=== PATIENT | male | born 1945 ===

== ENCOUNTER 2018-01-08 09:29 | Day surgery (SDC) | payer MEDICARE ==
[2018-01-03 08:53] VITALS: BMI 25.0
[2018-01-08] MEDS ORDERED: Lactated Ringer's 500 ML IV ONE (12:27)
[2018-01-08] MEDS ORDERED: Propofol 10 mg/ml Inj (20 ML) ONE ×2 (12:31)
[2018-01-08 13:28] VITALS: TEMP 97.5
[2018-01-08 13:30] VITALS: O2SAT 98
[2018-01-08 13:51] LABS: BLOOD UREA NITROGEN 19 mg/dL (9-20); CALCIUM 9.3 mg/dl (8.6-10.4); GFR NON-AFRICAN AMERICAN 59
[2018-01-08 14:25] VITALS: BP 143/67; PULSE 68; RESP 15
== END 2018-01-08 14:20 | disposition home or self-care (01) ==
LOC: C.ENDO 09:29
PROVIDERS: ATTEND Internal Medicine Gastroenterology
DX: Z12.11 Encounter for screening for malignant neoplasm of colon (principal); C18.7 Malignant neoplasm of sigmoid colon; D50.9 Iron deficiency anemia, unspecified; K29.70 Gastritis, unspecified, without bleeding; K64.1 Second degree hemorrhoids; K31.9 Disease of stomach and duodenum, unspecified
CPT/HCPCS: 36415; 43239; 45380; 45381; 80048; 82948; 88305; 88342; J2704; J7040; J7120

== ENCOUNTER 2018-02-03 07:32 | Inpatient (IN) | payer MEDICARE ==
[2018-02-03 07:32] VITALS: BMI 25.0
--- NOTE | 2018-02-03 07:57 | C.PDOC ---
History Of Present Illness 72 years old male with PMHx of CAD, HTN, and DM presents to ED for complaints of on and off abdominal pain that began 1 month ago. Patient states he was sent by his PMD (Dr. Rojo) to get tests done before his upcoming colorectal surgery scheduled for Saturday. Denies fever, diarrhea, constipation, blood in stool, or history of smoking. Time Seen by Provider: 02/03/18 07:45 Chief Complaint (Nursing): Medical Clearance History Per: Patient History/Exam Limitations: no limitations Onset/Duration Of Symptoms: Hrs Current Symptoms Are (Timing): Still Present Recent travel outside of the [place]: No Past Medical History Reviewed: Historical Data, Nursing Documentation, Vital Signs Vital Signs: Last Vital Signs Temp 98.1 F 02/03/18 09:57 Pulse 78 02/03/18 09:57 Resp 16 02/03/18 09:57 BP 153/68 H 02/03/18 09:57 Pulse Ox 100 02/03/18 09:57 - Medical History PMH: Anemia (Takes Feosol), HTN, Hypercholesterolemia Family History: States: No Known Family Hx - Social History Hx Alcohol Use: No Hx Substance Use: No - Immunization History Hx Tetanus Toxoid Vaccination: No Hx Influenza Vaccination: No Hx Pneumococcal Vaccination: No Review Of Systems Constitutional: Negative for: Fever, Chills Cardiovascular: Negative for: Palpitations Gastrointestinal: Positive for: Abdominal Pain. Negative for: Nausea, Vomiting , Diarrhea, Constipation, Hematochezia Skin: Negative for: Rash Neurological: Negative for: Weakness, Numbness Physical Exam - Physical Exam Appears: Well, Non-toxic, No Acute Distress Skin: Normal Color, Warm, Dry, No Rash Head: Atraumatic, Normacephalic Eye(s): bilateral: Normal Inspection, EOMI Oral Mucosa: Moist Neck: Normal ROM Chest: Symmetrical Cardiovascular: Rhythm Regular, No Murmur Respiratory: Normal Breath Sounds, No Rales, No Rhonchi, No Wheezing Gastrointestinal/Abdominal: Bowel Sounds (Active), Soft, No Tenderness, No Distention, No Guarding Extremity: Bilateral: Atraumatic, Normal Color And Temperature, Normal ROM Neurological/Psych: Oriented x3, Normal Speech Gait: Steady ED Course And Treatment - Laboratory Results Result Diagrams: 02/03/18 08:14 02/03/18 08:14 O2 Sat by Pulse Oximetry: 100 (RA) Pulse Ox Interpretation: Normal - Other Rad CXR X-Ray: Viewed By Me, Read By Radiologist Interpretation: Chest x-ray two views. History: Shortness of breath. Comparison: None available. Findings. Mild venous congestion. Heart size normal limits. Tortuous aorta. Degenerative changes in the spine and shoulders. Biapical pleural thickening with upper lobe granulomatous changes. Impression. Mild venous congestion. Heart size normal limits. Tortuous aorta. Degenerative changes in the spine and shoulders. Biapical pleural thickening with upper lobe granulomatous changes. Medical Decision Making Medical Decision Making: Impression: patient with atypical chest pain and needs medical clearance for pre -op Plan: Ordered EKG, blood work, CXR, urine culture, and urinalysis. Progress: Spoke with Dr. Rojo and patient will be admitted for atypical chest pain and will need further pre-op testing including nuclear stress test. Patient has upcoming surgery with Dr. Matthew Disposition - Disposition Disposition: HOSPITALIZED Disposition Time: 08:00 Condition: STABLE - POA Present On Arrival: None - Clinical Impression Clinical Impression: Chest pain, atypical, Medical assessment, Colonic neoplasm - PA / ACOUSTIC INTELLIGENCE SPECIALIST / Resident Statement MD/DO has reviewed & agrees with the documentation as recorded. - Scribe Statement The provider has reviewed the documentation as recorded by the Flor Rodriguez All medical record entries made by the Jovannyibe were at my direction and personally dictated by me. I have reviewed the chart and agree that the record accurately reflects my personal performance of the history, physical exam, medical decision making, and the department course for this patient. I have also personally directed, reviewed, and agree with the discharge instructions and disposition. Decision To Admit - Pt Status Changed To: Hospital Disposition Of: Inpatient - Admit Certification Admit to Inpatient:: After my assessment, the patient will require hospitalization for at least two midnights. This is because of the severity of symptoms shown, intensity of services needed, and/or the medical risk in this patient being treated as an outpatient. - InPatient: Physician Admission Certification: I certify that this patient requires 2 or more midnights of care for the following reason:: Patient with sig PMH, needs further cardiac med clearance for pre-op. - . Bed Request Type: Telemetry Admitting Physician: Matt Rojo Patient Diagnosis: Chest pain, atypical, Medical assessment, Colonic neoplasm
[2018-02-03 08:26] LABS: BASO % 0.5 % (0.0-2.0); EOS # 0.1 K/uL (0.0-0.7); EOS % 0.9 % (0.0-4.0); HEMOGLOBIN 10.8 g/dL (12.0-18.0); LYMPH # 1.9 K/uL (1.0-4.3); LYMPH % 21.9 % (20.0-40.0); MEAN CELL VOLUME 74.4 fL (80.0-94.0); MEAN CORPUSCULAR HGB CONC 32.3 g/dL (33.0-37.0); MONO # 0.5 K/uL (0.0-0.8); MONO % 5.7 % (0.0-10.0); NEUT # 6.2 K/uL (1.8-7.0); RBC 4.5 Mil/uL (4.40-5.90); RED CELL DISTRIBUTION WIDTH 19.3 % (11.5-14.5); WHITE BLOOD COUNT 8.8 K/uL (4.8-10.8)
[2018-02-03 08:32] LABS: INR 1.2; PROTHROMBIN TIME 12.6 SECONDS (9.7-12.2)
[2018-02-03 08:36] LABS: ALB/GLOB RATIO 1.3 (1.0-2.1); ALBUMIN 4.4 g/dL (3.5-5.0); ALT/SGPT 19 U/L (21-72); AST/SGOT 15 U/L (17-59); BLOOD UREA NITROGEN 35 mg/dL (9-20); CALCIUM 9.8 mg/dl (8.6-10.4); GFR NON-AFRICAN AMERICAN 50
[2018-02-03 08:58] LABS: SQUAMOUS EPITHIAL 1 /hpf (0-5); URINE BILIRUBIN NEGATIVE (NEGATIVE); URINE BLOOD NEGATIVE (NEGATIVE); URINE CLARITY Clear (Clear); URINE COLOR Yellow (YELLOW); URINE GLUCOSE (UA) NORMAL (Normal); URINE LEUKOCYTE ESTERASE NEG Leu/uL (Negative); URINE PROTEIN NEGATIVE (NEGATIVE); URINE UROBILINOGEN NORMAL mg/dL (0.2-1.0)
--- NOTE | 2018-02-03 10:01 | RAD ---
Chest x-ray two views History: Shortness of breath. Comparison: None available. Findings Mild venous congestion. Heart size normal limits. Tortuous aorta. Degenerative changes in the spine and shoulders. Biapical pleural thickening with upper lobe granulomatous changes. Impression Mild venous congestion. Heart size normal limits. Tortuous aorta. Degenerative changes in the spine and shoulders. Biapical pleural thickening with upper lobe granulomatous changes.
[2018-02-03 16:22] VITALS: RESP 20
--- NOTE | 2018-02-03 17:01 | CP.PCM.CON ---
<Antony Zamudio E - Last Filed: 02/03/18 17:02> History of Present Illness - History of Present Illness History of Present Illness: Cardiology consult note ( Dr. Jackson's service) CC: pre-op clearance for colonoscopy scheduled for Saturday02/05/18. HPI: Patient is a 72 year old male with past medical history of HTN, DM, CAD, anemia, and colon carcinoma presents to the ED after referral from his PMD, Dr. Rojo, for complaints of lower abdominal pain while straining to defecate for the past month. In addition, he also complains of shortness of breath on exertion and tightness in his chest after walking 4 blocks that improves with rest. Currently, patient denies any fever, headache, chills, chest pain, palpitations, cough, nausea, vomiting, constipation, diarrhea, dizziness, leg swelling, or calf pains. PMHx: HTN, DM, CAD, anemia, colon carcinoma PSHx: herniated disk surgery (unsure of detail or time) FamHx: denies Allergies: NKDA Medications: See MAR Social Hx: smoked 1/2 ppd for 20 years but quit 20 years ago, denies alcohol or drug use Review of Systems - Constitutional Constitutional: absent: Chills, Fever, Headache - EENT Eyes: absent: Blurred Vision, Change in Vision - Cardiovascular Cardiovascular: Chest Pain with Activity, Dyspnea on Exertion. absent: Chest Pain, Dyspnea, Lightheadedness, Palpitations - Gastrointestinal Gastrointestinal: Abdominal Pain. absent: Nausea, Vomiting - Neurological Neurological: absent: Dizziness - Psychiatric Psychiatric: absent: Anxiety, Change in Appetite - Endocrine Endocrine: absent: Fatigue, Palpitations Past Patient History - Past Medical History & Family History Past Medical History?: Yes - Past Social History Smoking Status: Never Smoked - CARDIAC Hx Hypercholesterolemia: Yes Hx Hypertension: Yes - PULMONARY Hx Respiratory Disorders: No - NEUROLOGICAL Hx Neurological Disorder: No - HEENT Hx HEENT Problems: Yes Hx Deafness: Yes (Hearing loss, no hearing aid) - RENAL Hx Chronic Kidney Disease: No - ENDOCRINE/METABOLIC Hx Endocrine Disorders: Yes Hx Diabetes Mellitus Type 2: Yes - HEMATOLOGICAL/ONCOLOGICAL Hx Anemia: Yes (Takes Feosol) - INTEGUMENTARY Hx Dermatological Problems: No - MUSCULOSKELETAL/RHEUMATOLOGICAL Hx Falls: No Hx Herniated Disk: Yes - GASTROINTESTINAL Hx Gastrointestinal Disorders: No Other/Comment: Abdominal Pain - GENITOURINARY/GYNECOLOGICAL Hx Genitourinary Disorders: No - PSYCHIATRIC Hx Psychophysiologic Disorder: No Hx Substance Use: No - SURGICAL HISTORY Hx Surgeries: Yes Hx Orthopedic Surgery: Yes (Had Back Surgery, HERNIATED DISK REPAIR) Other/Comment: Hx. Thumb Surgery, long time ago - ANESTHESIA Hx Anesthesia: Yes Hx Anesthesia Reactions: No Hx Malignant Hyperthermia: No Meds Allergies/Adverse Reactions: Allergies Allergy/AdvReac Type Severity Reaction Status Date / Time No Known Allergies Allergy Verified 02/03/18 07:38 - Medications Medications: Current Medications Ferrous Sulfate (Feosol) 325 mg PO DAILY [facility] Glipizide (Glucotrol) 5 mg PO DAILY [facility] Hydrochlorothiazide (Hydrodiuril) 25 mg PO DAILY [facility] Lisinopril (Zestril) 20 mg PO DAILY [facility] Rosuvastatin Calcium (Crestor) 20 mg PO HS [facility] Physical Exam - Constitutional Appears: No Acute Distress - Head Exam Head Exam: ATRAUMATIC, NORMAL INSPECTION - Eye Exam Eye Exam: EOMI, Normal appearance - ENT Exam ENT Exam: Mucous Membranes Moist - Respiratory Exam Respiratory Exam: NORMAL BREATHING PATTERN - Cardiovascular Exam Cardiovascular Exam: REGULAR RHYTHM, +S1, +S2 - GI/Abdominal Exam GI & Abdominal Exam: Normal Bowel Sounds, Soft. absent: Distended, Firm, Guarding, Hypoactive Bowel Sounds, Tenderness - Extremities Exam Extremities exam: Positive for: normal inspection Results - Vital Signs Recent Vital Signs: Last Vital Signs Temp 97.8 F 02/03/18 16:22 Pulse 69 02/03/18 16:22 Resp 20 02/03/18 16:22 BP 160/69 H 02/03/18 16:22 Pulse Ox 99 02/03/18 16:22 - Labs Result Diagrams: 02/03/18 08:14 02/03/18 08:14 Labs: Laboratory Results - last 24 hr 02/03/18 02/03/18 02/03/18 08:14 08:14 08:14 WBC 8.8 RBC 4.50 Hgb 10.8 L Hct 33.5 L MCV 74.4 L MCH 24.0 L MCHC 32.3 L RDW 19.3 H Plt Count 349 MPV 8.0 Neut % (Auto) 71.0 Lymph % (Auto) 21.9 [place] % (Auto) 5.7 Eos % (Auto) 0.9 Baso % (Auto) 0.5 Neut # (Auto) 6.2 Lymph # (Auto) 1.9 [place] # (Auto) 0.5 Eos # (Auto) 0.1 Baso # (Auto) 0.0 PT 12.6 H INR 1.2 APTT 31 Sodium Potassium Chloride Carbon Dioxide Anion Gap BUN Creatinine Est GFR ( Amer) Est GFR (Non-Af Amer) POC Glucose (mg/dL) Random Glucose Calcium Total Bilirubin AST ALT Alkaline Phosphatase Total Creatine Kinase CK-MB (Mass) Troponin I Total Protein Albumin Globulin Albumin/Globulin Ratio Urine Color Yellow Urine Clarity Clear Urine pH 5.0 Ur Specific [place] 1.015 Urine Protein Negative Urine Glucose (UA) Normal Urine Ketones Negative Urine Blood Negative Urine Nitrate Negative Urine Bilirubin Negative Urine Urobilinogen Normal Ur Leukocyte Esterase Neg Urine WBC (Auto) < 1 Ur Squamous Epith Cells 1 02/03/18 02/03/18 02/03/18 08:14 08:55 11:53 WBC RBC Hgb Hct MCV MCH MCHC RDW Plt Count MPV Neut % (Auto) Lymph % (Auto) [place] % (Auto) Eos % (Auto) Baso % (Auto) Neut # (Auto) Lymph # (Auto) [place] # (Auto) Eos # (Auto) Baso # (Auto) PT INR APTT Sodium 145 Potassium 4.2 Chloride 102 Carbon Dioxide 28 Anion Gap 19 BUN 35 H Creatinine 1.4 Est GFR ( Amer) 60 Est GFR (Non-Af Amer) 50 POC Glucose (mg/dL) 121 H Random Glucose 141 H Calcium 9.8 Total Bilirubin 0.9 AST 15 L ALT 19 L Alkaline Phosphatase 105 Total Creatine Kinase 65 CK-MB (Mass) 0.50 Troponin I < 0.0120 < 0.0120 Total Protein 7.9 Albumin 4.4 Globulin 3.5 Albumin/Globulin Ratio 1.3 Urine Color Urine Clarity Urine pH Ur Specific [place] Urine Protein Urine Glucose (UA) Urine Ketones Urine Blood Urine Nitrate Urine Bilirubin Urine Urobilinogen Ur Leukocyte Esterase Urine WBC (Auto) Ur Squamous Epith Cells Assessment & Plan (1) Preop cardiovascular exam Assessment and Plan: Patient is a 72 year old male with past medical history of HTN, DM, CAD, anemia , and colon carcinoma who presents to the ED due to worsening symptoms. Cardiology consult was placed for cardiac clearance: - EKG: NSR at 92 BPM - F/u echo - Plans for pharmacology stress test in the am All plans and management discussed with Dr. Jackson Status: Acute <Lorenzo Jackson - Last Filed: 02/04/18 06:05> Meds - Medications Medications: Current Medications Ferrous Sulfate (Feosol) 325 mg PO DAILY [facility] Glipizide (Glucotrol) 5 mg PO DAILY [facility] Hydrochlorothiazide (Hydrodiuril) 25 mg PO DAILY [facility] Lisinopril (Zestril) 20 mg PO DAILY [facility] Rosuvastatin Calcium (Crestor) 20 mg PO HS [facility] Last Admin: 02/03/18 21:07 Dose: 20 mg Results - Vital Signs Recent Vital Signs: Last Vital Signs Temp 97.8 F 02/03/18 23:40 Pulse 60 02/04/18 04:00 Resp 20 02/03/18 23:40 BP 134/63 02/03/18 23:40 Pulse Ox 98 02/03/18 23:40 - Labs Result Diagrams: 02/03/18 08:14 02/03/18 08:14 Labs: Laboratory Results - last 24 hr 02/03/18 02/03/18 02/03/18 08:14 08:14 08:14 WBC 8.8 RBC 4.50 Hgb 10.8 L Hct 33.5 L MCV 74.4 L MCH 24.0 L MCHC 32.3 L RDW 19.3 H Plt Count 349 MPV 8.0 Neut % (Auto) 71.0 Lymph % (Auto) 21.9 [place] % (Auto) 5.7 Eos % (Auto) 0.9 Baso % (Auto) 0.5 Neut # (Auto) 6.2 Lymph # (Auto) 1.9 [place] # (Auto) 0.5 Eos # (Auto) 0.1 Baso # (Auto) 0.0 PT 12.6 H INR 1.2 APTT 31 Sodium Potassium Chloride Carbon Dioxide Anion Gap BUN Creatinine Est GFR ( Amer) Est GFR (Non-Af Amer) POC Glucose (mg/dL) Random Glucose Calcium Total Bilirubin AST ALT Alkaline Phosphatase Total Creatine Kinase CK-MB (Mass) Troponin I Total Protein Albumin Globulin Albumin/Globulin Ratio Urine Color Yellow Urine Clarity Clear Urine pH 5.0 Ur Specific [place] 1.015 Urine Protein Negative Urine Glucose (UA) Normal Urine Ketones Negative Urine Blood Negative Urine Nitrate Negative Urine Bilirubin Negative Urine Urobilinogen Normal Ur Leukocyte Esterase Neg Urine WBC (Auto) < 1 Ur Squamous Epith Cells 1 02/03/18 02/03/18 02/03/18 08:14 08:55 11:53 WBC RBC Hgb Hct MCV MCH MCHC RDW Plt Count MPV Neut % (Auto) Lymph % (Auto) [place] % (Auto) Eos % (Auto) Baso % (Auto) Neut # (Auto) Lymph # (Auto) [place] # (Auto) Eos # (Auto) Baso # (Auto) PT INR APTT Sodium 145 Potassium 4.2 Chloride 102 Carbon Dioxide 28 Anion Gap 19 BUN 35 H Creatinine 1.4 Est GFR ( Amer) 60 Est GFR (Non-Af Amer) 50 POC Glucose (mg/dL) 121 H Random Glucose 141 H Calcium 9.8 Total Bilirubin 0.9 AST 15 L ALT 19 L Alkaline Phosphatase 105 Total Creatine Kinase 65 CK-MB (Mass) 0.50 Troponin I < 0.0120 < 0.0120 Total Protein 7.9 Albumin 4.4 Globulin 3.5 Albumin/Globulin Ratio 1.3 Urine Color Urine Clarity Urine pH Ur Specific [place] Urine Protein Urine Glucose (UA) Urine Ketones Urine Blood Urine Nitrate Urine Bilirubin Urine Urobilinogen Ur Leukocyte Esterase Urine WBC (Auto) Ur Squamous Epith Cells Assessment & Plan - Assessment and Plan (Free Text) Assessment: Patient seen and evaluated personally by de Plan of care d/w the medical case manager and as documented
[2018-02-04] MEDS ORDERED: Caffeine Citrated **INJ** 20 MG/ML IV ONE (07:53)
--- NOTE | 2018-02-04 11:45 | CARD ---
APPROVED REPORT Date of service: 02/03/2018 EKG Measurement Heart [id number] <Conclusion> Normal sinus rhythm Nonspecific ST abnormality Abnormal ECG
[2018-02-04 16:26] VITALS: BP 131/71; PULSE 75; TEMP 98.1; O2SAT 99
--- NOTE | 2018-02-04 18:11 | CP.PCM.DIS ---
Provider - Provider Date of Admission: 02/03/18 07:54 Attending physician: Matt Rojo MD Hospital Course - Lab Results Lab Results: Micro Results 02/03/18 08:14 Urine Urine Culture - Final No Growth (<1,000 CFU/ML) Most Recent Lab Values WBC 8.8 K/uL (4.8-10.8) 02/03/18 08:14 RBC 4.50 Mil/uL (4.40-5.90) 02/03/18 08:14 Hgb 10.8 g/dL (12.0-18.0) L 02/03/18 08:14 Hct 33.5 % (35.0-51.0) L 02/03/18 08:14 MCV 74.4 fL (80.0-94.0) L 02/03/18 08:14 MCH 24.0 pg (27.0-31.0) L 02/03/18 08:14 MCHC 32.3 g/dL (33.0-37.0) L 02/03/18 08:14 RDW 19.3 % (11.5-14.5) H 02/03/18 08:14 Plt Count 349 K/uL (130-400) 02/03/18 08:14 MPV 8.0 fL (7.2-11.7) 02/03/18 08:14 Neut % (Auto) 71.0 % (50.0-75.0) 02/03/18 08:14 Lymph % (Auto) 21.9 % (20.0-40.0) 02/03/18 08:14 [place] % (Auto) 5.7 % (0.0-10.0) 02/03/18 08:14 Eos % (Auto) 0.9 % (0.0-4.0) 02/03/18 08:14 Baso % (Auto) 0.5 % (0.0-2.0) 02/03/18 08:14 Neut # (Auto) 6.2 K/uL (1.8-7.0) 02/03/18 08:14 Lymph # (Auto) 1.9 K/uL (1.0-4.3) 02/03/18 08:14 [place] # (Auto) 0.5 K/uL (0.0-0.8) 02/03/18 08:14 Eos # (Auto) 0.1 K/uL (0.0-0.7) 02/03/18 08:14 Baso # (Auto) 0.0 K/uL (0.0-0.2) 02/03/18 08:14 PT 12.6 SECONDS (9.7-12.2) H 02/03/18 08:14 INR 1.2 02/03/18 08:14 APTT 31 SECONDS (21-34) 02/03/18 08:14 Sodium 145 mmol/L (132-148) 02/03/18 08:14 Potassium 4.2 mmol/L (3.6-5.2) 02/03/18 08:14 Chloride 102 mmol/L (98-107) 02/03/18 08:14 Carbon Dioxide 28 mmol/L (22-30) 02/03/18 08:14 Anion Gap 19 (10-20) 02/03/18 08:14 BUN 35 mg/dL (9-20) H 02/03/18 08:14 Creatinine 1.4 mg/dL (0.8-1.5) 02/03/18 08:14 Est GFR ( Amer) 60 02/03/18 08:14 Est GFR (Non-Af Amer) 50 02/03/18 08:14 POC Glucose (mg/dL) 167 mg/dL (65-110) H 02/04/18 11:25 Random Glucose 141 mg/dL (75-110) H 02/03/18 08:14 Calcium 9.8 mg/dl (8.6-10.4) 02/03/18 08:14 Total Bilirubin 0.9 mg/dL (0.2-1.3) 02/03/18 08:14 AST 15 U/L (17-59) L 02/03/18 08:14 ALT 19 U/L (21-72) L 02/03/18 08:14 Alkaline Phosphatase 105 U/L (38-126) 02/03/18 08:14 Total Creatine Kinase 65 U/L (55-170) 02/03/18 11:53 CK-MB (Mass) 0.50 ng/mL (0.0-3.38) 02/03/18 11:53 Troponin I < 0.0120 ng/mL (0.00-0.120) 02/03/18 11:53 Total Protein 7.9 g/dL (6.3-8.3) 02/03/18 08:14 Albumin 4.4 g/dL (3.5-5.0) 02/03/18 08:14 Globulin 3.5 gm/dL (2.2-3.9) 02/03/18 08:14 Albumin/Globulin Ratio 1.3 (1.0-2.1) 02/03/18 08:14 Urine Color Yellow (YELLOW) 02/03/18 08:14 Urine Clarity Clear (Clear) 02/03/18 08:14 Urine pH 5.0 (5.0-8.0) 02/03/18 08:14 Ur Specific [place] 1.015 (1.003-1.030) 02/03/18 08:14 Urine Protein Negative mg/dL (NEGATIVE) 02/03/18 08:14 Urine Glucose (UA) Normal mg/dL (Normal) 02/03/18 08:14 Urine Ketones Negative mg/dL (NEGATIVE) 02/03/18 08:14 Urine Blood Negative (NEGATIVE) 02/03/18 08:14 Urine Nitrate Negative (NEGATIVE) 02/03/18 08:14 Urine Bilirubin Negative (NEGATIVE) 02/03/18 08:14 Urine Urobilinogen Normal mg/dL (0.2-1.0) 02/03/18 08:14 Ur Leukocyte Esterase Neg [place]ima/uL (Negative) 02/03/18 08:14 Urine WBC (Auto) < 1 /hpf (0-5) 02/03/18 08:14 Ur Squamous Epith Cells 1 /hpf (0-5) 02/03/18 08:14 Discharge Exam - Head Exam Head Exam: ATRAUMATIC, NORMAL INSPECTION Discharge Plan - Follow Up Plan Condition: STABLE Disposition: HOME/ ROUTINE Instructions: Heart Healthy Diet, Chest Pain (DC) Referrals: Matt Rojo MD [Staff Provider] -
--- NOTE | 2018-02-04 18:11 | CP.PCM.HP ---
Past Patient History - Past Medical History & Family History Past Medical History?: Yes - Past Social History Smoking Status: Never Smoked - CARDIAC Hx Hypercholesterolemia: Yes Hx Hypertension: Yes - PULMONARY Hx Respiratory Disorders: No - NEUROLOGICAL Hx Neurological Disorder: No - HEENT Hx HEENT Problems: Yes Hx Deafness: Yes (Hearing loss, no hearing aid) - RENAL Hx Chronic Kidney Disease: No - ENDOCRINE/METABOLIC Hx Endocrine Disorders: Yes Hx Diabetes Mellitus Type 2: Yes - HEMATOLOGICAL/ONCOLOGICAL Hx Anemia: Yes (Takes Feosol) - INTEGUMENTARY Hx Dermatological Problems: No - MUSCULOSKELETAL/RHEUMATOLOGICAL Hx Falls: No Hx Herniated Disk: Yes - GASTROINTESTINAL Hx Gastrointestinal Disorders: No Other/Comment: Abdominal Pain - GENITOURINARY/GYNECOLOGICAL Hx Genitourinary Disorders: No - PSYCHIATRIC Hx Psychophysiologic Disorder: No Hx Substance Use: No - SURGICAL HISTORY Hx Surgeries: Yes Hx Orthopedic Surgery: Yes (Had Back Surgery, HERNIATED DISK REPAIR) Other/Comment: Hx. Thumb Surgery, long time ago - ANESTHESIA Hx Anesthesia: Yes Hx Anesthesia Reactions: No Hx Malignant Hyperthermia: No Meds Allergies/Adverse Reactions: Allergies Allergy/AdvReac Type Severity Reaction Status Date / Time No Known Allergies Allergy Verified 02/03/18 07:38 Results - Vital Signs Recent Vital Signs: Last Vital Signs Temp 98.1 F 02/04/18 15:00 Pulse 75 02/04/18 15:00 Resp 20 02/04/18 15:00 BP 131/71 02/04/18 15:00 Pulse Ox 99 02/04/18 15:00 - Labs Result Diagrams: 02/03/18 08:14 02/03/18 08:14 Labs: Laboratory Results - last 24 hr 02/04/18 02/04/18 06:29 11:25 POC Glucose (mg/dL) 149 H 167 H
--- NOTE | 2018-02-04 22:04 | CARD ---
APPROVED REPORT Date of service: 02/04/2018 EXAM: Two-dimensional and M-mode echocardiogram with Doppler and color Doppler. Other Information Quality : GoodRhythm : INDICATION Cardiac Disease: CAD Chest Pain RISK FACTORS Hypertension Hyperlipidemia Diabetes 2D DIMENSIONS IVSd1.0 (0.7-1.1cm)LVDd4.3 (3.9-5.9cm) PWd1.0 (0.7-1.1cm)LVDs3.2 (2.5-4.0cm) FS (%) 25.8 %LVEF (%)51.0 (>50%) M-Mode DIMENSIONS RVDd2.40 (2.1-3.2cm)Left Atrium (MM)3.17 (2.5-4.0cm) IVSd0.88 (0.7-1.1cm)Aortic Root3.03 (2.2-3.7cm) LVDd4.86 (4.0-5.6cm)Aortic Cusp Exc.1.79 (1.5-2.0cm) PWd1.15 (0.7-1.1cm)FS (%) 29 % LVDs3.46 (2.0-3.8cm)LVEF (%)55 (>50%) Mitral Valve MV E Cvnyctmr12.6cm/sMV A Zftaezwd60.3cm/sE/A ratio0.9 TDI E/Lateral E'0.0E/Medial E'0.0 Tricuspid Valve TR Peak [id number]/sTR Peak Gr.[id number] LEFT VENTRICLE The left ventricle is normal size. There is normal left ventricular wall thickness. Left ventricle systolic function is normal. The Ejection Fraction is 55-60%. There is normal LV segmental wall motion. The left ventricular diastolic function is normal. No left ventricle thrombus noted on this study. RIGHT VENTRICLE The right ventricle is normal size. The right ventricular systolic function is normal. ATRIA The left atrium size is normal. The right atrium size is normal. AORTIC VALVE The aortic valve is mildly thickened. The aortic valve is trileaflet. No aortic regurgitation is present. There is no aortic valvular stenosis. There is no aortic valvular vegetation. MITRAL VALVE Mitral annular calcification is mild. There is no evidence of mitral valve prolapse. There is no mitral valve stenosis. There is no mitral valve regurgitation noted. TRICUSPID VALVE The tricuspid valve is normal in structure. There is mild tricuspid regurgitation. Right ventricular systolic pressure is estimated at 30-40 mmHg. There is no pulmonary hypertension. There is no tricuspid valve prolapse or vegetation. There is no tricuspid valve stenosis. PULMONIC VALVE The pulmonic valve is not well visualized. There is no pulmonic valvular regurgitation. GREAT VESSELS The aortic root is normal in size. The IVC is normal in size and collapses >50% with inspiration. PERICARDIAL EFFUSION There is no pericardial effusion. There is no pleural effusion. <Conclusion> The left ventricle is normal size. Left ventricle systolic function is normal. The Ejection Fraction is 55-60%. The left ventricular diastolic function is normal. The right ventricle is normal size. The right ventricular systolic function is normal. The left atrium size is normal. The right atrium size is normal. There is mild tricuspid regurgitation. Essentialy ormal findings.
--- NOTE | 2018-02-05 05:59 | CP.PCM.PN ---
Subjective - Date & Time of Evaluation Date of Evaluation: 02/04/18 Time of Evaluation: 16:10 - Subjective Subjective: Patient s/p Stress test and ECHO for Pre Op assessment for Colon surgery Social Hx: smoked 1/2 ppd for 20 years but quit 20 years ago, denies alcohol or drug use Review of Systems - Constitutional Constitutional: absent: Chills, Fever, Headache - EENT Eyes: absent: Blurred Vision, Change in Vision - Cardiovascular Cardiovascular: Chest Pain with Activity, Dyspnea on Exertion. absent: Chest Pain, Dyspnea, Lightheadedness, Palpitations - Gastrointestinal Gastrointestinal: Abdominal Pain. absent: Nausea, Vomiting - Neurological Neurological: absent: Dizziness - Psychiatric Psychiatric: absent: Anxiety, Change in Appetite - Endocrine Endocrine: absent: Fatigue, Palpitations Physical Exam - Constitutional Appears: No Acute Distress - Head Exam Head Exam: ATRAUMATIC, NORMAL INSPECTION - Eye Exam Eye Exam: EOMI, Normal appearance - ENT Exam ENT Exam: Mucous Membranes Moist - Respiratory Exam Respiratory Exam: NORMAL BREATHING PATTERN - Cardiovascular Exam Cardiovascular Exam: REGULAR RHYTHM, +S1, +S2 - GI/Abdominal Exam GI & Abdominal Exam: Normal Bowel Sounds, Soft. absent: Distended, Firm, Guarding, Hypoactive Bowel Sounds, Tenderness - Extremities Exam Extremities exam: Positive for: normal inspection Assessment & Plan (1) Preop cardiovascular exam Assessment and Plan: Patient is a 72 year old male with past medical history of HTN, DM, CAD, anemia , and colon carcinoma who presents to the ED due to worsening symptoms. Cardiology consult was placed for cardiac Risk assessment: - EKG: NSR at 92 BPM - Echo: Normal EF and no major valvular issues - Pharmacology stress test: No evidence of stress induced sichemia Patient with no cardiac symptoms This patient cleared for Colon surgery under general anaesthesia with moderate cardiac risk No high cardiac risk indicators noted Thank you Will follow Objective - Vital Signs/Intake and Output Vital Signs (last 24 hours): Temp Pulse Resp BP Pulse Ox 98.1 F 75 20 131/71 99 02/04/18 15:00 02/04/18 15:00 02/04/18 15:00 02/04/18 15:00 02/04/18 15:00 Intake and Output: 02/04/18 02/05/18 18:59 06:59 Intake Total 480 Balance 480 - Labs Labs: 02/03/18 08:14 02/03/18 08:14 PT 12.6 SECONDS (9.7-12.2) H 02/03/18 08:14 INR 1.2 02/03/18 08:14 APTT 31 SECONDS (21-34) 02/03/18 08:14
== END 2018-02-04 18:42 | disposition home or self-care (01) | DRG 376 ==
LOC: C.ER 07:32 → C.9E 07:54 → C.6T 14:52
PROVIDERS: ADMIT Internal Medicine; ATTEND Internal Medicine
DX: C18.9 Malignant neoplasm of colon, unspecified (principal); R07.89 Other chest pain; E11.9 Type 2 diabetes mellitus without complications; I10 Essential (primary) hypertension; I25.10 Atherosclerotic heart disease of native coronary artery without angina pectoris; E78.00 Pure hypercholesterolemia, unspecified; H91.90 Unspecified hearing loss, unspecified ear; Z87.891 Personal history of nicotine dependence

== ENCOUNTER 2018-02-05 07:30 | Inpatient (IN) | payer MEDICARE ==
[2018-01-03 08:53] VITALS: BMI 25.0
[2018-02-12] MEDS ORDERED: ceFAZolin IV 1 gm in Dextrose 2 GM/100 ML BAG IVPB ONE (07:28)
[2018-02-12] MEDS ORDERED: Lidocaine/Epinephrine 1% 1:100000 10 ML IJ ONE (07:28)
[2018-02-12] MEDS ORDERED: Bupivacaine 0.25% 20 ML INJ IJ ONE (07:28)
[2018-02-12] MEDS ORDERED: metroNIDAZOLE IV 500 mg/100 ml 500 MG/100 ML BAG ONE (07:28)
[2018-02-12] MEDS ORDERED: Bupivacaine HCl 0.5% PF (30 ml) Inj IJ ONE (07:42)
[2018-02-12] MEDS ORDERED: Rocuronium 10 mg/ml (5 ml) ONE ×3 (08:36→13:28)
[2018-02-12] MEDS ORDERED: Propofol 10 mg/ml Inj (20 ML) ONE (08:36)
[2018-02-12] MEDS ORDERED: Midazolam 2 MG/2 ML VIAL ONE (08:36)
[2018-02-12] MEDS ORDERED: Succinylcholine Chloride 20 mg/ml Syr (5 ml) IV ONE (08:36)
[2018-02-12] MEDS: Bupivacaine 0.5% Inj(30mL) IJ ONE ×2 (11:05→15:37)
[2018-02-12] MEDS ORDERED: ePHEDrine 50 mg/ml Inj ONE (12:25)
[2018-02-12] MEDS ORDERED: Methylene Blue 10 mg/mL(10ml) IV ONE (12:48)
[2018-02-12] MEDS ORDERED: ceFAZolin 1 gm in NS 1 GM/100 ML BAG IVPB ONE (13:40)
[2018-02-12] MEDS ORDERED: Neostigmine Methylsulfate 3mg/3ml Syringe IV ONE (15:11)
[2018-02-12] MEDS ORDERED: Morphine 4 MG/ML VIAL ONE (15:15)
[2018-02-12] MEDS ORDERED: HYDROmorphone 0.5 mg/0.5 ml ISec IVP PRN (16:33)
[2018-02-12] MEDS ORDERED: BUPIVACAINE 0.125%/0.9% NACL 600 ML IJ ONE (16:35)
--- NOTE | 2018-02-12 16:49 | PCM.SURG1 ---
Surgeon's Initial Post Op Note - Surgeon's Notes Surgeon: Dr. jose Multiple Sclerosis Nurse: Nellie Lewis DO rn Type of Anesthesia: General Endo, Local Anesthesia Administered By: magan Pre-Operative Diagnosis: Colorectal CA Operative Findings: Rectal cancer 10cm from the anal verge, large mass Post-Operative Diagnosis: Rectal Cancer Operation Performed: robot assisted laparoscopic partial colectomy with ileostomy Specimen/Specimens Removed: recum, sigmoid cancer Estimated Blood Loss: EBL {In ML}: 100 Blood Products Given: N/A Drains Used: Thomas Post-Op Condition: Good Date of Surgery/Procedure: 02/12/18 Time of Surgery/Procedure: 16:50
[2018-02-12] MEDS: Piperacill/Tazo 3.375gm in Dex 3.375 GM/50 ML BAG IVPB SCH (18:00)
[2018-02-12] MEDS: Dextrose 5%/0.45% NS 1,000 ML IV SCH (18:30)
[2018-02-13] MEDS: HYDROmorphone 0.5 mg/0.5 ml ISec IVP PRN ×3 (00:43→17:58)
[2018-02-13] MEDS: Piperacill/Tazo 3.375gm in Dex 3.375 GM/50 ML BAG IVPB SCH ×3 (00:45→17:51)
[2018-02-13] MEDS: Dextrose 5%/0.45% NS 1,000 ML IV SCH ×2 (03:00→12:04)
--- NOTE | 2018-02-13 03:55 | OP ---
PROCEDURE DATE: 02/12/2018 PREOPERATIVE DIAGNOSIS: Rectal Adenocarcinoma, Upper to mid POSTOPERATIVE DIAGNOSIS: Rectal Adenocarcinoma, Mid Rectum PROCEDURE: 1. Robotic low anterior resection. 2. Diverting loop ileostomy. 3. Laparoscopic bilateral On-Q pain catheter pump placement. SURGEON: Melchor Rainey MD. PRINCIPAL TECHNICAL SPECIALIST: ANN Ram Hae Lee PGY-2 resident. ANESTHESIA: General endotracheal tube anesthesia. ESTIMATED BLOOD LOSS: Around 15 mL. DRAINS: A 19 Bangl[place]hi Thomas drain was placed. COMPLICATIONS: None. INTRAOPERATIVE FINDINGS: The patient had large mid rectal tumor extending up to the lower rectum and due to the low rectal anastomosis, an ileostomy was done for diversion. PROCEDURE: On intraoperative steps, this 72-year-old male was diagnosed with major rectal cancer and the patient was consented for the robotic LAR , possible ileostomy, possible open, brought to the OR, placed supine on the operating room. After induction of the anesthesia, the abdomen was prepped and draped in the usual sterile fashion. The left upper quadrant incision was made using the Visiport technique. Using the Visiport technique, the peritoneal cavity was entered and pneumo was created. Another three 8 mm port was placed in the left upper quadrant. A 3 mm port was placed in the upper abdomen and one 12 mm port was placed in the right lower quadrant and after that robot was brought in. Camera arm as well as arm 1 and arm 2 was docked and the dissection of the sigmoid was done from the lateral abdominal wall and the dissection was carried down on the peritoneal reflection into the pelvis. The patient found to have a large rectal tumor in the mid part of the rectum and after that first the left ureter and then the right ureter was identified. The ureter was dissected up to the full course to complete identification as well as isolation and the dissection was carried down to identify the inferior mesenteric artery and inferior mesenteric artery was clipped at three places and the cut in between two clips and then the rest of the sigmoid colon was mobilized for anastomosis and after that the dissection was carried down into the NGUYEN plane and posteriorly the dissection was done up to the lower rectum. Laterally both side, the dissection was continued up to the lower rectum and the lateral rectal ligament as well as attachment was divided and superiorly the Denonvilliers fascia was identified and the dissection was carried down to lift up the prostatic capsule and the rectum was . Now, the distal rectum appeared to be cancer free and viable and now the EEA was used to divide the rectum, approximately 5 to 6 30 mm EEA was used to divide the rectum and mesorectum. After that the specimen was sent off the table for the pathology. Now, the procedure was converted into the laparoscopy and the small incision was made and a specimen retrieval bag was placed and the specimen was sent off the table for the pathology. The end of the sigmoid was brought out and Anvil was placed. End to end anastomosis was done. Anastomosis was checked for leak and there was no leak identified and intraoperative Firefly was used before anastomosis and after anastomosis to make sure for the good blood supply. The anastomosis has good blood supply without any tension and there was no leak identified on the air leak test and after that proper hemostasis was achieved in the pelvis. A #19 Bangladeshi Thomas drain was placed and the loop ileostomy was created and the specimen retrieval site was closed in two layers. The peritoneum with 0 Vicryl, the fascia with #1 loop PDS and 0 Vicryl interrupted suture and the skin with 4-0 Monocryl at all the port sites. The stoma appliance was placed on the ileostomy after maturation and dry sterile dressings was applied. The patient extubated in the OR, sent to the postanesthesia care in stable condition. There was no apparent complication. Melchor Rainey MD [facility]
[2018-02-13 07:21] LABS: BASO # 0.1 K/uL (0.0-0.2); BASO % 0.6 % (0.0-2.0); EOS % 0.2 % (0.0-4.0); HEMOGLOBIN 9.5 g/dL (12.0-18.0); LYMPH % 11.1 % (20.0-40.0); MEAN CELL VOLUME 73.9 fL (80.0-94.0); MEAN CORPUSCULAR HEMOGLOBIN 24.3 pg (27.0-31.0); MEAN CORPUSCULAR HGB CONC 32.8 g/dL (33.0-37.0); MEAN PLATELET VOLUME 7.8 fL (7.2-11.7); MONO # 0.6 K/uL (0.0-0.8); MONO % 6.4 % (0.0-10.0); NEUT # 7.2 K/uL (1.8-7.0); NEUT % 81.7 % (50.0-75.0); RBC 3.93 Mil/uL (4.40-5.90); WHITE BLOOD COUNT 8.8 K/uL (4.8-10.8)
[2018-02-13] MEDS: Enoxaparin 40 mg Syringe SC SCH (09:30)
--- NOTE | 2018-02-13 15:06 | CP.PCM.PN ---
<ManeCarlos - Last Filed: 02/13/18 15:03> Subjective - Date & Time of Evaluation Date of Evaluation: 02/13/18 Time of Evaluation: 15:03 - Subjective Subjective: Surgery Pt seen and examined. Pt underwent surgery yesterday and tolerated it well. Stoma is place. Pain controlled. Briggs had 3L output since OR. Taken out. Denies nausea, CP, SOB. On Q in place. Haven't ambulate because of pain. Objective - Vital Signs/Intake and Output Vital Signs (last 24 hours): Temp Pulse Resp BP Pulse Ox 98.7 F 92 H 20 107/55 L 98 02/13/18 07:15 02/13/18 07:15 02/13/18 07:15 02/13/18 07:15 02/13/18 07:15 Intake and Output: 02/13/18 02/13/18 06:59 18:59 Intake Total 1490 Output Total 1200 Balance 290 - Medications Medications: Current Medications Acetaminophen (Tylenol 325mg Tab) 650 mg PO Q6 PRN PRN Reason: Fever >100.4 F Enoxaparin Sodium (Lovenox) 40 mg SC DAILY [facility] Last Admin: 02/13/18 09:30 Dose: 40 mg Hydromorphone HCl (Dilaudid) 0.5 mg IVP Q4H PRN PRN Reason: Pain, moderate (4-7) Last Admin: 02/13/18 05:12 Dose: 0.5 mg BUPIVACAINE 0.125%/0.9% NACL (Bupivacaine-Ns 0.125% On-Q Leather Cartridge Belt Maker) 600 mls @ 4 mls/hr IJ ONCE ONE Stop: 02/18/18 22:34 Piperacillin Sod/Tazobactam Sod (Zosyn 3.375 Gm Iv Premix) 3.375 gm in 50 mls @ 200 mls/hr IVPB Q8H [facility]; Protocol Last Admin: 02/13/18 09:31 Dose: 200 mls/hr Potassium Chloride (Potassium Chloride 20 Meq/100 Ml) 20 meq in 100 mls @ 50 mls/hr IVPB ONCE ONE Stop: 02/13/18 15:29 Last Admin: 02/13/18 13:35 Dose: 50 mls/hr Dextrose/Sodium Chloride (Dextrose 5%/0.45% Ns 1000 Ml) 1,000 mls @ 50 mls/hr IV .Q20H [facility] Ondansetron HCl (Zofran Inj) 4 mg IVP Q4 PRN PRN Reason: Nausea/Vomiting Pneumococcal Polyvalent Vaccine (Pneumovax 23 Vaccine) 0.5 ml IM .ONCE ONE Stop: 02/15/18 10:01 - Labs Labs: 02/13/18 07:11 02/13/18 07:11 - Constitutional Appears: No Acute Distress - Head Exam Head Exam: ATRAUMATIC, NORMAL INSPECTION, NORMOCEPHALIC - Eye Exam Eye Exam: EOMI, Normal appearance, PERRL Pupil Exam: NORMAL ACCOMODATION, PERRL - ENT Exam ENT Exam: Mucous Membranes Moist, Normal Exam - Neck Exam Neck Exam: Full ROM - Respiratory Exam Respiratory Exam: NORMAL BREATHING PATTERN - Cardiovascular Exam Cardiovascular Exam: REGULAR RHYTHM, +S1, +S2. absent: Murmur - GI/Abdominal Exam GI & Abdominal Exam: Soft, Tenderness, Normal Bowel Sounds. absent: Distended Additional comments: On Q in place. Incision C/D/I. TTP. Stoma has 20cc SS fluids in bag. [place]. - Exam Exam: NORMAL INSPECTION - Extremities Exam Extremities Exam: Full ROM - Back Exam Back Exam: NORMAL INSPECTION - Neurological Exam Neurological Exam: Alert, Awake, CN II-XII Intact, Normal Gait, Oriented x3 - Psychiatric Exam Psychiatric exam: Normal Affect, Normal Mood - Skin Skin Exam: Dry, Intact, Normal Color, Warm Assessment and Plan - Assessment and Plan (Free Text) Assessment: POD 1 s/p Low anterior resection w anastomosis with diverting loop ileostomy -CLD -monitor BM -MOnitor urine -Labs -IS/OOB/ambulate DW Dr. Rainey <Melchor Rainey B - Last Filed: 02/16/18 19:35> Objective - Vital Signs/Intake and Output Vital Signs (last 24 hours): Temp Pulse Resp BP Pulse Ox 97.8 F 89 20 140/73 97 02/16/18 15:35 02/16/18 15:35 02/16/18 15:35 02/16/18 15:35 02/16/18 15:35 Intake and Output: 02/16/18 02/17/18 18:59 06:59 Intake Total 500 Output Total 170 Balance 330 - Medications Medications: Current Medications Acetaminophen (Tylenol 325mg Tab) 650 mg PO Q6 PRN PRN Reason: Fever >100.4 F Enoxaparin Sodium (Lovenox) 40 mg SC DAILY [facility] Last Admin: 02/16/18 10:19 Dose: 40 mg Ferrous Sulfate (Feosol) 325 mg PO DAILY [facility] Last Admin: 02/16/18 10:19 Dose: 325 mg Hydrochlorothiazide (Hydrodiuril) 25 mg PO DAILY [facility] Last Admin: 02/16/18 10:25 Dose: 25 mg Hydromorphone HCl (Dilaudid) 0.5 mg IVP Q4H PRN PRN Reason: Pain, moderate (4-7) Last Admin: 02/16/18 17:46 Dose: 0.5 mg Piperacillin Sod/Tazobactam Sod (Zosyn 3.375 Gm Iv Premix) 3.375 gm in 50 mls @ 200 mls/hr IVPB Q8H [facility]; Protocol Last Admin: 02/16/18 17:43 Dose: 200 mls/hr Dextrose/Sodium Chloride (Dextrose 5%/0.45% Ns 1000 Ml) 1,000 mls @ 50 mls/hr IV .Q20H [facility] Last Admin: 02/16/18 03:43 Dose: 50 mls/hr BUPIVACAINE 0.125%/0.9% NACL (Bupivacaine-Ns 0.125% On-Q Leather Cartridge Belt Maker) 600 mls @ 4 mls/hr IJ ONCE ONE Stop: 02/21/18 21:59 Last Admin: 02/15/18 18:41 Dose: 4 mls/hr Lisinopril (Zestril) 20 mg PO DAILY [facility] Last Admin: 02/16/18 10:19 Dose: 20 mg Ondansetron HCl (Zofran Inj) 4 mg IVP Q4 PRN PRN Reason: Nausea/Vomiting Last Admin: 02/15/18 05:33 Dose: 4 mg Rosuvastatin Calcium (Crestor) 20 mg PO HS [facility] Last Admin: 02/15/18 21:31 Dose: 20 mg Simethicone (Mylicon Chew Tab) 80 mg PO TID PRN PRN Reason: GI distress Last Admin: 02/16/18 19:11 Dose: 80 mg Tamsulosin HCl (Flomax) 0.4 mg PO DAILY [facility] Last Admin: 02/16/18 10:21 Dose: 0.4 mg - Labs Labs: 02/16/18 07:23 02/16/18 07:23 Attending/Attestation - Attestation I have personally seen and examined this patient.: Yes I have fully participated in the care of the patient.: Yes I have reviewed all pertinent clinical information, including history, physical exam and plan: Yes Notes (Text): Pt was seen and examine at bedside Agree with above note and assessment Pt is improving clinically Blood tinge urine, possible mild bladder contusion replace Briggs Hold Lovenox for now IV antibiotics repeat Labs in am Plan d.w pt in detail Risk and benefit explained in detail
[2018-02-14] MEDS: HYDROmorphone 0.5 mg/0.5 ml ISec IVP PRN ×3 (00:14→22:22)
[2018-02-14] MEDS: Piperacill/Tazo 3.375gm in Dex 3.375 GM/50 ML BAG IVPB SCH ×3 (00:38→18:10)
[2018-02-14] MEDS: Dextrose 5%/0.45% NS 1,000 ML IV SCH ×2 (08:05→10:12)
[2018-02-14 08:06] LABS: HEMOGLOBIN 11.2 g/dL (12.0-18.0); MEAN CELL VOLUME 74.6 fL (80.0-94.0); MEAN CORPUSCULAR HEMOGLOBIN 24.4 pg (27.0-31.0); MEAN CORPUSCULAR HGB CONC 32.7 g/dL (33.0-37.0); MEAN PLATELET VOLUME 8.1 fL (7.2-11.7); RBC 4.61 Mil/uL (4.40-5.90)
[2018-02-14 08:08] LABS: WHITE BLOOD COUNT 13.5 K/uL (4.8-10.8)
[2018-02-14 08:22] LABS: BLOOD UREA NITROGEN 13 mg/dL (9-20); CALCIUM 8.7 mg/dl (8.6-10.4); GFR NON-AFRICAN AMERICAN 59
--- NOTE | 2018-02-14 08:50 | CP.PCM.PN ---
Addendum entered and electronically signed by Ashley Morales DO 02/14/18 08:57: TEX with 540/24Hrs, serousanguinous output Original Note: <Ashley Morales - Last Filed: 02/14/18 08:48> Subjective - Date & Time of Evaluation Date of Evaluation: 02/14/18 Time of Evaluation: 08:48 - Subjective Subjective: General surgery progress note for Dr. Rainey-Ashley Morales, PGY-2 Pt S & E at bedside at 0620 Pt reports ab pain, hiccups, feels bloated. Denies N & V, F & C, flatus, BM. Briggs in place with uro-sanguinous output. Objective - Vital Signs/Intake and Output Vital Signs (last 24 hours): Temp Pulse Resp BP Pulse Ox 98.5 F 103 H 20 174/88 H 94 L 02/14/18 07:05 02/14/18 07:05 02/14/18 07:05 02/14/18 07:05 02/14/18 07:05 Intake and Output: 02/14/18 02/14/18 06:59 18:59 Intake Total 1290 Output Total 2640 Balance -1350 - Medications Medications: Current Medications Acetaminophen (Tylenol 325mg Tab) 650 mg PO Q6 PRN PRN Reason: Fever >100.4 F Enoxaparin Sodium (Lovenox) 40 mg SC DAILY [facility] Last Admin: 02/13/18 09:30 Dose: 40 mg Hydromorphone HCl (Dilaudid) 0.5 mg IVP Q4H PRN PRN Reason: Pain, moderate (4-7) Last Admin: 02/14/18 06:58 Dose: 0.5 mg BUPIVACAINE 0.125%/0.9% NACL (Bupivacaine-Ns 0.125% On-Q Software Engineering Specialist) 600 mls @ 4 mls/hr IJ ONCE ONE Stop: 02/18/18 22:34 Piperacillin Sod/Tazobactam Sod (Zosyn 3.375 Gm Iv Premix) 3.375 gm in 50 mls @ 200 mls/hr IVPB Q8H [facility]; Protocol Last Admin: 02/14/18 08:05 Dose: 200 mls/hr Dextrose/Sodium Chloride (Dextrose 5%/0.45% Ns 1000 Ml) 1,000 mls @ 50 mls/hr IV .Q20H [facility] Last Admin: 02/14/18 08:05 Dose: 50 mls/hr Ondansetron HCl (Zofran Inj) 4 mg IVP Q4 PRN PRN Reason: Nausea/Vomiting Pneumococcal Polyvalent Vaccine (Pneumovax 23 Vaccine) 0.5 ml IM .ONCE ONE Stop: 02/15/18 10:01 Simethicone (Mylicon Chew Tab) 80 mg PO TID PRN PRN Reason: GI distress - Labs Labs: 02/14/18 07:53 02/14/18 07:53 - Constitutional Appears: Non-toxic, No Acute Distress - Head Exam Head Exam: ATRAUMATIC, NORMAL INSPECTION, NORMOCEPHALIC - Eye Exam Eye Exam: EOMI, Normal appearance - ENT Exam ENT Exam: Mucous Membranes Moist, Normal Exam - Neck Exam Neck Exam: Full ROM, Normal Inspection - Respiratory Exam Respiratory Exam: NORMAL BREATHING PATTERN - Cardiovascular Exam Cardiovascular Exam: REGULAR RHYTHM, +S1, +S2 - GI/Abdominal Exam GI & Abdominal Exam: Distended, Tenderness (over incision sites). absent: Firm, Guarding, Rigid Additional comments: Ileostomy with liquid output to bag- light yellow - Extremities Exam Extremities Exam: Normal Inspection - Neurological Exam Neurological Exam: Alert, Awake, CN II-XII Intact, Oriented x3 - Psychiatric Exam Psychiatric exam: Normal Affect, Normal Mood - Skin Skin Exam: Dry, Intact, Normal Color, Warm Additional comments: Abdomen with 5 surgical sites with dressings in place-clean/dry/intact Assessment and Plan - Assessment and Plan (Free Text) Assessment: 73M POD#2 s/p LAR w/anastomosis w/diverting loop ileostomy Plan: NPO except meds Monitor for bowel function PT/OT OOBTC Ambulate Monitor ostomy output Encourage IS use Briggs to stay for now Will JOHN Morales, PGY-2 <Melchor Rainey B - Last Filed: 02/16/18 19:36> Objective - Vital Signs/Intake and Output Vital Signs (last 24 hours): Temp Pulse Resp BP Pulse Ox 97.8 F 89 20 140/73 97 02/16/18 15:35 02/16/18 15:35 02/16/18 15:35 02/16/18 15:35 02/16/18 15:35 Intake and Output: 02/16/18 02/17/18 18:59 06:59 Intake Total 500 Output Total 170 Balance 330 - Medications Medications: Current Medications Acetaminophen (Tylenol 325mg Tab) 650 mg PO Q6 PRN PRN Reason: Fever >100.4 F Enoxaparin Sodium (Lovenox) 40 mg SC DAILY [facility] Last Admin: 02/16/18 10:19 Dose: 40 mg Ferrous Sulfate (Feosol) 325 mg PO DAILY [facility] Last Admin: 02/16/18 10:19 Dose: 325 mg Hydrochlorothiazide (Hydrodiuril) 25 mg PO DAILY [facility] Last Admin: 02/16/18 10:25 Dose: 25 mg Hydromorphone HCl (Dilaudid) 0.5 mg IVP Q4H PRN PRN Reason: Pain, moderate (4-7) Last Admin: 02/16/18 17:46 Dose: 0.5 mg Piperacillin Sod/Tazobactam Sod (Zosyn 3.375 Gm Iv Premix) 3.375 gm in 50 mls @ 200 mls/hr IVPB Q8H [facility]; Protocol Last Admin: 02/16/18 17:43 Dose: 200 mls/hr Dextrose/Sodium Chloride (Dextrose 5%/0.45% Ns 1000 Ml) 1,000 mls @ 50 mls/hr IV .Q20H [facility] Last Admin: 02/16/18 03:43 Dose: 50 mls/hr BUPIVACAINE 0.125%/0.9% NACL (Bupivacaine-Ns 0.125% On-Q Software Engineering Specialist) 600 mls @ 4 mls/hr IJ ONCE ONE Stop: 02/21/18 21:59 Last Admin: 02/15/18 18:41 Dose: 4 mls/hr Lisinopril (Zestril) 20 mg PO DAILY [facility] Last Admin: 02/16/18 10:19 Dose: 20 mg Ondansetron HCl (Zofran Inj) 4 mg IVP Q4 PRN PRN Reason: Nausea/Vomiting Last Admin: 02/15/18 05:33 Dose: 4 mg Rosuvastatin Calcium (Crestor) 20 mg PO HS [facility] Last Admin: 02/15/18 21:31 Dose: 20 mg Simethicone (Mylicon Chew Tab) 80 mg PO TID PRN PRN Reason: GI distress Last Admin: 02/16/18 19:11 Dose: 80 mg Tamsulosin HCl (Flomax) 0.4 mg PO DAILY [facility] Last Admin: 02/16/18 10:21 Dose: 0.4 mg - Labs Labs: 02/16/18 07:23 02/16/18 07:23 Attending/Attestation - Attestation I have personally seen and examined this patient.: Yes I have fully participated in the care of the patient.: Yes I have reviewed all pertinent clinical information, including history, physical exam and plan: Yes Notes (Text): Pt was seen and examine at bedside Agree with above note and assessment Pt is stable clinically No blood in urine Start DVT prophylaxis IV antibiotics Plan d.w pt in detail Risk and benefit explained in detail
[2018-02-14] MEDS: Simethicone 80 mg Chewtab PO PRN (22:26)
[2018-02-15] MEDS: Piperacill/Tazo 3.375gm in Dex 3.375 GM/50 ML BAG IVPB SCH ×3 (00:40→17:16)
[2018-02-15] MEDS: Dextrose 5%/0.45% NS 1,000 ML IV SCH (05:33)
[2018-02-15 08:05] LABS: MEAN CELL VOLUME 73.9 fL (80.0-94.0); MEAN CORPUSCULAR HEMOGLOBIN 24.7 pg (27.0-31.0); MEAN CORPUSCULAR HGB CONC 33.3 g/dL (33.0-37.0); MEAN PLATELET VOLUME 7.9 fL (7.2-11.7); RBC 4.48 Mil/uL (4.40-5.90); RED CELL DISTRIBUTION WIDTH 18.5 % (11.5-14.5); WHITE BLOOD COUNT 12.7 K/uL (4.8-10.8)
[2018-02-15 08:12] LABS: BLOOD UREA NITROGEN 14 mg/dL (9-20); CALCIUM 9.2 mg/dl (8.6-10.4); GFR NON-AFRICAN AMERICAN 59
[2018-02-15] MEDS: HYDROmorphone 0.5 mg/0.5 ml ISec IVP PRN (08:22)
[2018-02-15] MEDS ORDERED: Pneumococcal 23-Valent Vaccine IM ONE (10:00)
[2018-02-15] MEDS: Enoxaparin 40 mg Syringe SC SCH (10:30)
[2018-02-15] MEDS: Simethicone 80 mg Chewtab PO PRN ×2 (12:00→20:41)
--- NOTE | 2018-02-15 15:32 | CP.PCM.PN ---
<Ashley Morales - Last Filed: 02/15/18 18:30> Subjective - Date & Time of Evaluation Date of Evaluation: 02/15/18 Time of Evaluation: 15:30 - Subjective Subjective: General surgery progress note for Dr. Rainey-Ashley Morales, PGY-1 Pt S & E at bedside at 0650 and again at 1320 Pt reports abdominal pain, was OOBTC x 2 yesterday. Reports small amount of flatus. hiccups. Hernández examined, no visible blood- Lovenox given this AM. TEX w/220 cc serous output/16 hrs. Objective - Vital Signs/Intake and Output Vital Signs (last 24 hours): Temp Pulse Resp BP Pulse Ox 97.9 F 81 20 173/70 H 96 02/15/18 07:00 02/15/18 07:00 02/15/18 07:00 02/15/18 07:00 02/15/18 07:00 Intake and Output: 02/15/18 02/15/18 06:59 18:59 Intake Total 375 Output Total 1140 Balance -765 - Medications Medications: Current Medications Acetaminophen (Tylenol 325mg Tab) 650 mg PO Q6 PRN PRN Reason: Fever >100.4 F Enoxaparin Sodium (Lovenox) 40 mg SC DAILY [facility] Last Admin: 02/15/18 10:30 Dose: 40 mg Ferrous Sulfate (Feosol) 325 mg PO DAILY [facility] Last Admin: 02/15/18 10:29 Dose: 325 mg Hydrochlorothiazide (Hydrodiuril) 25 mg PO DAILY [facility] Last Admin: 02/15/18 10:29 Dose: 25 mg Hydromorphone HCl (Dilaudid) 0.5 mg IVP Q4H PRN PRN Reason: Pain, moderate (4-7) Last Admin: 02/15/18 08:22 Dose: 0.5 mg BUPIVACAINE 0.125%/0.9% NACL (Bupivacaine-Ns 0.125% On-Q Sweet Pickled Fruit Maker) 600 mls @ 4 mls/hr IJ ONCE ONE Stop: 02/18/18 22:34 Piperacillin Sod/Tazobactam Sod (Zosyn 3.375 Gm Iv Premix) 3.375 gm in 50 mls @ 200 mls/hr IVPB Q8H [facility]; Protocol Last Admin: 02/15/18 08:24 Dose: 200 mls/hr Dextrose/Sodium Chloride (Dextrose 5%/0.45% Ns 1000 Ml) 1,000 mls @ 50 mls/hr IV .Q20H [facility] Last Admin: 02/15/18 05:33 Dose: 50 mls/hr BUPIVACAINE 0.125%/0.9% NACL (Bupivacaine-Ns 0.125% On-Q Sweet Pickled Fruit Maker) 600 mls @ 4 mls/hr IJ ONCE ONE Stop: 02/21/18 21:21 Lisinopril (Zestril) 20 mg PO DAILY [facility] Last Admin: 02/15/18 10:29 Dose: 20 mg Ondansetron HCl (Zofran Inj) 4 mg IVP Q4 PRN PRN Reason: Nausea/Vomiting Last Admin: 02/15/18 05:33 Dose: 4 mg Rosuvastatin Calcium (Crestor) 20 mg PO HS [facility] Simethicone (Mylicon Chew Tab) 80 mg PO TID PRN PRN Reason: GI distress Last Admin: 02/15/18 12:00 Dose: 80 mg - Labs Labs: 02/15/18 07:57 02/15/18 07:57 - Constitutional Appears: Non-toxic, No Acute Distress - Head Exam Head Exam: ATRAUMATIC, NORMAL INSPECTION, NORMOCEPHALIC - Eye Exam Eye Exam: EOMI, Normal appearance - ENT Exam ENT Exam: Mucous Membranes Moist, Normal Exam - Neck Exam Neck Exam: Full ROM, Normal Inspection - Respiratory Exam Respiratory Exam: NORMAL BREATHING PATTERN - Cardiovascular Exam Cardiovascular Exam: REGULAR RHYTHM, +S1, +S2 - GI/Abdominal Exam GI & Abdominal Exam: Distended (mild), Soft, Tenderness (mild, over RLQ, surgical incision sites- incision sites with small island dressings in place- clean/dry/intact). absent: Firm, Guarding, Rigid, Hernia - Exam Exam: NORMAL INSPECTION - Extremities Exam Extremities Exam: Normal Inspection - Neurological Exam Neurological Exam: Alert, Awake, CN II-XII Intact, Oriented x3 Additional comments: hard of hearing - Psychiatric Exam Psychiatric exam: Normal Affect, Normal Mood - Skin Skin Exam: Dry, Intact, Normal Color, Warm Assessment and Plan - Assessment and Plan (Free Text) Assessment: 73M POD#3 s/p LAR w/anastomosis w/diverting loop ileostomy Plan: Cont NPO except meds Monitor for bowel function PT/OT OOBTC Ambulate Monitor ostomy output Encourage IS use d/c'd hernández Resumed home BP meds Pain control- refilled OnQ Cont IVF DW Dr. Redd Morales, PGY-2 <Melchor Rainey B - Last Filed: 02/16/18 19:05> Objective - Vital Signs/Intake and Output Vital Signs (last 24 hours): Temp Pulse Resp BP Pulse Ox 97.8 F 89 20 140/73 97 02/16/18 15:35 02/16/18 15:35 02/16/18 15:35 02/16/18 15:35 02/16/18 15:35 Intake and Output: 02/16/18 02/17/18 18:59 06:59 Intake Total 500 Output Total 170 Balance 330 - Medications Medications: Current Medications Acetaminophen (Tylenol 325mg Tab) 650 mg PO Q6 PRN PRN Reason: Fever >100.4 F Enoxaparin Sodium (Lovenox) 40 mg SC DAILY [facility] Last Admin: 02/16/18 10:19 Dose: 40 mg Ferrous Sulfate (Feosol) 325 mg PO DAILY [facility] Last Admin: 02/16/18 10:19 Dose: 325 mg Hydrochlorothiazide (Hydrodiuril) 25 mg PO DAILY [facility] Last Admin: 02/16/18 10:25 Dose: 25 mg Hydromorphone HCl (Dilaudid) 0.5 mg IVP Q4H PRN PRN Reason: Pain, moderate (4-7) Last Admin: 02/16/18 17:46 Dose: 0.5 mg Piperacillin Sod/Tazobactam Sod (Zosyn 3.375 Gm Iv Premix) 3.375 gm in 50 mls @ 200 mls/hr IVPB Q8H [facility]; Protocol Last Admin: 02/16/18 17:43 Dose: 200 mls/hr Dextrose/Sodium Chloride (Dextrose 5%/0.45% Ns 1000 Ml) 1,000 mls @ 50 mls/hr IV .Q20H [facility] Last Admin: 02/16/18 03:43 Dose: 50 mls/hr BUPIVACAINE 0.125%/0.9% NACL (Bupivacaine-Ns 0.125% On-Q Sweet Pickled Fruit Maker) 600 mls @ 4 mls/hr IJ ONCE ONE Stop: 02/21/18 21:59 Last Admin: 02/15/18 18:41 Dose: 4 mls/hr Lisinopril (Zestril) 20 mg PO DAILY [facility] Last Admin: 02/16/18 10:19 Dose: 20 mg Ondansetron HCl (Zofran Inj) 4 mg IVP Q4 PRN PRN Reason: Nausea/Vomiting Last Admin: 02/15/18 05:33 Dose: 4 mg Rosuvastatin Calcium (Crestor) 20 mg PO HS [facility] Last Admin: 02/15/18 21:31 Dose: 20 mg Simethicone (Mylicon Chew Tab) 80 mg PO TID PRN PRN Reason: GI distress Last Admin: 02/15/18 20:41 Dose: 80 mg Tamsulosin HCl (Flomax) 0.4 mg PO DAILY [facility] Last Admin: 02/16/18 10:21 Dose: 0.4 mg - Labs Labs: 02/16/18 07:23 02/16/18 07:23 Attending/Attestation - Attestation I have fully participated in the care of the patient.: Yes I have reviewed all pertinent clinical information, including history, physical exam and plan: Yes Notes (Text): Pt is improving clinically CAMILA hernández Stat DVT prophylaxis OOB to walk Plan d.w pt in detail
[2018-02-15] MEDS ORDERED: BUPIVACAINE 0.125%/0.9% NACL 600 ML IJ ONE (16:00)
[2018-02-16] MEDS: Piperacill/Tazo 3.375gm in Dex 3.375 GM/50 ML BAG IVPB SCH ×3 (01:00→17:43)
[2018-02-16] MEDS: HYDROmorphone 0.5 mg/0.5 ml ISec IVP PRN ×3 (01:04→17:46)
[2018-02-16] MEDS: Dextrose 5%/0.45% NS 1,000 ML IV SCH ×2 (03:43→21:48)
[2018-02-16 07:37] LABS: HEMOGLOBIN 12.1 g/dL (12.0-18.0); MEAN CELL VOLUME 75.2 fL (80.0-94.0); MEAN CORPUSCULAR HEMOGLOBIN 24.5 pg (27.0-31.0); MEAN CORPUSCULAR HGB CONC 32.6 g/dL (33.0-37.0); MEAN PLATELET VOLUME 8.1 fL (7.2-11.7); RBC 4.94 Mil/uL (4.40-5.90); RED CELL DISTRIBUTION WIDTH 18.8 % (11.5-14.5); WHITE BLOOD COUNT 13.5 K/uL (4.8-10.8)
[2018-02-16 08:03] LABS: CALCIUM 9.3 mg/dl (8.6-10.4)
[2018-02-16] MEDS: Enoxaparin 40 mg Syringe SC SCH (10:19)
--- NOTE | 2018-02-16 11:22 | CP.PCM.PN ---
Addendum entered and electronically signed by Geronimo Call DO 02/16/18 15:23: Patient failed voiding trial, will reinsert hernández catheter. Original Note: <Geronimo Call - Last Filed: 02/16/18 11:22> Subjective - Date & Time of Evaluation Date of Evaluation: 02/16/18 Time of Evaluation: 06:45 - Subjective Subjective: Patient seen and examined. Had to be straight catheterized over night with 600cc of urine drained. Some bowel sweat in ileostomy site.200cc of serous drainage noted from thomas drain. Thomas drain dressings changed. Objective - Vital Signs/Intake and Output Vital Signs (last 24 hours): Temp Pulse Resp BP Pulse Ox 97.9 F 85 20 137/77 97 02/16/18 07:00 02/16/18 07:00 02/16/18 07:00 02/16/18 07:00 02/16/18 07:00 Intake and Output: 02/16/18 02/16/18 06:59 18:59 Intake Total 725 Output Total 720 Balance 5 - Medications Medications: Current Medications Acetaminophen (Tylenol 325mg Tab) 650 mg PO Q6 PRN PRN Reason: Fever >100.4 F Enoxaparin Sodium (Lovenox) 40 mg SC DAILY [facility] Last Admin: 02/16/18 10:19 Dose: 40 mg Ferrous Sulfate (Feosol) 325 mg PO DAILY [facility] Last Admin: 02/16/18 10:19 Dose: 325 mg Hydrochlorothiazide (Hydrodiuril) 25 mg PO DAILY [facility] Last Admin: 02/16/18 10:25 Dose: 25 mg Hydromorphone HCl (Dilaudid) 0.5 mg IVP Q4H PRN PRN Reason: Pain, moderate (4-7) Last Admin: 02/16/18 08:18 Dose: 0.5 mg Piperacillin Sod/Tazobactam Sod (Zosyn 3.375 Gm Iv Premix) 3.375 gm in 50 mls @ 200 mls/hr IVPB Q8H [facility]; Protocol Last Admin: 02/16/18 08:45 Dose: 200 mls/hr Dextrose/Sodium Chloride (Dextrose 5%/0.45% Ns 1000 Ml) 1,000 mls @ 50 mls/hr IV .Q20H [facility] Last Admin: 02/16/18 03:43 Dose: 50 mls/hr BUPIVACAINE 0.125%/0.9% NACL (Bupivacaine-Ns 0.125% On-Q Stave Block Splitter) 600 mls @ 4 mls/hr IJ ONCE ONE Stop: 02/21/18 21:59 Last Admin: 02/15/18 18:41 Dose: 4 mls/hr Lisinopril (Zestril) 20 mg PO DAILY [facility] Last Admin: 02/16/18 10:19 Dose: 20 mg Ondansetron HCl (Zofran Inj) 4 mg IVP Q4 PRN PRN Reason: Nausea/Vomiting Last Admin: 02/15/18 05:33 Dose: 4 mg Rosuvastatin Calcium (Crestor) 20 mg PO HS [facility] Last Admin: 02/15/18 21:31 Dose: 20 mg Simethicone (Mylicon Chew Tab) 80 mg PO TID PRN PRN Reason: GI distress Last Admin: 02/15/18 20:41 Dose: 80 mg Tamsulosin HCl (Flomax) 0.4 mg PO DAILY [facility] Last Admin: 02/16/18 10:21 Dose: 0.4 mg - Labs Labs: 02/16/18 07:23 02/16/18 07:23 - Constitutional Appears: No Acute Distress - Head Exam Head Exam: NORMOCEPHALIC - Eye Exam Eye Exam: Normal appearance Pupil Exam: NORMAL ACCOMODATION - Respiratory Exam Respiratory Exam: NORMAL BREATHING PATTERN - Cardiovascular Exam Cardiovascular Exam: +S1, +S2 - GI/Abdominal Exam GI & Abdominal Exam: Distended, Soft. absent: Guarding, Rigid - Neurological Exam Neurological Exam: Alert, Awake, Oriented x3 - Psychiatric Exam Psychiatric exam: Normal Mood - Skin Skin Exam: Dry, Intact, Warm Assessment and Plan - Assessment and Plan (Free Text) Assessment: 73M POD#4 s/p LAR w/anastomosis w/diverting loop ileostomy Plan: NPO except meds Monitor for bowel function Out of bed to chair Encourage ambulation Monitor ostomy output Encourage IS use Void check Resumed home BP meds C/w analgesics prn Cont IVF DW Dr. Redd Sherwood PGY3 <Melchor Rainey - Last Filed: 02/16/18 19:02> Objective - Vital Signs/Intake and Output Vital Signs (last 24 hours): Temp Pulse Resp BP Pulse Ox 97.8 F 89 20 140/73 97 02/16/18 15:35 02/16/18 15:35 02/16/18 15:35 02/16/18 15:35 02/16/18 15:35 Intake and Output: 02/16/18 02/17/18 18:59 06:59 Intake Total 500 Output Total 170 Balance 330 - Medications Medications: Current Medications Acetaminophen (Tylenol 325mg Tab) 650 mg PO Q6 PRN PRN Reason: Fever >100.4 F Enoxaparin Sodium (Lovenox) 40 mg SC DAILY [facility] Last Admin: 02/16/18 10:19 Dose: 40 mg Ferrous Sulfate (Feosol) 325 mg PO DAILY [facility] Last Admin: 02/16/18 10:19 Dose: 325 mg Hydrochlorothiazide (Hydrodiuril) 25 mg PO DAILY [facility] Last Admin: 02/16/18 10:25 Dose: 25 mg Hydromorphone HCl (Dilaudid) 0.5 mg IVP Q4H PRN PRN Reason: Pain, moderate (4-7) Last Admin: 02/16/18 17:46 Dose: 0.5 mg Piperacillin Sod/Tazobactam Sod (Zosyn 3.375 Gm Iv Premix) 3.375 gm in 50 mls @ 200 mls/hr IVPB Q8H [facility]; Protocol Last Admin: 02/16/18 17:43 Dose: 200 mls/hr Dextrose/Sodium Chloride (Dextrose 5%/0.45% Ns 1000 Ml) 1,000 mls @ 50 mls/hr IV .Q20H [facility] Last Admin: 02/16/18 03:43 Dose: 50 mls/hr BUPIVACAINE 0.125%/0.9% NACL (Bupivacaine-Ns 0.125% On-Q Stave Block Splitter) 600 mls @ 4 mls/hr IJ ONCE ONE Stop: 02/21/18 21:59 Last Admin: 02/15/18 18:41 Dose: 4 mls/hr Lisinopril (Zestril) 20 mg PO DAILY [facility] Last Admin: 02/16/18 10:19 Dose: 20 mg Ondansetron HCl (Zofran Inj) 4 mg IVP Q4 PRN PRN Reason: Nausea/Vomiting Last Admin: 02/15/18 05:33 Dose: 4 mg Rosuvastatin Calcium (Crestor) 20 mg PO HS [facility] Last Admin: 02/15/18 21:31 Dose: 20 mg Simethicone (Mylicon Chew Tab) 80 mg PO TID PRN PRN Reason: GI distress Last Admin: 02/15/18 20:41 Dose: 80 mg Tamsulosin HCl (Flomax) 0.4 mg PO DAILY [facility] Last Admin: 02/16/18 10:21 Dose: 0.4 mg - Labs Labs: 02/16/18 07:23 02/16/18 07:23 Attending/Attestation - Attestation I have personally seen and examined this patient.: Yes I have fully participated in the care of the patient.: Yes I have reviewed all pertinent clinical information, including history, physical exam and plan: Yes Notes (Text): Pt is improving clinically CAMILA hernández if No hematuria after Lovenox OOB to walk c/w current mx Plan d.w pt in detail
[2018-02-16] MEDS: Simethicone 80 mg Chewtab PO PRN ×2 (19:11→21:55)
[2018-02-17] MEDS: Piperacill/Tazo 3.375gm in Dex 3.375 GM/50 ML BAG IVPB SCH ×3 (01:05→16:30)
[2018-02-17] MEDS: HYDROmorphone 0.5 mg/0.5 ml ISec IVP PRN ×3 (04:47→21:35)
[2018-02-17] MEDS: Simethicone 80 mg Chewtab PO PRN (09:39)
[2018-02-17] MEDS: Enoxaparin 40 mg Syringe SC SCH (09:42)
[2018-02-17] MEDS: Dextrose 5%/0.45% NS 1,000 ML IV SCH (17:29)
[2018-02-18] MEDS: Piperacill/Tazo 3.375gm in Dex 3.375 GM/50 ML BAG IVPB SCH (01:07)
[2018-02-18] MEDS: HYDROmorphone 0.5 mg/0.5 ml ISec IVP PRN ×3 (04:46→23:09)
[2018-02-18] MEDS: Simethicone 80 mg Chewtab PO PRN (04:50)
[2018-02-18 06:16] LABS: BASO % 0.5 % (0.0-2.0); EOS # 0.1 K/uL (0.0-0.7); EOS % 1.2 % (0.0-4.0); HEMOGLOBIN 9.2 g/dL (12.0-18.0); LYMPH % 11.2 % (20.0-40.0); MEAN CELL VOLUME 73.8 fL (80.0-94.0); MEAN CORPUSCULAR HEMOGLOBIN 24.6 pg (27.0-31.0); MEAN CORPUSCULAR HGB CONC 33.3 g/dL (33.0-37.0); MEAN PLATELET VOLUME 7.5 fL (7.2-11.7); MONO # 0.7 K/uL (0.0-0.8); MONO % 7.5 % (0.0-10.0); NEUT # 7.1 K/uL (1.8-7.0); NEUT % 79.6 % (50.0-75.0); RBC 3.74 Mil/uL (4.40-5.90); RED CELL DISTRIBUTION WIDTH 18.6 % (11.5-14.5)
[2018-02-18 06:36] LABS: CALCIUM 8.4 mg/dl (8.6-10.4)
[2018-02-18] MEDS: Enoxaparin 40 mg Syringe SC SCH (10:37)
--- NOTE | 2018-02-18 11:52 | CP.PCM.PN ---
<Carlos Gilliam - Last Filed: 02/18/18 12:49> Subjective - Date & Time of Evaluation Date of Evaluation: 02/18/18 Time of Evaluation: 11:49 - Subjective Subjective: Surgery PT seen and examined. No acute events. Denies fever, nausea. Denies flatus or BM. Minimal output from the stoma. Pt ambulates w help. is in ICU. Briggs in place. Good urine output. Objective - Vital Signs/Intake and Output Vital Signs (last 24 hours): Temp Pulse Resp BP Pulse Ox 98.7 F 88 20 108/57 L 96 02/18/18 07:00 02/18/18 07:00 02/18/18 07:00 02/18/18 07:00 02/18/18 07:00 Intake and Output: 02/18/18 02/18/18 06:59 18:59 Intake Total 775 Output Total 670 Balance 105 - Medications Medications: Current Medications Acetaminophen (Tylenol 325mg Tab) 650 mg PO Q6 PRN PRN Reason: Fever >100.4 F Chlorpromazine (Thorazine) 25 mg PO DAILY PRN PRN Reason: Hiccups Enoxaparin Sodium (Lovenox) 40 mg SC DAILY [facility] Last Admin: 02/18/18 10:37 Dose: 40 mg Ferrous Sulfate (Feosol) 325 mg PO DAILY [facility] Last Admin: 02/18/18 10:37 Dose: 325 mg Hydrochlorothiazide (Hydrodiuril) 25 mg PO DAILY [facility] Last Admin: 02/18/18 10:35 Dose: 25 mg Hydromorphone HCl (Dilaudid) 0.5 mg IVP Q4H PRN PRN Reason: Pain, moderate (4-7) Last Admin: 02/18/18 04:46 Dose: 0.5 mg Dextrose/Sodium Chloride (Dextrose 5%/0.45% Ns 1000 Ml) 1,000 mls @ 50 mls/hr IV .Q20H [facility] Last Admin: 02/17/18 17:29 Dose: 50 mls/hr BUPIVACAINE 0.125%/0.9% NACL (Bupivacaine-Ns 0.125% On-Q [employer] Deeds) 600 mls @ 4 mls/hr IJ ONCE ONE Stop: 02/21/18 21:59 Last Admin: 02/15/18 18:41 Dose: 4 mls/hr Lisinopril (Zestril) 20 mg PO DAILY [facility] Last Admin: 02/18/18 10:36 Dose: 20 mg Metoclopramide HCl (Reglan) 8 mg IVP TID [facility] Stop: 02/18/18 18:00 Last Admin: 02/18/18 10:36 Dose: 8 mg Ondansetron HCl (Zofran Inj) 4 mg IVP Q4 PRN PRN Reason: Nausea/Vomiting Last Admin: 02/18/18 01:06 Dose: 4 mg Rosuvastatin Calcium (Crestor) 20 mg PO HS [facility] Last Admin: 02/17/18 21:34 Dose: 20 mg Simethicone (Mylicon Chew Tab) 80 mg PO TID PRN PRN Reason: GI distress Last Admin: 02/18/18 04:50 Dose: 80 mg Tamsulosin HCl (Flomax) 0.8 mg PO DAILY [facility] Last Admin: 02/18/18 10:36 Dose: 0.8 mg - Labs Labs: 02/18/18 06:11 02/18/18 06:11 - Constitutional Appears: No Acute Distress - Head Exam Head Exam: ATRAUMATIC, NORMAL INSPECTION, NORMOCEPHALIC - Eye Exam Eye Exam: EOMI, Normal appearance, PERRL Pupil Exam: NORMAL ACCOMODATION, PERRL - ENT Exam ENT Exam: Mucous Membranes Moist, Normal Exam - Neck Exam Neck Exam: Full ROM, Normal Inspection. absent: Lymphadenopathy - Respiratory Exam Respiratory Exam: NORMAL BREATHING PATTERN - Cardiovascular Exam Cardiovascular Exam: REGULAR RHYTHM, +S1, +S2. absent: Murmur - GI/Abdominal Exam GI & Abdominal Exam: Distended, Soft, Tenderness. absent: Firm, Guarding, Mass, Rebound Additional comments: R stoma in place. MInimal output. PInk. - Exam Exam: NORMAL INSPECTION Additional comments: Briggs in place. clean urine. - Extremities Exam Extremities Exam: Full ROM - Back Exam Back Exam: NORMAL INSPECTION - Neurological Exam Neurological Exam: Alert, Awake, CN II-XII Intact, Normal Gait, Oriented x3 - Psychiatric Exam Psychiatric exam: Normal Affect, Normal Mood - Skin Skin Exam: Dry, Intact, Normal Color, Warm Assessment and Plan - Assessment and Plan (Free Text) Assessment: 73M POD#5 s/p LAR w/anastomosis w/diverting loop ileostomy Plan: f/u CT A/P PO /IV NPO except meds Monitor for bowel function Out of bed to chair Encourage ambulation Monitor ostomy output Encourage IS use Void check Resumed home BP meds C/w analgesics prn Cont IVF DW Dr. Rainey <Melchor Rainey - Last Filed: 02/19/18 11:25> Objective - Vital Signs/Intake and Output Vital Signs (last 24 hours): Temp Pulse Resp BP Pulse Ox 98.5 F 69 20 110/61 97 02/19/18 07:00 02/19/18 07:00 02/19/18 07:00 02/19/18 07:00 02/19/18 07:00 Intake and Output: 02/19/18 02/19/18 06:59 18:59 Intake Total 450 Output Total 805 Balance -355 - Medications Medications: Current Medications Acetaminophen (Tylenol 325mg Tab) 650 mg PO Q6 PRN PRN Reason: Fever >100.4 F Chlorpromazine (Thorazine) 25 mg PO TID PRN PRN Reason: Hiccups Last Admin: 02/19/18 02:14 Dose: 25 mg Enoxaparin Sodium (Lovenox) 40 mg SC DAILY [facility] Last Admin: 02/19/18 10:07 Dose: 40 mg Ferrous Sulfate (Feosol) 325 mg PO DAILY [facility] Last Admin: 02/18/18 10:37 Dose: 325 mg Hydrochlorothiazide (Hydrodiuril) 25 mg PO DAILY [facility] Last Admin: 02/19/18 10:05 Dose: 25 mg Hydromorphone HCl (Dilaudid) 0.5 mg IVP Q4H PRN PRN Reason: Pain, moderate (4-7) Last Admin: 02/19/18 08:20 Dose: 0.5 mg BUPIVACAINE 0.125%/0.9% NACL (Bupivacaine-Ns 0.125% On-Q [employer]) 600 mls @ 4 mls/hr IJ ONCE ONE Stop: 02/21/18 21:59 Last Admin: 02/15/18 18:41 Dose: 4 mls/hr Potassium Chloride 20 meq/ (Dextrose/Sodium Chloride) 1,010 mls @ 50 mls/hr IV .[id number] [facility] Lisinopril (Zestril) 20 mg PO DAILY [facility] Last Admin: 02/19/18 10:07 Dose: 20 mg Ondansetron HCl (Zofran Inj) 4 mg IVP Q4 PRN PRN Reason: Nausea/Vomiting Last Admin: 02/18/18 01:06 Dose: 4 mg Rosuvastatin Calcium (Crestor) 20 mg PO HS [facility] Last Admin: 02/18/18 22:12 Dose: 20 mg Simethicone (Mylicon Chew Tab) 80 mg PO TID PRN PRN Reason: GI distress Last Admin: 02/18/18 04:50 Dose: 80 mg Tamsulosin HCl (Flomax) 0.8 mg PO DAILY [facility] Last Admin: 02/19/18 10:06 Dose: 0.8 mg - Labs Labs: 02/19/18 06:40 02/19/18 04:00 Attending/Attestation - Attestation I have personally seen and examined this patient.: Yes I have fully participated in the care of the patient.: Yes I have reviewed all pertinent clinical information, including history, physical exam and plan: Yes Notes (Text): Pt was seen and examined at bedside Agree with above note and assessment Pt has persistent ileus CT scan of A/P today OOB to walk IV Reglan Q 8hrs Plan d.w pt in detail Risk and benefit explained in detail.
[2018-02-18] MEDS ORDERED: Dextrose 5%/0.45% NS 1,000 ML IV SCH (13:30)
[2018-02-18] MEDS ORDERED: Iohexol 240 (50 ml) PO ONE (14:15)
--- NOTE | 2018-02-18 17:22 | CT ---
Date of service: 02/18/2018 PROCEDURE: CT Abdomen and Pelvis with contrast HISTORY: ileus, distention, colon cancer. COMPARISON: Chest, abdomen and pelvis CT with contrast 01/13/2018. TECHNIQUE: Helical CT of the abdomen and pelvis was performed following oral contrast administration only. Intravenous contrast was not administered as per referring physician request. Coronal and sagittal reformats were generated. contrast dose: None Radiation dose: Total exam DLP = 783.43 mGy-cm. This CT exam was performed using one or more of the following dose reduction techniques: Automated exposure control, adjustment of the mA and/or kV according to patient size, and/or use of iterative reconstruction technique. FINDINGS: LOWER THORAX: There is a stable 6 mm subpleural nodule abutting the right hemidiaphragm anterior to the major fissure with lung bases otherwise reflecting cardiomegaly and a small hiatal hernia. Incidental gynecomastia identified once again. LIVER: Unremarkable. No gross lesion or ductal dilatation. GALLBLADDER AND BILE DUCTS: Gallbladder is distended but otherwise unremarkable. PANCREAS: Unremarkable. No gross lesion or ductal dilatation. SPLEEN: There is a stable small lucency seen the medial segment of the spleen poorly characterized given lack of intravenous contrast. ADRENALS: Unremarkable. No mass. KIDNEYS AND URETERS: Stable simple cyst exophytic off the upper pole left kidney 5.8 cm with stable, likely chronic mild right hydronephrosis evident. Right ureter appears to be more normal in caliber however. No left obstructive uropathy. VASCULATURE: Unremarkable. No aortic aneurysm. BOWEL: The stomach is quite distended with retained oral contrast material with very little antegrade transit of oral contrast material due to small-bowel dilatation and distal small-bowel obstruction pattern evident. The terminal ileum is collapsed suspicious for relatively high-grade distal small-bowel obstruction. No free intra peritoneal gas. Trace pelvic fluid is evident however there is no prominent ascites in the abdomen. Peritoneal drainage catheter is identified in the bilateral lower pelvis and lower abdomen quadrants. Right lower quadrant ostomy appears stable. APPENDIX: The appendix reiterated. LYMPH NODES: Unremarkable. No enlarged lymph nodes. BLADDER: Partially decompressed by Briggs catheter deployment. REPRODUCTIVE: Mildly enlarged prostate gland noted. BONES: No interval acute fracture. OTHER FINDINGS: None. IMPRESSION: Findings most compatible with relatively high-grade distal small-bowel obstruction from an indeterminate etiology. Trace pelvic ascites. No free intra peritoneal gas. Right lower quadrant ostomy identified.
[2018-02-18] MEDS ORDERED: Potassium Chloride 20 MEQ in Dextrose 5%/0.45% NS 1,000 ML IV SCH ×2 (19:57→22:59)
[2018-02-19 06:53] LABS: HEMOGLOBIN 9.7 g/dL (12.0-18.0); MEAN CELL VOLUME 74.1 fL (80.0-94.0); MEAN CORPUSCULAR HEMOGLOBIN 24.9 pg (27.0-31.0); MEAN CORPUSCULAR HGB CONC 33.6 g/dL (33.0-37.0); MEAN PLATELET VOLUME 7.9 fL (7.2-11.7); RBC 3.91 Mil/uL (4.40-5.90); RED CELL DISTRIBUTION WIDTH 18.4 % (11.5-14.5); WHITE BLOOD COUNT 15.5 K/uL (4.8-10.8)
--- NOTE | 2018-02-19 07:22 | RAD ---
Chest x-ray single frontal view HISTORY: Shortness of breath. Desaturation. COMPARISON: 02/03/2018 FINDINGS: Biapical pleural thickening with upper lobe granulomatous changes. Few scattered nodular densities at the lung apices. Diffuse increased interstitial lung markings. Elevated right hemidiaphragm. Tortuous ectatic aorta. Degenerative changes in the spine with paravertebral osteophytes. IMPRESSION: Biapical pleural thickening with upper lobe granulomatous changes. Few scattered nodular densities at the lung apices. Diffuse increased interstitial lung markings. Elevated right hemidiaphragm. Tortuous ectatic aorta. Degenerative changes in the spine with paravertebral osteophytes.
[2018-02-19] MEDS: HYDROmorphone 0.5 mg/0.5 ml ISec IVP PRN ×2 (08:20→17:53)
[2018-02-19 08:32] LABS: CALCIUM 8.9 mg/dl (8.6-10.4)
[2018-02-19] MEDS: Enoxaparin 40 mg Syringe SC SCH (10:07)
[2018-02-19] MEDS ORDERED: Mineral Oil Enema 135 ml RC ONE (15:15)
--- NOTE | 2018-02-19 15:15 | CP.PCM.PN ---
<ManeCarlos - Last Filed: 02/19/18 15:13> Subjective - Date & Time of Evaluation Date of Evaluation: 02/19/18 Time of Evaluation: 15:13 - Subjective Subjective: Surgery PT seen and examined. No acute events. Denies fever, nausea. Pain controlled. Briggs in place. No output from stoma. Fleet enema administered via stoma. PT's recently and wishes to get DC ed for . Objective - Vital Signs/Intake and Output Vital Signs (last 24 hours): Temp Pulse Resp BP Pulse Ox 98.5 F 69 20 110/61 97 02/19/18 07:00 02/19/18 07:00 02/19/18 07:00 02/19/18 07:00 02/19/18 07:00 Intake and Output: 02/19/18 02/19/18 06:59 18:59 Intake Total 450 Output Total 805 Balance -355 - Medications Medications: Current Medications Acetaminophen (Tylenol 325mg Tab) 650 mg PO Q6 PRN PRN Reason: Fever >100.4 F Chlorpromazine (Thorazine) 25 mg PO TID PRN PRN Reason: Hiccups Last Admin: 02/19/18 02:14 Dose: 25 mg Enoxaparin Sodium (Lovenox) 40 mg SC DAILY [facility] Last Admin: 02/19/18 10:07 Dose: 40 mg Ferrous Sulfate (Feosol) 325 mg PO DAILY [facility] Last Admin: 02/18/18 10:37 Dose: 325 mg Hydrochlorothiazide (Hydrodiuril) 25 mg PO DAILY [facility] Last Admin: 02/19/18 10:05 Dose: 25 mg Hydromorphone HCl (Dilaudid) 0.5 mg IVP Q4H PRN PRN Reason: Pain, moderate (4-7) Last Admin: 02/19/18 08:20 Dose: 0.5 mg BUPIVACAINE 0.125%/0.9% NACL (Bupivacaine-Ns 0.125% On-Q Sleeve Separator) 600 mls @ 4 mls/hr IJ ONCE ONE Stop: 02/21/18 21:59 Last Admin: 02/15/18 18:41 Dose: 4 mls/hr Potassium Chloride 20 meq/ (Dextrose/Sodium Chloride) 1,010 mls @ 50 mls/hr IV .[id number] [facility] Lisinopril (Zestril) 20 mg PO DAILY [facility] Last Admin: 02/19/18 10:07 Dose: 20 mg Mineral Oil (Fleet Mineral Oil Enema) 135 ml RC ONCE ONE Stop: 02/19/18 15:12 Ondansetron HCl (Zofran Inj) 4 mg IVP Q4 PRN PRN Reason: Nausea/Vomiting Last Admin: 02/18/18 01:06 Dose: 4 mg Rosuvastatin Calcium (Crestor) 20 mg PO HS [facility] Last Admin: 02/18/18 22:12 Dose: 20 mg Simethicone (Mylicon Chew Tab) 80 mg PO TID PRN PRN Reason: GI distress Last Admin: 02/18/18 04:50 Dose: 80 mg Tamsulosin HCl (Flomax) 0.8 mg PO DAILY [facility] Last Admin: 02/19/18 10:06 Dose: 0.8 mg - Labs Labs: 02/19/18 06:40 02/19/18 04:00 - Constitutional Appears: No Acute Distress - Head Exam Head Exam: ATRAUMATIC, NORMAL INSPECTION, NORMOCEPHALIC - Eye Exam Eye Exam: EOMI, Normal appearance, PERRL Pupil Exam: NORMAL ACCOMODATION, PERRL - ENT Exam ENT Exam: Mucous Membranes Moist, Normal Exam - Neck Exam Neck Exam: Full ROM, Normal Inspection. absent: Lymphadenopathy - Respiratory Exam Respiratory Exam: NORMAL BREATHING PATTERN - Cardiovascular Exam Cardiovascular Exam: REGULAR RHYTHM, +S1, +S2. absent: Murmur - GI/Abdominal Exam GI & Abdominal Exam: Distended, Soft, Normal Bowel Sounds. absent: Firm, Guarding, Rigid, Tenderness Additional comments: Stoma has 30cc serous fluids in the bag. Drain 300cc ss/24hrs. - Exam Exam: NORMAL INSPECTION - Back Exam Back Exam: NORMAL INSPECTION - Neurological Exam Neurological Exam: Alert, Awake, CN II-XII Intact, Normal Gait, Oriented x3 - Psychiatric Exam Psychiatric exam: Normal Affect, Normal Mood - Skin Skin Exam: Dry, Intact, Normal Color, Warm Assessment and Plan - Assessment and Plan (Free Text) Assessment: 73M POD#6 s/p LAR w/anastomosis w/diverting loop ileostomy : ileus drain 300cc ss /24hrs Briggs 2L /24hrs Plan: NPO except meds Monitor for bowel function Out of bed to chair Encourage ambulation Monitor ostomy output Encourage IS use Void check Resumed home BP meds C/w analgesics prn Cont IVF DW Dr. Rainey <Melchor Rainey - Last Filed: 02/22/18 19:00> Objective - Vital Signs/Intake and Output Vital Signs (last 24 hours): Temp Pulse Resp BP Pulse Ox 98.7 F 86 18 110/60 95 02/20/18 15:46 02/20/18 15:46 02/20/18 15:46 02/20/18 15:46 02/20/18 15:46 - Labs Labs: 02/19/18 06:40 02/20/18 07:36 Attending/Attestation - Attestation I have personally seen and examined this patient.: Yes I have fully participated in the care of the patient.: Yes I have reviewed all pertinent clinical information, including history, physical exam and plan: Yes Notes (Text): Pt was seen and examined at bedside Agree with above note and assessment Pt with post op ileus Fleet enema through ileostomy DC plan if ileostomy starts working Plan d.w pt in detail Risk and benefit explained in detail.
[2018-02-19 17:44] VITALS: O2SAT 95
[2018-02-20] MEDS: HYDROmorphone 0.5 mg/0.5 ml ISec IVP PRN (00:17)
[2018-02-20] MEDS ORDERED: Mineral Oil Enema 135 ml RC ONE (08:00)
[2018-02-20 08:59] LABS: CALCIUM 8.8 mg/dl (8.6-10.4)
[2018-02-20] MEDS ORDERED: Enoxaparin 40 mg Syringe SC SCH (10:00)
[2018-02-20] MEDS ORDERED: Potassium Chloride 20 mEq/15 ml LIQ UD PO ONE (10:30)
[2018-02-20 15:49] VITALS: BP 110/60; PULSE 86; RESP 18; TEMP 98.7
--- NOTE | 2018-02-20 17:45 | CP.PCM.DIS ---
Provider - Provider Date of Admission: 02/12/18 07:00 Attending physician: Melchor Rainey MD Time Spent in preparation of Discharge (in minutes): 30 Diagnosis - Discharge Diagnosis (1) Colonic neoplasm Status: Acute Priority: Medium Hospital Course - Lab Results Lab Results: Most Recent Lab Values WBC 15.5 K/uL (4.8-10.8) H D 02/19/18 06:40 RBC 3.91 Mil/uL (4.40-5.90) L 02/19/18 06:40 Hgb 9.7 g/dL (12.0-18.0) L 02/19/18 06:40 Hct 29.0 % (35.0-51.0) L 02/19/18 06:40 MCV 74.1 fL (80.0-94.0) L 02/19/18 06:40 MCH 24.9 pg (27.0-31.0) L 02/19/18 06:40 MCHC 33.6 g/dL (33.0-37.0) 02/19/18 06:40 RDW 18.4 % (11.5-14.5) H 02/19/18 06:40 Plt Count 335 K/uL (130-400) 02/19/18 06:40 MPV 7.9 fL (7.2-11.7) 02/19/18 06:40 Neut % (Auto) 79.6 % (50.0-75.0) H 02/18/18 06:11 Lymph % (Auto) 11.2 % (20.0-40.0) L 02/18/18 06:11 Kendall % (Auto) 7.5 % (0.0-10.0) 02/18/18 06:11 Eos % (Auto) 1.2 % (0.0-4.0) 02/18/18 06:11 Baso % (Auto) 0.5 % (0.0-2.0) 02/18/18 06:11 Neut # (Auto) 7.1 K/uL (1.8-7.0) H 02/18/18 06:11 Lymph # (Auto) 1.0 K/uL (1.0-4.3) 02/18/18 06:11 Kendall # (Auto) 0.7 K/uL (0.0-0.8) 02/18/18 06:11 Eos # (Auto) 0.1 K/uL (0.0-0.7) 02/18/18 06:11 Baso # (Auto) 0.0 K/uL (0.0-0.2) 02/18/18 06:11 Sodium 137 mmol/L (132-148) 02/20/18 07:36 Potassium 3.4 mmol/L (3.6-5.2) L 02/20/18 07:36 Chloride 100 mmol/L (98-107) 02/20/18 07:36 Carbon Dioxide 27 mmol/L (22-30) 02/20/18 07:36 Anion Gap 14 (10-20) 02/20/18 07:36 BUN 36 mg/dL (9-20) H 02/20/18 07:36 Creatinine 2.1 mg/dL (0.8-1.5) H 02/20/18 07:36 Est GFR ( Amer) 37 02/20/18 07:36 Est GFR (Non-Af Amer) 31 02/20/18 07:36 POC Glucose (mg/dL) 138 mg/dL (65-110) H 02/12/18 07:42 Random Glucose 136 mg/dL (75-110) H 02/20/18 07:36 Calcium 8.8 mg/dl (8.6-10.4) 02/20/18 07:36 Phosphorus 5.0 mg/dL (2.5-4.5) H 02/20/18 07:36 Magnesium 2.1 mg/dL (1.6-2.3) 02/20/18 07:36 - Hospital Course Hospital Course: 73M came for scheduled LAR with protective loop ileostomy. Pt did well after the procedure but his ostomy was slow to open up and he then had issues with urinary retention despite flomax treatment. On POD#8 he began to have ostomy function and he was discharged on a Liquid diet with a hernández in place tho be removed at his follow up appointment. Discharge Exam - Head Exam Head Exam: ATRAUMATIC, NORMAL INSPECTION, NORMOCEPHALIC - Eye Exam Eye Exam: EOMI. absent: Scleral icterus - ENT Exam ENT Exam: Mucous Membranes Moist - Respiratory Exam Respiratory Exam: NORMAL BREATHING PATTERN. absent: Respiratory Distress - Cardiovascular Exam Cardiovascular Exam: RRR, +S1, +S2 - GI/Abdominal Exam GI & Abdominal Exam: Distended (mild), Soft. absent: Firm, Guarding, Hernia, Rebound, Rigid, Tenderness - Extremities Exam Extremities exam: normal capillary refill, pedal pulses present - Neurological Exam Neurological exam: Alert, Oriented x3 - Skin Skin Exam: Dry, Warm Discharge Plan - Follow Up Plan Condition: GOOD Disposition: HOME/ ROUTINE Additional Instructions: Continue Liquid diet Follow up with Dr. Rainey 02/27/18 in his office, call for appointment Follow up with Primary care doctor in 1-2 weeks Call for worsening abd swelling. Ok to Shower, no bathes for 1 more week No heavy lifting for 3 more weeks (more than 20lbs). Hernández will be removed in Dr. Rainey's office. Referrals: Melchor Rainey MD [Staff Provider] -
== END 2018-02-20 18:10 | disposition home or self-care (01) | DRG 330 ==
LOC: C.9S 02-12 07:00 → C.6T 02-12 17:45
PROVIDERS: ADMIT Surgery Surgical Critical Care; ATTEND Surgery Surgical Critical Care
PROC: 0DBP4ZZ Excision of Rectum, Percutaneous Endoscopic Approach (ICD-10-PCS; 2018-02-12)
PROC: 0D1B4Z4 Bypass Ileum to Cutaneous, Percutaneous Endoscopic Approach (ICD-10-PCS; principal; 2018-02-12 08:45)
DX: C19 Malignant neoplasm of rectosigmoid junction (principal); K56.7 Ileus, unspecified

== ENCOUNTER 2018-03-11 11:33 | Emergency (ER) | payer MEDICARE ==
[2018-03-11 11:33] VITALS: BMI 25.0
[2018-03-11 11:53] VITALS: RESP 18; TEMP 98.4; O2SAT 98
--- NOTE | 2018-03-11 12:02 | C.PDOC ---
History Of Present Illness Patient is a 72 year old male with past medical history of HTN, DM, CAD, anemia, and colon carcinoma, presenting today for evaluation of inability to urinate since yesterday. States he has a history of colon/prostate cancer, and has been following with urology for urinary retention. Patient had his hernández removed yesterday by Dr. Meyers. Since then he has not been able to urinate. Otherwise patient denies any fever, chills, nausea, vomiting, abdominal pain, or other associated symptoms. Time Seen by Provider: 03/11/18 12:00 Chief Complaint (Nursing): Male Genitourinary History Per: Patient History/Exam Limitations: no limitations Onset/Duration Of Symptoms: Days (x1) Current Symptoms Are (Timing): Still Present Associated Symptoms: Urinary Symptoms Alleviating Factors: None Past Medical History Reviewed: Historical Data, Nursing Documentation, Vital Signs Vital Signs: Last Vital Signs Temp 98.4 F 03/11/18 11:47 Pulse 91 H 03/11/18 11:47 Resp 18 03/11/18 11:47 BP 135/76 03/11/18 11:47 Pulse Ox 98 03/11/18 11:47 - Medical History PMH: Anemia, CAD, Diabetes, HTN, Hypercholesterolemia, Malignancy (Prostate CA) Denies: Chronic Kidney Disease Surgical History: Back Surgery - [facility] Procedures BYPASS ILEUM TO CUTANEOUS, PERCUTANEOUS ENDOSCOPIC APPROACH (02/12/18) EXCISION OF RECTUM, PERCUTANEOUS ENDOSCOPIC APPROACH (02/12/18) Family History: States: No Known Family Hx - Social History Hx Alcohol Use: No Hx Substance Use: No - Immunization History Hx Tetanus Toxoid Vaccination: No Hx Influenza Vaccination: No Hx Pneumococcal Vaccination: No Review Of Systems Constitutional: Negative for: Fever, Chills Cardiovascular: Negative for: Chest Pain Respiratory: Negative for: Shortness of Breath Gastrointestinal: Negative for: Nausea, Vomiting, Abdominal Pain Genitourinary: Positive for: Other (Urinary retention) Skin: Negative for: Rash Neurological: Negative for: Weakness, Dizziness Physical Exam - Physical Exam Appears: Well, Non-toxic, No Acute Distress Skin: Normal Color, Warm, Dry Head: Atraumatic, Normacephalic Eye(s): bilateral: Normal Inspection, EOMI Nose: Normal Oral Mucosa: Moist Chest: Symmetrical Cardiovascular: Rhythm Regular Respiratory: Normal Breath Sounds, No Rales, No Rhonchi, No Wheezing Gastrointestinal/Abdominal: Bowel Sounds (active), Soft, Tenderness (+ Pelvic tenderness), No Distention, Other (Colostomy bag in place, with brown stool; Hernández cath in place) Back: No CVA Tenderness, No Vertebral Tenderness Extremity: Bilateral: Atraumatic, Normal Color And Temperature, Normal ROM Neurological/Psych: Oriented x3, Normal Speech, Other (No focal deficits) Gait: Steady ED Course And Treatment O2 Sat by Pulse Oximetry: 98 (RA) Pulse Ox Interpretation: Normal Progress Note: UA ordered and reviewed. Urine culture sent. - Physician Consult Information Time Consulting Physician Contacted: 13:55 Physician Contacted: Alexis Meyers Outcome Of Conversation: Patient states that he does not take Flomax. Patient advised to start Flomax, and will follow up in the office next week. Also discussed that urine demonstrates UTI, counseled patient to continue on antibiotics already prescribed to him, per Dr Mantilla. Disposition - Disposition Referrals: Alexis Meyers MD [Staff Provider] - Disposition: HOME/ ROUTINE Disposition Time: 13:54 Condition: STABLE Additional Instructions: Start taking flomax if you are not taking it already. Follow up with your urologist in 1-2 days. Prescriptions: Tamsulosin [Flomax] 0.4 mg PO BID #20 cap Instructions: Urinary Retention (DC) Forms: [employer] (Armenian) - Clinical Impression Clinical Impression: Urinary retention - PA / RECRUITMENT MANAGER / Resident Statement MD/DO has reviewed & agrees with the documentation as recorded. - Scribe Statement The provider has reviewed the documentation as recorded by the Scribe (Phyllis Adrian) All medical record entries made by the Scribe were at my direction and personally dictated by me. I have reviewed the chart and agree that the record accurately reflects my personal performance of the history, physical exam, medical decision making, and the department course for this patient. I have also personally directed, reviewed, and agree with the discharge instructions and disposition.
[2018-03-11 13:33] LABS: URINE BACTERIA RARE (<OCC); URINE BILIRUBIN NEGATIVE (NEGATIVE); URINE BLOOD 2+ (NEGATIVE); URINE CLARITY Hazy (Clear); URINE COLOR Yellow (YELLOW); URINE GLUCOSE (UA) NORMAL (Normal); URINE LEUKOCYTE ESTERASE 3+ Leu/uL (Negative); URINE PROTEIN 2+ mg/dL (NEGATIVE); URINE UROBILINOGEN NORMAL mg/dL (0.2-1.0)
[2018-03-11 14:36] VITALS: BP 146/70; PULSE 88
== END 2018-03-11 14:36 | disposition home or self-care (01) ==
LOC: C.ER 11:33
DX: R33.9 Retention of urine, unspecified (principal)

== ENCOUNTER 2018-03-21 12:37 | Emergency (ER) | payer MEDICARE ==
[2018-03-21 12:37] VITALS: BMI 25.0
--- NOTE | 2018-03-21 12:53 | C.PDOC ---
History Of Present Illness 73 y/o male with PMHx of HTN, CAD, anemia, presents with complaints of urinary retention since yesterday. Patient states yesterday he had his hernández catheter removed in the office by Dr. Meyers, and was instructed to come to the ED if unable to urinate in 8-10 hours. Otherwise patient denies fever, chills, night sweats, chest pain, SOB, numbness, tingling, extremity weakness, or other associated symptoms. Of note, patient is s/p surgery for prostate cancer 1 month ago. Time Seen by Provider: 03/21/18 12:53 Chief Complaint (Nursing): Male Genitourinary History Per: Patient History/Exam Limitations: no limitations Onset/Duration Of Symptoms: Days (x1) Current Symptoms Are (Timing): Still Present Past Medical History Reviewed: Historical Data, Nursing Documentation, Vital Signs Vital Signs: Last Vital Signs Temp 97.7 F 03/21/18 12:48 Pulse 90 03/21/18 12:48 Resp 15 03/21/18 12:48 BP 129/61 03/21/18 12:48 Pulse Ox 100 03/21/18 12:48 - Medical History PMH: Anemia, CAD, Diabetes, HTN, Hypercholesterolemia, Malignancy (Prostate CA) Denies: Chronic Kidney Disease Surgical History: Back Surgery - [facility] Procedures BYPASS ILEUM TO CUTANEOUS, PERCUTANEOUS ENDOSCOPIC APPROACH (02/12/18) EXCISION OF RECTUM, PERCUTANEOUS ENDOSCOPIC APPROACH (02/12/18) Family History: States: No Known Family Hx - Social History Hx Alcohol Use: No Hx Substance Use: No - Immunization History Hx Tetanus Toxoid Vaccination: No Hx Influenza Vaccination: No Hx Pneumococcal Vaccination: No Review Of Systems Constitutional: Negative for: Fever, Chills, Sweats Cardiovascular: Negative for: Chest Pain, Palpitations Respiratory: Negative for: Shortness of Breath Gastrointestinal: Negative for: Nausea, Vomiting, Diarrhea Genitourinary: Positive for: Other (Urinary retention). Negative for: Frequency, Incontinence, Hematuria Skin: Negative for: Rash Neurological: Negative for: Weakness, Numbness Physical Exam - Physical Exam Appears: Non-toxic, No Acute Distress Skin: Warm, Dry Head: Normacephalic Eye(s): bilateral: Normal Inspection, PERRL, EOMI Oral Mucosa: Moist Neck: Trachea Midline, Supple, Other (No meningeal signs- negative kernig's and brudzinskis) Chest: Symmetrical Cardiovascular: Rhythm Regular, Other (No rub) Respiratory: No Rales, No Rhonchi, No Wheezing Gastrointestinal/Abdominal: Soft, No Tenderness, Other (+ Suprapubic fullness) Back: No CVA Tenderness Male Genital: Normal Inspection Extremity: Bilateral: Normal Color And Temperature Pulses: Left Dorsalis Pedis: Normal, Right Dorsalis Pedis: Normal Neurological/Psych: Oriented x3 Gait: Steady ED Course And Treatment O2 Sat by Pulse Oximetry: 100 (RA) Pulse Ox Interpretation: Normal Medical Decision Making Medical Decision Makin yr old male w/ hx of colon cancer and resection p/w urinary retention after hernández removal yesterday by Urology: Dr. Richards. Pt denies any abd pain but notes suprapubic fullness. Abd non-ttp, without guarding or rebound. No CVAT. Will place hernández and check UA. Plan: --Urinalysis --Hernández catheter placed 1354 6WBC on UA: UC ordered. Pt in NAD hernández draining well, devaughn urine appreciate consult w/ Dr. Richards: pt to be d/c on cipro to f/u with him outpt pt in NAD, clear for d/c home Disposition - Disposition Referrals: Alexis Meyers MD [Staff Provider] - Disposition: HOME/ ROUTINE Disposition Time: 13:45 Condition: GOOD Additional Instructions: JUANITO TEJEDA, thank you for letting us take care of you today. Your provider was Memo Salcedo and you were treated for SENT BY PMD. The emergency medical care you received today was directed at your acute symptoms. If you were prescribed any medication, please fill it and take as directed. It may take several days for your symptoms to resolve. Return to the Emergency Department if your symptoms worsen, do not improve, or if you have any other problems. Please contact your doctor or call one of the physicians/clinics you have been referred to that are listed on the Patient Visit Information form that is included in your discharge packet. Bring any paperwork you were given at discharge with you along with any medications you are taking to your follow up visit. Our treatment cannot replace ongoing medical care by a primary care provider outside of the emergency department. Thank you for allowing the [facility] team to be part of your care today. If you had an X-Ray or CT scan: A Radiologist will review the ED reading if any change in treatment is needed we will contact you. If you had a blood, urine, or wound culture: It will take several days for the results, if any change in treatment is needed we will contact you. If you had an STI test: It will take 48 hours for the results. Please call after 1 week if you have not heard back. Prescriptions: Ciprofloxacin [Cipro] 500 mg PO BID 14 Days #28 tab Instructions: Urinary Tract Infections in Adults, Urinary Retention (DC) Forms: [employer] (Kittitian) - Clinical Impression Clinical Impression: UTI (urinary tract infection), Urinary retention, Hernández catheter in place - Scribe Statement The provider has reviewed the documentation as recorded by the Flor Adrian Provider Attestation: All medical record entries made by the Flor were at my direction and personally dictated by me. I have reviewed the chart and agree that the record accurately reflects my personal performance of the history, physical exam, medical decision making, and the department course for this patient. I have also personally directed, reviewed, and agree with the discharge instructions and disposition.
[2018-03-21 13:42] LABS: SQUAMOUS EPITHIAL < 1 /hpf (0-5); URINE BILIRUBIN NEGATIVE (NEGATIVE); URINE BLOOD NEGATIVE (NEGATIVE); URINE CLARITY Clear (Clear); URINE COLOR Yellow (YELLOW); URINE GLUCOSE (UA) NORMAL (Normal); URINE HYALINE CAST 0-2 /lpf (0-2); URINE LEUKOCYTE ESTERASE TRACE Leu/uL (Negative); URINE PROTEIN NEGATIVE (NEGATIVE); URINE UROBILINOGEN NORMAL mg/dL (0.2-1.0)
[2018-03-21 14:45] VITALS: BP 125/60; PULSE 88; RESP 16; TEMP 97.6; O2SAT 98
== END 2018-03-21 14:44 | disposition home or self-care (01) ==
LOC: C.ER 12:37
DX: R33.9 Retention of urine, unspecified (principal); N39.0 Urinary tract infection, site not specified

== ENCOUNTER 2018-04-24 15:31 | Inpatient (IN) | payer MEDICARE ==
[2018-04-24 15:32] VITALS: BMI 25.0
[2018-04-24] MEDS ORDERED: Vancomycin 500 mg Inj IVPB STA (15:59)
[2018-04-24] MEDS ORDERED: Piperacillin/Tazobact 3.375 GM in Sodium Chloride 100 ML IVPB STA (16:00)
--- NOTE | 2018-04-24 16:02 | C.PDOC ---
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 As per son patient slipped and fell last night sustained abrasion to head but refused to be brought to ED. Today doreen banegas was at Dr. Meyers office and became cold prompting visit to ED. At ED rectal temp is 103.9. Patient denies abdominal pain, fever, back pain, nausea, vomiting or any other complaints at this time. Time Seen by Provider: 04/24/18 15:42 Chief Complaint (Nursing): Medical Clearance History Per: Patient, Family History/Exam Limitations: no limitations Onset/Duration Of Symptoms: Hrs Current Symptoms Are (Timing): Still Present Past Medical History Reviewed: Historical Data, Nursing Documentation, Vital Signs Vital Signs: Last Vital Signs Temp 103.9 F H 04/24/18 15:52 Pulse 118 H 04/24/18 15:48 Resp 32 H 04/24/18 15:48 BP 195/81 H 04/24/18 15:48 Pulse Ox 97 04/24/18 15:48 - Medical History PMH: Anemia, CAD, Diabetes, HTN, Hypercholesterolemia, Malignancy (Prostate CA) Surgical History: Back Surgery - [facility] Procedures BYPASS ILEUM TO CUTANEOUS, PERCUTANEOUS ENDOSCOPIC APPROACH (02/12/18) EXCISION OF RECTUM, PERCUTANEOUS ENDOSCOPIC APPROACH (02/12/18) Family History: States: No Known Family Hx - Social History Hx Alcohol Use: No Hx Substance Use: No - Immunization History Hx Tetanus Toxoid Vaccination: No Hx Influenza Vaccination: No Hx Pneumococcal Vaccination: No Review Of Systems Except As Marked, All Systems Reviewed And Found Negative. Constitutional: Positive for: Fever Physical Exam - Physical Exam Additional Physical Exam Comments: Gen: VS reviewed, alert, well developed, mild distress Eye: EOMI, PERRL Head: Superficial abrasion to right parietal scalp Neck: no JVD, supple, no adenopathy CV: Tachycardic, regular rhythm, no rubs,no murmur, S1, S2 Pulm: no distress, clear to auscultation, no wheeze, no rhonchi, breath sounds equal, no rales Abd: soft, nontender, no guarding, no rebound, no rigidity. Colostomy bag in place, clean dry and intact. : Briggs catheter in place, sediment cloudy in collection bag. Ext: no edema Skin: Pale, no rash, no cyanosis Psych: responds appropriately to questions, normal affect Neuro: oriented x3, CN2-12 intact grossly, motor intact, sensation intact ED Course And Treatment - Laboratory Results Result Diagrams: 04/24/18 16:05 04/24/18 16:05 O2 Sat by Pulse Oximetry: 97 (RA) Pulse Ox Interpretation: Normal - Other Rad CXR X-Ray: Viewed By Me, Read By Radiologist Interpretation: IMPRESSION: No interval consolidation to suggest a discrete infiltrate. The current hilar and perihilar bronchovascular marking slight increase conspicuity may be technical-are may be due to mild increased pulmonary venous congestion. Findings are indeterminate. Clinical correlation and follow-up recommended. - CT Scan/US CT head w/o contrast Other Rad Studies (CT/US): Read By Radiologist, Radiology Report Reviewed CT/US Interpretation: IMPRESSION: No acute intracranial abnormality. Severe chronic microangiopathic changes and mild age-related global parenchymal volume loss. CT abd/pelvis Other Rad Studies (CT/US): Read By Radiologist, Radiology Report Reviewed CT/US Interpretation: IMPRESSION: 2.1 x 1.9 cm lesion in the posterior aspect of the upper pole of the spleen, the differential considerations include metastasis, hemangioma in complicated cyst. Correlation with left upper quadrant ultrasound is recommended for further characterization. 6 mm obstructing stone at the right UV junction with resultant mild right hydroureteronephrosis and perinephric fat stranding. No other significant interval change. Critical Care Time - Critical Care Note Total Time (in mins): 30 Comments: critical care for potential critical illness, complex medical decision making and coordination of care Documented critical care: time excludes all time spent performing seperately billable procedures. Medical Decision Making Medical Decision Makin: late note: code sepsis called, empiric cultures and antibiotics nd ivf initiated. 1636: sinus tachycardia at 114 bpm, nml qrs, nml axis, diffuse st depression, diffuse flipped t waves 1750: admit accepted by dr. willoughby, patient to be admitted for sepsis with uti, patient stable for noncritical bed. empiric abx started in the ED. 1800: RN informed me that the temp has improved, pt no longer complaining of chest pain. will get serial ekg to reassess 180: sinus tachycardia at 102 bpm, nml qrs, nml axis, no acute sttw abn- chest pain free 1853: case d/w , urology, is aware of the all diagnostic tests and findings, will see pt in consultation Disposition - Disposition Disposition: HOSPITALIZED Disposition Time: 17:50 Condition: FAIR - Clinical Impression Clinical Impression: Sepsis, UTI (urinary tract infection) - Scribe Statement The provider has reviewed the documentation as recorded by the Jovannyibmitchel Locke All medical record entries made by the Flor were at my direction and personally dictated by me. I have reviewed the chart and agree that the record accurately reflects my personal performance of the history, physical exam, medical decision making, and the department course for this patient. I have also personally directed, reviewed, and agree with the discharge instructions and disposition.
[2018-04-24] MEDS ORDERED: Sodium Chloride 0.9% 1,000 ML IV ONE ×2 (16:09→16:20)
[2018-04-24 16:10] LABS: VENOUS BLOOD GAS BASE EXCESS -1.8 mmol/L (0.0-2.0); VENOUS BLOOD GAS PCO2 39 mmHg (40-60); VENOUS BLOOD GAS PO2 24 mm/Hg (30-55); VENOUS BLOOD PH 7.38 (7.32-7.43)
[2018-04-24 16:10] LABS: BASO % 0.6 % (0.0-2.0); EOS % 0.3 % (0.0-4.0); HEMOGLOBIN 10.4 g/dL (12.0-18.0); LYMPH % 18.1 % (20.0-40.0); MEAN CORPUSCULAR HEMOGLOBIN 26.2 pg (27.0-31.0); MEAN CORPUSCULAR HGB CONC 32.4 g/dL (33.0-37.0); MEAN PLATELET VOLUME 7.6 fL (7.2-11.7); MONO # 0.1 K/uL (0.0-0.8); MONO % 1.3 % (0.0-10.0); NEUT # 4.2 K/uL (1.8-7.0); NEUT % 79.7 % (50.0-75.0); NRBC % 0.1 % (0.0-2.0); RBC 3.98 Mil/uL (4.40-5.90); RED CELL DISTRIBUTION WIDTH 21.9 % (11.5-14.5)
[2018-04-24 16:13] LABS: MEAN CELL VOLUME 80.7 fL (80.0-94.0); WHITE BLOOD COUNT 5.3 K/uL (4.8-10.8)
[2018-04-24] MEDS ORDERED: Piperacillin/Tazobact 3.375 gm 100 ML IVPB ONE (16:20)
[2018-04-24 16:36] LABS: ALB/GLOB RATIO 1.1 (1.0-2.1); ALT/SGPT 20 U/L (21-72); AST/SGOT 24 U/L (17-59); BLOOD UREA NITROGEN 23 mg/dL (9-20); CALCIUM 9.4 mg/dl (8.6-10.4); GFR NON-AFRICAN AMERICAN 54
--- NOTE | 2018-04-24 16:37 | RAD ---
Date of service: 04/24/2018 HISTORY: pneumonia COMPARISON: 02/18/2018 FINDINGS: LUNGS: The hilar and perihilar bronchovascular markings appear very slightly more prominent compared to the prior study this could be technical. No consolidation seen. Prior mention of small [address] are not evident on this exam. PLEURA: No significant pleural effusion identified, no pneumothorax apparent. CARDIOVASCULAR: There is presence of aortic atherosclerotic calcification on x-ray. Probable top-normal heart size. Possible mild central pulmonary venous congestion-as referenced above in the lung section. Appearance is can also be attributed to slight differences in technique. OSSEOUS STRUCTURES: Thoracic right lateral marginal osteophytosis noted Bilateral shoulder arthrosis. VISUALIZED UPPER ABDOMEN: Normal. OTHER FINDINGS: None. IMPRESSION: No interval consolidation to suggest a discrete infiltrate The current hilar and perihilar bronchovascular marking slight increase conspicuity may be technical-are may be due to mild increased pulmonary venous congestion. Findings are indeterminate. Clinical correlation and follow-up recommended.
[2018-04-24 17:05] LABS: SQUAMOUS EPITHIAL 1 /hpf (0-5); URINE BACTERIA MOD (<OCC); URINE BILIRUBIN NEGATIVE (NEGATIVE); URINE BLOOD 3+ (NEGATIVE); URINE CLARITY Hazy (Clear); URINE COLOR Yellow (YELLOW); URINE GLUCOSE (UA) NORMAL (Normal); URINE LEUKOCYTE ESTERASE 3+ Leu/uL (Negative); URINE PROTEIN 2+ mg/dL (NEGATIVE); URINE UROBILINOGEN NORMAL mg/dL (0.2-1.0); WBC CLUMPS MANY /hpf
[2018-04-24] MEDS ORDERED: Iohexol 300 100 ML IJ ONE (17:09)
--- NOTE | 2018-04-24 18:04 | CT ---
Date of service: 04/24/2018 PROCEDURE: CT HEAD WITHOUT CONTRAST. HISTORY: trauma COMPARISON: None available. TECHNIQUE: Axial computed tomography images were obtained through the head/brain without intravenous contrast. Radiation dose: Total exam DLP = 977.31 mGy-cm. This CT exam was performed using one or more of the following dose reduction techniques: Automated exposure control, adjustment of the mA and/or kV according to patient size, and/or use of iterative reconstruction technique. FINDINGS: HEMORRHAGE: No intracranial hemorrhage. BRAIN: There are severe chronic microangiopathic changes. There is no mass, mass effect or abnormal extra-axial fluid collection. There is no territorial infarction. The midline sagittal structures are normal. VENTRICLES: There is mild age-related global parenchymal volume loss and proportionate enlargement of the ventricles and cortical sulci. CALVARIUM: There is no calvarial fracture or extracranial soft tissue swelling. PARANASAL SINUSES: There is a retention cyst/polyp in the visualized right maxillary sinus. The remaining included paranasal sinuses are predominantly clear. MASTOID AIR CELLS: Bilateral mastoid air cells are underdeveloped. OTHER FINDINGS: None. IMPRESSION: No acute intracranial abnormality. Severe chronic microangiopathic changes and mild age-related global parenchymal volume loss.
--- NOTE | 2018-04-24 18:17 | CT ---
Date of service: 04/24/2018 PROCEDURE: CT Abdomen and Pelvis with contrast HISTORY: sepsis, hx colon cancer COMPARISON: 04/02/2018 TECHNIQUE: CT scan of the abdomen and pelvis was performed after administration of intravenous contrast. Oral contrast was not administered. Coronal and sagittal reformatted images were obtained. Contrast dose: 100 cc Omnipaque 300 Radiation dose: Total exam DLP = 323.61 mGy-cm. This CT exam was performed using one or more of the following dose reduction techniques: Automated exposure control, adjustment of the mA and/or kV according to patient size, and/or use of iterative reconstruction technique. FINDINGS: LOWER THORAX: Dependent atelectasis in the lung bases. Mild cardiomegaly. Trace effusions. LIVER: Normal in size with homogeneous enhancement. Mild polypoid portal edema. No gross lesion or ductal dilatation. GALLBLADDER AND BILE DUCTS: Well distended. No calcified gallstones, wall thickening or pericholecystic fluid. PANCREAS: Normal in size with homogeneous enhancement. No gross lesion or ductal dilatation. SPLEEN: Normal in size. There is redemonstration of a 2.1 x 1.9 cm hypodense lesion is in the posterior aspect of the superior spleen. ADRENALS: No discrete nodule. KIDNEYS AND URETERS: Normal in size with homogeneous enhancement. There is mild right hydronephrosis, diffuse dilatation of the right and 6 mm stone at the right UV junction and mild right perinephric fat stranding. No solid mass. Stable simple cysts in the kidneys, the largest in left lower pole. VASCULATURE: No aortic aneurysm. BOWEL: Evaluation of the bowel is limited in the absence of oral contrast. The small bowel loops are normal in caliber. Status post right lower quadrant ileostomy. The colon is grossly normal in appearance. There are postsurgical changes in the rectum and redemonstration of presacral soft tissue. APPENDIX: Normal appendix. PERITONEUM: No free fluid. No free air. LYMPH NODES: No enlarged lymph nodes. BLADDER: Indwelling Briggs catheter with subsequent decompression of the urinary bladder. REPRODUCTIVE: There is moderate enlargement of the prostate gland. Please correlate with PSA levels. BONES: No acute fracture. Within normal limits for the patient's age. OTHER FINDINGS: None. IMPRESSION: 2.1 x 1.9 cm lesion in the posterior aspect of the upper pole of the spleen, the differential considerations include metastasis, hemangioma in complicated cyst. Correlation with left upper quadrant ultrasound is recommended for further characterization. 6 mm obstructing stone at the right UV junction with resultant mild right hydroureteronephrosis and perinephric fat stranding. No other significant interval change.
[2018-04-24 18:52] LABS: VENOUS BLOOD GAS BASE EXCESS -0.2 mmol/L (0.0-2.0); VENOUS BLOOD GAS PCO2 37 mmHg (40-60); VENOUS BLOOD GAS PO2 24 mm/Hg (30-55); VENOUS BLOOD PH 7.42 (7.32-7.43)
[2018-04-24] MEDS: Sodium Chloride 0.45% 1,000 ML IV SCH (20:45)
[2018-04-24] MEDS ORDERED: Home Med 1 UNIT (Atorvastatin [Lipitor] 1 TAB) PO SCH (22:00)
[2018-04-24] MEDS: Piperacill/Tazo 2.25gm in Dex 2.25 GM/50 ML BAG IVPB SCH (22:30)
[2018-04-24] MEDS: Rosuvastatin Calcium 2.5 mg Tab PO SCH (22:30)
--- NOTE | 2018-04-25 04:16 | HP ---
CHIEF COMPLAINT: Chills and shaking and increasing weakness. HISTORY OF PRESENT ILLNESS: A 73-year-old male with multiple medical history including hypertension, diabetes, hypercholesterolemia, history of anemia, rectal cancer, recently had surgical intervention, also following that he developed neurogenic bladder, currently on indwelling Briggs catheter, came to the emergency room with symptoms of chills. Three days ago, he started noticing increasing weakness and fatigue and also unable to get up from the bed, poor appetite. He had an episode of vomiting after eating some food, and he was not able to go to the bathroom. Two days ago while he was trying to reach the bathroom, he fell down, had some scalp injury following that. He needed some help to moving around with the family help. Two days ago, again he started having chills and shivering. At that time, family requested to go to the emergency room, but he refused. Today, as the condition got worse, he came into the emergency room. In the emergency room, the patient was noted to have chills, fever, and also increasing weakness and tachycardia. PAST MEDICAL HISTORY: Hypertension, high cholesterol, diabetes, anemia, has a history of colon cancer, had surgery recently. SURGICAL HISTORY: Twenty years ago, the patient had diskectomy, and he also had robotic-assisted laparoscopic partial colectomy with ileostomy on 02/12/2018. The patient also had cardiac stress test which was done on 02/04/2018. ALLERGY: NO KNOWN DRUG ALLERGY. FAMILY HISTORY: Father had a history of liver disease secondary to alcohol. Mother at the age of 80. Three sisters with diabetes, one brother. SOCIAL HISTORY: The patient is a ex-smoker, quit 30 years ago. Denies any alcohol. CURRENT MEDICATIONS: Noted from the chart. The patient is currently taking lisinopril and hydrochlorothiazide, atorvastatin, glipizide, and ferrous sulfate. REVIEW OF SYSTEMS: Currently, the patient is having increasing weakness. No headache. Denies any cough, but complaining of chest tightness and chest pain. No abdominal pain. No flank pain noted. He has an indwelling catheter. He denies any urinary discoloration or changes in the urination. No leg swelling. PHYSICAL EXAMINATION: VITAL SIGNS: Temperature is 103.9 in the ER, currently it is afebrile. Pulse 102, blood pressure 154/70, respirations 24, saturations 95% on room air. CHEST: Good air entry bilaterally. No wheezing or rales noted. HEART: Regular heart sound noted. ABDOMEN: Nontender. The patient has no suprapubic tenderness. No flank tenderness. He has an ileostomy on the right side of the abdomen. EXTREMITIES: No pedal edema. CENTRAL NERVOUS SYSTEM: Alert, awake, and oriented x3. No functional neurological deficit. LABORATORY DATA: Showing WBC 5.3, hemoglobin 10.4, hematocrit 32.2, platelets 167. Venous blood gas: Lactate is 4.6 noted. Chemistry: BUN 23, creatinine 1.3, magnesium 1.6. Liver enzymes are normal. Urine: Significant LE 3+ noted, wbc 287 noted, moderate bacteria. Influenza is negative. Had chest x-ray, abdominal x-ray, abdominal CAT scan, and CT scan. Chest x-ray is showing evidence of no acute infiltrate. CAT scan of the abdomen and pelvis showing mild right hydronephrosis and possible stone in the right UV junctional area, possible cystitis. CT scan of the head is negative. ASSESSMENT AND RECOMMENDATION: A 73-year-old male with history of diabetes, hypertension, hypercholesterolemia, rectal cancer, status post ileostomy and colectomy, admitted now with significant sepsis associated with fever and febrile illness. Possible source includes urinary tract infection. The patient has an indwelling catheter for the postoperative neurogenic bladder developed and also possible pyelonephritis and right-sided hydronephrosis secondary to colic and also kidney stones cannot be ruled out. The patient is currently on antibiotic. We will get infectious disease evaluation. Urology evaluation was also called in. Continue the IV fluid. Deep venous thrombosis and gastrointestinal prophylaxis. Fall precaution. We will discuss with the family tomorrow. Glucose monitoring, and we will follow the patient. Matt Rojo MD [facility]
[2018-04-25] MEDS: Piperacill/Tazo 2.25gm in Dex 2.25 GM/50 ML BAG IVPB SCH ×2 (05:39→14:17)
[2018-04-25] MEDS: Sodium Chloride 0.45% 1,000 ML IV SCH (08:08)
[2018-04-25 08:27] LABS: BASO % 0.4 % (0.0-2.0); HEMOGLOBIN 9.4 g/dL (12.0-18.0); LYMPH # 0.7 K/uL (1.0-4.3); LYMPH % 6.1 % (20.0-40.0); MEAN CELL VOLUME 80.8 fL (80.0-94.0); MEAN CORPUSCULAR HEMOGLOBIN 26.9 pg (27.0-31.0); MEAN CORPUSCULAR HGB CONC 33.3 g/dL (33.0-37.0); MEAN PLATELET VOLUME 8.1 fL (7.2-11.7); MONO # 0.8 K/uL (0.0-0.8); MONO % 6.9 % (0.0-10.0); NEUT # 9.6 K/uL (1.8-7.0); NEUT % 86.6 % (50.0-75.0); PLATELET COUNT 164 K/uL (130-400); RBC 3.51 Mil/uL (4.40-5.90)
[2018-04-25 08:29] LABS: WHITE BLOOD COUNT 11.1 K/uL (4.8-10.8)
[2018-04-25 08:49] LABS: ALBUMIN 3.2 g/dL (3.5-5.0); ALT/SGPT 34 U/L (21-72); AST/SGOT 23 U/L (17-59); BILIRUBIN,DIRECT 0.7 mg/dL (0.0-0.4); BLOOD UREA NITROGEN 19 mg/dL (9-20); CALCIUM 8.2 mg/dl (8.6-10.4); GFR NON-AFRICAN AMERICAN 54
[2018-04-25 09:20] LABS: ANISOCYTOSIS SLIGHT; BANDS 1 % (0-2); HYPOCHROMIC SLIGHT; LYMPHOCYTE 1 % (20-40); MONOCYTE 5 % (0-10); NEUTROPHIL 93 % (50-75); PLATELET ESTIMATE NORMAL (NORMAL); POLYCHROMIC SLIGHT; TOTAL CELLS COUNTED 100
[2018-04-25 09:21] LABS: OVALOCYTES SLIGHT
--- NOTE | 2018-04-25 12:22 | CP.PCM.CON ---
History of Present Illness - History of Present Illness History of Present Illness: INFECTIOUS DISEASE CONSULT; HPI; 73-YEAR-OLD MALE WITH HISTORY OF DIABETES MELLITUS, HYPERTENSION,HYPERCHOLEST EROLEMIA, HISTORY OF COLON CANCER . RECENTLY UNDERWENT ROBOTIC SURGERYAND LAPAROSCOPIC PARTIAL COLECTOMY AND ILEOSTOMY,ON 2017 FOLLOWING THAT HE DEVELOPED NEUROGENIC BLADDER, PRESENTLY WITH AN INDWELLING Briggs CATH, CAME TO THE EMERGENCY ROOM WITH SYMPTOMS OF FEVER , CHILLS AND INABILITY TO PASS URINE. IN THE ER PATIENT WAS FOUND TO HAVE DRAINAGE FROM THE URETHRA AND Briggs WAS REPLACED. pATIENT WAS ALSO FEBRILE TO 103 WITH SERUM LACTATE OF 4.6. PATIENT WAS PLACED ON ZOSYN 2.25 EVERY 8 HOURLY WITH A DOSE OF VANCOMYCIN 1 G. AFTER APPROPRIATE CULTURES. INFECTIOUS DISEASE CONSULTATION REQUESTED PMD FOR POSSIBLE SEPSIS MOST LIKELY SECONDARY TO . PATIENT IS ALSO FOLLOWING HIS DR. LIND. PATIENT WAS GIVEN A DOSE OF AMIKACIN 500 IV ALSO ORDERED BY ME. PMH: Anemia, CAD, Diabetes, HTN, Hypercholesterolemia, Malignancy (Prostate CA) Surgical History: Back Surgery - [facility] Procedures BYPASS ILEUM TO CUTANEOUS, PERCUTANEOUS ENDOSCOPIC APPROACH (02/12/18) EXCISION OF RECTUM, PERCUTANEOUS ENDOSCOPIC APPROACH (02/12/18) Family History: States: No Known Family Hx - Social History Hx Alcohol Use: No Hx Substance Use: No - Immunization History Hx Tetanus Toxoid Vaccination: No Hx Influenza Vaccination: No Hx Pneumococcal Vaccination: No Review of Systems - Constitutional Constitutional: Chills, Fatigue, Fever, Lethargy - EENT Eyes: absent: Photophobia Nose/Mouth/Throat: Dry Mouth. absent: Mouth Lesions - Cardiovascular Cardiovascular: absent: Chest Pain, Dyspnea - Respiratory Respiratory: absent: Cough - Gastrointestinal Gastrointestinal: Loose Stools (IN COLOSTOMY BAG.). absent: Abdominal Pain - Genitourinary Genitourinary: Difficulty Urinating, Dysuria, Pyuria, Urinary Hesitance, Hx Renal/Bladder Calculi - Reproductive: Male Reproductive:Male: Pelvic Pain - Neurological Neurological: absent: Headaches - Hematologic/Lymphatic Hematologic: As Per HPI. absent: Easy Bleeding, Easy Bruising Past Patient History - Past Medical History & Family History Past Medical History?: Yes - Past Social History Smoking Status: Former Smoker - CARDIAC Hx Hypercholesterolemia: Yes Hx Hypertension: Yes - PULMONARY Hx Respiratory Disorders: No - NEUROLOGICAL Hx Neurological Disorder: No - HEENT Hx Deafness: Yes - RENAL Hx Chronic Kidney Disease: No - ENDOCRINE/METABOLIC Hx Diabetes Mellitus Type 2: Yes - HEMATOLOGICAL/ONCOLOGICAL Hx Anemia: Yes - INTEGUMENTARY Hx Dermatological Problems: No - MUSCULOSKELETAL/RHEUMATOLOGICAL Hx Musculoskeletal Disorders: Yes Hx Back Pain: Yes Hx Falls: Yes Hx Herniated Disk: Yes - GASTROINTESTINAL Hx Gastrointestinal Disorders: Yes Other/Comment: COLON CA, Colostomy - GENITOURINARY/GYNECOLOGICAL Hx Genitourinary Disorders: Yes Hx Prostate Cancer: Yes - PSYCHIATRIC Hx Substance Use: No - SURGICAL HISTORY Hx Surgeries: Yes - ANESTHESIA Hx Anesthesia: Yes Hx Anesthesia Reactions: No Hx Malignant Hyperthermia: No Meds Allergies/Adverse Reactions: Allergies Allergy/AdvReac Type Severity Reaction Status Date / Time No Known Allergies Allergy Verified 04/24/18 16:37 - Medications Medications: Current Medications Acetaminophen (Tylenol 325mg Tab) 650 mg PO Q6 PRN PRN Reason: Fever >100.4 F Last Admin: 04/25/18 08:04 Dose: 650 mg Glipizide (Glucotrol) 5 mg PO ACB [facility] Last Admin: 04/25/18 08:04 Dose: 5 mg Heparin Sodium (Porcine) (Heparin) 5,000 units SC Q8 [facility] Last Admin: 04/25/18 05:40 Dose: 5,000 units Sodium Chloride (Sodium Chloride 0.45%) 1,000 mls @ 75 mls/hr IV .[id number] [facility] Last Admin: 04/25/18 08:08 Dose: 75 mls/hr Piperacillin Sod/Tazobactam Sod (Zosyn 2.25 Gm Iv Premix) 2.25 gm in 50 mls @ 100 mls/hr IVPB Q8 [facility]; Protocol Last Admin: 04/25/18 05:39 Dose: 100 mls/hr Amikacin Sulfate 250 mg/ (Sodium Chloride) 251 mls @ 250 mls/hr IVPB Q24H [facility]; Protocol Losartan Potassium (Cozaar) 25 mg PO DAILY [facility] Last Admin: 04/25/18 10:10 Dose: 25 mg Pantoprazole Sodium (Protonix Inj) 40 mg IVP DAILY [facility] Last Admin: 04/25/18 10:10 Dose: 40 mg Rosuvastatin Calcium (Crestor) 2.5 mg PO HS [facility] Last Admin: 04/24/18 22:30 Dose: 2.5 mg Tamsulosin HCl (Flomax) 0.4 mg PO BID [facility] Last Admin: 04/25/18 10:10 Dose: 0.4 mg Physical Exam - Constitutional Appears: No Acute Distress - Head Exam Head Exam: NORMAL INSPECTION - Eye Exam Eye Exam: EOMI, PERRL - ENT Exam ENT Exam: Normal Oropharynx - Neck Exam Neck exam: Positive for: Normal Inspection - Respiratory Exam Respiratory Exam: Clear to Auscultation Bilateral, NORMAL BREATHING PATTERN - Cardiovascular Exam Cardiovascular Exam: Tachycardia, REGULAR RHYTHM, +S1, +S2 - GI/Abdominal Exam GI & Abdominal Exam: Normal Bowel Sounds, Soft. absent: Tenderness - Extremities Exam Extremities exam: Positive for: pedal pulses present. Negative for: calf tenderness, pedal edema - Neurological Exam Neurological exam: Alert, CN II-XII Intact, Oriented x3, Reflexes Normal - Psychiatric Exam Psychiatric exam: Normal Mood - Skin Skin Exam: Normal Color, Warm Results - Vital Signs Recent Vital Signs: Last Vital Signs Temp 98.8 F 04/25/18 09:04 Pulse 89 04/25/18 10:09 Resp 20 04/25/18 07:37 BP 129/54 L 04/25/18 10:09 Pulse Ox 94 L 04/25/18 07:37 - Labs Result Diagrams: 04/25/18 08:17 04/25/18 08:17 Labs: Laboratory Results - last 24 hr 04/24/18 04/24/18 04/24/18 16:05 16:05 16:05 WBC 5.3 D RBC 3.98 L Hgb 10.4 L Hct 32.2 L MCV 80.7 D MCH 26.2 L MCHC 32.4 L RDW 21.9 H Plt Count 167 D MPV 7.6 Neut % (Auto) 79.7 H Lymph % (Auto) 18.1 L [place] % (Auto) 1.3 Eos % (Auto) 0.3 Baso % (Auto) 0.6 Neut # (Auto) 4.2 Lymph # (Auto) 1.0 [place] # (Auto) 0.1 Eos # (Auto) 0.0 Baso # (Auto) 0.0 Neutrophils % (Manual) Band Neutrophils % Lymphocytes % (Manual) Monocytes % (Manual) Platelet Estimate Polychromasia Hypochromasia (manual) Anisocytosis (manual) Ovalocytes pO2 VBG pH VBG pCO2 VBG HCO3 VBG Total CO2 VBG O2 Sat (Calc) VBG Base Excess VBG Potassium Glucose Lactate Crit Value Called To Crit Value Called By Crit Value Read Back Blood Gas Notified Time Sodium 138 Potassium 3.6 Chloride 101 Carbon Dioxide 22 Anion Gap 18 BUN 23 H Creatinine 1.3 Est GFR ( Amer) > 60 Est GFR (Non-Af Amer) 54 POC Glucose (mg/dL) Random Glucose 96 Calcium 9.4 Magnesium 1.6 Total Bilirubin 2.9 H Direct Bilirubin AST 24 ALT 20 L Alkaline Phosphatase 95 Total Creatine Kinase 72 Troponin I C-React Prot High Sens Total Protein 7.4 Albumin 4.0 Globulin 3.4 Albumin/Globulin Ratio 1.1 Venous Blood Potassium Urine Color Urine Clarity Urine pH Ur Specific [place] Urine Protein Urine Glucose (UA) Urine Ketones Urine Blood Urine Nitrate Urine Bilirubin Urine Urobilinogen Ur Leukocyte Esterase Urine WBC (Auto) Urine RBC (Auto) Urine WBC Clumps (Auto) Ur Squamous Epith Cells Urine Bacteria Influenza Typ A,B (EIA) Negative for flu a/b Blood Type Antibody Screen 04/24/18 04/24/18 04/24/18 16:07 16:09 16:26 WBC RBC Hgb Hct MCV MCH MCHC RDW Plt Count MPV Neut % (Auto) Lymph % (Auto) [place] % (Auto) Eos % (Auto) Baso % (Auto) Neut # (Auto) Lymph # (Auto) [place] # (Auto) Eos # (Auto) Baso # (Auto) Neutrophils % (Manual) Band Neutrophils % Lymphocytes % (Manual) Monocytes % (Manual) Platelet Estimate Polychromasia Hypochromasia (manual) Anisocytosis (manual) Ovalocytes pO2 24 L VBG pH 7.38 VBG pCO2 39 L VBG HCO3 22.0 VBG Total CO2 24.3 VBG O2 Sat (Calc) 44.9 VBG Base Excess -1.8 L VBG Potassium 3.4 L Glucose 92 Lactate 4.6 H* Crit Value Called To Dr lira Crit Value Called By Buster lozada Crit Value Read Back Y Blood Gas Notified Time 1610 Sodium 141.0 Potassium Chloride 106.0 Carbon Dioxide Anion Gap BUN Creatinine Est GFR ( Amer) Est GFR (Non-Af Amer) POC Glucose (mg/dL) Random Glucose Calcium Magnesium Total Bilirubin Direct Bilirubin AST ALT Alkaline Phosphatase Total Creatine Kinase Troponin I C-React Prot High Sens Total Protein Albumin Globulin Albumin/Globulin Ratio Venous Blood Potassium 3.4 L Urine Color Yellow Urine Clarity Hazy Urine pH 6.0 Ur Specific [place] 1.012 Urine Protein 2+ H Urine Glucose (UA) Normal Urine Ketones Negative Urine Blood 3+ H Urine Nitrate Negative Urine Bilirubin Negative Urine Urobilinogen Normal Ur Leukocyte Esterase 3+ H Urine WBC (Auto) 287 H Urine RBC (Auto) 921 H Urine WBC Clumps (Auto) Many H Ur Squamous Epith Cells 1 Urine Bacteria Mod H Influenza Typ A,B (EIA) Blood Type O POSITIVE Antibody Screen Negative 04/24/18 04/24/18 04/25/18 16:56 18:49 06:25 WBC RBC Hgb Hct MCV MCH MCHC RDW Plt Count MPV Neut % (Auto) Lymph % (Auto) [place] % (Auto) Eos % (Auto) Baso % (Auto) Neut # (Auto) Lymph # (Auto) [place] # (Auto) Eos # (Auto) Baso # (Auto) Neutrophils % (Manual) Band Neutrophils % Lymphocytes % (Manual) Monocytes % (Manual) Platelet Estimate Polychromasia Hypochromasia (manual) Anisocytosis (manual) Ovalocytes pO2 24 L VBG pH 7.42 VBG pCO2 37 L VBG HCO3 23.3 VBG Total CO2 25.1 VBG O2 Sat (Calc) 51.0 VBG Base Excess -0.2 L VBG Potassium 3.7 Glucose 85 Lactate 1.1 Crit Value Called To Crit Value Called By Crit Value Read Back Blood Gas Notified Time Sodium 140.0 Potassium Chloride 110.0 H Carbon Dioxide Anion Gap BUN Creatinine Est GFR ( Amer) Est GFR (Non-Af Amer) POC Glucose (mg/dL) 89 Random Glucose Calcium Magnesium Total Bilirubin Direct Bilirubin AST ALT Alkaline Phosphatase Total Creatine Kinase Troponin I 0.0150 C-React Prot High Sens Total Protein Albumin Globulin Albumin/Globulin Ratio Venous Blood Potassium 3.7 Urine Color Urine Clarity Urine pH Ur Specific [place] Urine Protein Urine Glucose (UA) Urine Ketones Urine Blood Urine Nitrate Urine Bilirubin Urine Urobilinogen Ur Leukocyte Esterase Urine WBC (Auto) Urine RBC (Auto) Urine WBC Clumps (Auto) Ur Squamous Epith Cells Urine Bacteria Influenza Typ A,B (EIA) Blood Type Antibody Screen 04/25/18 04/25/18 04/25/18 08:17 08:17 08:17 WBC 11.1 H D RBC 3.51 L Hgb 9.4 L Hct 28.3 L MCV 80.8 MCH 26.9 L MCHC 33.3 RDW 21.0 H Plt Count 164 MPV 8.1 Neut % (Auto) 86.6 H Lymph % (Auto) 6.1 L [place] % (Auto) 6.9 Eos % (Auto) 0.0 Baso % (Auto) 0.4 Neut # (Auto) 9.6 H Lymph # (Auto) 0.7 L [place] # (Auto) 0.8 Eos # (Auto) 0.0 Baso # (Auto) 0.0 Neutrophils % (Manual) 93 H Band Neutrophils % 1 Lymphocytes % (Manual) 1 L Monocytes % (Manual) 5 Platelet Estimate Normal Polychromasia Slight Hypochromasia (manual) Slight Anisocytosis (manual) Slight Ovalocytes Slight pO2 VBG pH VBG pCO2 VBG HCO3 VBG Total CO2 VBG O2 Sat (Calc) VBG Base Excess VBG Potassium Glucose Lactate Crit Value Called To Crit Value Called By Crit Value Read Back Blood Gas Notified Time Sodium 136 Potassium 3.6 Chloride 106 Carbon Dioxide 21 L Anion Gap 13 BUN 19 Creatinine 1.3 Est GFR ( Amer) > 60 Est GFR (Non-Af Amer) 54 POC Glucose (mg/dL) Random Glucose 91 Calcium 8.2 L Magnesium Total Bilirubin 2.5 H Direct Bilirubin 0.7 H AST 23 ALT 34 Alkaline Phosphatase 107 Total Creatine Kinase Troponin I C-React Prot High Sens > 15.00 H Total Protein 6.4 Albumin 3.2 L Globulin 3.1 Albumin/Globulin Ratio 1.0 Venous Blood Potassium Urine Color Urine Clarity Urine pH Ur Specific [place] Urine Protein Urine Glucose (UA) Urine Ketones Urine Blood Urine Nitrate Urine Bilirubin Urine Urobilinogen Ur Leukocyte Esterase Urine WBC (Auto) Urine RBC (Auto) Urine WBC Clumps (Auto) Ur Squamous Epith Cells Urine Bacteria Influenza Typ A,B (EIA) Blood Type Antibody Screen 04/25/18 04/25/18 04/25/18 11:15 11:17 11:44 WBC RBC Hgb Hct MCV MCH MCHC RDW Plt Count MPV Neut % (Auto) Lymph % (Auto) [place] % (Auto) Eos % (Auto) Baso % (Auto) Neut # (Auto) Lymph # (Auto) [place] # (Auto) Eos # (Auto) Baso # (Auto) Neutrophils % (Manual) Band Neutrophils % Lymphocytes % (Manual) Monocytes % (Manual) Platelet Estimate Polychromasia Hypochromasia (manual) Anisocytosis (manual) Ovalocytes pO2 VBG pH VBG pCO2 VBG HCO3 VBG Total CO2 VBG O2 Sat (Calc) VBG Base Excess VBG Potassium Glucose Lactate Crit Value Called To Crit Value Called By Crit Value Read Back Blood Gas Notified Time Sodium Potassium Chloride Carbon Dioxide Anion Gap BUN Creatinine Est GFR ( Amer) Est GFR (Non-Af Amer) POC Glucose (mg/dL) 68 69 85 Random Glucose Calcium Magnesium Total Bilirubin Direct Bilirubin AST ALT Alkaline Phosphatase Total Creatine Kinase Troponin I C-React Prot High Sens Total Protein Albumin Globulin Albumin/Globulin Ratio Venous Blood Potassium Urine Color Urine Clarity Urine pH Ur Specific [place] Urine Protein Urine Glucose (UA) Urine Ketones Urine Blood Urine Nitrate Urine Bilirubin Urine Urobilinogen Ur Leukocyte Esterase Urine WBC (Auto) Urine RBC (Auto) Urine WBC Clumps (Auto) Ur Squamous Epith Cells Urine Bacteria Influenza Typ A,B (EIA) Blood Type Antibody Screen - Imaging and Cardiology CT scan - abdomen/PELVIS WIV CONTRAST Status: Report reviewed by me Additional comment: 6 MM OBSTRUCTIVE STONE AT R T. UVJ WITH MILD RIGHT HYDROURETERO NEPHROSIS/PERINEPHRIC STRANDING. 2.1 IN 201.9 CM LESION UPPER POLE OF THE SPLEEN ? METS VERSUS HEMANGIOMA. Assessment & Plan (1) Sepsis Assessment and Plan: SOURCE OF SEPSIS MOST LIKELY SECONDARY TO COMPLICATED uti WITH MILD RIGHT HYDROURETERONEPHROSIS AND PERINEPHRIC STRANDING ON CT ABDOMEN AND PELVIS. Blood cultures negative for 24 hours Urine culture +ve gram-negative rods.-Identification pending. Case discussed with PMD . DC iv zOSYN DISCUSSED START iv MERREM 500 MG IVPB EVERY 8 HOURLY 04/25/18. CONTINUE iv AMIKACIN 250 MG IVPB EVERY 24 HOURLY X 2 DAYS.04/24/18 fOLLOW-UP RENAL FUNCTIONS CLOSELY. EVALUATION IN PROGRESS. Status: Acute (2) UTI (urinary tract infection) Assessment and Plan: FOLLOW-UP URINE CULTURES TO ADJUST ANTIBIOTICS. Status: Acute (3) Colonic neoplasm Assessment and Plan: S/P LAPAROSCOPIC COLON SURGERY . COLOSTOMY IN PLACE WITH LIQUID STOOLS. Status: Acute Priority: Medium (4) Briggs catheter in place Status: Acute (5) Urinary retention Status: Acute
--- NOTE | 2018-04-25 20:06 | CP.PCM.HP ---
History of Present Illness - History of Present Illness History of Present Illness: CHIEF COMPLAINT: Chills and shaking and increasing weakness. HISTORY OF PRESENT ILLNESS: A 73-year-old male with multiple medical history including hypertension, diabetes, hypercholesterolemia, history of anemia, rectal cancer, recently had surgical intervention, also following that he developed neurogenic bladder, currently on indwelling Briggs catheter, came to the emergency room with symptoms of chills. Three days ago, he started noticing increasing weakness and fatigue and also unable to get up from the bed, poor appetite. He had an episode of vomiting after eating some food, and he was not able to go to the bathroom. Two days ago while he was trying to reach the bathroom, he fell down, had some scalp injury following that. He needed some help to moving around with the family help. Two days ago, again he started having chills and shivering. At that time, family requested to go to the emergency room, but he refused. Today, as the condition got worse, he came into the emergency room. In the emergency room, the patient was noted to have chills, fever, and also increasing weakness and tachycardia. PAST MEDICAL HISTORY: Hypertension, high cholesterol, diabetes, anemia, has a history of colon cancer, had surgery recently. SURGICAL HISTORY: Twenty years ago, the patient had diskectomy, and he also had robotic-assisted laparoscopic partial colectomy with ileostomy on 02/12/2018. The patient also had cardiac stress test which was done on 02/04/2018. ALLERGY: NO KNOWN DRUG ALLERGY. FAMILY HISTORY: Father had a history of liver disease secondary to alcohol. Mother at the age of 80. Three sisters with diabetes, one brother. SOCIAL HISTORY: The patient is a ex-smoker, quit 30 years ago. Denies any alcohol. CURRENT MEDICATIONS: Noted from the chart. The patient is currently taking lisinopril and hydrochlorothiazide, atorvastatin, glipizide, and ferrous sulfate. REVIEW OF SYSTEMS: Currently, the patient is having increasing weakness. No headache. Denies any cough, but complaining of chest tightness and chest pain. No abdominal pain. No flank pain noted. He has an indwelling catheter. He denies any urinary discoloration or changes in the urination. No leg swelling. PHYSICAL EXAMINATION: VITAL SIGNS: Temperature is 103.9 in the ER, currently it is afebrile. Pulse 102, blood pressure 154/70, respirations 24, saturations 95% on room air. CHEST: Good air entry bilaterally. No wheezing or rales noted. HEART: Regular heart sound noted. ABDOMEN: Nontender. The patient has no suprapubic tenderness. No flank tenderness. He has an ileostomy on the right side of the abdomen. EXTREMITIES: No pedal edema. CENTRAL NERVOUS SYSTEM: Alert, awake, and oriented x3. No functional neurological deficit. LABORATORY DATA: Showing WBC 5.3, hemoglobin 10.4, hematocrit 32.2, platelets 167. Venous blood gas: Lactate is 4.6 noted. Chemistry: BUN 23, creatinine 1.3, magnesium 1.6. Liver enzymes are normal. Urine: Significant LE 3+ noted, wbc 287 noted, moderate bacteria. Influenza is negative. Had chest x-ray, abdominal x-ray, abdominal CAT scan, and CT scan. Chest x-ray is showing evidence of no acute infiltrate. CAT scan of the abdomen and pelvis showing mild right hydronephrosis and possible stone in the right UV junctional area, possible cystitis. CT scan of the head is negative. ASSESSMENT AND RECOMMENDATION: A 73-year-old male with history of diabetes, hypertension, hypercholesterolemia, rectal cancer, status post ileostomy and colectomy, admitted now with significant sepsis associated with fever and febrile illness. Possible source includes urinary tract infection. The patient has an indwelling catheter for the postoperative neurogenic bladder developed and also possible pyelonephritis and right-sided hydronephrosis secondary to colic and also kidney stones cannot be ruled out. The patient is currently on antibiotic. We will get infectious disease evaluation. Urology evaluation was also called in. Continue the IV fluid. Deep venous thrombosis and gastrointestinal prophylaxis. Fall precaution. We will discuss with the family tomorrow. Glucose monitoring, and we will follow the patient. Matt Rojo MD Present on Admission - Present on Admission Any Indicators Present on Admission: No History of DVT/PE: No History of Uncontrolled Diabetes: No Urinary Catheter: No Decubitus Ulcer Present: No Past Patient History - Past Medical History & Family History Past Medical History?: Yes - Past Social History Smoking Status: Former Smoker - CARDIAC Hx Hypercholesterolemia: Yes Hx Hypertension: Yes - PULMONARY Hx Respiratory Disorders: No - NEUROLOGICAL Hx Neurological Disorder: No - HEENT Hx Deafness: Yes - RENAL Hx Chronic Kidney Disease: No - ENDOCRINE/METABOLIC Hx Diabetes Mellitus Type 2: Yes - HEMATOLOGICAL/ONCOLOGICAL Hx Anemia: Yes - INTEGUMENTARY Hx Dermatological Problems: No - MUSCULOSKELETAL/RHEUMATOLOGICAL Hx Musculoskeletal Disorders: Yes Hx Back Pain: Yes Hx Falls: Yes Hx Herniated Disk: Yes - GASTROINTESTINAL Hx Gastrointestinal Disorders: Yes Other/Comment: COLON CA, Colostomy - GENITOURINARY/GYNECOLOGICAL Hx Genitourinary Disorders: Yes Hx Prostate Cancer: Yes - PSYCHIATRIC Hx Substance Use: No - SURGICAL HISTORY Hx Surgeries: Yes - ANESTHESIA Hx Anesthesia: Yes Hx Anesthesia Reactions: No Hx Malignant Hyperthermia: No Meds Allergies/Adverse Reactions: Allergies Allergy/AdvReac Type Severity Reaction Status Date / Time No Known Allergies Allergy Verified 04/24/18 16:37 Results - Vital Signs Recent Vital Signs: Last Vital Signs Temp 101.4 F H 04/25/18 16:39 Pulse 96 H 04/25/18 16:39 Resp 20 04/25/18 16:39 BP 143/70 04/25/18 16:39 Pulse Ox 95 04/25/18 16:39 - Labs Result Diagrams: 04/25/18 08:17 04/25/18 08:17 Labs: Laboratory Results - last 24 hr 04/25/18 04/25/18 04/25/18 06:25 08:17 08:17 WBC 11.1 H D RBC 3.51 L Hgb 9.4 L Hct 28.3 L MCV 80.8 MCH 26.9 L MCHC 33.3 RDW 21.0 H Plt Count 164 MPV 8.1 Neut % (Auto) 86.6 H Lymph % (Auto) 6.1 L Pettis % (Auto) 6.9 Eos % (Auto) 0.0 Baso % (Auto) 0.4 Neut # (Auto) 9.6 H Lymph # (Auto) 0.7 L Pettis # (Auto) 0.8 Eos # (Auto) 0.0 Baso # (Auto) 0.0 Neutrophils % (Manual) 93 H Band Neutrophils % 1 Lymphocytes % (Manual) 1 L Monocytes % (Manual) 5 Platelet Estimate Normal Polychromasia Slight Hypochromasia (manual) Slight Anisocytosis (manual) Slight Ovalocytes Slight Sodium 136 Potassium 3.6 Chloride 106 Carbon Dioxide 21 L Anion Gap 13 BUN 19 Creatinine 1.3 Est GFR ( Amer) > 60 Est GFR (Non-Af Amer) 54 POC Glucose (mg/dL) 89 Random Glucose 91 Calcium 8.2 L Total Bilirubin 2.5 H Direct Bilirubin 0.7 H AST 23 ALT 34 Alkaline Phosphatase 107 C-React Prot High Sens Total Protein 6.4 Albumin 3.2 L Globulin 3.1 Albumin/Globulin Ratio 1.0 04/25/18 04/25/18 04/25/18 08:17 11:15 11:17 WBC RBC Hgb Hct MCV MCH MCHC RDW Plt Count MPV Neut % (Auto) Lymph % (Auto) Pettis % (Auto) Eos % (Auto) Baso % (Auto) Neut # (Auto) Lymph # (Auto) Pettis # (Auto) Eos # (Auto) Baso # (Auto) Neutrophils % (Manual) Band Neutrophils % Lymphocytes % (Manual) Monocytes % (Manual) Platelet Estimate Polychromasia Hypochromasia (manual) Anisocytosis (manual) Ovalocytes Sodium Potassium Chloride Carbon Dioxide Anion Gap BUN Creatinine Est GFR ( Amer) Est GFR (Non-Af Amer) POC Glucose (mg/dL) 68 69 Random Glucose Calcium Total Bilirubin Direct Bilirubin AST ALT Alkaline Phosphatase C-React Prot High Sens > 15.00 H Total Protein Albumin Globulin Albumin/Globulin Ratio 04/25/18 04/25/18 04/25/18 11:44 15:47 15:49 WBC RBC Hgb Hct MCV MCH MCHC RDW Plt Count MPV Neut % (Auto) Lymph % (Auto) Pettis % (Auto) Eos % (Auto) Baso % (Auto) Neut # (Auto) Lymph # (Auto) Pettis # (Auto) Eos # (Auto) Baso # (Auto) Neutrophils % (Manual) Band Neutrophils % Lymphocytes % (Manual) Monocytes % (Manual) Platelet Estimate Polychromasia Hypochromasia (manual) Anisocytosis (manual) Ovalocytes Sodium Potassium Chloride Carbon Dioxide Anion Gap BUN Creatinine Est GFR ( Amer) Est GFR (Non-Af Amer) POC Glucose (mg/dL) 85 68 85 Random Glucose Calcium Total Bilirubin Direct Bilirubin AST ALT Alkaline Phosphatase C-React Prot High Sens Total Protein Albumin Globulin Albumin/Globulin Ratio
--- NOTE | 2018-04-25 20:52 | CON ---
DATE: 04/25/2018 COMPREHENSIVE UROLOGIC CONSULTATION. TIME OF CONSULTATION: Roughly 10:20 a.m. BRIEF HISTORY: The patient is a 73-year-old male from [place], who is status post a robotic low anterior resection for rectal cancer done in early 03/[address] Rainey, who originally presented with urinary retention postoperatively and still remains in urinary retention with BPH and possible areflexic decreased compliant bladder. The patient now presents to [facility] ER with a 3-day history of only chills with his indwelling Briggs catheter, which was most likely changed 2 weeks prior to his current ER visit and this Briggs catheter was also changed during this ER visit on 04/24/2018. Urine and blood cultures were obtained in the ER and the patient was admitted and started on IV Zosyn for treatment of urosepsis. The urinalysis showed grossly positive urine with wbc's and rbc's consistent with urosepsis. The patient, however, had no complaint of any abdominal or pelvic pain with the indwelling Briggs catheter. An abdominopelvic CT done in the ER on 04/24/2018 showed a 2.1 x 1.9-cm lesion in the posterior aspect of the upper pole of the spleen and the differential consideration includes metastasis, hemangioma, or complicated cyst and correlation with left upper quadrant ultrasound was recommended. The patient also had a 6-mm obstructing stone at the right UVJ with resultant mild right hydronephrosis and some perinephric fat stranding. The patient, however, denies any history of any right renal colic. The patient was seen in the office for acute urinary retention and was started on Flomax and the patient also had an abdominopelvic CT done on 04/02/2018, which showed no hydronephrosis or obstructing renal calculus and a 4.4-cm left renal cyst. The patient also had a right upper pole renal hypodense lesion, measuring approximately 3.2 cm, which was indeterminate. The patient also had a 5-mm right middle lobe lung nodule. The patient's prostate volume was measured at about 50 mL. The patient failed several voiding trials and his Flomax was increased to b.i.d. PAST MEDICAL HISTORY: The patient has a past medical history of hypertension, hyperlipidemia, diabetes mellitus, colon cancer, diverting colostomy, UTI, BPH, and urinary retention. SOCIAL HISTORY: The patient was a former smoker and no alcohol abuse. The patient previously was treated with Cipro for treatment of the urinary tract infection and his prior urine culture showed E. coli greater than 100,000 colonies and Klebsiella pneumoniae 20-50,000 colonies, both sensitive to Augmentin, cefazolin, ciprofloxacin, levofloxacin, nitrofurantoin, and Bactrim. The patient was again treated for his UTI with Augmentin. The patient also has a history of an elevated PSA, but this may have been doing well while the patient had some urinary tract infection. His total PSA at that time was 6.30 and his free PSA was 21%. The patient may have an areflexic noncompliant bladder, post pelvic surgery and the patient was originally to be scheduled for a CMG and cystoscopy. We will now at this time treat the patient for his urosepsis and try to sterilize his urine prior to any urologic procedures. The patient is relatively asymptomatic regarding his right UVJ stone. PHYSICAL EXAMINATION: VITAL SIGNS: His temperature this morning, he spiked to a temperature of 102.6 early this morning and his temperature now is 98.8 on IV Zosyn. His pulse was 89. His blood pressure is 129/54 and his respirations were 20 and O2 saturation on room air was 94%. GENERAL: He is a well-developed and well-nourished white male. He is alert. He is oriented. HEENT: Grossly within normal limits. NECK: Supple. Thyroid not palpable. ABDOMEN: Soft, not distended or tender. No CVA tenderness and no suprapubic tenderness. He does have a functioning right colostomy, status post robotic low anterior resection for rectal cancer. GENITALIA: His testicles are down bilaterally, nontender. RECTAL: Examination shows normal rectal tone without fluctuance or masses. Prostate is enlarged, smooth, symmetrical, minimally tender without nodules or indurations with a palpable median sulcus. EXTREMITIES: He has full range of motion of both upper and lower extremities. LABORATORY DATA: Urine and blood cultures are pending. His laboratory evaluation in the ER on 04/24/2018 showed a WBC count of 5.3, which is now elevated early this morning on 04/25/2018 to 11.1. His hemoglobin is 9.4 today 04/25/2018 and his hematocrit is 28.3 indicating a [id number] anemia. His platelet count was 164,000. His chem profile on 04/25/2018 showed a sodium of 136, potassium 3.6, CO2 of 21, and BUN and creatinine of 19 and 1.3 respectively with a GFR of 54 indicating chronic kidney disease stage III. His glucose was 91 and calcium was 8.2. C-reactive protein was greater than 15. His urinalysis on 04/24/2018 in the ER showed the color was yellow, clarity was hazy, pH 6, and specific gravity 1.012. Protein 2+, glucose normal. Ketones negative. Blood 3+. Nitrite negative. Bilirubin negative. Urobilinogen normal. Leukocyte esterase 3+, 287 wbc's, 921 rbc's with many wbc clumps per high-power field. Also, there were moderate bacteria per high-power field. DIAGNOSTIC IMPRESSION: 1. Urosepsis. 2. Benign prostatic hypertrophy. 3. Urinary retention, postoperatively. 4. Right 6-mm ureterovesical junction stone. PLAN: Continue the patient on his IV Zosyn pending urine and blood cultures' results. Make sure the patient is on his Flomax 0.8 mg daily and maintain the Briggs catheter to gravity drainage. Alexis Meyers MD MTDD
--- NOTE | 2018-04-25 21:40 | PN ---
DATE: 04/25/2018 SUBJECTIVE: The patient was seen by me at 8 p.m. today. The patient this morning had an episode of fever, chills also noted in the morning. He had a fever of 102 at that time. Again, second episode of fever in the evening around 4 p.m. but currently the patient is afebrile. He was having some sweating also, perspiration. He is also receiving IV fluid. He is feeling well. He is able to eat but his appetite is very poor. Urine is very clear at this time. No nausea. No vomiting. No abdominal pain noted. The patient has a colostomy, drainage noted. PHYSICAL EXAMINATION: VITAL SIGNS: Temperature 101.4, heart rate is 96, blood pressure 143/70, respiration is 20. The patient also had an episode of hypoglycemia in the morning, so the antihypoglycemic is on hold. CHEST: Good air entry. ABDOMEN: Nontender. EXTREMITIES: No pedal edema. LABORATORY DATA: Labs reviewed. Culture is currently positive for urine culture gram-negative rods noted. Labs are otherwise normal, nonspecific. WBC 11.1, hemoglobin 9.4, platelet is 164. BUN and creatinine is normal. Bilirubin is 2.5. ASSESSMENT AND RECOMMENDATION: A 73-year-old male with a history of hypertension, diabetes, hypocholesterolemia admitted with post colectomy and colostomy complicated with neurogenic bladder, having indwelling catheter, admitted with severe urinary tract infection associated with severe sepsis and febrile illness, septicemia likely, blood culture so far negative. Currently, the patient is on amikacin and Zosyn. Seen by infectious Disease. Culture pending at this time. The patient is still not responding to antibiotic. We will discuss with infectious Disease about the changing of antibiotic once the culture results are available. Possible extended-spectrum beta-lactamases Escherichia coli cannot be ruled out. Also, the patient has the nephrolithiasis. We will discuss with the urologist for a possible cystoscopy and removal of the stone. We will continue to monitor and we will follow up the patient. Matt Rojo MD
[2018-04-25] MEDS: Meropenem 500 MG in Sodium Chloride 0.9% 100 ML IVPB SCH (21:54)
[2018-04-25] MEDS: Rosuvastatin Calcium 2.5 mg Tab PO SCH (21:55)
--- NOTE | 2018-04-25 23:49 | CARD ---
APPROVED REPORT Date of service: 04/24/2018 EKG Measurement Heart [id number] <Conclusion> Sinus tachycardia Otherwise normal ECG
--- NOTE | 2018-04-25 23:51 | CARD ---
APPROVED REPORT Date of service: 04/24/2018 EKG Measurement Heart [id number] <Conclusion> Sinus tachycardia Posterior infarct, age undetermined ST & T wave abnormality, consider inferolateral ischemia Abnormal ECG
[2018-04-26] MEDS: Sodium Chloride 0.45% 1,000 ML IV SCH ×3 (00:43→20:24)
[2018-04-26] MEDS: Meropenem 500 MG in Sodium Chloride 0.9% 100 ML IVPB SCH ×3 (05:44→22:09)
[2018-04-26 08:25] LABS: BASO % 0.5 % (0.0-2.0); EOS # 0.1 K/uL (0.0-0.7); EOS % 0.9 % (0.0-4.0); HEMOGLOBIN 8.9 g/dL (12.0-18.0); LYMPH # 1.4 K/uL (1.0-4.3); LYMPH % 17.3 % (20.0-40.0); MEAN CELL VOLUME 79.1 fL (80.0-94.0); MEAN CORPUSCULAR HEMOGLOBIN 26.2 pg (27.0-31.0); MEAN CORPUSCULAR HGB CONC 33.1 g/dL (33.0-37.0); MEAN PLATELET VOLUME 8.1 fL (7.2-11.7); MONO # 0.8 K/uL (0.0-0.8); NEUT # 5.6 K/uL (1.8-7.0); NEUT % 71.3 % (50.0-75.0); RBC 3.39 Mil/uL (4.40-5.90); RED CELL DISTRIBUTION WIDTH 20.6 % (11.5-14.5); WHITE BLOOD COUNT 7.9 K/uL (4.8-10.8)
[2018-04-26 08:57] LABS: ALBUMIN 2.9 g/dL (3.5-5.0); ALT/SGPT 27 U/L (21-72); AST/SGOT 23 U/L (17-59); BLOOD UREA NITROGEN 17 mg/dL (9-20); CALCIUM 8.1 mg/dl (8.6-10.4); GFR NON-AFRICAN AMERICAN 59
[2018-04-26 09:25] LABS: URINE BACTERIA OCC (<OCC); URINE BILIRUBIN NEGATIVE (NEGATIVE); URINE BLOOD 1+ (NEGATIVE); URINE CLARITY Clear (Clear); URINE COLOR Yellow (YELLOW); URINE GLUCOSE (UA) NORMAL (Normal); URINE LEUKOCYTE ESTERASE 3+ Leu/uL (Negative); URINE PROTEIN 1+ mg/dL (NEGATIVE); URINE UROBILINOGEN NORMAL mg/dL (0.2-1.0)
--- NOTE | 2018-04-26 11:40 | US ---
Date of service: 04/26/2018 PROCEDURE: Ultrasound of the Kidneys HISTORY: hydronephrosis COMPARISON: CT abdomen and pelvis from 04/24/2018 TECHNIQUE: Sonogram of the kidneys. FINDINGS: RIGHT KIDNEY: Measures: 10.4 cm. Normal in size, contour with diffuse increased echogenicity. No stones. There is mild hydronephrosis. There is a 1.8 x 1.3 x 1.5 cm simple cyst in the upper pole. LEFT KIDNEY: Measures: 13.5 cm. Normal in size, contour with diffuse increased echogenicity. No stone, solid mass lesion or hydronephrosis visualized. There is a 5.3 x 5.1 x 5.1 cm simple cyst in the upper pole and 1.2 x 1.2 x 1.2 cm simple cyst in the lower pole. OTHER FINDINGS: Incidentally noted is a 1.7 x 2.0 x 1.4 cm splenic cyst. Also noted is a left pleural effusion. IMPRESSION: Mild right hydronephrosis. Diffuse increased cortical echogenicity in the kidneys which may represent underlying medical renal parenchymal disease.
--- NOTE | 2018-04-26 11:53 | PN ---
DATE: 04/26/2018 SUBJECTIVE: The patient is sleeping at this time, but he is arousable completely. He has no chest pain, no shortness of breath and no abdominal pain. He has a Briggs catheter. He denies any leg swelling. PHYSICAL EXAMINATION: VITAL SIGNS: Low-grade fever noted fiber analyst but now the temperature is 98.3, pulse 89, blood pressure 147/70, saturation 97%, respiration is 20 per minute, room air saturation is 98. CHEST: Good air entry. HEART: Regular heart sound. ABDOMEN: Nontender. EXTREMITIES: No pedal edema. RECTAL: The patient has a colostomy and also Briggs catheter. LABORATORY DATA: Labs today, currently pending. ASSESSMENT: Mr. Cr Khalil, who has a history of diabetes and hypertension and rectal cancer, status post colostomy awaiting for revision, admitted with neurogenic bladder complicated with urinary tract infection and urosepsis. PLAN: I discussed with Infectious Disease. The patient started on meropenem already for suspected ESBL E. coli and also resistant fever. We will discuss with the urologist for possible cystoscopy and lithotripsy. We will continue the current treatment. We will follow with the patient. Matt Rojo MD
--- NOTE | 2018-04-26 14:28 | CP.PCM.PN ---
Subjective - Date & Time of Evaluation Date of Evaluation: 04/26/18 Time of Evaluation: 14:28 - Subjective Subjective: CHIEF COMPLAINTS TODAY : TMAX 101.3 VSS DROWSY , +VE FOLY URINE CLEARING ROS. HEENT : N. Resp : No cough, wheezing ,pleuritic CP ,or hemoptysis Cardio : No anginal CP, PND, orthopnea, palpitation GI : No abd.pain, n/v ,diarrhea or GI bleeding . EYEGLASS CUTTER : No headache, vertigo, focal deficit. Musculoskel : No joint swelling , Derm : No rash Psych : Normal affect. Ext : No swelling ,calf pain PE. Pt. is alert awake in no distress. V.S As noted in the chart Head ,ear nose,throat and eyes : Normal. Neck : Supple with normal carotids. Lungs: Clear air entry. Heart : S1 & S2 normal with S4. No murmur. Abd : Soft non tender with normal bowel sounds.+VE COLOSTOMY +VE SOFT LOOSE STOOLS Neuro : Moves all ext. with no localized deficit. Ext : No edema with intact pulses.Non tender calves Derm : No rashes or decubitus ulcer. LABS/RADIOLOGY: WBC 7.9 H/H 8.9 CREAT1.2/BUN 17 Objective - Vital Signs/Intake and Output Vital Signs (last 24 hours): Temp Pulse Resp BP Pulse Ox 98.3 F 87 20 147/70 98 04/26/18 07:00 04/26/18 08:55 04/26/18 07:00 04/26/18 07:00 04/26/18 07:00 Intake and Output: 04/26/18 04/26/18 06:59 18:59 Output Total 1200 Balance -1200 - Medications Medications: Current Medications Acetaminophen (Tylenol 325mg Tab) 650 mg PO Q6 PRN PRN Reason: Fever >100.4 F Last Admin: 04/26/18 02:09 Dose: 650 mg Heparin Sodium (Porcine) (Heparin) 5,000 units SC Q8 COUNT INCLUDES THE [facility] Last Admin: 04/26/18 14:20 Dose: 5,000 units Sodium Chloride (Sodium Chloride 0.45%) 1,000 mls @ 75 mls/hr IV .[id number] COUNT INCLUDES THE [facility] Last Admin: 04/26/18 00:43 Dose: 75 mls/hr Amikacin Sulfate 250 mg/ (Sodium Chloride) 251 mls @ 250 mls/hr IVPB Q24H [facility]; Protocol Last Admin: 04/26/18 12:50 Dose: 250 mls/hr Meropenem 500 mg/ Sodium (Chloride) 100 mls @ 100 mls/hr IVPB Q8H [facility]; Protocol Last Admin: 04/26/18 14:20 Dose: 100 mls/hr Losartan Potassium (Cozaar) 25 mg PO DAILY COUNT INCLUDES THE [facility] Last Admin: 04/26/18 09:41 Dose: 25 mg Pantoprazole Sodium (Protonix Inj) 40 mg IVP DAILY COUNT INCLUDES THE [facility] Last Admin: 04/26/18 09:42 Dose: 40 mg Rosuvastatin Calcium (Crestor) 2.5 mg PO HS COUNT INCLUDES THE [facility] Last Admin: 04/25/18 21:55 Dose: 2.5 mg Tamsulosin HCl (Flomax) 0.4 mg PO BID COUNT INCLUDES THE [facility] Last Admin: 04/26/18 09:42 Dose: 0.4 mg - Labs Labs: 04/26/18 08:19 04/26/18 08:19 Assessment and Plan (1) Sepsis Assessment & Plan: SOURCE OF SEPSIS MOST LIKELY SECONDARY TO COMPLICATED uti WITH MILD RIGHT HYDROURETERONEPHROSIS AND PERINEPHRIC STRANDING ON CT ABDOMEN AND PELVIS. REPEAT Blood cultures negative for 24 hours Urine culture +ve gram-negative rods.+E. COLI S MERREM/AMIKACI ON iv MERREM 500 MG IVPB EVERY 8 HOURLY 04/25/18.-DAY2 CONTINUE iv AMIKACIN 250 MG IVPB EVERY 24 HOURLY 04/24/18 DAY 3. fOLLOW-UP RENAL FUNCTIONS CLOSELY. EVALUATION IN PROGRESS. Status: Acute (2) UTI (urinary tract infection) Assessment & Plan: URINE CULTURE +VE E. COLI S-MERREM/AMIKACIN. ON IV MERREM IV AMIKACIN Status: Acute (3) Colonic neoplasm Assessment & Plan: S/P LAPAROSCOPIC COLON SURGERY . COLOSTOMY IN PLACE WITH LIQUID STOOLS. Status: Acute (4) Briggs catheter in place Status: Acute (5) Urinary retention Status: Acute
[2018-04-26] MEDS: Rosuvastatin Calcium 2.5 mg Tab PO SCH (22:05)
[2018-04-27] MEDS: Sodium Chloride 0.45% 1,000 ML IV SCH ×3 (01:05→14:50)
[2018-04-27] MEDS: Meropenem 500 MG in Sodium Chloride 0.9% 100 ML IVPB SCH ×3 (06:04→23:28)
[2018-04-27] MEDS: Rosuvastatin Calcium 2.5 mg Tab PO SCH (21:54)
[2018-04-28] MEDS: Meropenem 500 MG in Sodium Chloride 0.9% 100 ML IVPB SCH ×3 (05:51→21:27)
[2018-04-28] MEDS: Sodium Chloride 0.45% 1,000 ML IV SCH ×2 (05:59→17:39)
[2018-04-28 06:59] LABS: URINE BACTERIA RARE (<OCC); URINE BILIRUBIN NEGATIVE (NEGATIVE); URINE BLOOD 1+ (NEGATIVE); URINE CLARITY Clear (Clear); URINE COLOR Straw (YELLOW); URINE GLUCOSE (UA) NORMAL (Normal); URINE LEUKOCYTE ESTERASE TRACE Leu/uL (Negative); URINE PROTEIN NEGATIVE (NEGATIVE); URINE UROBILINOGEN NORMAL mg/dL (0.2-1.0)
[2018-04-28] MEDS: Pantoprazole 40 mg EC Tab PO SCH (09:23)
--- NOTE | 2018-04-28 09:51 | PN ---
DATE: 04/27/2018 SUBJECTIVE: The patient was seen by me at 8 p.m. The patient's son was at bedside. I also spoke to the urologist. After discussion with the urologist, the patient will be needing a urodynamic study which will be scheduled on 04/29/2018. PHYSICAL EXAMINATION: The patient is currently otherwise comfortable. Not in any distress. Eating well. Urine is clearing up also. Clinical examination is unremarkable. ASSESSMENT AND PLAN: The patient is a 73-year-old male with diabetes and hypertension, admitted with acute urinary tract infection associated with severe sepsis and septicemia, now improving. The patient also has a stone in the right ureterovesical junction. Clinically stable otherwise. We will continue the current treatment and we will follow up with the patient. Sky Russ MD
[2018-04-28 11:36] LABS: BASO # 0.1 K/uL (0.0-0.2); BASO % 0.6 % (0.0-2.0); EOS # 0.2 K/uL (0.0-0.7); EOS % 1.9 % (0.0-4.0); HEMOGLOBIN 9.5 g/dL (12.0-18.0); LYMPH # 1.3 K/uL (1.0-4.3); LYMPH % 15.6 % (20.0-40.0); MEAN CELL VOLUME 79.4 fL (80.0-94.0); MEAN CORPUSCULAR HEMOGLOBIN 26.9 pg (27.0-31.0); MEAN CORPUSCULAR HGB CONC 33.9 g/dL (33.0-37.0); MEAN PLATELET VOLUME 8.1 fL (7.2-11.7); MONO # 0.6 K/uL (0.0-0.8); MONO % 7.4 % (0.0-10.0); NEUT # 6.2 K/uL (1.8-7.0); NEUT % 74.5 % (50.0-75.0); RBC 3.52 Mil/uL (4.40-5.90); RED CELL DISTRIBUTION WIDTH 19.6 % (11.5-14.5); WHITE BLOOD COUNT 8.4 K/uL (4.8-10.8)
[2018-04-28 11:49] LABS: ALBUMIN 3.3 g/dL (3.5-5.0); ALT/SGPT 39 U/L (21-72); AST/SGOT 32 U/L (17-59); BLOOD UREA NITROGEN 18 mg/dL (9-20); CALCIUM 8.5 mg/dl (8.6-10.4); GFR NON-AFRICAN AMERICAN 59
[2018-04-28] MEDS: Potassium & Sodium Phosphate PO SCH ×2 (14:03→18:37)
[2018-04-28] MEDS: Rosuvastatin Calcium 2.5 mg Tab PO SCH (21:26)
--- NOTE | 2018-04-28 23:12 | CP.PCM.PN ---
Subjective - Date & Time of Evaluation Date of Evaluation: 04/28/18 Time of Evaluation: 23:12 - Subjective Subjective: CHIEF COMPLAINTS TODAY : TEMP IMPROVING -AFEBRILE MORE AWAKE +VE FOLY URINE CLEARING ROS. HEENT : N. Resp : No cough, wheezing ,pleuritic CP ,or hemoptysis Cardio : No anginal CP, PND, orthopnea, palpitation GI : No abd.pain, n/v ,diarrhea or GI bleeding . PROJECT GEOPHYSICIST : No headache, vertigo, focal deficit. Musculoskel : No joint swelling , Derm : No rash Psych : Normal affect. Ext : No swelling ,calf pain PE. Pt. is alert awake in no distress. V.S As noted in the chart Head ,ear nose,throat and eyes : Normal. Neck : Supple with normal carotids. Lungs: Clear air entry. Heart : S1 & S2 normal with S4. No murmur. Abd : Soft non tender with normal bowel sounds.+VE COLOSTOMY +VE SOFT LOOSE STOOLS Neuro : Moves all ext. with no localized deficit. Ext : No edema with intact pulses.Non tender calves Derm : No rashes or decubitus ulcer. LABS/RADIOLOGY: WBC 8.4 H/H 8.9 --> 9.5 CREAT1.2/BUN 18 uRINE CULTURE 04/26/18 -VE GROWTH TO DATE. BLOOD CULTURES 2:2 SETS -VE TO DATE. Objective - Vital Signs/Intake and Output Vital Signs (last 24 hours): Temp Pulse Resp BP Pulse Ox 98.5 F 83 20 162/80 H 95 04/28/18 16:38 04/28/18 16:38 04/28/18 16:38 04/28/18 16:38 04/28/18 16:38 Intake and Output: 04/28/18 04/29/18 18:59 06:59 Intake Total 950 700 Output Total 1500 1650 Balance -550 -950 - Medications Medications: Current Medications Acetaminophen (Tylenol 325mg Tab) 650 mg PO Q6 PRN PRN Reason: Fever >100.4 F Last Admin: 04/26/18 15:26 Dose: 650 mg Heparin Sodium (Porcine) (Heparin) 5,000 units SC Q8 [facility] Last Admin: 04/28/18 21:26 Dose: 5,000 units Sodium Chloride (Sodium Chloride 0.45%) 1,000 mls @ 75 mls/hr IV .[id number] [facility] Last Admin: 04/28/18 17:39 Dose: 75 mls/hr Meropenem 500 mg/ Sodium (Chloride) 100 mls @ 100 mls/hr IVPB Q8H [facility]; Protocol Last Admin: 04/28/18 21:27 Dose: 100 mls/hr Losartan Potassium (Cozaar) 25 mg PO DAILY [facility] Last Admin: 04/28/18 09:23 Dose: 25 mg Pantoprazole Sodium (Protonix Ec Tab) 40 mg PO DAILY [facility] Last Admin: 04/28/18 09:23 Dose: 40 mg Potassium Phos/Sodium Phos (Neutra-Phos) 1 pkt PO TID [facility] Last Admin: 04/28/18 18:37 Dose: 1 pkt Rosuvastatin Calcium (Crestor) 2.5 mg PO HS [facility] Last Admin: 04/28/18 21:26 Dose: 2.5 mg Tamsulosin HCl (Flomax) 0.4 mg PO BID [facility] Last Admin: 04/28/18 18:37 Dose: 0.4 mg - Labs Labs: 04/28/18 11:21 04/28/18 11:21 Assessment and Plan (1) Sepsis Assessment & Plan: SOURCE OF SEPSIS MOST LIKELY SECONDARY TO COMPLICATED uti WITH MILD RIGHT HYDROURETERONEPHROSIS AND PERINEPHRIC STRANDING ON CT ABDOMEN AND PELVIS. Blood cultures negative TO DATE. rEPEAT URINE CULTURES NEGATIVE GROWTH 06/27/17. Urine culture +ve gram-negative rods.+E. COLI S MERREM/AMIKACI ON iv MERREM 500 MG IVPB EVERY 8 HOURLY 04/25/18.-DAY4. mAY SWITCH TO BY MOUTH AUGMENTIN 875 BY MOUTH TWICE A DAY X 5 DAYS IF CLEARED BY fOR DISCHARGE. ON CASE Status: Acute (2) UTI (urinary tract infection) Assessment & Plan: REPEAT URINE CULTURES -VE. PT ON IV MERREM 500 MG EVERY [address] ABDOMEN AND PELVIS -6 MM OBSTRUCTIVE STONE AT R T. UVJ WITH MILD RIGHT HYDROURETERONEPHROSIS/PERINEPHRIC STRANDING. 2.1 IN 201.9 CM LESION UPPER POLE OF THE SPLEEN ? METS VERSUS HEMANGIOMA. - PATIENT WILL NEED gu EVALUATION FOR 6 MM OBSTRUCTIVE STONE IS RIGHT uvj JUNCTION. WILL DISCUSS WITH PMD Status: Acute (3) Colonic neoplasm Assessment & Plan: S/P LAPAROSCOPIC COLON SURGERY . COLOSTOMY IN PLACE WITH LIQUID STOOLS. Status: Acute (4) Briggs catheter in place Status: Acute (5) Urinary retention Status: Acute
[2018-04-29] MEDS: Meropenem 500 MG in Sodium Chloride 0.9% 100 ML IVPB SCH ×2 (05:54→13:23)
[2018-04-29] MEDS: Sodium Chloride 0.45% 1,000 ML IV SCH (06:58)
--- NOTE | 2018-04-29 07:08 | PN ---
DATE: 04/28/2018 TIME OF FOLLOWUP: Roughly 01:15 p.m. SUBJECTIVE: The patient is feeling much better today. Sitting at the bedside, possibly with his Briggs catheter draining devaughn urine well. The patient is currently on IV meropenem for treatment of E. coli urosepsis, which grew 50 to 100,000 colonies and only resistant to ampicillin and ciprofloxacin, otherwise sensitive to most antibiotics. PHYSICAL EXAMINATION: His abdomen is soft, nondistended, no tenderness. No CVA tenderness. No suprapubic tenderness. His testes are down bilaterally and nontender. PLAN: Plan for this patient, who has a history of acute urinary retention and BPH, postop, status post lower anterior ressection for rectal cancer, was admitted for urosepsis. The patient can be discharged home on oral antibiotics per ID and then to follow up in my office this week to be scheduled for a CMG and cystoscopy to be done most likely as an outpatient. Alexis Meyers MD MTDD
[2018-04-29 07:49] VITALS: RESP 20
[2018-04-29] MEDS: Pantoprazole 40 mg EC Tab PO SCH (10:10)
[2018-04-29] MEDS: Potassium & Sodium Phosphate PO SCH ×2 (10:10→13:23)
--- NOTE | 2018-04-29 10:20 | PN ---
DATE: 04/29/2018 SUBJECTIVE: The patient was seen by me around 10:30 a.m. on 04/28/2018. I also spoke to the urologist. The patient is currently feeling well, comfortable, not in any distress. His blood sugars is controlled good. He is eating well. PHYSICAL EXAMINATION: VITAL SIGNS: Stable and afebrile. Temperature 98.6, blood pressure 137/68, respirations 20, saturation 96% in room air. CHEST: Good air entry. HEART: Regular heart sounds noted. ABDOMEN: Nontender. EXTREMITIES: No pedal edema. CENTRAL NERVOUS SYSTEM: Alert, awake, and oriented. LABORATORY DATA: Reviewed. WBC 8.4. Chemistry also, renal function is fine. Phosphorus is on the low side. K-Phos was given. Urinalysis showing E. coli. ESBL negative. Currently on antibiotic. ASSESSMENT AND PLAN: The patient was supposed to have a procedure tomorrow, but the instrument is not available to do the urodynamics in the [facility]. The patient possibly will be discharged once medically stable and the procedure will be done as an outpatient. I discussed with urologist. We will discuss with Infection Disease about the antibiotic and we will follow up the patient. Matt Rojo MD
--- NOTE | 2018-04-29 13:21 | CP.PCM.PN ---
Subjective - Date & Time of Evaluation Date of Evaluation: 04/29/18 Time of Evaluation: 13:21 - Subjective Subjective: PATIENT SEEN AND EXAMINED AT THE BEDSIDE Objective - Vital Signs/Intake and Output Vital Signs (last 24 hours): Temp Pulse Resp BP Pulse Ox 98.6 F 78 20 137/68 96 04/29/18 07:48 04/29/18 07:48 04/29/18 07:48 04/29/18 07:48 04/29/18 07:48 Intake and Output: 04/29/18 04/29/18 06:59 18:59 Intake Total 1520 Output Total 2550 Balance -1030 - Medications Medications: Current Medications Acetaminophen (Tylenol 325mg Tab) 650 mg PO Q6 PRN PRN Reason: Fever >100.4 F Last Admin: 04/26/18 15:26 Dose: 650 mg Heparin Sodium (Porcine) (Heparin) 5,000 units SC Q8 [facility] Last Admin: 04/29/18 05:53 Dose: 5,000 units Meropenem 500 mg/ Sodium (Chloride) 100 mls @ 100 mls/hr IVPB Q8H [facility]; Protocol Last Admin: 04/29/18 05:54 Dose: 100 mls/hr Losartan Potassium (Cozaar) 25 mg PO DAILY [facility] Last Admin: 04/29/18 10:10 Dose: 25 mg Pantoprazole Sodium (Protonix Ec Tab) 40 mg PO DAILY [facility] Last Admin: 04/29/18 10:10 Dose: 40 mg Potassium Phos/Sodium Phos (Neutra-Phos) 1 pkt PO TID [facility] Last Admin: 04/29/18 10:10 Dose: 1 pkt Rosuvastatin Calcium (Crestor) 2.5 mg PO HS [facility] Last Admin: 04/28/18 21:26 Dose: 2.5 mg Tamsulosin HCl (Flomax) 0.4 mg PO BID [facility] Last Admin: 04/29/18 10:12 Dose: 0.4 mg - Labs Labs: 04/28/18 11:21 04/28/18 11:21 Assessment and Plan - Assessment and Plan (Free Text) Assessment: FOLLOW UP WITH DR WASHINGTON IN HIS OFFICE ------CALL FOR APPOINTMENT FOLLOW UP WITH DR ANGEL IN OFFICE IN A WEEK -----CALL FOR APPOINTMENT ADDRESS YOUR ORELLANA CATHETER AND URODYNAMICS PROCEDURE OUT PATIENT CONTINUE HOME MEDICATION NEW PRESCRIPTION GIVEN AUGMENTIN 875 MG PO Q12 H FOR 5 DAYS FLORASTOR 250 MG PO BID FOR 5 DAYS ACTIVITY TOLERATED ORELLANA CATHETER CARE AND HOME CARE ORDER CALL DR WASHINGTON OR GO TO THE EMERGENCY ROOM IF SYMPTOM RETURN OR WORSENING
[2018-04-29 16:16] VITALS: BP 134/69; PULSE 83; TEMP 98.8; O2SAT 95
--- NOTE | 2018-05-05 08:33 | CP.PCM.PN ---
Subjective - Date & Time of Evaluation Date of Evaluation: 04/27/18 Time of Evaluation: 08:32 - Subjective Subjective: Patient is currently doing well. He has no vomiting no chest pain. He is eating well. No urinary symptoms at this time. Abdominal pain is better. None examination: Vital signs stable. Chest good air entry regular [place] nontender abdominal pain Colostomy draining regular stools at this time Assessment: 72-year-old male with history of diabetes hypertension nonobstructive coronary disease admitted to the hospital for severe sepsis. Urinary tract infection. Currently doing well. I spoke to the urologist. Patient will need urodynamic studies. We will continue to monitor Objective - Vital Signs/Intake and Output Vital Signs (last 24 hours): Temp Pulse Resp BP Pulse Ox 98.8 F 83 20 134/69 95 04/29/18 16:00 04/29/18 16:00 04/29/18 16:00 04/29/18 16:00 04/29/18 16:00 - Labs Labs: 04/28/18 11:21 04/28/18 11:21
--- NOTE | 2018-05-05 08:33 | CP.PCM.DIS ---
Provider - Provider Date of Admission: 04/24/18 18:08 Attending physician: Matt Washington MD Consults: 04/24/18 18:57 Urology Consult Routine Comment: Consulting Provider: Alexis Angel Consulting Physician: Alexis Angel Reason for Consult: sepsis, uti, obstructing renal stone 04/24/18 21:23 Infectious Disease Consult Routine Comment: Consulting Provider: Jerry Parker Consulting Physician: Jerry Parker Reason for Consult: urosepsis Time Spent in preparation of Discharge (in minutes): 45 Hospital Course - Lab Results Lab Results: Micro Results 04/28/18 07:51 Urine,Orellana Urine Culture - Final No Growth (<1,000 CFU/ML) 04/24/18 16:10 Blood-Venous Blood Culture - Final NO GROWTH AFTER 5 DAYS 04/24/18 16:10 Blood-Venous Gram Stain - Final TEST NOT PERFORMED 04/24/18 16:05 Blood-Venous Blood Culture - Final NO GROWTH AFTER 5 DAYS 04/24/18 16:05 Blood-Venous Gram Stain - Final TEST NOT PERFORMED 04/26/18 08:40 Urine Urine Culture - Final No Growth (<1,000 CFU/ML) 04/24/18 16:26 Urine,Catheterized Urine Culture - Final Escherichia Coli Most Recent Lab Values WBC 8.4 K/uL (4.8-10.8) 04/28/18 11:21 RBC 3.52 Mil/uL (4.40-5.90) L 04/28/18 11:21 Hgb 9.5 g/dL (12.0-18.0) L 04/28/18 11:21 Hct 27.9 % (35.0-51.0) L 04/28/18 11:21 MCV 79.4 fL (80.0-94.0) L 04/28/18 11:21 MCH 26.9 pg (27.0-31.0) L 04/28/18 11:21 MCHC 33.9 g/dL (33.0-37.0) 04/28/18 11:21 RDW 19.6 % (11.5-14.5) H 04/28/18 11:21 Plt Count 238 K/uL (130-400) 04/28/18 11:21 MPV 8.1 fL (7.2-11.7) 04/28/18 11:21 Neut % (Auto) 74.5 % (50.0-75.0) 04/28/18 11:21 Lymph % (Auto) 15.6 % (20.0-40.0) L 04/28/18 11:21 [place] % (Auto) 7.4 % (0.0-10.0) 04/28/18 11:21 Eos % (Auto) 1.9 % (0.0-4.0) 04/28/18 11:21 Baso % (Auto) 0.6 % (0.0-2.0) 04/28/18 11:21 Neut # (Auto) 6.2 K/uL (1.8-7.0) 04/28/18 11:21 Lymph # (Auto) 1.3 K/uL (1.0-4.3) 04/28/18 11:21 [place] # (Auto) 0.6 K/uL (0.0-0.8) 04/28/18 11:21 Eos # (Auto) 0.2 K/uL (0.0-0.7) 04/28/18 11:21 Baso # (Auto) 0.1 K/uL (0.0-0.2) 04/28/18 11:21 Neutrophils % (Manual) 93 % (50-75) H 04/25/18 08:17 Band Neutrophils % 1 % (0-2) 04/25/18 08:17 Lymphocytes % (Manual) 1 % (20-40) L 04/25/18 08:17 Monocytes % (Manual) 5 % (0-10) 04/25/18 08:17 Platelet Estimate Normal (NORMAL) 04/25/18 08:17 Polychromasia Slight 04/25/18 08:17 Hypochromasia (manual) Slight 04/25/18 08:17 Anisocytosis (manual) Slight 04/25/18 08:17 Ovalocytes Slight 04/25/18 08:17 pO2 24 mm/Hg (30-55) L 04/24/18 18:49 VBG pH 7.42 (7.32-7.43) 04/24/18 18:49 VBG pCO2 37 mmHg (40-60) L 04/24/18 18:49 VBG HCO3 23.3 mmol/L 04/24/18 18:49 VBG Total CO2 25.1 mmol/L (22-28) 04/24/18 18:49 VBG O2 Sat (Calc) 51.0 % (40-65) 04/24/18 18:49 VBG Base Excess -0.2 mmol/L (0.0-2.0) L 04/24/18 18:49 VBG Potassium 3.7 mmol/L (3.6-5.2) 04/24/18 18:49 Sodium 140.0 mmol/l (132-148) 04/24/18 18:49 Chloride 110.0 mmol/L (98-107) H 04/24/18 18:49 Glucose 85 mg/dl (75-110) 04/24/18 18:49 Lactate 1.1 mmol/L (0.7-2.1) 04/24/18 18:49 Crit Value Called To Dr lira 04/24/18 16:07 Crit Value Called By Buster lozada 04/24/18 16:07 Crit Value Read Back Y 04/24/18 16:07 Blood Gas Notified Time 1610 04/24/18 16:07 Sodium 133 mmol/L (132-148) 04/28/18 11:21 Potassium 4.1 mmol/L (3.6-5.2) 04/28/18 11:21 Chloride 104 mmol/L (98-107) 04/28/18 11:21 Carbon Dioxide 21 mmol/L (22-30) L 04/28/18 11:21 Anion Gap 12 (10-20) 04/28/18 11:21 BUN 18 mg/dL (9-20) 04/28/18 11:21 Creatinine 1.2 mg/dL (0.8-1.5) 04/28/18 11:21 Est GFR ( Amer) > 60 04/28/18 11:21 Est GFR (Non-Af Amer) 59 04/28/18 11:21 POC Glucose (mg/dL) 111 mg/dL (65-110) H 04/29/18 11:42 Random Glucose 234 mg/dL (75-110) H 04/28/18 11:21 Calcium 8.5 mg/dl (8.6-10.4) L 04/28/18 11:21 Phosphorus 2.0 mg/dL (2.5-4.5) L 04/28/18 11:21 Magnesium 1.8 mg/dL (1.6-2.3) 04/28/18 11:21 Total Bilirubin 0.8 mg/dL (0.2-1.3) 04/28/18 11:21 Direct Bilirubin 0.7 mg/dL (0.0-0.4) H 04/25/18 08:17 AST 32 U/L (17-59) 04/28/18 11:21 ALT 39 U/L (21-72) 04/28/18 11:21 Alkaline Phosphatase 153 U/L (38-126) H D 04/28/18 11:21 Lactate Dehydrogenase 286 U/L (313-618) L 04/26/18 08:19 Total Creatine Kinase 72 U/L (55-170) 04/24/18 16:05 Troponin I 0.0150 ng/mL (0.00-0.120) 04/24/18 16:56 C-React Prot High Sens > 15.00 mg/L (1.00-3.00) H 04/25/18 08:17 Total Protein 6.5 g/dL (6.3-8.3) 04/28/18 11:21 Albumin 3.3 g/dL (3.5-5.0) L 04/28/18 11:21 Globulin 3.3 gm/dL (2.2-3.9) 04/28/18 11:21 Albumin/Globulin Ratio 1.0 (1.0-2.1) 04/28/18 11:21 Venous Blood Potassium 3.7 mmol/L (3.6-5.2) 04/24/18 18:49 Urine Color Straw (YELLOW) 04/28/18 06:52 Urine Clarity Clear (Clear) 04/28/18 06:52 Urine pH 7.0 (5.0-8.0) 04/28/18 06:52 Ur Specific [place] 1.008 (1.003-1.030) 04/28/18 06:52 Urine Protein Negative mg/dL (NEGATIVE) 04/28/18 06:52 Urine Glucose (UA) Normal mg/dL (Normal) 04/28/18 06:52 Urine Ketones Negative mg/dL (NEGATIVE) 04/28/18 06:52 Urine Blood 1+ (NEGATIVE) H 04/28/18 06:52 Urine Nitrate Negative (NEGATIVE) 04/28/18 06:52 Urine Bilirubin Negative (NEGATIVE) 04/28/18 06:52 Urine Urobilinogen Normal mg/dL (0.2-1.0) 12 06:52 Ur Leukocyte Esterase Trace Shima/uL (Negative) 04/28/18 06:52 Urine WBC (Auto) 6 /hpf (0-5) H 04/28/18 06:52 Urine RBC (Auto) 2 /hpf (0-3) 12 06:52 Urine WBC Clumps (Auto) Many /hpf (NONE) H 04/24/18 16:26 Ur Squamous Epith Cells 1 /hpf (0-5) 04/24/18 16:26 Urine Bacteria Rare (<OCC) 04/28/18 06:52 Influenza Typ A,B (EIA) Negative for flu a/b (NEGATIVE) 04/24/18 16:05 Blood Type O POSITIVE 04/24/18 16:09 Antibody Screen Negative 04/24/18 16:09 - Hospital Course Hospital Course: CHIEF COMPLAINT: Chills and shaking and increasing weakness. HISTORY OF PRESENT ILLNESS: A 73-year-old male with multiple medical history including hypertension, diabetes, hypercholesterolemia, history of anemia, rectal cancer, recently had surgical intervention, also following that he developed neurogenic bladder, currently on indwelling Orellana catheter, came to the emergency room with symptoms of chills. Three days ago, he started noticing increasing weakness and fatigue and also unable to get up from the bed, poor appetite. He had an episode of vomiting after eating some food, and he was not able to go to the bathroom. Two days ago while he was trying to reach the bathroom, he fell down, had some scalp injury following that. He needed some help to moving around with the family help. Two days ago, again he started having chills and shivering. At that time, family requested to go to the emergency room, but he refused. Today, as the condition got worse, he came into the emergency room. In the emergency room, the patient was noted to have chills, fever, and also increasing weakness and tachycardia. PAST MEDICAL HISTORY: Hypertension, high cholesterol, diabetes, anemia, has a history of colon cancer, had surgery recently. SURGICAL HISTORY: Twenty years ago, the patient had diskectomy, and he also had robotic-assisted laparoscopic partial colectomy with ileostomy on 02/12/2018. The patient also had cardiac stress test which was done on 02/04/2018. ALLERGY: NO KNOWN DRUG ALLERGY. FAMILY HISTORY: Father had a history of liver disease secondary to alcohol. Mother at the age of 80. Three sisters with diabetes, one brother. SOCIAL HISTORY: The patient is a ex-smoker, quit 30 years ago. Denies any alcohol. CURRENT MEDICATIONS: Noted from the chart. The patient is currently taking lisinopril and hydrochlorothiazide, atorvastatin, glipizide, and ferrous sulfate. REVIEW OF SYSTEMS: Currently, the patient is having increasing weakness. No headache. Denies any cough, but complaining of chest tightness and chest pain. No abdominal pain. No flank pain noted. He has an indwelling catheter. He denies any urinary discoloration or changes in the urination. No leg swelling. PHYSICAL EXAMINATION: VITAL SIGNS: Temperature is 103.9 in the ER, currently it is afebrile. Pulse 102, blood pressure 154/70, respirations 24, saturations 95% on room air. CHEST: Good air entry bilaterally. No wheezing or rales noted. HEART: Regular heart sound noted. ABDOMEN: Nontender. The patient has no suprapubic tenderness. No flank tenderness. He has an ileostomy on the right side of the abdomen. EXTREMITIES: No pedal edema. CENTRAL NERVOUS SYSTEM: Alert, awake, and oriented x3. No functional neurological deficit. LABORATORY DATA: Showing WBC 5.3, hemoglobin 10.4, hematocrit 32.2, platelets 167. Venous blood gas: Lactate is 4.6 noted. Chemistry: BUN 23, creatinine 1.3, magnesium 1.6. Liver enzymes are normal. Urine: Significant LE 3+ noted, wbc 287 noted, moderate bacteria. Influenza is negative. Had chest x-ray, abdominal x-ray, abdominal CAT scan, and CT scan. Chest x-ray is showing evidence of no acute infiltrate. CAT scan of the abdomen and pelvis showing mild right hydronephrosis and possible stone in the right UV junctional area, possible cystitis. CT scan of the head is negative. ASSESSMENT AND RECOMMENDATION: A 73-year-old male with history of diabetes, hypertension, hypercholesterolemia, rectal cancer, status post ileostomy and colectomy, admitted now with significant sepsis associated with fever and febrile illness. Possible source includes urinary tract infection. The patient has an indwelling catheter for the postoperative neurogenic bladder developed and also possible pyelonephritis and right-sided hydronephrosis secondary to colic and also kidney stones cannot be ruled out. The patient is currently on antibiotic. We will get infectious disease evaluation. Urology evaluation was also called in. Continue the IV fluid. Deep venous thrombosis and gastrointestinal prophylaxis. Fall precaution. We will discuss with the family tomorrow. Glucose monitoring, and we will follow the patient. Course in the hospital: Patient started on intravenous antibiotic. Patient next 2 days was having fever, but slowly the fever improved. Patient was seen by infectious disease, urologist, as well as surgical consultant. It was decided to have surgical intervention, to check urodynamic studies to rule out neurological bladder. But as the instrument is not available patient will be discharged home. He will follow-up as an outpatient. Patient will be undergoing procedure as an outpatient. Meanwhile he will continue the antibiotic. Spoke to the infectious disease, spoke to the patient's family in detail. We will follow the patient outpatient Discharge Exam - Head Exam Head Exam: NORMAL INSPECTION Discharge Plan - Discharge Medications Prescriptions: Amoxicillin/Clavulanate [Augmentin 875 MG-125 MG] 1 tab PO Q12H 5 Days tab Saccharomyces Boulardii [Florastor] 250 mg PO BID 5 Days capsule - Follow Up Plan Condition: FAIR Disposition: HOME/ ROUTINE Instructions: Saccharomyces boulardii, How to Care for Your Orellana Catheter, Male, Sepsis, Adult (DC), Amoxicillin and Clavulanate, Urinary Tract Infection in Men (DC) Additional Instructions: FOLLOW UP WITH DR WASHINGTON IN HIS OFFICE ------CALL FOR APPOINTMENT FOLLOW UP WITH DR ANGEL IN OFFICE IN A WEEK -----CALL FOR APPOINTMENT ADDRESS YOUR ORELLANA CATHETER AND URODYNAMICS PROCEDURE OUT PATIENT CONTINUE HOME MEDICATION NEW PRESCRIPTION GIVEN AUGMENTIN 875 MG PO Q12 H FOR 5 DAYS FLORASTOR 250 MG PO BID FOR 5 DAYS ACTIVITY TOLERATED ORELLANA CATHETER CARE AND HOME CARE ORDER CALL DR WASHINGTON OR GO TO THE EMERGENCY ROOM IF SYMPTOM RETURN OR WORSENING Referrals: Alexis Anegl MD [Staff Provider] - Jerry Parker MD [Staff Provider] - Matt Washington MD [Staff Provider] -
--- NOTE | 2018-05-05 08:33 | CP.PCM.PN ---
Subjective - Date & Time of Evaluation Date of Evaluation: 04/28/18 Time of Evaluation: 08:33 - Subjective Subjective: Patient is currently doing well. He has no vomiting no chest pain. He is eating well. No urinary symptoms at this time. Abdominal pain is better. None examination: Vital signs stable. Chest good air entry regular [place] nontender abdominal pain Colostomy draining regular stools at this time Assessment: 72-year-old male with history of diabetes hypertension nonobstructive coronary disease admitted to the hospital for severe sepsis. Urinary tract infection. Currently doing well. I spoke to the urologist. But unfortunately urodynamic study cannot be done in the hospital. As there is no instruments available. We will discharge the patient tomorrow after the infectious disease consultation. Patient will need antibiotic as an outpatient. We will follow the patient Objective - Vital Signs/Intake and Output Vital Signs (last 24 hours): Temp Pulse Resp BP Pulse Ox 98.8 F 83 20 134/69 95 04/29/18 16:00 04/29/18 16:00 04/29/18 16:00 04/29/18 16:00 04/29/18 16:00 - Labs Labs: 04/28/18 11:21 04/28/18 11:21
== END 2018-04-29 17:11 | disposition home or self-care (01) | DRG 872 ==
LOC: C.ER 15:31 → C.5S 18:08
PROVIDERS: ADMIT Internal Medicine; ATTEND Internal Medicine
DX: A41.9 Sepsis, unspecified organism (principal); N13.6 Pyonephrosis; N39.0 Urinary tract infection, site not specified; C20 Malignant neoplasm of rectum; N31.9 Neuromuscular dysfunction of bladder, unspecified; E11.9 Type 2 diabetes mellitus without complications; E78.00 Pure hypercholesterolemia, unspecified; I10 Essential (primary) hypertension; I25.10 Atherosclerotic heart disease of native coronary artery without angina pectoris; Z85.46 Personal history of malignant neoplasm of prostate; Z87.891 Personal history of nicotine dependence; Z93.2 Ileostomy status; R00.0 Tachycardia, unspecified; D64.9 Anemia, unspecified; R33.9 Retention of urine, unspecified; R65.20 Severe sepsis without septic shock

== ENCOUNTER 2018-06-11 07:10 | Day surgery (SDC) | payer MEDICARE ==
[2018-06-11] MEDS ORDERED: Midazolam 2 MG/2 ML VIAL ONE (09:41)
[2018-06-11] MEDS ORDERED: Propofol 10 mg/ml Inj (20 ML) ONE (09:41)
[2018-06-11] MEDS ORDERED: cefTRIAXone 1 gm 1 GM/100 ML BAG IVPB ONE (09:46)
[2018-06-11] MEDS ORDERED: Iohexol 240 (50 ml) ONE (09:51)
[2018-06-11] MEDS ORDERED: HYDROmorphone 0.5 mg/0.5 ml ISec IVP PRN (10:37)
[2018-06-11] MEDS ORDERED: Lidocaine 2% Jelly (Uro-Jet) ONE (10:55)
[2018-06-11 12:00] VITALS: PULSE 80; RESP 18; TEMP 98.5; O2SAT 97
[2018-06-11 12:19] VITALS: BP 136/79
--- NOTE | 2018-06-11 16:41 | RAD ---
Date of service: 06/11/2018 HISTORY: BLADDER STONE COMPARISON: None available. FINDINGS: BOWEL: Normal bowel gas pattern. No abnormal intra-abdominal calcifications are identified. Several pelvic phleboliths are seen. BONES: Normal. OTHER FINDINGS: None. IMPRESSION: No active disease.
--- NOTE | 2018-06-11 22:03 | OP ---
PROCEDURE DATE: 06/11/2018 TIME OF DICTATION: Roughly 10:35 a.m. PREOPERATIVE DIAGNOSIS: Bladder stones. POSTOPERATIVE DIAGNOSIS: Bladder stones. PROCEDURE: Cystoscopy, laser lithotripsy with removal of stone fragments. SURGEON: Alexis Meyers MD ANESTHESIA: Local anesthesia plus laryngeal mask anesthesia. ANESTHESIOLOGIST: Lisbeth Healy MD DESCRIPTION OF PROCEDURE: The patient was placed on the cystoscopy table in the dorsal lithotomy position, prepped and draped in the usual sterile fashion with Betadine solution. KUB was obtained, which did not definitely show any of the stones either in the right distal ureter or the bladder except possible small calcifications seen overlying the bladder area. Next, using a #22-Azerbaij[place] Storz cystoscope, the cystoscope was inserted into the bladder using the 30-degree lens. Sterile water was used as the irrigating solution throughout the entire procedure. The bladder was examined and there were yellowish stone fragments seen in the bladder and a black stone measuring about more than 1 cm. Both ureteral orifices were in normal location, normal configuration on the trigone with clear efflux bilaterally. The bladder mucosa appeared to be severely tuberculated. There were no other foreign bodies or suspicious lesions seen in the bladder. The bladder examination appeared to be negative for bladder malignancy. Next, using the laser with initial load setting at 5 and frequency of 5 and joule setting of 1.5, attempted fragmentation of the stone met with resistance on this particular stone. The frequency setting was increased to 8 and again, there was still resistance to fragmentation of the stone. The energy level was then increased from 1.5 to 2 and this allowed the stone to be broken. The pieces were then basketed with a four-wire stone basket and were removed from the bladder. The bladder was sterilely irrigated also with removal of the additional stone fragments. This was placed in the specimen cup and sent to Pathology for analysis. At the end of the procedure, an 18-Azerbaijani Briggs catheter was re-inserted into the bladder and the balloon inflated to 10 mL with sterile water. The patient came to the OR with an indwelling Briggs catheter secondary to his history of urinary retention, BPH, and possible decreased compliance of bladder. Plan for this patient will be to maintain the Briggs catheter for several more weeks and allow the finasteride to take better effect in addition to his Flomax and doxazosin. The patient is currently on Flomax 0.4 mg b.i.d., finasteride 5 mg daily, and doxazosin 2 mg daily for the BPH and acute urinary retention. The patient will be seen in office followup in 1 month. Alexis Meyers MD
== END 2018-06-11 12:31 | disposition home or self-care (01) ==
LOC: C.SDS 07:10
PROVIDERS: ATTEND Urology
DX: N21.0 Calculus in bladder (principal); R31.9 Hematuria, unspecified; I10 Essential (primary) hypertension; E11.9 Type 2 diabetes mellitus without complications; E78.5 Hyperlipidemia, unspecified; N40.1 Benign prostatic hyperplasia with lower urinary tract symptoms; R33.9 Retention of urine, unspecified; Z85.038 Personal history of other malignant neoplasm of large intestine; Z85.048 Personal history of other malignant neoplasm of rectum, rectosigmoid junction, and anus; Z93.3 Colostomy status; Z79.84 Long term (current) use of oral hypoglycemic drugs; Z79.899 Other long term (current) drug therapy
CPT/HCPCS: 52317; 74018; 82365; 82948; 88300; J0696

== ENCOUNTER 2018-07-17 15:24 | Outpatient (CLI) | payer MEDICARE | END 2018-07-17 15:25 | disposition home or self-care (01) | LOC: C.VASC 15:24 ==

== ENCOUNTER 2018-07-17 16:05 | Inpatient (IN) | payer MEDICARE ==
[2018-07-17 16:06] VITALS: BMI 25.0
--- NOTE | 2018-07-17 16:58 | C.PDOC ---
History Of Present Illness 73 y/o male with rectal cancer, has colostomy, brought to ED from vascular lab with a new onset right lower extremity dvt. Time Seen by Provider: 07/17/18 16:18 Chief Complaint (Nursing): Lower Extremity Problem/Injury History Per: Patient, Family History/Exam Limitations: no limitations Onset/Duration Of Symptoms: Days Current Symptoms Are (Timing): Still Present Severity: Moderate Past Medical History Reviewed: Historical Data, Nursing Documentation, Vital Signs Vital Signs: Last Vital Signs Temp 97.7 F 07/17/18 16:19 Pulse 86 07/17/18 16:19 Resp 18 07/17/18 16:19 BP 169/80 H 07/17/18 16:19 Pulse Ox 99 07/17/18 16:19 - Medical History PMH: Anemia, CAD, Diabetes, HTN, Hypercholesterolemia, Kidney Stones, Malignancy (Prostate CA, rectal ca), Chronic Kidney Disease Surgical History: Back Surgery Other Surgeries: colostomy - [facility] Procedures BYPASS ILEUM TO CUTANEOUS, PERCUTANEOUS ENDOSCOPIC APPROACH (02/12/18) EXCISION OF RECTUM, PERCUTANEOUS ENDOSCOPIC APPROACH (02/12/18) Family History: States: Unknown Family Hx - Social History Hx Alcohol Use: No Hx Substance Use: No - Immunization History Hx Tetanus Toxoid Vaccination: No Hx Influenza Vaccination: No Hx Pneumococcal Vaccination: No Review Of Systems Constitutional: Negative for: Fever, Chills ENT: Negative for: Throat Pain Cardiovascular: Negative for: Chest Pain Respiratory: Negative for: Cough, Shortness of Breath Gastrointestinal: Positive for: Other (colostomy bag right lower quadrant). Negative for: Nausea, Vomiting, Abdominal Pain Genitourinary: Positive for: Incontinence (urinates in drips and drabs) Musculoskeletal: Negative for: Neck Pain Skin: Negative for: Rash Neurological: Negative for: Weakness, Numbness Physical Exam - Physical Exam Appears: Non-toxic, No Acute Distress Skin: Warm, Dry Head: Atraumatic, Normacephalic Throat: No Erythema, No Exudate Neck: Supple Chest: Symmetrical, No Deformity, No Tenderness Cardiovascular: Rhythm Regular, No Murmur Respiratory: No Decreased Breath Sounds, No Rales, No Rhonchi, No Wheezing Gastrointestinal/Abdominal: Bowel Sounds, Soft, No Tenderness Extremity: Other (right lowerext with swelling to calf and ankle, mid tenderness to palpation) ED Course And Treatment - Laboratory Results Result Diagrams: 07/17/18 16:57 07/17/18 16:57 O2 Sat by Pulse Oximetry: 99 Medical Decision Making Medical Decision Making: discussed with Dr Kenyon; pt to be admitted, started on lovenox. Disposition - Disposition
[2018-07-17] MEDS ORDERED: Enoxaparin 80 mg Syringe SC STA (16:59)
[2018-07-17 17:02] LABS: BASO % 0.5 % (0.0-2.0); EOS # 0.2 K/uL (0.0-0.7); EOS % 1.8 % (0.0-4.0); HEMOGLOBIN 11.9 g/dL (12.0-18.0); LYMPH # 1.4 K/uL (1.0-4.3); MEAN CELL VOLUME 93.4 fL (80.0-94.0); MEAN CORPUSCULAR HEMOGLOBIN 31.6 pg (27.0-31.0); MEAN CORPUSCULAR HGB CONC 33.8 g/dL (33.0-37.0); MEAN PLATELET VOLUME 7.7 fL (7.2-11.7); MONO # 0.5 K/uL (0.0-0.8); MONO % 5.2 % (0.0-10.0); NEUT # 7.6 K/uL (1.8-7.0); NEUT % 78.5 % (50.0-75.0); RBC 3.78 Mil/uL (4.40-5.90); RED CELL DISTRIBUTION WIDTH 23.6 % (11.5-14.5); WHITE BLOOD COUNT 9.7 K/uL (4.8-10.8)
[2018-07-17 17:10] LABS: INR 1.1; PROTHROMBIN TIME 12.1 SECONDS (9.7-12.2)
[2018-07-17 17:12] LABS: ALB/GLOB RATIO 1.4 (1.0-2.1); ALBUMIN 4.8 g/dL (3.5-5.0)
[2018-07-17] MEDS ORDERED: Enoxaparin 40 mg Syringe ONE (17:14)
[2018-07-17] MEDS ORDERED: Enoxaparin 30 mg Syringe ONE (17:14)
[2018-07-17 17:48] LABS: URINE BACTERIA MANY (<OCC)
[2018-07-17 17:49] LABS: URINE BILIRUBIN NEGATIVE (NEGATIVE); URINE BLOOD 1+ (NEGATIVE); URINE CLARITY Turbid (Clear); URINE COLOR Yellow (YELLOW); URINE GLUCOSE (UA) NORMAL (Normal); URINE LEUKOCYTE ESTERASE 3+ Leu/uL (Negative); URINE PROTEIN 2+ mg/dL (NEGATIVE); URINE UROBILINOGEN NORMAL mg/dL (0.2-1.0)
[2018-07-17] MEDS ORDERED: cefTRIAXone IV 1 gm in Dextros 50 ML IVPB ONE (17:53)
--- NOTE | 2018-07-17 20:50 | CP.PCM.HP ---
History of Present Illness - History of Present Illness History of Present Illness: Chief complaint: Right leg pain. HISTORY OF PRESENT ILLNESS: Patient is a 71-year-old male with history multiple medical problems including hypertension, diabetes, high cholesterol, history of anemia, rectal cancer, status post a abdomen perineal resection, status post a colostomy. Following that the patient developed incontinence of the urinary bladder, neurogenic bladder. Patient had indwelling Orellana catheter. 3 days ago patient had a fall, following that he developed a swelling, pain, and tenderness. Patient was not able to walk. He came to the office, immediate advised him to go to the hospital have a vascular Doppler. Patient has positive for deep venous thrombosis involving the peroneal, gastrocnemius, popliteal, and femoral venous structure of the right leg. So I advised the patient to go to the hospital and they hospitalization. Because of the complicated medical condition including cancer, neurogenic bladder, history of anemia I recommended to admit, and further management in consultation with oncologist. PAST MEDICAL HISTORY: Hypertension, high cholesterol, diabetes, anemia, has a history of colon cancer, had surgery recently. SURGICAL HISTORY: Twenty years ago, the patient had diskectomy, and he also had robotic-assisted laparoscopic partial colectomy with ileostomy on 02/12/2018. The patient also had cardiac stress test which was done on 02/04/2018. ALLERGY: NO KNOWN DRUG ALLERGY. FAMILY HISTORY: Father had a history of liver disease secondary to alcohol. Mother at the age of 80. Three sisters with diabetes, one brother. SOCIAL HISTORY: The patient is a ex-smoker, quit 30 years ago. Denies any alcohol. CURRENT MEDICATIONS: Noted from the chart. The patient is currently FERROUS SULFATE 325 MG TABLET GLIPIZIDE 5 MG TABLET LOSARTAN POTASSIUM 50 MG TAB Start: Mar 26, 2018 End: Jun 23, 2018 ATORVASTATIN 40 MG TABLET LISINOPRIL-HYDROCHLOROTHI REVIEW OF SYSTEMS: Patient is feeling well otherwise. Combining of right leg pain. No chest pain. No palpitation. Denies any nausea, no vomiting PHYSICAL EXAMINATION: VITAL SIGNS: Stable Vital signs reviewed Stable mild elevation of the systolic blood pressure noted nonspecific. CHEST: Good air entry bilaterally. No wheezing or rales noted. HEART: Regular heart sound noted. ABDOMEN: Nontender. The patient has no suprapubic tenderness. No flank tenderness. He has an ileostomy on the right side of the abdomen. EXTREMITIES: No pedal edema. CENTRAL NERVOUS SYSTEM: Alert, awake, and oriented x3. No functional neurological deficit. Patient has a swelling, tenderness, and significant redness and warm noted in the right leg up to the knee joint LABORATORY DATA: Patient is in hospital records with the Labs reviewed ASSESSMENT AND RECOMMENDATION: A 73-year-old male with history of diabetes, hypertension, hypercholesterolemia, rectal cancer, status post ileostomy and colectomy, Positive DVT. Patient admitted to the hospital with acute deep venous thrombosis. Complicated medical condition. I recommended to stay in the hospital. Lovenox. Will get the PE study. Oncological evaluation. Will follow the patient Present on Admission - Present on Admission Any Indicators Present on Admission: No History of DVT/PE: No History of Uncontrolled Diabetes: No Urinary Catheter: No Decubitus Ulcer Present: No Past Patient History - Past Medical History & Family History Past Medical History?: Yes - Past Social History Smoking Status: Former Smoker - CARDIAC Hx Hypercholesterolemia: Yes Hx Hypertension: Yes - HEENT Hx HEENT Problems: Yes Hx Deafness: Yes - RENAL Hx Chronic Kidney Disease: Yes Hx Kidney Stones: Yes - ENDOCRINE/METABOLIC Hx Endocrine Disorders: Yes Hx Diabetes Mellitus Type 2: Yes - HEMATOLOGICAL/ONCOLOGICAL Hx Anemia: Yes - MUSCULOSKELETAL/RHEUMATOLOGICAL Hx Musculoskeletal Disorders: Yes Hx Back Pain: Yes Hx Falls: Yes Hx Herniated Disk: Yes Other/Comment: Had Back Surgery, VITAMIN D DEFICIENCY - GASTROINTESTINAL Hx Gastrointestinal Disorders: Yes Hx Bowel Surgery: Yes Hx Colostomy: Yes Other/Comment: HX:COLON CANCER - GENITOURINARY/GYNECOLOGICAL Hx Genitourinary Disorders: Yes Hx Prostate Problems: Yes Hx Urinary Tract Infection: Yes Other/Comment: HX: URINARY RETENTION-ORELLANA CATHETER IN PLACE OF INTERVIEW ON 06/09/18. - PSYCHIATRIC Hx Substance Use: No - SURGICAL HISTORY Hx Surgeries: Yes Hx Orthopedic Surgery: Yes ( HERNIATED DISK REPAIR) Other/Comment: Hx. Thumb Surgery, long time ago. HX: ROBOTIC RECTOSIGMOIDECTOMY - ANESTHESIA Hx Anesthesia: Yes Hx Anesthesia Reactions: No Hx Malignant Hyperthermia: No Meds Allergies/Adverse Reactions: Allergies Allergy/AdvReac Type Severity Reaction Status Date / Time No Known Allergies Allergy Verified 07/17/18 16:15 Results - Vital Signs Recent Vital Signs: Last Vital Signs Temp 97.5 F L 07/17/18 18:16 Pulse 87 07/17/18 18:16 Resp 20 07/17/18 18:16 BP 169/82 H 07/17/18 18:16 Pulse Ox 99 07/17/18 17:52 - Labs Result Diagrams: 07/18/18 08:20 07/18/18 08:20 Labs: Laboratory Results - last 24 hr 07/17/18 07/17/18 07/17/18 16:57 16:57 16:57 WBC 9.7 RBC 3.78 L Hgb 11.9 L D Hct 35.3 MCV 93.4 D MCH 31.6 H MCHC 33.8 RDW 23.6 H Plt Count 230 MPV 7.7 Neut % (Auto) 78.5 H Lymph % (Auto) 14.0 L [place] % (Auto) 5.2 Eos % (Auto) 1.8 Baso % (Auto) 0.5 Neut # (Auto) 7.6 H Lymph # (Auto) 1.4 [place] # (Auto) 0.5 Eos # (Auto) 0.2 Baso # (Auto) 0.0 PT 12.1 INR 1.1 APTT 26 Sodium 144 Potassium 5.1 Chloride 111 H Carbon Dioxide 22 Anion Gap 15 BUN 35 H Creatinine 1.8 H Est GFR ( Amer) 45 Est GFR (Non-Af Amer) 37 Random Glucose 102 D Calcium 10.0 Total Bilirubin 1.5 H AST 19 ALT 21 D Alkaline Phosphatase 133 H Total Protein 8.2 Albumin 4.8 Globulin 3.4 Albumin/Globulin Ratio 1.4 Urine Color Urine Clarity Urine pH Ur Specific [place] Urine Protein Urine Glucose (UA) Urine Ketones Urine Blood Urine Nitrate Urine Bilirubin Urine Urobilinogen Ur Leukocyte Esterase Urine WBC (Auto) Urine RBC (Auto) Urine Bacteria 07/17/18 17:34 WBC RBC Hgb Hct MCV MCH MCHC RDW Plt Count MPV Neut % (Auto) Lymph % (Auto) [place] % (Auto) Eos % (Auto) Baso % (Auto) Neut # (Auto) Lymph # (Auto) [place] # (Auto) Eos # (Auto) Baso # (Auto) PT INR APTT Sodium Potassium Chloride Carbon Dioxide Anion Gap BUN Creatinine Est GFR ( Amer) Est GFR (Non-Af Amer) Random Glucose Calcium Total Bilirubin AST ALT Alkaline Phosphatase Total Protein Albumin Globulin Albumin/Globulin Ratio Urine Color Yellow Urine Clarity Turbid Urine pH 5.0 Ur Specific [place] 1.016 Urine Protein 2+ H Urine Glucose (UA) Normal Urine Ketones Negative Urine Blood 1+ H Urine Nitrate Negative Urine Bilirubin Negative Urine Urobilinogen Normal Ur Leukocyte Esterase 3+ H Urine WBC (Auto) 1532 H Urine RBC (Auto) 24 H Urine Bacteria Many H
[2018-07-17] MEDS: Sodium Chloride 0.9% 1,000 ML IV SCH (22:14)
[2018-07-17] MEDS: (Novolin R) Insulin Human Regular 100 units/ml vial SC SCH (22:23)
[2018-07-18] MEDS: Sodium Chloride 0.9% 1,000 ML IV SCH (07:00)
[2018-07-18] MEDS: (Novolin R) Insulin Human Regular 100 units/ml vial SC SCH ×4 (07:49→21:07)
[2018-07-18 08:35] LABS: BASO # 0.1 K/uL (0.0-0.2); BASO % 0.4 % (0.0-2.0); EOS # 0.2 K/uL (0.0-0.7); EOS % 1.9 % (0.0-4.0); HEMOGLOBIN 11.5 g/dL (12.0-18.0); LYMPH # 1.2 K/uL (1.0-4.3); LYMPH % 10.2 % (20.0-40.0); MEAN CELL VOLUME 94.3 fL (80.0-94.0); MEAN CORPUSCULAR HEMOGLOBIN 31.5 pg (27.0-31.0); MEAN CORPUSCULAR HGB CONC 33.4 g/dL (33.0-37.0); MEAN PLATELET VOLUME 7.7 fL (7.2-11.7); MONO # 0.6 K/uL (0.0-0.8); MONO % 5.2 % (0.0-10.0); NEUT % 82.3 % (50.0-75.0); NRBC % 0.1 % (0.0-2.0); RBC 3.66 Mil/uL (4.40-5.90); RED CELL DISTRIBUTION WIDTH 23.5 % (11.5-14.5); WHITE BLOOD COUNT 12.2 K/uL (4.8-10.8)
[2018-07-18 08:40] LABS: ALB/GLOB RATIO 1.4 (1.0-2.1); ALBUMIN 4.4 g/dL (3.5-5.0); CALCIUM 9.4 mg/dl (8.6-10.4)
[2018-07-18] MEDS: Enoxaparin 60 mg Syringe SC SCH ×2 (09:26→21:05)
--- NOTE | 2018-07-18 13:30 | CP.PCM.CON ---
History of Present Illness - History of Present Illness History of Present Illness: 73 year old male with a history of HTN, DM, HL, stage III colon cancer s/p colon resection, complicated by neurogenic bladder, admitted with RLE DVT. The patient notes to following off of his chair and sustaining trauma to his right l eg. Shortly after this, he began to have worsening pain and swelling involving his right leg which prompted him to visit his PMD. He was sent for venous duplex which revealed peroneal, gastrocnemius, popliteal, and femoral vein thrombus involving the RLE. He was started on therapeutic lovenox. Past medical history: HTN, DM, HL, stage III colon cancer Past surgical history: Colon resection Family history: Denies hematologic and oncologic problems Social history: Denies tobacco, alcohol, and illicit drug use. Allergies: NKA Review of systems: All remaining review of systems including HEENT, cardiovascular, respiratory, gastrointestinal, genitourinary, musculoskeletal, dermatologic, neurologic, and psychiatric are negative unless mentioned in the HPI. Past Patient History - Past Medical History & Family History Past Medical History?: Yes - Past Social History Smoking Status: Former Smoker - CARDIAC Hx Hypercholesterolemia: Yes Hx Hypertension: Yes - HEENT Hx HEENT Problems: Yes Hx Deafness: Yes - RENAL Hx Chronic Kidney Disease: Yes Hx Kidney Stones: Yes - ENDOCRINE/METABOLIC Hx Endocrine Disorders: Yes Hx Diabetes Mellitus Type 2: Yes - HEMATOLOGICAL/ONCOLOGICAL Hx Anemia: Yes - MUSCULOSKELETAL/RHEUMATOLOGICAL Hx Musculoskeletal Disorders: Yes Hx Back Pain: Yes Hx Falls: Yes Hx Herniated Disk: Yes Other/Comment: Had Back Surgery, VITAMIN D DEFICIENCY - GASTROINTESTINAL Hx Gastrointestinal Disorders: Yes Hx Bowel Surgery: Yes Hx Colostomy: Yes Other/Comment: HX:COLON CANCER - GENITOURINARY/GYNECOLOGICAL Hx Genitourinary Disorders: Yes Hx Prostate Problems: Yes Hx Urinary Tract Infection: Yes Other/Comment: HX: URINARY RETENTION-ORELLANA CATHETER IN PLACE OF INTERVIEW ON 06/09/18. - PSYCHIATRIC Hx Substance Use: No - SURGICAL HISTORY Hx Surgeries: Yes Hx Orthopedic Surgery: Yes ( HERNIATED DISK REPAIR) Other/Comment: Hx. Thumb Surgery, long time ago. HX: ROBOTIC RECTOSIGMOIDECTOMY - ANESTHESIA Hx Anesthesia: Yes Hx Anesthesia Reactions: No Hx Malignant Hyperthermia: No Meds Allergies/Adverse Reactions: Allergies Allergy/AdvReac Type Severity Reaction Status Date / Time No Known Allergies Allergy Verified 07/17/18 16:15 - Medications Medications: Current Medications Enoxaparin Sodium (Lovenox) 60 mg SC Q12 [facility] Last Admin: 07/18/18 09:26 Dose: 60 mg Ceftriaxone Sodium 1 gm/ (Sodium Chloride) 100 mls @ 100 mls/hr IVPB Q12H [facility]; Protocol Last Admin: 07/18/18 08:54 Dose: 100 mls/hr Insulin Human Regular (Novolin R) 0 unit SC ACHS [facility]; Protocol Last Admin: 07/18/18 11:34 Dose: 2 units Lisinopril (Zestril) 10 mg PO DAILY [facility] Last Admin: 07/18/18 09:26 Dose: 10 mg Rosuvastatin Calcium (Crestor) 5 mg PO HS [facility] Last Admin: 07/17/18 22:14 Dose: 5 mg Physical Exam - Head Exam Head Exam: ATRAUMATIC - Eye Exam Eye Exam: Normal appearance - ENT Exam ENT Exam: Mucous Membranes Dry - Respiratory Exam Respiratory Exam: NORMAL BREATHING PATTERN - Cardiovascular Exam Cardiovascular Exam: +S1, +S2 - GI/Abdominal Exam GI & Abdominal Exam: Normal Bowel Sounds - Extremities Exam Extremities exam: Positive for: pedal edema - Neurological Exam Neurological exam: Oriented x3 - Psychiatric Exam Psychiatric exam: Normal Affect, Normal Mood Results - Vital Signs Recent Vital Signs: Last Vital Signs Temp 97.9 F 07/18/18 07:46 Pulse 90 07/18/18 07:46 Resp 20 07/18/18 07:46 BP 155/76 H 07/18/18 07:46 Pulse Ox 97 07/18/18 07:46 - Labs Result Diagrams: 07/18/18 08:20 07/18/18 08:20 Labs: Laboratory Results - last 24 hr 07/17/18 07/17/18 07/17/18 16:57 16:57 16:57 WBC 9.7 RBC 3.78 L Hgb 11.9 L D Hct 35.3 MCV 93.4 D MCH 31.6 H MCHC 33.8 RDW 23.6 H Plt Count 230 MPV 7.7 Neut % (Auto) 78.5 H Lymph % (Auto) 14.0 L [place] % (Auto) 5.2 Eos % (Auto) 1.8 Baso % (Auto) 0.5 Neut # (Auto) 7.6 H Lymph # (Auto) 1.4 [place] # (Auto) 0.5 Eos # (Auto) 0.2 Baso # (Auto) 0.0 PT 12.1 INR 1.1 APTT 26 Sodium 144 Potassium 5.1 Chloride 111 H Carbon Dioxide 22 Anion Gap 15 BUN 35 H Creatinine 1.8 H Est GFR ( Amer) 45 Est GFR (Non-Af Amer) 37 POC Glucose (mg/dL) Random Glucose 102 D Calcium 10.0 Total Bilirubin 1.5 H AST 19 ALT 21 D Alkaline Phosphatase 133 H Total Protein 8.2 Albumin 4.8 Globulin 3.4 Albumin/Globulin Ratio 1.4 Urine Color Urine Clarity Urine pH Ur Specific [place] Urine Protein Urine Glucose (UA) Urine Ketones Urine Blood Urine Nitrate Urine Bilirubin Urine Urobilinogen Ur Leukocyte Esterase Urine WBC (Auto) Urine RBC (Auto) Urine Bacteria 07/17/18 07/17/18 07/18/18 17:34 22:18 07:04 WBC RBC Hgb Hct MCV MCH MCHC RDW Plt Count MPV Neut % (Auto) Lymph % (Auto) [place] % (Auto) Eos % (Auto) Baso % (Auto) Neut # (Auto) Lymph # (Auto) [place] # (Auto) Eos # (Auto) Baso # (Auto) PT INR APTT Sodium Potassium Chloride Carbon Dioxide Anion Gap BUN Creatinine Est GFR ( Amer) Est GFR (Non-Af Amer) POC Glucose (mg/dL) 122 H 135 H Random Glucose Calcium Total Bilirubin AST ALT Alkaline Phosphatase Total Protein Albumin Globulin Albumin/Globulin Ratio Urine Color Yellow Urine Clarity Turbid Urine pH 5.0 Ur Specific [place] 1.016 Urine Protein 2+ H Urine Glucose (UA) Normal Urine Ketones Negative Urine Blood 1+ H Urine Nitrate Negative Urine Bilirubin Negative Urine Urobilinogen Normal Ur Leukocyte Esterase 3+ H Urine WBC (Auto) 1532 H Urine RBC (Auto) 24 H Urine Bacteria Many H 07/18/18 07/18/18 07/18/18 08:20 08:20 11:04 WBC 12.2 H RBC 3.66 L Hgb 11.5 L Hct 34.5 L MCV 94.3 H MCH 31.5 H MCHC 33.4 RDW 23.5 H Plt Count 221 MPV 7.7 Neut % (Auto) 82.3 H Lymph % (Auto) 10.2 L [place] % (Auto) 5.2 Eos % (Auto) 1.9 Baso % (Auto) 0.4 Neut # (Auto) 10.0 H Lymph # (Auto) 1.2 [place] # (Auto) 0.6 Eos # (Auto) 0.2 Baso # (Auto) 0.1 PT INR APTT Sodium 140 Potassium 4.5 Chloride 110 H Carbon Dioxide 20 L Anion Gap 14 BUN 33 H Creatinine 1.6 H Est GFR ( Amer) 51 Est GFR (Non-Af Amer) 42 POC Glucose (mg/dL) 223 H Random Glucose 155 H D Calcium 9.4 Total Bilirubin 1.7 H AST 20 ALT 20 L Alkaline Phosphatase 120 Total Protein 7.4 Albumin 4.4 Globulin 3.0 Albumin/Globulin Ratio 1.4 Urine Color Urine Clarity Urine pH Ur Specific [place] Urine Protein Urine Glucose (UA) Urine Ketones Urine Blood Urine Nitrate Urine Bilirubin Urine Urobilinogen Ur Leukocyte Esterase Urine WBC (Auto) Urine RBC (Auto) Urine Bacteria Assessment & Plan (1) DVT (deep venous thrombosis) Assessment and Plan: provoked from trauma on therapeutic lovenox given large thrombus burden above the knee, consider retrievable IVC filter placement outpatient NOAC Thank you for this interesting consult. Status: Acute
--- NOTE | 2018-07-18 16:42 | NM ---
Date of service: 07/18/2018 COMPARISON: None available. TECHNIQUE: 8.1 [id number] Gas. 3.8 mCI technetium 99-m MAA administered intravenously. FINDINGS: VENTILATION COMPONENT: Normal. PERFUSION COMPONENT: Heterogeneous uptake is identified mildly throughout both lung thomson without definite significant perfusion mismatch appreciable. IMPRESSION: Lowprobability ventilation perfusion scan for pulmonary embolism.
--- NOTE | 2018-07-19 00:32 | CP.PCM.PN ---
Subjective - Date & Time of Evaluation Date of Evaluation: 07/18/18 Time of Evaluation: 19:00 - Subjective Subjective: Patient today feeling comfortable not in any distress. He had a VQ scan done today. VQ scan showing evidence of low probability. Patient was also seen by oncologist. Urine culture showing gram-negative bacteria more than 100,000 units. Probably symptomatic at this time. I started the patient on Rocephin awaiting for urine culture ID We will admit the patient for antibiotic reason. Patient also will need oral anticoagulation Currently on Lovenox. We will discontinue the Lovenox in the morning, will start the patient on Eliquis 5 mg twice daily if it is working very shake feeder. Patient is a 72-year-old male with a history of diabetes hypertension high cholesterol and also has a history of colon cancer status post a surgery elva rogenic bladder admitted with a DVT, urosepsis will follow the patient Objective - Vital Signs/Intake and Output Vital Signs (last 24 hours): Temp Pulse Resp BP Pulse Ox 97.9 F 90 20 155/76 H 97 07/18/18 07:46 07/18/18 07:46 07/18/18 07:46 07/18/18 07:46 07/18/18 07:46 Intake and Output: 07/18/18 07/19/18 18:59 06:59 Intake Total 800 700 Output Total 300 Balance 800 400 - Medications Medications: Current Medications Enoxaparin Sodium (Lovenox) 60 mg SC Q12 [facility] Last Admin: 07/18/18 21:05 Dose: 60 mg Ceftriaxone Sodium 1 gm/ (Sodium Chloride) 100 mls @ 100 mls/hr IVPB Q12H [facility]; Protocol Last Admin: 07/18/18 20:47 Dose: 100 mls/hr Insulin Human Regular (Novolin R) 0 unit SC ACHS [facility]; Protocol Last Admin: 07/18/18 21:07 Dose: Not Given Lisinopril (Zestril) 10 mg PO DAILY [facility] Last Admin: 07/18/18 09:26 Dose: 10 mg Pneumococcal Polyvalent Vaccine (Pneumovax 23 Vaccine) 0.5 ml IM .ONCE ONE Stop: 07/19/18 10:01 Rosuvastatin Calcium (Crestor) 5 mg PO HS [facility] Last Admin: 07/18/18 21:05 Dose: 5 mg - Labs Labs: 07/18/18 08:20 07/18/18 08:20 PT 12.1 SECONDS (9.7-12.2) 07/17/18 16:57 INR 1.1 07/17/18 16:57 APTT 26 SECONDS (21-34) 07/17/18 16:57
[2018-07-19] MEDS: (Novolin R) Insulin Human Regular 100 units/ml vial SC SCH ×4 (08:10→21:38)
[2018-07-19] MEDS: Enoxaparin 60 mg Syringe SC SCH ×2 (09:03→21:07)
--- NOTE | 2018-07-19 09:14 | CP.PCM.PN ---
Subjective - Date & Time of Evaluation Date of Evaluation: 07/19/18 Time of Evaluation: 09:09 - Subjective Subjective: Patient still continues to have pain over the right leg. He is making small portions of urine But he is feeling full bladder He has no fever. Poorly eating. On examination: Vital signs noted Stable. Chest good air entry Abdomen soft, suprapubic fullness noted Right leg swelling and tenderness noted in the calf region Assessment and recommendation: 72-year-old male with a history of diabetes hypertension high cholesterol Patient recently had a rectal cancer, status post resection, colostomy. Patient developed neurogenic bladder, now developing recurrent urinary obstruction. Acute DVT right leg with pain Currently on Lovenox. Also on antibiotic. Awaiting for the culture report. We will get the surgical evaluation for possible revision. And will follow the patient Objective - Vital Signs/Intake and Output Vital Signs (last 24 hours): Temp Pulse Resp BP Pulse Ox 98.6 F 78 20 150/74 97 07/19/18 08:00 07/19/18 08:00 07/19/18 08:00 07/19/18 08:00 07/19/18 08:00 Intake and Output: 07/19/18 07/19/18 06:59 18:59 Intake Total 850 Output Total 550 Balance 300 - Medications Medications: Current Medications Enoxaparin Sodium (Lovenox) 60 mg SC Q12 [facility] Last Admin: 07/19/18 09:03 Dose: 60 mg Ceftriaxone Sodium 1 gm/ (Sodium Chloride) 100 mls @ 100 mls/hr IVPB Q12H [facility]; Protocol Last Admin: 07/19/18 08:46 Dose: 100 mls/hr Insulin Human Regular (Novolin R) 0 unit SC ACHS [facility]; Protocol Last Admin: 07/19/18 08:10 Dose: Not Given Lisinopril (Zestril) 10 mg PO DAILY [facility] Last Admin: 07/19/18 09:03 Dose: 10 mg Pneumococcal Polyvalent Vaccine (Pneumovax 23 Vaccine) 0.5 ml IM .ONCE ONE Stop: 07/19/18 10:01 Rosuvastatin Calcium (Crestor) 5 mg PO HS [facility] Last Admin: 07/18/18 21:05 Dose: 5 mg - Labs Labs: 07/18/18 08:20 07/18/18 08:20 PT 12.1 SECONDS (9.7-12.2) 07/17/18 16:57 INR 1.1 07/17/18 16:57 APTT 26 SECONDS (21-34) 07/17/18 16:57
[2018-07-19] MEDS ORDERED: Pneumococcal 23-Valent Vaccine IM ONE (10:00)
--- NOTE | 2018-07-19 10:47 | CP.PCM.CON ---
<Ashley Morales - Last Filed: 07/19/18 10:45> History of Present Illness - History of Present Illness History of Present Illness: General Surgery Consult note for Dr. Rainey-Ashley Morales, [id number] Pt seen/examined at bedside 73M w/PMH sig for colon cancer s/p robotic rectosidmoidectomy with ostomy creation in 2018 consulted for DVT. Pt reports fall 3 days prior to admission with resulting RLE pain and swelling. Pt seen by PMD with evaluation and instruction to report to hospital to evaluate for PE in setting of DVT. Denies CP, SOB, N & V, F & C, changes to bowel or bladder habits, cough, sore throat, other complaints. In ED- DVT of peroneal, gastroc, popliteal, and femoral venous structure of RLE PMH: HTN, HLD, DM, Anemia, hx colon CA, hard of hearing PSH: Robotic rectosigmoidectomy (01/2018) with ileostomy creation, diskectomy All: NKDA SH: Denies ETOH use, admits to history of Tobacco use (quit 30 yrs ago), denies illicit drug use FH: F- liver disease due to ETOH abuse, siblings with DM PMD: Dr. Rojo Review of Systems - Review of Systems All systems: reviewed and no additional remarkable complaints except - Constitutional Constitutional: absent: Chills, Fever - EENT Ears: absent: Dizziness Nose/Mouth/Throat: absent: Sore Throat - Cardiovascular Cardiovascular: absent: Chest Pain - Respiratory Respiratory: absent: Cough - Gastrointestinal Gastrointestinal: absent: Abdominal Pain, Change in Bowel Habits, Nausea, Vomiting - Musculoskeletal Musculoskeletal: absent: Back Pain - Integumentary Integumentary: absent: Dry Skin - Neurological Neurological: absent: Numbness, Tingling, Weakness - Psychiatric Psychiatric: absent: Change in Appetite Past Patient History - Past Medical History & Family History Past Medical History?: Yes - Past Social History Smoking Status: Former Smoker - CARDIAC Hx Cardiac Disorders: Yes Hx Hypercholesterolemia: Yes Hx Hypertension: Yes - PULMONARY Hx Respiratory Disorders: No - NEUROLOGICAL Hx Neurological Disorder: No - HEENT Hx HEENT Problems: Yes Hx Deafness: Yes - RENAL Hx Chronic Kidney Disease: Yes Hx Kidney Stones: Yes - ENDOCRINE/METABOLIC Hx Endocrine Disorders: Yes Hx Diabetes Mellitus Type 2: Yes - HEMATOLOGICAL/ONCOLOGICAL Hx Blood Disorders: Yes Hx Anemia: Yes - INTEGUMENTARY Hx Dermatological Problems: No - MUSCULOSKELETAL/RHEUMATOLOGICAL Hx Musculoskeletal Disorders: Yes Hx Back Pain: Yes Hx Falls: Yes Hx Herniated Disk: Yes Other/Comment: Had Back Surgery, VITAMIN D DEFICIENCY - GASTROINTESTINAL Hx Gastrointestinal Disorders: Yes Hx Bowel Surgery: Yes Hx Colostomy: Yes Other/Comment: HX:COLON CANCER - GENITOURINARY/GYNECOLOGICAL Hx Genitourinary Disorders: Yes Hx Prostate Problems: Yes Hx Urinary Tract Infection: Yes Other/Comment: HX: URINARY RETENTION-ORELLANA CATHETER IN PLACE OF INTERVIEW ON 06/09/18. - PSYCHIATRIC Hx Psychophysiologic Disorder: No Hx Substance Use: No - SURGICAL HISTORY Hx Surgeries: Yes Hx Orthopedic Surgery: Yes ( HERNIATED DISK REPAIR) Other/Comment: Hx. Thumb Surgery, long time ago. HX: ROBOTIC RECTOSIGMOIDECTOMY - ANESTHESIA Hx Anesthesia: Yes Hx Anesthesia Reactions: No Hx Malignant Hyperthermia: No Meds Allergies/Adverse Reactions: Allergies Allergy/AdvReac Type Severity Reaction Status Date / Time No Known Allergies Allergy Verified 07/17/18 16:15 - Medications Medications: Current Medications Enoxaparin Sodium (Lovenox) 60 mg SC Q12 [facility] Last Admin: 07/19/18 09:03 Dose: 60 mg Ceftriaxone Sodium 1 gm/ (Sodium Chloride) 100 mls @ 100 mls/hr IVPB Q12H [facility]; Protocol Last Admin: 07/19/18 08:46 Dose: 100 mls/hr Insulin Human Regular (Novolin R) 0 unit SC ACHS [facility]; Protocol Last Admin: 07/19/18 08:10 Dose: Not Given Lisinopril (Zestril) 10 mg PO DAILY [facility] Last Admin: 07/19/18 09:03 Dose: 10 mg Rosuvastatin Calcium (Crestor) 5 mg PO HS [facility] Last Admin: 07/18/18 21:05 Dose: 5 mg Physical Exam - Constitutional Appears: Non-toxic, No Acute Distress - Head Exam Head Exam: ATRAUMATIC, NORMAL INSPECTION, NORMOCEPHALIC - Eye Exam Eye Exam: EOMI, Normal appearance - ENT Exam ENT Exam: Mucous Membranes Moist, Normal Exam - Neck Exam Neck exam: Positive for: Full Rom - Respiratory Exam Respiratory Exam: Clear to Auscultation Bilateral, NORMAL BREATHING PATTERN. absent: Rhonchi, Wheezes, Respiratory Distress - Cardiovascular Exam Cardiovascular Exam: REGULAR RHYTHM, +S1, +S2 - GI/Abdominal Exam GI & Abdominal Exam: Normal Bowel Sounds, Soft. absent: Distended, Tenderness Additional comments: ostomy with brown liquid stool and gas output- ostomy pink, patent - Extremities Exam Extremities exam: Positive for: tenderness (RLE, with swelling) - Neurological Exam Neurological exam: Alert, CN II-XII Intact, Oriented x3 Additional comments: hard of hearing - Psychiatric Exam Psychiatric exam: Normal Affect, Normal Mood - Skin Skin Exam: Dry, Intact, Normal Color, Warm Results - Vital Signs Recent Vital Signs: Last Vital Signs Temp 98.6 F 07/19/18 08:00 Pulse 78 07/19/18 08:00 Resp 20 07/19/18 08:00 BP 150/74 07/19/18 08:00 Pulse Ox 97 07/19/18 08:00 - Labs Result Diagrams: 07/18/18 08:20 07/18/18 08:20 Labs: Laboratory Results - last 24 hr 07/18/18 07/18/18 07/18/18 11:04 16:25 20:54 POC Glucose (mg/dL) 223 H 118 H 120 H 07/19/18 07:35 POC Glucose (mg/dL) 122 H Assessment & Plan - Assessment and Plan (Free Text) Assessment: 73M w/DVT Plan: Recommend IR placement of IVC filter Recommend therapeutic anticoagulation No general surgery intervention Further care as per primary DW Dr. Rainey - Date & Time Date: 07/19/18 Time: 10:46 <Melchor Rainey - Last Filed: 07/20/18 21:31> Meds - Medications Medications: Current Medications Doxazosin Mesylate (Cardura) 1 mg PO DAILY [facility] Last Admin: 07/20/18 09:18 Dose: 1 mg Enoxaparin Sodium (Lovenox) 60 mg SC Q12 [facility] Last Admin: 07/20/18 09:18 Dose: 60 mg Finasteride (Proscar) 5 mg PO DAILY [facility] Ceftriaxone Sodium 1 gm/ (Sodium Chloride) 100 mls @ 100 mls/hr IVPB Q12H [facility]; Protocol Last Admin: 07/20/18 08:31 Dose: 100 mls/hr Insulin Human Regular (Novolin R) 0 unit SC ACHS [facility]; Protocol Last Admin: 07/20/18 16:30 Dose: Not Given Lisinopril (Zestril) 10 mg PO DAILY [facility] Last Admin: 07/20/18 09:18 Dose: 10 mg Rosuvastatin Calcium (Crestor) 5 mg PO HS [facility] Last Admin: 07/19/18 21:07 Dose: 5 mg Saccharomyces Boulardii (Florastor) 250 mg PO TID [facility] Last Admin: 07/20/18 17:39 Dose: 250 mg Tamsulosin HCl (Flomax) 0.4 mg PO BID [facility] Last Admin: 07/20/18 18:04 Dose: 0.4 mg Results - Vital Signs Recent Vital Signs: Last Vital Signs Temp 98.6 F 07/20/18 16:42 Pulse 66 07/20/18 16:42 Resp 20 07/20/18 16:42 BP 156/78 H 07/20/18 16:42 Pulse Ox 98 07/20/18 16:42 - Labs Result Diagrams: 07/18/18 08:20 07/18/18 08:20 Labs: Laboratory Results - last 24 hr 07/20/18 07/20/18 07/20/18 07:30 11:40 16:15 POC Glucose (mg/dL) 119 H 127 H 107 07/20/18 21:06 POC Glucose (mg/dL) 188 H Attending/Attestation - Attestation I have reviewed all pertinent clinical information: Yes Notes (Text): Pt with Ileostomy and DVT C.w Lovenox Ileostomy care Plan d.w pt in detail
--- NOTE | 2018-07-20 02:25 | CP.PCM.PN ---
Subjective - Date & Time of Evaluation Date of Evaluation: 07/19/18 Time of Evaluation: 19:00 - Subjective Subjective: Had hernández catheter placement for urinary retention Objective - Vital Signs/Intake and Output Vital Signs (last 24 hours): Temp Pulse Resp BP Pulse Ox 98.9 F 78 20 121/62 96 07/20/18 00:00 07/20/18 00:00 07/20/18 00:00 07/20/18 00:00 07/20/18 00:00 Intake and Output: 07/19/18 07/20/18 18:59 06:59 Intake Total 400 Output Total 150 600 Balance -150 -200 - Medications Medications: Current Medications Enoxaparin Sodium (Lovenox) 60 mg SC Q12 [facility] Last Admin: 07/19/18 21:07 Dose: 60 mg Ceftriaxone Sodium 1 gm/ (Sodium Chloride) 100 mls @ 100 mls/hr IVPB Q12H [facility]; Protocol Last Admin: 07/19/18 21:07 Dose: 100 mls/hr Insulin Human Regular (Novolin R) 0 unit SC ACHS [facility]; Protocol Last Admin: 07/19/18 21:38 Dose: Not Given Lisinopril (Zestril) 10 mg PO DAILY [facility] Last Admin: 07/19/18 09:03 Dose: 10 mg Rosuvastatin Calcium (Crestor) 5 mg PO HS [facility] Last Admin: 07/19/18 21:07 Dose: 5 mg - Labs Labs: 07/18/18 08:20 07/18/18 08:20 PT 12.1 SECONDS (9.7-12.2) 07/17/18 16:57 INR 1.1 07/17/18 16:57 APTT 26 SECONDS (21-34) 07/17/18 16:57 - Head Exam Head Exam: ATRAUMATIC - Eye Exam Eye Exam: Normal appearance - ENT Exam ENT Exam: Mucous Membranes Dry - Respiratory Exam Respiratory Exam: NORMAL BREATHING PATTERN - Cardiovascular Exam Cardiovascular Exam: +S1, +S2 - GI/Abdominal Exam GI & Abdominal Exam: Normal Bowel Sounds Assessment and Plan (1) DVT (deep venous thrombosis) Assessment & Plan: provoked from fall on therapeutic lovenox retrievable IVC filter evaluation given large thrombus burden above the knee outpatient NOAC Status: Acute
--- NOTE | 2018-07-20 07:05 | CP.PCM.PN ---
<Ashley Morales - Last Filed: 07/20/18 07:03> Subjective - Date & Time of Evaluation Date of Evaluation: 07/20/18 Time of Evaluation: 07:03 - Subjective Subjective: General surgery progress note for Dr. Rainey-Ashley Morales, PGY-2 Pt seen/examined at bedside Pt reports continued RLE pain and swelling- improved. Denies N & V, F & C, SOB, CP. Tolerating diet. Continues to have output to ostomy. Objective - Vital Signs/Intake and Output Vital Signs (last 24 hours): Temp Pulse Resp BP Pulse Ox 98.9 F 78 20 121/62 96 07/20/18 00:00 07/20/18 00:00 07/20/18 00:00 07/20/18 00:00 07/20/18 00:00 Intake and Output: 07/20/18 07/20/18 06:59 18:59 Intake Total 400 Output Total 600 Balance -200 - Medications Medications: Current Medications Enoxaparin Sodium (Lovenox) 60 mg SC Q12 [facility] Last Admin: 07/19/18 21:07 Dose: 60 mg Ceftriaxone Sodium 1 gm/ (Sodium Chloride) 100 mls @ 100 mls/hr IVPB Q12H [facility]; Protocol Last Admin: 07/19/18 21:07 Dose: 100 mls/hr Insulin Human Regular (Novolin R) 0 unit SC ACHS [facility]; Protocol Last Admin: 07/19/18 21:38 Dose: Not Given Lisinopril (Zestril) 10 mg PO DAILY [facility] Last Admin: 07/19/18 09:03 Dose: 10 mg Rosuvastatin Calcium (Crestor) 5 mg PO HS [facility] Last Admin: 07/19/18 21:07 Dose: 5 mg - Labs Labs: 07/18/18 08:20 07/18/18 08:20 PT 12.1 SECONDS (9.7-12.2) 07/17/18 16:57 INR 1.1 07/17/18 16:57 APTT 26 SECONDS (21-34) 07/17/18 16:57 - Constitutional Appears: Non-toxic, No Acute Distress - Head Exam Head Exam: ATRAUMATIC, NORMAL INSPECTION, NORMOCEPHALIC - Eye Exam Eye Exam: EOMI, Normal appearance - ENT Exam ENT Exam: Mucous Membranes Moist, Normal Exam - Neck Exam Neck Exam: Full ROM - Respiratory Exam Respiratory Exam: NORMAL BREATHING PATTERN - Cardiovascular Exam Cardiovascular Exam: REGULAR RHYTHM, +S1, +S2 - GI/Abdominal Exam GI & Abdominal Exam: Soft. absent: Distended, Firm, Guarding, Tenderness Additional comments: ostomy bag with liquid stool and gas output, ostomy pink and patent - Extremities Exam Extremities Exam: Tenderness (improved, RLE, swelling also improved) - Neurological Exam Neurological Exam: Alert, Awake, CN II-XII Intact, Oriented x3 - Psychiatric Exam Psychiatric exam: Normal Affect, Normal Mood - Skin Skin Exam: Dry, Normal Color, Warm Assessment and Plan - Assessment and Plan (Free Text) Assessment: 73M w/RLE DVT Plan: FU IR placement of IVC filter No general surgery intervention at this time Continue anticoagulation for DVT Will DW Dr. Raieny <Melchor Rainey - Last Filed: 07/20/18 21:33> Objective - Vital Signs/Intake and Output Vital Signs (last 24 hours): Temp Pulse Resp BP Pulse Ox 98.6 F 66 20 156/78 H 98 07/20/18 16:42 07/20/18 16:42 07/20/18 16:42 07/20/18 16:42 07/20/18 16:42 Intake and Output: 07/20/18 07/21/18 18:59 06:59 Intake Total 180 Output Total 200 Balance -20 - Medications Medications: Current Medications Doxazosin Mesylate (Cardura) 1 mg PO DAILY [facility] Last Admin: 07/20/18 09:18 Dose: 1 mg Enoxaparin Sodium (Lovenox) 60 mg SC Q12 [facility] Last Admin: 07/20/18 09:18 Dose: 60 mg Finasteride (Proscar) 5 mg PO DAILY [facility] Ceftriaxone Sodium 1 gm/ (Sodium Chloride) 100 mls @ 100 mls/hr IVPB Q12H [facility]; Protocol Last Admin: 07/20/18 08:31 Dose: 100 mls/hr Insulin Human Regular (Novolin R) 0 unit SC ACHS [facility]; Protocol Last Admin: 07/20/18 16:30 Dose: Not Given Lisinopril (Zestril) 10 mg PO DAILY [facility] Last Admin: 07/20/18 09:18 Dose: 10 mg Rosuvastatin Calcium (Crestor) 5 mg PO HS [facility] Last Admin: 07/19/18 21:07 Dose: 5 mg Saccharomyces Boulardii (Florastor) 250 mg PO TID [facility] Last Admin: 07/20/18 17:39 Dose: 250 mg Tamsulosin HCl (Flomax) 0.4 mg PO BID [facility] Last Admin: 07/20/18 18:04 Dose: 0.4 mg - Labs Labs: 07/18/18 08:20 07/18/18 08:20 PT 12.1 SECONDS (9.7-12.2) 07/17/18 16:57 INR 1.1 07/17/18 16:57 APTT 26 SECONDS (21-34) 07/17/18 16:57 Attending/Attestation - Attestation I have personally seen and examined this patient.: Yes I have fully participated in the care of the patient.: Yes I have reviewed all pertinent clinical information, including history, physical exam and plan: Yes Notes (Text): Pt was seen and examined at bedside Agree with above note and assessment Pt with DVT Stable clinically Oksana Malin DC plan Plan d.w pt in detail
[2018-07-20] MEDS: (Novolin R) Insulin Human Regular 100 units/ml vial SC SCH ×4 (07:45→21:47)
--- NOTE | 2018-07-20 08:05 | CP.PCM.PN ---
Subjective - Date & Time of Evaluation Date of Evaluation: 07/20/18 Time of Evaluation: 08:04 - Subjective Subjective: Patient has less leg swelling today. He has a Briggs catheter. Urine output is better. He is feeling less pain in the abdomen. He denies any nausea or vomiting. The blood sugar is stable. On examination: Vital signs are stable. Chest good air entry Regular heart sounds noted Nontender abdomen. Urine culture showing Klebsiella. Sensitive to ceftriaxone currently on ceftriaxone 1 g every 12. Assessment and recommendation: Patient is a 73-year-old male with a history of diabetes and hypertension history of rectal cancer status post resection, now having colostomy. Developed DVT on Lovenox. Urinary tract infection, urinary retention Patient is having Briggs catheter. Awaiting for neurological evaluation. Will add Flomax and Cardura to improve the urinary output, and will do a trial of Briggs catheter removal tomorrow, and if stable can be discharged home tomorrow. Objective - Vital Signs/Intake and Output Vital Signs (last 24 hours): Temp Pulse Resp BP Pulse Ox 98.9 F 78 20 121/62 96 07/20/18 00:00 07/20/18 00:00 07/20/18 00:00 07/20/18 00:00 07/20/18 00:00 Intake and Output: 07/20/18 07/20/18 06:59 18:59 Intake Total 400 180 Output Total 600 200 Balance -200 -20 - Medications Medications: Current Medications Enoxaparin Sodium (Lovenox) 60 mg SC Q12 [facility] Last Admin: 07/19/18 21:07 Dose: 60 mg Ceftriaxone Sodium 1 gm/ (Sodium Chloride) 100 mls @ 100 mls/hr IVPB Q12H [facility]; Protocol Last Admin: 07/19/18 21:07 Dose: 100 mls/hr Insulin Human Regular (Novolin R) 0 unit SC ACHS [facility]; Protocol Last Admin: 07/20/18 07:45 Dose: Not Given Lisinopril (Zestril) 10 mg PO DAILY [facility] Last Admin: 07/19/18 09:03 Dose: 10 mg Rosuvastatin Calcium (Crestor) 5 mg PO HS [facility] Last Admin: 07/19/18 21:07 Dose: 5 mg - Labs Labs: 07/18/18 08:20 07/18/18 08:20 PT 12.1 SECONDS (9.7-12.2) 07/17/18 16:57 INR 1.1 07/17/18 16:57 APTT 26 SECONDS (21-34) 07/17/18 16:57
[2018-07-20] MEDS: Saccharomyces Boulardi 250 mg Cap PO SCH ×3 (09:18→17:39)
[2018-07-20] MEDS: Enoxaparin 60 mg Syringe SC SCH ×2 (09:18→21:47)
[2018-07-20 16:43] VITALS: RESP 20
--- NOTE | 2018-07-21 01:23 | CON ---
DATE: 07/20/2018 COMPREHENSIVE UROLOGIC CONSULTATION TIME OF CONSULTATION: Roughly 1:35 p.m. BRIEF HISTORY: The patient is a 73-year-old white male, well known to me with a history of acute urinary retention, status post low anterior colon resection for colon cancer, who developed acute urinary retention postoperatively. The patient has history of BPH and was eventually found to have a decreased complaint bladder during urodynamic studies. The patient was initially placed on Flomax 0.4 mg b.i.d. and eventually finasteride 5 mg daily was added, and finally, doxazosin 4 mg every bedtime was added to the BPH regimen. The patient has been on all three medications for more than 3 months and still has failed multiple voiding trails. His last voiding trial was recently on Saturday or . His Briggs catheter was removed, and the patient states he voided small amounts of urine frequently, and eventually, had a distended bladder requiring Briggs catheter reinsertion to gravity drainage. The patient says that when inserted the Briggs catheter his bag filled up completely within about 30 minutes. The patient now was admitted to for evaluation and treatment of a DVT of his right lower extremity. PAST MEDICAL HISTORY: Hypertension, diabetes mellitus, hyperlipidemia, and anemia along with colon cancer, BPH, and urinary retention with a neuropathic bladder which showed decreased compliance of the urinary bladder. PAST SURGICAL HISTORY: Also includes diskectomy and low anterior resection of colon cancer with colectomy with ileostomy which was done on 02/12/2018. SOCIAL HISTORY: He is an ex-smoker. He stopped smoking 30 years ago. Denies any alcohol use at this time. FAMILY HISTORY: Father had liver disease secondary to alcohol and his mother at age 80. He has sisters with diabetes and one brother. ALLERGIES: HE HAS NO KNOWN ALLERGIES TO ANY MEDICATIONS. PHYSICAL EXAMINATION: Today, GENERAL: The patient is a well-developed, well-nourished white male. He is alert, he is oriented. HEENT: Examination is grossly within normal limits. NECK: Supple. Thyroid not palpable. ABDOMEN: Soft and nondistended or tender at this time. GENITOURINARY: His testicles are down bilaterally, nontender at this time. Rectal examination, normal rectal tone without fluctuance or masses. Prostate is wide, smooth, large, symmetrical, and nontender without nodules or indurations with palpable median sulcus. Briggs catheter is draining devaughn urine well. He has full range of motion of both upper and lower extremities. VITAL SIGNS: Today 07/20/2018 showed a temperature of 98.1, pulse is 89, blood pressure 134/66, respirations 18, and O2 saturation on room air is 97%. LABORATORY EVALUATION: Urine culture on 07/17/2018 showed Klebsiella pneumonia species, sensitive to Rocephin, Bactrim, cefazolin, ciprofloxacin, cefepime, gentamicin, Zosyn, ertapenem, and meropenem, intermediate sensitivity to nitrofurantoin. CBC done on 07/18/2018 showed a WBC count of 12.2, hemoglobin of 11.5, hematocrit 34.5, and platelet count was 221,000. Chem profile on 07/18/2018 showed sodium of 140, potassium 4.5, chloride 110, CO2 of 20, BUN and creatinine 33 and 1.6 respectively with a GFR of 42 indicating chronic kidney disease stage III. Random glucose is 155. Calcium 9.4. Phosphorous 2, magnesium 1.8, total bilirubin 1.7, direct bilirubin 0.7. AST 20, ALT 20, alkaline phosphatase is 120. The patient also has a history of borderline elevated PSA, on finasteride. DIAGNOSTIC IMPRESSION: 1. Urinary retention. 2. Benign prostate hypertrophy. 3. Decreased complaint of urinary bladder. 4. Urinary tract infection. PLAN: For this patient at this time is to just observe and maintain the Briggs catheter to gravity drainage and change Briggs catheter every 4 weeks. Treat the patient for his UTI with IV antibiotics at this time. We will discuss with the patient and his family including his son any future surgical procedure which could include the possible GreenLight Laser PVP surgery but because the patient has pathologic neuropathic bladder, this procedure may not solve his urinary retention problem. The patient is currently on Rocephin IV antibiotics. However, he is currently only on tamsulosin 0.4 mg daily and doxazosin 1 mg daily. We will discuss this with his PCP, Dr. Rojo. Alexis Meyers MD [facility]
[2018-07-21] MEDS: (Novolin R) Insulin Human Regular 100 units/ml vial SC SCH ×4 (08:15→21:41)
[2018-07-21] MEDS: Saccharomyces Boulardi 250 mg Cap PO SCH ×3 (09:12→17:51)
--- NOTE | 2018-07-21 09:16 | CP.PCM.PN ---
Subjective - Date & Time of Evaluation Date of Evaluation: 07/21/18 Time of Evaluation: 09:15 - Subjective Subjective: Patient is now feeling better. Some itching in the right leg noted. He has no chest pain or shortness of breath. Patient was seen by urologist yesterday. I had a discussion with the urologist. Patient has a suspected BPH. Urologist increase the Flomax, added finasteride, and Cardura. On examination: Vital signs otherwise stable. Chest good air entry Regular HS nontender abdomen no pedal edema Assessment and recommendation: 72-year-old male with a history of colon cancer admitted with a DVT. We will start the patient on oral anticoagulation. Possible discharge plan tomorrow Objective - Vital Signs/Intake and Output Vital Signs (last 24 hours): Temp Pulse Resp BP Pulse Ox 97.9 F 78 20 144/77 95 07/21/18 07:00 07/21/18 07:00 07/21/18 07:00 07/21/18 07:00 07/21/18 07:00 Intake and Output: 07/21/18 07/21/18 06:59 18:59 Intake Total 640 Output Total 800 Balance -160 - Medications Medications: Current Medications Apixaban (Eliquis) 5 mg PO Q12 [facility] Doxazosin Mesylate (Cardura) 1 mg PO DAILY [facility] Last Admin: 07/21/18 09:12 Dose: 1 mg Finasteride (Proscar) 5 mg PO DAILY [facility] Last Admin: 07/21/18 09:12 Dose: 5 mg Ceftriaxone Sodium 1 gm/ (Sodium Chloride) 100 mls @ 100 mls/hr IVPB Q12H [facility]; Protocol Last Admin: 07/20/18 21:10 Dose: 100 mls/hr Insulin Human Regular (Novolin R) 0 unit SC ACHS [facility]; Protocol Last Admin: 07/21/18 08:15 Dose: Not Given Lisinopril (Zestril) 10 mg PO DAILY [facility] Last Admin: 07/21/18 09:12 Dose: 10 mg Rosuvastatin Calcium (Crestor) 5 mg PO HS [facility] Last Admin: 07/20/18 21:47 Dose: 5 mg Saccharomyces Boulardii (Florastor) 250 mg PO TID [facility] Last Admin: 07/21/18 09:12 Dose: 250 mg Tamsulosin HCl (Flomax) 0.4 mg PO BID [facility] Last Admin: 07/21/18 09:12 Dose: 0.4 mg - Labs Labs: 07/18/18 08:20 07/18/18 08:20 PT 12.1 SECONDS (9.7-12.2) 07/17/18 16:57 INR 1.1 07/17/18 16:57 APTT 26 SECONDS (21-34) 07/17/18 16:57
[2018-07-21 11:32] LABS: BASO % 0.6 % (0.0-2.0); EOS # 0.2 K/uL (0.0-0.7); EOS % 3.1 % (0.0-4.0); HEMOGLOBIN 11.2 g/dL (12.0-18.0); LYMPH # 1.4 K/uL (1.0-4.3); LYMPH % 18.2 % (20.0-40.0); MEAN CELL VOLUME 92.5 fL (80.0-94.0); MEAN CORPUSCULAR HEMOGLOBIN 31.9 pg (27.0-31.0); MEAN CORPUSCULAR HGB CONC 34.5 g/dL (33.0-37.0); MEAN PLATELET VOLUME 7.9 fL (7.2-11.7); MONO # 0.5 K/uL (0.0-0.8); MONO % 6.4 % (0.0-10.0); NEUT # 5.6 K/uL (1.8-7.0); NEUT % 71.7 % (50.0-75.0); RBC 3.52 Mil/uL (4.40-5.90); RED CELL DISTRIBUTION WIDTH 22.6 % (11.5-14.5); WHITE BLOOD COUNT 7.8 K/uL (4.8-10.8)
[2018-07-21 11:48] LABS: ALB/GLOB RATIO 1.4 (1.0-2.1); ALT/SGPT 26 U/L (21-72); AST/SGOT 29 U/L (17-59); BLOOD UREA NITROGEN 21 mg/dL (9-20); GFR NON-AFRICAN AMERICAN 54
--- NOTE | 2018-07-21 22:23 | CARD ---
APPROVED REPORT Date of service: 07/17/2018 EKG Measurement Heart [id number] <Conclusion> Normal sinus rhythm Normal ECG
--- NOTE | 2018-07-22 00:02 | CP.PCM.PN ---
Subjective - Date & Time of Evaluation Date of Evaluation: 07/21/18 Time of Evaluation: 19:00 - Subjective Subjective: Has some calf pain but improved Objective - Vital Signs/Intake and Output Vital Signs (last 24 hours): Temp Pulse Resp BP Pulse Ox 98.2 F 84 20 155/77 H 95 07/21/18 15:52 07/21/18 15:52 07/21/18 15:52 07/21/18 15:52 07/21/18 15:52 Intake and Output: 07/21/18 07/22/18 18:59 06:59 Intake Total 580 700 Output Total 500 450 Balance 80 250 - Medications Medications: Current Medications Apixaban (Eliquis) 5 mg PO Q12 [facility] Last Admin: 07/21/18 21:17 Dose: 5 mg Doxazosin Mesylate (Cardura) 1 mg PO DAILY [facility] Last Admin: 07/21/18 09:12 Dose: 1 mg Finasteride (Proscar) 5 mg PO DAILY [facility] Last Admin: 07/21/18 09:12 Dose: 5 mg Ceftriaxone Sodium 1 gm/ (Sodium Chloride) 100 mls @ 100 mls/hr IVPB Q12H [facility]; Protocol Last Admin: 07/21/18 20:12 Dose: 100 mls/hr Insulin Human Regular (Novolin R) 0 unit SC ACHS [facility]; Protocol Last Admin: 07/21/18 21:41 Dose: Not Given Lisinopril (Zestril) 10 mg PO DAILY [facility] Last Admin: 07/21/18 09:12 Dose: 10 mg Rosuvastatin Calcium (Crestor) 5 mg PO HS [facility] Last Admin: 07/21/18 21:17 Dose: 5 mg Saccharomyces Boulardii (Florastor) 250 mg PO TID [facility] Last Admin: 07/21/18 17:51 Dose: 250 mg Tamsulosin HCl (Flomax) 0.4 mg PO BID [facility] Last Admin: 07/21/18 17:50 Dose: 0.4 mg - Labs Labs: 07/21/18 11:22 07/21/18 11:22 PT 12.1 SECONDS (9.7-12.2) 07/17/18 16:57 INR 1.1 07/17/18 16:57 APTT 26 SECONDS (21-34) 07/17/18 16:57 - Head Exam Head Exam: ATRAUMATIC - Eye Exam Eye Exam: Normal appearance - ENT Exam ENT Exam: Mucous Membranes Dry - Respiratory Exam Respiratory Exam: NORMAL BREATHING PATTERN - Cardiovascular Exam Cardiovascular Exam: +S1, +S2 - GI/Abdominal Exam GI & Abdominal Exam: Normal Bowel Sounds Assessment and Plan (1) DVT (deep venous thrombosis) Assessment & Plan: ? provoked from fall hx of colorectal cancer; will repeat CEA switched to Eliquis for outpatient treatment Status: Acute
[2018-07-22 01:41] VITALS: O2SAT 96
--- NOTE | 2018-07-22 08:06 | CP.PCM.DIS ---
Provider - Provider Date of Admission: 07/19/18 00:30 Attending physician: Matt Rojo MD Consults: 07/17/18 20:24 Core Measures [Inpatient LEGAL INTERN Core Measures Referral] Routine Comment: Physician Instructions: Reason For Exam: right leg DVT, swelling 07/17/18 20:53 Hematology Oncology Consult Routine Comment: Consulting Provider: Andrew Islas Consulting Physician: Andrew Islas Reason for Consult: pe dvt 07/19/18 09:07 General Surgery Consult Routine Comment: Consulting Provider: Melchor Rainey Consulting Physician: Melchor Rainey Reason for Consult: dvt 07/19/18 10:10 Urology Consult Routine Comment: Consulting Provider: Aelxis Meyers Consulting Physician: Alexis Meyers Reason for Consult: urinary retention, bladder scan result of 999ml Time Spent in preparation of Discharge (in minutes): 45 Hospital Course - Lab Results Lab Results: Micro Results 07/17/18 19:55 Blood-Venous Blood Culture - Preliminary NO GROWTH AFTER 4 DAYS 07/17/18 19:30 Blood-Venous Blood Culture - Preliminary NO GROWTH AFTER 4 DAYS 07/17/18 21:28 Urine Random Urine Culture - Final Klebsiella Pneumoniae Ssp Pneu Most Recent Lab Values WBC 7.8 K/uL (4.8-10.8) 07/21/18 11:22 RBC 3.52 Mil/uL (4.40-5.90) L 07/21/18 11:22 Hgb 11.2 g/dL (12.0-18.0) L 07/21/18 11:22 Hct 32.5 % (35.0-51.0) L 07/21/18 11:22 MCV 92.5 fL (80.0-94.0) 07/21/18 11:22 MCH 31.9 pg (27.0-31.0) H 07/21/18 11:22 MCHC 34.5 g/dL (33.0-37.0) 07/21/18 11:22 RDW 22.6 % (11.5-14.5) H 07/21/18 11:22 Plt Count 257 K/uL (130-400) 07/21/18 11:22 MPV 7.9 fL (7.2-11.7) 07/21/18 11:22 Neut % (Auto) 71.7 % (50.0-75.0) 07/21/18 11:22 Lymph % (Auto) 18.2 % (20.0-40.0) L 07/21/18 11:22 Gregg % (Auto) 6.4 % (0.0-10.0) 07/21/18 11:22 Eos % (Auto) 3.1 % (0.0-4.0) 07/21/18 11:22 Baso % (Auto) 0.6 % (0.0-2.0) 07/21/18 11:22 Neut # (Auto) 5.6 K/uL (1.8-7.0) 07/21/18 11:22 Lymph # (Auto) 1.4 K/uL (1.0-4.3) 07/21/18 11:22 Gregg # (Auto) 0.5 K/uL (0.0-0.8) 07/21/18 11:22 Eos # (Auto) 0.2 K/uL (0.0-0.7) 07/21/18 11:22 Baso # (Auto) 0.0 K/uL (0.0-0.2) 07/21/18 11:22 PT 12.1 SECONDS (9.7-12.2) 07/17/18 16:57 INR 1.1 07/17/18 16:57 APTT 26 SECONDS (21-34) 07/17/18 16:57 Sodium 137 mmol/L (132-148) 07/21/18 11:22 Potassium 4.3 mmol/L (3.6-5.2) 07/21/18 11:22 Chloride 105 mmol/L (98-107) 07/21/18 11:22 Carbon Dioxide 25 mmol/L (22-30) 07/21/18 11:22 Anion Gap 12 (10-20) 07/21/18 11:22 BUN 21 mg/dL (9-20) H 07/21/18 11:22 Creatinine 1.3 mg/dL (0.8-1.5) 07/21/18 11:22 Est GFR ( Amer) > 60 07/21/18 11:22 Est GFR (Non-Af Amer) 54 07/21/18 11:22 POC Glucose (mg/dL) 153 mg/dL (65-110) H 07/22/18 07:04 Random Glucose 150 mg/dL (75-110) H 07/21/18 11:22 Calcium 9.0 mg/dl (8.6-10.4) 07/21/18 11:22 Phosphorus 2.2 mg/dL (2.5-4.5) L 07/21/18 11:22 Magnesium 1.5 mg/dL (1.6-2.3) L 07/21/18 11:22 Total Bilirubin 0.6 mg/dL (0.2-1.3) 07/21/18 11:22 AST 29 U/L (17-59) 07/21/18 11:22 ALT 26 U/L (21-72) 07/21/18 11:22 Alkaline Phosphatase 106 U/L (38-126) 07/21/18 11:22 Total Protein 7.0 g/dL (6.3-8.3) 07/21/18 11:22 Albumin 4.0 g/dL (3.5-5.0) 07/21/18 11:22 Globulin 3.0 gm/dL (2.2-3.9) 07/21/18 11:22 Albumin/Globulin Ratio 1.4 (1.0-2.1) 07/21/18 11:22 Urine Color Yellow (YELLOW) 07/17/18 17:34 Urine Clarity Turbid (Clear) 07/17/18 17:34 Urine pH 5.0 (5.0-8.0) 07/17/18 17:34 Ur Specific [place] 1.016 (1.003-1.030) 07/17/18 17:34 Urine Protein 2+ mg/dL (NEGATIVE) H 07/17/18 17:34 Urine Glucose (UA) Normal mg/dL (Normal) 07/17/18 17:34 Urine Ketones Negative mg/dL (NEGATIVE) 07/17/18 17:34 Urine Blood 1+ (NEGATIVE) H 07/17/18 17:34 Urine Nitrate Negative (NEGATIVE) 07/17/18 17:34 Urine Bilirubin Negative (NEGATIVE) 07/17/18 17:34 Urine Urobilinogen Normal mg/dL (0.2-1.0) 07/17/18 17:34 Ur Leukocyte Esterase 3+ Shima/uL (Negative) H 07/17/18 17:34 Urine WBC (Auto) 1532 /hpf (0-5) H 07/17/18 17:34 Urine RBC (Auto) 24 /hpf (0-3) H 07/17/18 17:34 Urine Bacteria Many (<OCC) H 07/17/18 17:34 - Hospital Course Hospital Course: Chief complaint: Right leg pain. HISTORY OF PRESENT ILLNESS: Patient is a 71-year-old male with history multiple medical problems including hypertension, diabetes, high cholesterol, history of anemia, rectal cancer, status post a abdomen perineal resection, status post a colostomy. Following that the patient developed incontinence of the urinary bladder, neurogenic bladder. Patient had indwelling Briggs catheter. 3 days ago patient had a fall, following that he developed a swelling, pain, and tenderness. Patient was not able to walk. He came to the office, immediate advised him to go to the hospital have a vascular Doppler. Patient has positive for deep venous thrombosis involving the peroneal, gastrocnemius, popliteal, and femoral venous structure of the right leg. So I advised the patient to go to the hospital and they hospitalization. Because of the complicated medical condition including cancer, neurogenic bladder, history of anemia I recommended to admit, and further management in consultation with oncologist. PAST MEDICAL HISTORY: Hypertension, high cholesterol, diabetes, anemia, has a history of colon cancer, had surgery recently. SURGICAL HISTORY: Twenty years ago, the patient had diskectomy, and he also had robotic-assisted laparoscopic partial colectomy with ileostomy on 02/12/2018. The patient also had cardiac stress test which was done on 02/04/2018. ALLERGY: NO KNOWN DRUG ALLERGY. FAMILY HISTORY: Father had a history of liver disease secondary to alcohol. Mother at the age of 80. Three sisters with diabetes, one brother. SOCIAL HISTORY: The patient is a ex-smoker, quit 30 years ago. Denies any alcohol. CURRENT MEDICATIONS: Noted from the chart. The patient is currently FERROUS SULFATE 325 MG TABLET GLIPIZIDE 5 MG TABLET LOSARTAN POTASSIUM 50 MG TAB Start: Mar 26, 2018 End: Jun 23, 2018 ATORVASTATIN 40 MG TABLET LISINOPRIL-HYDROCHLOROTHI REVIEW OF SYSTEMS: Patient is feeling well otherwise. Combining of right leg pain. No chest pain. No palpitation. Denies any nausea, no vomiting PHYSICAL EXAMINATION: VITAL SIGNS: Stable Vital signs reviewed Stable mild elevation of the systolic blood pressure noted nonspecific. CHEST: Good air entry bilaterally. No wheezing or rales noted. HEART: Regular heart sound noted. ABDOMEN: Nontender. The patient has no suprapubic tenderness. No flank tenderness. He has an ileostomy on the right side of the abdomen. EXTREMITIES: No pedal edema. CENTRAL NERVOUS SYSTEM: Alert, awake, and oriented x3. No functional neurological deficit. Patient has a swelling, tenderness, and significant redness and warm noted in the right leg up to the knee joint LABORATORY DATA: Patient is in hospital records with the Labs reviewed ASSESSMENT AND RECOMMENDATION: A 73-year-old male with history of diabetes, hypertension, hypercholesterolemia, rectal cancer, status post ileostomy and colectomy, Positive DVT. Patient admitted to the hospital with acute deep venous thrombosis. Complicated medical condition. I recommended to stay in the hospital. Lovenox. Will get the PE study. Oncological evaluation. Will follow the patient Course in the hospital: Patient was initially admitted to the hospital with acute DVT involving the right leg. Because of his comorbidities and the complex medical condition I admitted the patient. Patient initially started on Lovenox 60 mg twice daily Urine culture was positive for Klebsiella. Patient is having significant residual urine almost 1 L in the bladder. So indwelling Briggs catheter was inserted. I spoke to the urologist. Patient started on finasteride, Flomax twice a day, and also Cardura. Patient is currently tolerating that. Lovenox was discontinued. Patient started on Eliquis 5 mg twice daily. Patient is tolerating now. He is clinically doing well. He will be discharged home today He will follow-up as an outpatient with the urologist for catheter change. He will continue the rest of the medication. Eliquis to be continued We will continue the patient ciprofloxacin for at least another 1 week. Will follow outpatient Final diagnosis acute DVT. Colon cancer. Bladder enlargement with bladder neck obstruction. Neurogenic bladder also noted. Diabetes and hypertension. We will follow the patient Discharge Exam - Head Exam Head Exam: ATRAUMATIC Discharge Plan - Discharge Medications Prescriptions: Doxazosin [Cardura] 1 mg PO DAILY #30 Apixaban [Eliquis] 5 mg PO Q12 #60 tab Tamsulosin [Flomax] 0.4 mg PO BID #60 cap Finasteride [Proscar] 5 mg PO DAILY #30 tab - Follow Up Plan Condition: GOOD Disposition: HOME/ ROUTINE
[2018-07-22] MEDS: (Novolin R) Insulin Human Regular 100 units/ml vial SC SCH ×2 (08:10→12:17)
[2018-07-22] MEDS: Saccharomyces Boulardi 250 mg Cap PO SCH ×2 (10:32→13:43)
[2018-07-22 12:01] LABS: URINE BACTERIA RARE (<OCC); URINE BILIRUBIN NEGATIVE (NEGATIVE); URINE BLOOD NEGATIVE (NEGATIVE); URINE CLARITY Clear (Clear); URINE COLOR Yellow (YELLOW); URINE GLUCOSE (UA) 1+ mg/dL (Normal); URINE LEUKOCYTE ESTERASE 1+ Leu/uL (Negative); URINE PROTEIN NEGATIVE (NEGATIVE); URINE UROBILINOGEN NORMAL mg/dL (0.2-1.0)
[2018-07-22 16:51] VITALS: BP 162/68; PULSE 84; TEMP 98.7
== END 2018-07-22 17:28 | disposition home or self-care (01) | DRG 300 ==
LOC: C.ER 16:05 → INTOOBSV 17:02 → C.9E 17:02 → OBSVTOIN 17:02 → UNDOADMOB 17:02 → C.9E 17:39 → C.3T 17:39 → OBSVTOIN 07-19 00:30 → C.9E 07-19 00:30 → C.3T 07-19 00:30
PROVIDERS: ADMIT Internal Medicine; ATTEND Internal Medicine
DX: I82.411 Acute embolism and thrombosis of right femoral vein (principal); N39.0 Urinary tract infection, site not specified; C20 Malignant neoplasm of rectum; I82.491 Acute embolism and thrombosis of other specified deep vein of right lower extremity; I82.431 Acute embolism and thrombosis of right popliteal vein; B96.1 Klebsiella pneumoniae [K. pneumoniae] as the cause of diseases classified elsewhere; N13.8 Other obstructive and reflux uropathy; E11.22 Type 2 diabetes mellitus with diabetic chronic kidney disease; I12.9 Hypertensive chronic kidney disease with stage 1 through stage 4 chronic kidney disease, or unspecified chronic kidney disease; W19.XXXA Unspecified fall, initial encounter; I25.10 Atherosclerotic heart disease of native coronary artery without angina pectoris; N18.9 Chronic kidney disease, unspecified; N31.9 Neuromuscular dysfunction of bladder, unspecified; N40.1 Benign prostatic hyperplasia with lower urinary tract symptoms; R33.8 Other retention of urine; E78.5 Hyperlipidemia, unspecified; E78.00 Pure hypercholesterolemia, unspecified; H91.90 Unspecified hearing loss, unspecified ear; Z90.49 Acquired absence of other specified parts of digestive tract

== ENCOUNTER 2018-07-31 10:22 | Observation (INO) | payer MEDICARE | END 2018-08-02 12:58 | disposition home or self-care (01) | LOC: C.3T 08-01 02:22 → C.ER 10:22 → C.9E 12:19 → C.3T 15:58 ==

== ENCOUNTER 2018-09-01 09:57 | Outpatient (CLI) | payer MEDICARE | END 2018-09-01 09:58 | disposition home or self-care (01) | LOC: C.PAT 09:57 | DX: Z01.818 Encounter for other preprocedural examination (principal); Z43.2 Encounter for attention to ileostomy ==

== ENCOUNTER 2018-09-03 08:38 | Outpatient (CLI) | payer MEDICARE | END 2018-09-03 08:39 | disposition home or self-care (01) | LOC: C.RADH 08:38 | DX: Z43.2 Encounter for attention to ileostomy (principal) ==

== ENCOUNTER 2018-09-15 07:55 | Inpatient (IN) | payer MEDICARE ==
[2018-09-15] MEDS ORDERED: Propofol 10 mg/ml Inj (20 ML) ONE (09:10)
[2018-09-15] MEDS ORDERED: Midazolam 2 MG/2 ML VIAL ONE (09:10)
[2018-09-15] MEDS ORDERED: Rocuronium 10 mg/ml (5 ml) ONE (09:10)
[2018-09-15 09:30] LABS: BLOOD UREA NITROGEN 18 mg/dL (9-20); CALCIUM 9.8 mg/dl (8.6-10.4); GFR NON-AFRICAN AMERICAN 59
[2018-09-15] MEDS ORDERED: Lidocaine/Epinephrine 1% 1:100000 10 ML IJ ONE (09:33)
[2018-09-15] MEDS ORDERED: ceFAZolin 1 gm in NS 0 GM/0 ML BAG IVPB ONE (09:33)
[2018-09-15] MEDS ORDERED: metroNIDAZOLE IV 500 mg/100 ml 0 MG/0 ML BAG ONE (09:33)
[2018-09-15] MEDS ORDERED: Bupivacaine 0.25% 20 ML INJ IJ ONE (09:33)
[2018-09-15 12:40] LABS: BASO # 0.1 K/uL (0.0-0.2); BASO % 0.8 % (0.0-2.0); EOS # 0.2 K/uL (0.0-0.7); EOS % 2.1 % (0.0-4.0); HEMOGLOBIN 12.8 g/dL (12.0-18.0); LYMPH # 1.7 K/uL (1.0-4.3); LYMPH % 19.7 % (20.0-40.0); MEAN CELL VOLUME 92.6 fL (80.0-94.0); MEAN CORPUSCULAR HEMOGLOBIN 32.6 pg (27.0-31.0); MEAN CORPUSCULAR HGB CONC 35.2 g/dL (33.0-37.0); MEAN PLATELET VOLUME 7.8 fL (7.2-11.7); MONO # 0.4 K/uL (0.0-0.8); MONO % 4.5 % (0.0-10.0); NEUT # 6.2 K/uL (1.8-7.0); NEUT % 72.9 % (50.0-75.0); RBC 3.94 Mil/uL (4.40-5.90); RED CELL DISTRIBUTION WIDTH 13.9 % (11.5-14.5); WHITE BLOOD COUNT 8.5 K/uL (4.8-10.8)
[2018-09-15 12:50] LABS: INR 1.2
[2018-09-15] MEDS: Heparin25000 units/250ml 1/2NS 25,000 UNITS/250 ML BAG IV PRN (13:10)
[2018-09-15] MEDS ORDERED: Lactated Ringer's 500 ML IV ONE (13:10)
[2018-09-15 13:21] VITALS: BMI 26.9
--- NOTE | 2018-09-15 14:25 | CP.PCM.CON ---
<Peter Mazariegos - Last Filed: 09/15/18 14:52> History of Present Illness - History of Present Illness History of Present Illness: General Surgery Consult for Dr. Rainey Reason for consult: Ileostomy reversal 73 M with PMH of HTN, DM, Colon CA s/p LAR, DVT on Eliquis presents to [facility] for ileostomy reversal. Patient only stopped taking Eliquis yesterday. He was suppose to stop this for at least 36 hours prior to procedure. The case was rescheduled for Sunday 09/17 because of this reason. Patient to be admitted to Dr. pacheco's service. Patient has no complaints at this time. He will be placed on heparin drip in meantime. PMD: Dr. Pacheco PMH: HTN, DM, HLD, Colon CA s/p resection, DVT on Eliquis PSH: back surgery, LAR with ileostomy ALL: NKDA Review of Systems - Review of Systems All systems: reviewed and no additional remarkable complaints except (as per HPI) Past Patient History - Past Medical History & Family History Past Medical History?: Yes - Past Social History Smoking Status: Former Smoker - CARDIAC Hx Cardiac Disorders: Yes Hx Hypercholesterolemia: Yes Hx Hypertension: Yes Hx Peripheral Edema: Yes (right leg dvt july 2018) - NEUROLOGICAL Hx Dizziness: Yes (from lying to sitting position when done too quickly) - HEENT Hx HEENT Problems: Yes Hx Deafness: Yes - RENAL Hx Chronic Kidney Disease: Yes Hx Kidney Stones: Yes Other/Comment: Briggs cath to leg bag draining yellow urine - ENDOCRINE/METABOLIC Hx Endocrine Disorders: Yes Hx Diabetes Mellitus Type 2: Yes - HEMATOLOGICAL/ONCOLOGICAL Hx Blood Disorders: Yes Hx Anemia: Yes Hx Cancer: Yes (COLON/RECTAL) - MUSCULOSKELETAL/RHEUMATOLOGICAL Hx Musculoskeletal Disorders: Yes Hx Back Pain: Yes Hx Falls: Yes Hx Herniated Disk: Yes Other/Comment: Had Back Surgery, VITAMIN D DEFICIENCY - GASTROINTESTINAL Hx Gastrointestinal Disorders: Yes Hx Bowel Surgery: Yes Hx Colostomy: Yes Hx Ileostomy: Yes Other/Comment: HX:COLON CANCER - GENITOURINARY/GYNECOLOGICAL Hx Genitourinary Disorders: Yes Hx Prostate Problems: Yes Hx Urinary Tract Infection: Yes Other/Comment: HX: URINARY RETENTION - PSYCHIATRIC Hx Psychophysiologic Disorder: No Hx Substance Use: No - SURGICAL HISTORY Hx Surgeries: Yes Hx Orthopedic Surgery: Yes ( HERNIATED DISK REPAIR) Other/Comment: Hx. Thumb Surgery, long time ago. HX: ROBOTIC RECTOSIGMOIDECTOMY - ANESTHESIA Hx Anesthesia: Yes Hx Anesthesia Reactions: No Hx Malignant Hyperthermia: No Has any member of the family had a problem w/ anesthesia?: No Meds Allergies/Adverse Reactions: Allergies Allergy/AdvReac Type Severity Reaction Status Date / Time No Known Allergies Allergy Verified 07/31/18 10:31 - Medications Medications: Current Medications Doxazosin Mesylate (Cardura) 1 mg PO DAILY [facility] Ferrous Sulfate (Feosol) 325 mg PO DAILY [facility] Finasteride (Proscar) 5 mg PO DAILY [facility] Glipizide (Glucotrol) 5 mg PO DAILY [facility] Heparin Sodium/Sodium Chloride (Heparin 44087 Units/250ml 1/2 Normal Saline) 25,000 units in 250 mls @ 13.186 mls/hr IV .[id number] PRN; Protocol PRN Reason: PROTOCOL Last Admin: 09/15/18 13:10 Dose: 0 mls Insulin Human Regular (Novolin R) 0 unit SC ACHS [facility]; Protocol Losartan Potassium (Cozaar) 25 mg PO DAILY [facility] Rosuvastatin Calcium (Crestor) 20 mg PO HS [facility] Tamsulosin HCl (Flomax) 0.4 mg PO BID [facility] Physical Exam - Constitutional Appears: No Acute Distress - Head Exam Head Exam: ATRAUMATIC, NORMOCEPHALIC - Eye Exam Eye Exam: Normal appearance - ENT Exam ENT Exam: Mucous Membranes Moist - Respiratory Exam Respiratory Exam: NORMAL BREATHING PATTERN - Cardiovascular Exam Cardiovascular Exam: REGULAR RHYTHM - GI/Abdominal Exam GI & Abdominal Exam: Normal Bowel Sounds, Soft. absent: Distended, Firm, Guarding, Rebound, Rigid, Tenderness Additional comments: ileostomy - Extremities Exam Extremities exam: Positive for: normal capillary refill, pedal pulses present - Back Exam Back exam: absent: CVA tenderness (L), CVA tenderness (R) - Neurological Exam Neurological exam: Alert, Oriented x3 - Psychiatric Exam Psychiatric exam: Normal Affect, Normal Mood - Skin Skin Exam: Dry, Warm Results - Vital Signs Recent Vital Signs: Last Vital Signs Temp 97.8 F 09/15/18 08:31 Pulse 87 09/15/18 08:31 Resp 18 09/15/18 08:31 BP 175/82 H 09/15/18 08:31 Pulse Ox 98 04/29/19 08:31 - Labs Result Diagrams: 09/15/18 12:30 09/15/18 09:02 Labs: Laboratory Results - last 24 hr 09/15/18 09/15/18 09/15/18 08:38 09:02 12:30 WBC RBC Hgb Hct MCV MCH MCHC RDW Plt Count MPV Neut % (Auto) Lymph % (Auto) [place] % (Auto) Eos % (Auto) Baso % (Auto) Neut # (Auto) Lymph # (Auto) [place] # (Auto) Eos # (Auto) Baso # (Auto) PT 13.0 H INR 1.2 APTT 32.0 Sodium 141 Potassium 4.0 Chloride 106 Carbon Dioxide 26 Anion Gap 12 BUN 18 Creatinine 1.2 Est GFR ( Amer) > 60 Est GFR (Non-Af Amer) 59 POC Glucose (mg/dL) 149 H Random Glucose 151 H D Calcium 9.8 09/15/18 12:30 WBC 8.5 RBC 3.94 L Hgb 12.8 Hct 36.4 MCV 92.6 MCH 32.6 H MCHC 35.2 RDW 13.9 Plt Count 239 MPV 7.8 Neut % (Auto) 72.9 Lymph % (Auto) 19.7 L [place] % (Auto) 4.5 Eos % (Auto) 2.1 Baso % (Auto) 0.8 Neut # (Auto) 6.2 Lymph # (Auto) 1.7 Millard # (Auto) 0.4 Eos # (Auto) 0.2 Baso # (Auto) 0.1 PT INR APTT Sodium Potassium Chloride Carbon Dioxide Anion Gap BUN Creatinine Est GFR ( Amer) Est GFR (Non-Af Amer) POC Glucose (mg/dL) Random Glucose Calcium Assessment & Plan - Assessment and Plan (Free Text) Assessment: 73 M with PMH of Colon CA s/p LAr with ileostomy presents for ileostomy reversal Plan: -Diabetic diet -Admit to Dr. Pacheco's service -Plan for Ileostomy reversal Sunday 09/17 -Hep gtt, will stop 6 hours prior to OR -Resume home medications -medical management as per Dr. Pacheco -Discussed with Dr. Redd Mazariegos PGY2 - Date & Time Date: 09/15/18 Time: 12:00 <Melchor Rainey - Last Filed: 09/20/18 22:20> Meds - Medications Medications: Current Medications Acetaminophen (Tylenol 325mg Tab) 650 mg PO Q6 PRN PRN Reason: Pain, Mild (1-3) Apixaban (Eliquis) 5 mg PO BID [facility] Last Admin: 09/20/18 17:26 Dose: 5 mg Doxazosin Mesylate (Cardura) 1 mg PO DAILY [facility] Last Admin: 09/20/18 09:28 Dose: 1 mg Ferrous Sulfate (Feosol) 325 mg PO DAILY [facility] Last Admin: 09/20/18 09:31 Dose: 325 mg Finasteride (Proscar) 5 mg PO DAILY [facility] Last Admin: 09/20/18 09:28 Dose: 5 mg Glipizide (Glucotrol) 5 mg PO DAILY [facility] Last Admin: 09/16/18 10:00 Dose: 5 mg Sodium Chloride (Sodium Chloride 0.9%) 1,000 mls @ 100 mls/hr IV .Q10H [facility] Last Admin: 09/20/18 19:37 Dose: 100 mls/hr Ibuprofen (Motrin Tab) 600 mg PO TID PRN PRN Reason: Pain, moderate (4-7) Last Admin: 09/18/18 06:05 Dose: 600 mg Insulin Human Regular (Novolin R) 0 unit SC [facility]; Protocol Last Admin: 09/20/18 21:45 Dose: Not Given Ketorolac Tromethamine (Toradol) 15 mg IVP Q6 PRN PRN Reason: Pain, moderate (4-7) Losartan Potassium (Cozaar) 25 mg PO DAILY [facility] Last Admin: 09/20/18 09:28 Dose: 25 mg Rosuvastatin Calcium (Crestor) 20 mg PO HS [facility] Last Admin: 09/19/18 21:32 Dose: 20 mg Senna/Docusate Sodium (Senokot S 50 Mg-8.6 Mg) 1 tab PO BID [facility] Last Admin: 09/20/18 17:25 Dose: 1 tab Tamsulosin HCl (Flomax) 0.4 mg PO BID [facility] Last Admin: 09/20/18 17:26 Dose: 0.4 mg Results - Vital Signs Recent Vital Signs: Last Vital Signs Temp 98.8 F 09/20/18 15:30 Pulse 100 H 09/20/18 15:30 Resp 20 09/20/18 15:30 BP 167/89 H 09/20/18 15:30 Pulse Ox 94 L 09/20/18 15:30 - Labs Result Diagrams: 09/20/18 11:15 09/20/18 11:15 Labs: Laboratory Results - last 24 hr 09/20/18 09/20/18 09/20/18 11:15 11:15 17:22 WBC 11.3 H RBC 4.21 L Hgb 13.7 Hct 38.9 MCV 92.4 MCH 32.6 H MCHC 35.2 RDW 13.9 Plt Count 245 MPV 8.4 Neut % (Auto) 84.4 H Lymph % (Auto) 8.6 L [place] % (Auto) 6.5 Eos % (Auto) 0.2 Baso % (Auto) 0.3 Neut # (Auto) 9.6 H Lymph # (Auto) 1.0 Millard # (Auto) 0.7 Eos # (Auto) 0.0 Baso # (Auto) 0.0 Neutrophils % (Manual) 82 H Lymphocytes % (Manual) 11 L Monocytes % (Manual) 7 Toxic Granulation Present Platelet Estimate Normal Large Platelets Present Anisocytosis (manual) Slight Sodium 137 Potassium 4.5 Chloride 101 Carbon Dioxide 26 Anion Gap 16 BUN 22 H Creatinine 1.4 Est GFR ( Amer) 60 Est GFR (Non-Af Amer) 49 POC Glucose (mg/dL) 167 H Random Glucose 214 H D Calcium 9.6 Phosphorus 2.9 Magnesium 2.1 Total Bilirubin 1.1 AST 18 ALT 18 L Alkaline Phosphatase 100 Total Protein 7.3 Albumin 4.0 Globulin 3.2 Albumin/Globulin Ratio 1.2 09/20/18 21:25 WBC RBC Hgb Hct MCV MCH MCHC RDW Plt Count MPV Neut % (Auto) Lymph % (Auto) [place] % (Auto) Eos % (Auto) Baso % (Auto) Neut # (Auto) Lymph # (Auto) [place] # (Auto) Eos # (Auto) Baso # (Auto) Neutrophils % (Manual) Lymphocytes % (Manual) Monocytes % (Manual) Toxic Granulation Platelet Estimate Large Platelets Anisocytosis (manual) Sodium Potassium Chloride Carbon Dioxide Anion Gap BUN Creatinine Est GFR ( Amer) Est GFR (Non-Af Amer) POC Glucose (mg/dL) 183 H Random Glucose Calcium Phosphorus Magnesium Total Bilirubin AST ALT Alkaline Phosphatase Total Protein Albumin Globulin Albumin/Globulin Ratio Attending/Attestation - Attestation I have personally seen and examined this patient.: Yes I have fully participated in the care of the patient.: Yes I have reviewed all pertinent clinical information: Yes Notes (Text): Pt was seen and examined at bedside Agree with above note and assessment Pt with 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
--- NOTE | 2018-09-15 18:34 | CP.PCM.HP ---
History of Present Illness - History of Present Illness History of Present Illness: Chief complaint: Preoperative, anticoagulation, DVT HISTORY OF PRESENT ILLNESS: Patient is a 73-year-old male with history multiple medical problems including hypertension, diabetes, high cholesterol, history of anemia, rectal cancer, status post a abdomen perineal resection, status post a colostomy. Following that the patient developed incontinence of the urinary bladder, neurogenic bladder. Patient had indwelling Briggs catheter. Patient has positive for deep venous thrombosis involving the peroneal, gastrocnemius, popliteal, and femoral venous structure of the right leg. Patient is currently taking anticoagulation. Patient supposed to have colostomy reversal surgery. Because of his high risk for DVT, patient needed heparinization prior to the surgery, and he was hospitalized following that. PAST MEDICAL HISTORY: Hypertension, high cholesterol, diabetes, anemia, has a history of colon cancer, had surgery recently. SURGICAL HISTORY: Twenty years ago, the patient had diskectomy, and he also had robotic-assisted laparoscopic partial colectomy with ileostomy on 02/12/2018. The patient also had cardiac stress test which was done on 02/04/2018. ALLERGY: NO KNOWN DRUG ALLERGY. FAMILY HISTORY: Father had a history of liver disease secondary to alcohol. Mother at the age of 80. Three sisters with diabetes, one brother. SOCIAL HISTORY: The patient is a ex-smoker, quit 30 years ago. Denies any alcohol. CURRENT MEDICATIONS: Noted from the chart. The patient is currently FERROUS SULFATE 325 MG TABLET GLIPIZIDE 5 MG TABLET LOSARTAN POTASSIUM 50 MG TAB Start: Mar 26, 2018 End: Jun 23, 2018 ATORVASTATIN 40 MG TABLET LISINOPRIL-HYDROCHLOROTHI Eliquis 5 mg twice daily REVIEW OF SYSTEMS: Patient is feeling well otherwise. Combining of right leg pain. No chest pain. No palpitation. Denies any nausea, no vomiting PHYSICAL EXAMINATION: VITAL SIGNS: Stable Vital signs reviewed Stable mild elevation of the systolic blood pressure noted nonspecific. CHEST: Good air entry bilaterally. No wheezing or rales noted. HEART: Regular heart sound noted. ABDOMEN: Nontender. The patient has no suprapubic tenderness. No flank tenderness. He has an ileostomy on the right side of the abdomen. EXTREMITIES: No pedal edema. CENTRAL NERVOUS SYSTEM: Alert, awake, and oriented x3. No functional neurological deficit. Patient has a swelling, tenderness, and significant redness and warm noted in the right leg up to the knee joint LABORATORY DATA: Patient is in hospital records with the Labs reviewed ASSESSMENT AND RECOMMENDATION: A 73-year-old male with history of diabetes, hypertension, hypercholesterolemia, rectal cancer, status post ileostomy and colectomy, Patient had a history of DVT on the right leg the Currently on anticoagulation. We will continue the heparinization. Surgical intervention as recommended by the surgical team. Unable 5 the patient Present on Admission - Present on Admission Any Indicators Present on Admission: No History of DVT/PE: No History of Uncontrolled Diabetes: No Urinary Catheter: No Decubitus Ulcer Present: No Past Patient History - Past Medical History & Family History Past Medical History?: Yes - Past Social History Smoking Status: Former Smoker - CARDIAC Hx Cardiac Disorders: Yes Hx Hypercholesterolemia: Yes Hx Hypertension: Yes Hx Peripheral Edema: Yes (right leg dvt july 2018) - NEUROLOGICAL Hx Dizziness: Yes (from lying to sitting position when done too quickly) - HEENT Hx HEENT Problems: Yes Hx Deafness: Yes - RENAL Hx Chronic Kidney Disease: Yes Hx Kidney Stones: Yes Other/Comment: Briggs cath to leg bag draining yellow urine - ENDOCRINE/METABOLIC Hx Endocrine Disorders: Yes Hx Diabetes Mellitus Type 2: Yes - HEMATOLOGICAL/ONCOLOGICAL Hx Blood Disorders: Yes Hx Anemia: Yes Hx Cancer: Yes (COLON/RECTAL) - MUSCULOSKELETAL/RHEUMATOLOGICAL Hx Musculoskeletal Disorders: Yes Hx Back Pain: Yes Hx Falls: Yes Hx Herniated Disk: Yes Other/Comment: Had Back Surgery, VITAMIN D DEFICIENCY - GASTROINTESTINAL Hx Gastrointestinal Disorders: Yes Hx Bowel Surgery: Yes Hx Colostomy: Yes Hx Ileostomy: Yes Other/Comment: HX:COLON CANCER - GENITOURINARY/GYNECOLOGICAL Hx Genitourinary Disorders: Yes Hx Prostate Problems: Yes Hx Urinary Tract Infection: Yes Other/Comment: HX: URINARY RETENTION - PSYCHIATRIC Hx Psychophysiologic Disorder: No Hx Substance Use: No - SURGICAL HISTORY Hx Surgeries: Yes Hx Orthopedic Surgery: Yes ( HERNIATED DISK REPAIR) Other/Comment: Hx. Thumb Surgery, long time ago. HX: ROBOTIC RECTOSIGMOIDECTOMY - ANESTHESIA Hx Anesthesia: Yes Hx Anesthesia Reactions: No Hx Malignant Hyperthermia: No Has any member of the family had a problem w/ anesthesia?: No Meds Allergies/Adverse Reactions: Allergies Allergy/AdvReac Type Severity Reaction Status Date / Time No Known Allergies Allergy Verified 07/31/18 10:31 Results - Vital Signs Recent Vital Signs: Last Vital Signs Temp 97.4 F L 09/15/18 17:49 Pulse 78 09/15/18 17:49 Resp 20 09/15/18 17:49 BP 175/77 H 09/15/18 17:49 Pulse Ox 96 09/15/18 17:49 - Labs Result Diagrams: 09/16/18 03:05 09/16/18 03:05 Labs: Laboratory Results - last 24 hr 09/15/18 09/15/18 09/15/18 08:38 09:02 12:30 WBC RBC Hgb Hct MCV MCH MCHC RDW Plt Count MPV Neut % (Auto) Lymph % (Auto) [place] % (Auto) Eos % (Auto) Baso % (Auto) Neut # (Auto) Lymph # (Auto) [place] # (Auto) Eos # (Auto) Baso # (Auto) PT 13.0 H INR 1.2 APTT 32.0 Sodium 141 Potassium 4.0 Chloride 106 Carbon Dioxide 26 Anion Gap 12 BUN 18 Creatinine 1.2 Est GFR ( Amer) > 60 Est GFR (Non-Af Amer) 59 POC Glucose (mg/dL) 149 H Random Glucose 151 H D Calcium 9.8 09/15/18 09/15/18 12:30 16:43 WBC 8.5 RBC 3.94 L Hgb 12.8 Hct 36.4 MCV 92.6 MCH 32.6 H MCHC 35.2 RDW 13.9 Plt Count 239 MPV 7.8 Neut % (Auto) 72.9 Lymph % (Auto) 19.7 L [place] % (Auto) 4.5 Eos % (Auto) 2.1 Baso % (Auto) 0.8 Neut # (Auto) 6.2 Lymph # (Auto) 1.7 [place] # (Auto) 0.4 Eos # (Auto) 0.2 Baso # (Auto) 0.1 PT INR APTT Sodium Potassium Chloride Carbon Dioxide Anion Gap BUN Creatinine Est GFR ( Amer) Est GFR (Non-Af Amer) POC Glucose (mg/dL) 125 H Random Glucose Calcium
[2018-09-15] MEDS: (Novolin R) Insulin Human Regular 100 units/ml vial SC SCH (21:18)
[2018-09-16 03:08] LABS: BASO # 0.1 K/uL (0.0-0.2); BASO % 0.8 % (0.0-2.0); EOS # 0.4 K/uL (0.0-0.7); EOS % 5.2 % (0.0-4.0); HEMOGLOBIN 12.5 g/dL (12.0-18.0); LYMPH # 2.5 K/uL (1.0-4.3); LYMPH % 32.1 % (20.0-40.0); MEAN CORPUSCULAR HEMOGLOBIN 32.2 pg (27.0-31.0); MEAN PLATELET VOLUME 8.2 fL (7.2-11.7); MONO # 0.4 K/uL (0.0-0.8); MONO % 5.7 % (0.0-10.0); NEUT # 4.4 K/uL (1.8-7.0); NEUT % 56.2 % (50.0-75.0); RBC 3.88 Mil/uL (4.40-5.90); RED CELL DISTRIBUTION WIDTH 13.7 % (11.5-14.5); WHITE BLOOD COUNT 7.9 K/uL (4.8-10.8)
[2018-09-16 03:16] LABS: INR 1.1; PROTHROMBIN TIME 11.6 SECONDS (9.7-12.2)
[2018-09-16 03:24] LABS: ALB/GLOB RATIO 1.4 (1.0-2.1); ALBUMIN 3.8 g/dL (3.5-5.0)
[2018-09-16] MEDS: (Novolin R) Insulin Human Regular 100 units/ml vial SC SCH ×4 (08:28→21:31)
[2018-09-16] MEDS: Heparin25000 units/250ml 1/2NS 25,000 UNITS/250 ML BAG IV PRN (09:58)
[2018-09-16] MEDS ORDERED: Heparin25000 units/250ml 1/2NS 25,000 UNITS/250 ML BAG IV PRN ×2 (14:01→14:15)
--- NOTE | 2018-09-16 15:47 | CP.PCM.PN ---
<Peter Mazariegos - Last Filed: 09/16/18 16:06> Subjective - Date & Time of Evaluation Date of Evaluation: 09/16/18 Time of Evaluation: 06:50 - Subjective Subjective: General Surgery Note for Dr. Rainey Patient seen and examined at bedside. No acute event overnight. Patient has no complaints. He is tolerating diet. He admits to flatus and output from ileostomy. Patient will be NPO past MN for OR tomorrow. Objective - Vital Signs/Intake and Output Vital Signs (last 24 hours): Temp Pulse Resp BP Pulse Ox 97.9 F 78 20 142/78 95 09/16/18 07:25 09/16/18 07:25 09/16/18 07:25 09/16/18 07:25 09/16/18 07:25 Intake and Output: 09/16/18 09/16/18 06:59 18:59 Intake Total 240 Output Total 675 Balance -435 - Medications Medications: Current Medications Doxazosin Mesylate (Cardura) 1 mg PO DAILY [facility] Last Admin: 09/16/18 10:00 Dose: 1 mg Ferrous Sulfate (Feosol) 325 mg PO DAILY [facility] Last Admin: 09/16/18 10:00 Dose: 325 mg Finasteride (Proscar) 5 mg PO DAILY [facility] Last Admin: 09/16/18 10:01 Dose: 5 mg Glipizide (Glucotrol) 5 mg PO DAILY [facility] Last Admin: 09/16/18 10:00 Dose: 5 mg Heparin Sodium/Sodium Chloride (Heparin 88949 Units/250ml 1/2 Normal Saline) 25,000 units in 250 mls @ 10.256 mls/hr IV .Q24H PRN; Protocol PRN Reason: PROTOCOL Last Admin: 09/16/18 14:19 Dose: 14 units/kg/hr, 10.256 mls/hr Insulin Human Regular (Novolin R) 0 unit SC ACHS [facility]; Protocol Last Admin: 09/16/18 12:20 Dose: 3 u Losartan Potassium (Cozaar) 25 mg PO DAILY [facility] Last Admin: 09/16/18 10:00 Dose: 25 mg Rosuvastatin Calcium (Crestor) 20 mg PO HS [facility] Last Admin: 09/15/18 21:18 Dose: 20 mg Tamsulosin HCl (Flomax) 0.4 mg PO BID [facility] Last Admin: 09/16/18 10:00 Dose: 0.4 mg - Labs Labs: 09/16/18 03:05 09/16/18 03:05 PT 11.6 SECONDS (9.7-12.2) 09/16/18 03:05 INR 1.1 09/16/18 03:05 APTT 95.0 SECONDS (21-34) H D 09/16/18 03:05 - Additional Findings Additional findings: - Constitutional Appears: No Acute Distress - Head Exam Head Exam: ATRAUMATIC, NORMOCEPHALIC - Eye Exam Eye Exam: Normal appearance - ENT Exam ENT Exam: Mucous Membranes Moist - Respiratory Exam Respiratory Exam: NORMAL BREATHING PATTERN - Cardiovascular Exam Cardiovascular Exam: REGULAR RHYTHM - GI/Abdominal Exam GI & Abdominal Exam: Normal Bowel Sounds, Soft. absent: Distended, Firm, Guarding, Rebound, Rigid, Tenderness Additional comments: ileostomy - Extremities Exam Extremities exam: Positive for: normal capillary refill, pedal pulses present - Back Exam Back exam: absent: CVA tenderness (L), CVA tenderness (R) - Neurological Exam Neurological exam: Alert, Oriented x3 - Psychiatric Exam Psychiatric exam: Normal Affect, Normal Mood - Skin Skin Exam: Dry, Warm Assessment and Plan - Assessment and Plan (Free Text) Assessment: 73 M with PMH of Colon CA s/p LAr with ileostomy presents for ileostomy reversal Plan: -NPO past MN -Plan for Ileostomy reversal Sunday 09/17 -medical management as per Dr. Rojo -Discussed with Dr. Redd Mazariegos PGY2 <Melchor Rainey B - Last Filed: 09/20/18 22:26> Objective - Vital Signs/Intake and Output Vital Signs (last 24 hours): Temp Pulse Resp BP Pulse Ox 98.8 F 100 H 20 167/89 H 94 L 09/20/18 15:30 09/20/18 15:30 09/20/18 15:30 09/20/18 15:30 09/20/18 15:30 Intake and Output: 09/20/18 09/21/18 18:59 06:59 Intake Total 480 Output Total 300 Balance 180 - Medications Medications: Current Medications Acetaminophen (Tylenol 325mg Tab) 650 mg PO Q6 PRN PRN Reason: Pain, Mild (1-3) Apixaban (Eliquis) 5 mg PO BID [facility] Last Admin: 09/20/18 17:26 Dose: 5 mg Doxazosin Mesylate (Cardura) 1 mg PO DAILY [facility] Last Admin: 09/20/18 09:28 Dose: 1 mg Ferrous Sulfate (Feosol) 325 mg PO DAILY [facility] Last Admin: 09/20/18 09:31 Dose: 325 mg Finasteride (Proscar) 5 mg PO DAILY [facility] Last Admin: 09/20/18 09:28 Dose: 5 mg Glipizide (Glucotrol) 5 mg PO DAILY [facility] Last Admin: 09/16/18 10:00 Dose: 5 mg Sodium Chloride (Sodium Chloride 0.9%) 1,000 mls @ 100 mls/hr IV .Q10H [facility] Last Admin: 09/20/18 19:37 Dose: 100 mls/hr Ibuprofen (Motrin Tab) 600 mg PO TID PRN PRN Reason: Pain, moderate (4-7) Last Admin: 09/18/18 06:05 Dose: 600 mg Insulin Human Regular (Novolin R) 0 unit SC [facility]; Protocol Last Admin: 09/20/18 21:45 Dose: Not Given Ketorolac Tromethamine (Toradol) 15 mg IVP Q6 PRN PRN Reason: Pain, moderate (4-7) Losartan Potassium (Cozaar) 25 mg PO DAILY [facility] Last Admin: 09/20/18 09:28 Dose: 25 mg Rosuvastatin Calcium (Crestor) 20 mg PO HS [facility] Last Admin: 09/19/18 21:32 Dose: 20 mg Senna/Docusate Sodium (Senokot S 50 Mg-8.6 Mg) 1 tab PO BID [facility] Last Admin: 09/20/18 17:25 Dose: 1 tab Tamsulosin HCl (Flomax) 0.4 mg PO BID [facility] Last Admin: 09/20/18 17:26 Dose: 0.4 mg - Labs Labs: 09/20/18 11:15 09/20/18 11:15 PT 12.5 SECONDS (9.7-12.2) H 09/17/18 07:50 INR 1.1 09/17/18 07:50 APTT 30.0 SECONDS (21-34) D 09/17/18 07:50 Attending/Attestation - Attestation I have personally seen and examined this patient.: Yes I have fully participated in the care of the patient.: Yes I have reviewed all pertinent clinical information, including history, physical exam and plan: Yes Notes (Text): Pt was seen and examined at bedside Agree with above note and assessment PTT is therapeutic today DC heparin in am OR for Lap Ileostomy reversal tomorrow Consent NPO, IVF Plan d.w pt in detail Risk and benefit explained in detail.
[2018-09-17] MEDS: (Novolin R) Insulin Human Regular 100 units/ml vial SC SCH ×5 (07:35→22:45)
--- NOTE | 2018-09-17 07:40 | CP.PCM.PN ---
Subjective - Date & Time of Evaluation Date of Evaluation: 09/17/18 Time of Evaluation: 07:40 - Subjective Subjective: Patient is comfortable at this time. He is not in any distress. He is n.p.o. for surgery. On examination: Vital signs are stable. Good air entry no wheezing or rales level of functional nontender abdomen. We will continue to monitor. Continue the full heparinization as recommended by the post surgical intervention. Objective - Vital Signs/Intake and Output Vital Signs (last 24 hours): Temp Pulse Resp BP Pulse Ox 98.3 F 66 20 118/61 97 09/16/18 23:25 09/16/18 23:25 09/16/18 23:25 09/16/18 23:25 09/16/18 23:25 - Medications Medications: Current Medications Doxazosin Mesylate (Cardura) 1 mg PO DAILY [facility] Last Admin: 09/16/18 10:00 Dose: 1 mg Ferrous Sulfate (Feosol) 325 mg PO DAILY [facility] Last Admin: 09/16/18 10:00 Dose: 325 mg Finasteride (Proscar) 5 mg PO DAILY [facility] Last Admin: 09/16/18 10:01 Dose: 5 mg Glipizide (Glucotrol) 5 mg PO DAILY [facility] Last Admin: 09/16/18 10:00 Dose: 5 mg Heparin Sodium/Sodium Chloride (Heparin 72584 Units/250ml 1/2 Normal Saline) 25,000 units in 250 mls @ 10.256 mls/hr IV .Q24H PRN; Protocol PRN Reason: PROTOCOL Last Admin: 09/16/18 14:19 Dose: 14 units/kg/hr, 10.256 mls/hr Insulin Human Regular (Novolin R) 0 unit SC ACHS [facility]; Protocol Last Admin: 09/16/18 21:31 Dose: Not Given Losartan Potassium (Cozaar) 25 mg PO DAILY [facility] Last Admin: 09/16/18 10:00 Dose: 25 mg Rosuvastatin Calcium (Crestor) 20 mg PO HS [facility] Last Admin: 09/16/18 21:31 Dose: 20 mg Tamsulosin HCl (Flomax) 0.4 mg PO BID [facility] Last Admin: 09/16/18 17:27 Dose: 0.4 mg - Labs Labs: 09/16/18 03:05 09/16/18 03:05 PT 11.6 SECONDS (9.7-12.2) 09/16/18 03:05 INR 1.1 09/16/18 03:05 APTT 95.0 SECONDS (21-34) H D 09/16/18 03:05
--- NOTE | 2018-09-17 07:40 | CP.PCM.PN ---
Subjective - Date & Time of Evaluation Date of Evaluation: 09/16/18 Time of Evaluation: 07:39 - Subjective Subjective: Patient is currently feeling well. He denies any pain in the chest. Mild leg discomfort in the calf noted. No nausea no vomiting. On intravenous heparin. Vital signs are stable. Chest bilateral good air entry Heart sounds are regular Nontender abdomen pain No pedal edema Assessment and recommendation: 73-year-old male with history of deep venous thrombosis involving the right leg. Also had a history of rectal cancer status post colostomy. History of urinary bladder infection. Currently admitted for heparinization. In the possible surgical intervention for colostomy reversal. I discussed with anesthesiologist today. Patient is having the DVT. In spite of the acute DVT, patient currently on full heparinization. Continues to be continued postoperatively. As a standard of care there is no clear timing for surgical intervention, as the patient for lifelong. Needs to have anticoagulation. Objective - Vital Signs/Intake and Output Vital Signs (last 24 hours): Temp Pulse Resp BP Pulse Ox 98.3 F 66 20 118/61 97 09/16/18 23:25 09/16/18 23:25 09/16/18 23:25 09/16/18 23:25 09/16/18 23:25 - Medications Medications: Current Medications Doxazosin Mesylate (Cardura) 1 mg PO DAILY [facility] Last Admin: 09/16/18 10:00 Dose: 1 mg Ferrous Sulfate (Feosol) 325 mg PO DAILY [facility] Last Admin: 09/16/18 10:00 Dose: 325 mg Finasteride (Proscar) 5 mg PO DAILY [facility] Last Admin: 09/16/18 10:01 Dose: 5 mg Glipizide (Glucotrol) 5 mg PO DAILY [facility] Last Admin: 09/16/18 10:00 Dose: 5 mg Heparin Sodium/Sodium Chloride (Heparin 62529 Units/250ml 1/2 Normal Saline) 25,000 units in 250 mls @ 10.256 mls/hr IV .Q24H PRN; Protocol PRN Reason: PROTOCOL Last Admin: 09/16/18 14:19 Dose: 14 units/kg/hr, 10.256 mls/hr Insulin Human Regular (Novolin R) 0 unit SC [facility]; Protocol Last Admin: 09/16/18 21:31 Dose: Not Given Losartan Potassium (Cozaar) 25 mg PO DAILY [facility] Last Admin: 09/16/18 10:00 Dose: 25 mg Rosuvastatin Calcium (Crestor) 20 mg PO HS [facility] Last Admin: 09/16/18 21:31 Dose: 20 mg Tamsulosin HCl (Flomax) 0.4 mg PO BID [facility] Last Admin: 09/16/18 17:27 Dose: 0.4 mg - Labs Labs: 09/16/18 03:05 09/16/18 03:05 PT 11.6 SECONDS (9.7-12.2) 09/16/18 03:05 INR 1.1 09/16/18 03:05 APTT 95.0 SECONDS (21-34) H D 09/16/18 03:05
[2018-09-17 08:01] LABS: BASO # 0.1 K/uL (0.0-0.2); BASO % 0.9 % (0.0-2.0); EOS # 0.3 K/uL (0.0-0.7); EOS % 4.3 % (0.0-4.0); HEMOGLOBIN 12.6 g/dL (12.0-18.0); LYMPH # 1.5 K/uL (1.0-4.3); LYMPH % 21.4 % (20.0-40.0); MEAN CELL VOLUME 92.4 fL (80.0-94.0); MEAN CORPUSCULAR HGB CONC 35.7 g/dL (33.0-37.0); MONO # 0.4 K/uL (0.0-0.8); MONO % 6.2 % (0.0-10.0); NEUT # 4.8 K/uL (1.8-7.0); NEUT % 67.2 % (50.0-75.0); RBC 3.83 Mil/uL (4.40-5.90); RED CELL DISTRIBUTION WIDTH 14.1 % (11.5-14.5); WHITE BLOOD COUNT 7.1 K/uL (4.8-10.8)
[2018-09-17 08:10] LABS: INR 1.1; PROTHROMBIN TIME 12.5 SECONDS (9.7-12.2)
[2018-09-17 08:52] LABS: ALB/GLOB RATIO 1.3 (1.0-2.1); ALBUMIN 3.8 g/dL (3.5-5.0); CALCIUM 9.4 mg/dl (8.6-10.4)
[2018-09-17] MEDS ORDERED: ceFAZolin 1 gm in NS 2 GM/200 ML BAG IVPB ONE (12:33)
[2018-09-17] MEDS ORDERED: Bupivacaine 0.25% 20 ML INJ IJ ONE ×2 (12:33→15:05)
[2018-09-17] MEDS ORDERED: Lidocaine/Epinephrine 1% 1:100000 10 ML IJ ONE (12:33)
[2018-09-17] MEDS ORDERED: metroNIDAZOLE IV 500 mg/100 ml 500 MG/100 ML BAG ONE (12:33)
[2018-09-17] MEDS ORDERED: BUPIVACAINE 0.125%/0.9% NACL 600 ML IJ ONE (12:55)
[2018-09-17] MEDS ORDERED: Rocuronium 10 mg/ml (5 ml) ONE (13:08)
[2018-09-17] MEDS ORDERED: Midazolam 2 MG/2 ML VIAL ONE (13:09)
[2018-09-17] MEDS ORDERED: Propofol 10 mg/ml Inj (20 ML) ONE (13:10)
[2018-09-17] MEDS ORDERED: Neostigmine 1:1000 (1 mg/ml) Inj ONE (14:58)
[2018-09-17] MEDS ORDERED: Bupivacaine Liposomal Inj 20 ml INJ ONE (15:01)
[2018-09-17] MEDS ORDERED: Sodium Chloride 0.9% 40 ML IV ONE (15:06)
[2018-09-17] MEDS ORDERED: Lactated Ringer's 1,000 ML IV ONE (15:31)
--- NOTE | 2018-09-17 15:33 | PCM.SURG1 ---
Surgeon's Initial Post Op Note - Surgeon's Notes Surgeon: Dr. Rainey Yard Worker: Lynn Villegas Type of Anesthesia: General Endo, Block Regional Pre-Operative Diagnosis: ileostomy Operative Findings: healthy small bowel, patent anastomosis Post-Operative Diagnosis: ileostomy Operation Performed: laparoscopic ileostomy reversal and TEP block Specimen/Specimens Removed: segment small bowel Estimated Blood Loss: EBL {In ML}: 10 Blood Products Given: N/A Drains Used: No Drains Post-Op Condition: Good Date of Surgery/Procedure: 09/17/18 Time of Surgery/Procedure: 15:31
[2018-09-17] MEDS ORDERED: metroNIDAZOLE IV 500 mg/100 ml 500 MG/100 ML BAG IVPB SCH (15:45)
[2018-09-17] MEDS: HYDROmorphone 0.5 mg/0.5 ml ISec IVP PRN ×2 (15:55→16:22)
[2018-09-17] MEDS ORDERED: HYDROmorphone 0.5 mg/0.5 ml ISec ONE (16:22)
[2018-09-17] MEDS: ceFAZolin 1 GM in Sodium Chloride 0.9% 100 ML IVPB SCH (19:36)
[2018-09-17] MEDS: Lactated Ringer's 1,000 ML IV SCH ×2 (19:55)
[2018-09-17] MEDS: metroNIDAZOLE IV 500 mg/100 ml 500 MG/100 ML BAG IVPB SCH (21:03)
[2018-09-18] MEDS: Lactated Ringer's 1,000 ML IV SCH ×3 (03:00→21:06)
--- NOTE | 2018-09-18 03:08 | OP ---
PROCEDURE DATE: 09/17/2018 PREOPERATIVE DIAGNOSES: 1. Ileostomy, status post robotic low anterior resection. 2. Chronic deep venous thrombosis. POSTOPERATIVE DIAGNOSES: 1. Ileostomy, status post robotic low anterior resection. 2. Chronic deep venous thrombosis. PROCEDURE DONE: 1. Laparoscopic exploration. 2. Ileostomy reversal. 3. Small bowel resection. 4. Laparoscopic bilateral TAP block placement. SURGEON: Melchor Rainey MD [place] ATTACHER: TRU Ram and Estela PGY-4 resident. ANESTHESIA: General endotracheal tube anesthesia. ESTIMATED BLOOD LOSS: Around 20 mL. DRAINS: None. PATHOLOGY: Small bowel with ileostomy site was sent for the pathology. COMPLICATIONS: None. INTRAOPERATIVE FINDINGS: The patient had no adhesions in the right lower quadrant and there was no other abnormality detected in the peritoneal surface. DESCRIPTION OF PROCEDURE: On intraoperative steps, this 73-year-old male who was diagnosed with ileostomy and the patient is status post LAR for the rectal cancer and the patient also has chronic DVT. The patient was placed on the IV heparin and the heparin was stopped earlier in the morning. The patient was consented for the laparoscopic ileostomy reversal. The patient was brought to the OR, placed supine on the operating table. After induction of the anesthesia, the abdomen was prepped and draped in usual sterile fashion. Visiport was used.The exploration of the right lower quadrant was done. There was no adhesion identified and after that, an elliptical incision was made surrounding the ileostomy site and the dissection was carried down deep up to the fascia. The small bowel loop was from surrounding abdominal wall structure and the ileostomy site was completely freed from the abdominal wall and after that, the small bowel was delivered in the wound and the small bowel was resected on both sides and a [id number] anastomosis was done. There was proper blood supply for the anastomosis. The anastomosis was not intention and technically anastomosis was patent, and after that anastomosis was placed back into the peritoneal cavity. The wound was closed. The peritoneum as well as the abdominal wall was sutured with #1 loop PDS and interrupted Prolene sutures, and another layer of the fascia with 0-Vicryl sutures and subcutaneous with 3-0 Vicryl, skin with 4-0 Monocryl, and interrupted packing was placed. Now, the laparoscopy was redone and the bilateral TAP block was given. The 30:30 mL of Exparel with saline was injected into the transverse abdominis muscle plane area and after proper TAP block, all the ports were taken out under vision. Pneumo was deflated. The port site was closed with 4-0 Monocryl and dry sterile dressing was applied. The patient was extubated in the OR, sent to the postanesthesia care unit in stable condition. Melchor Rainey MD [facility]
[2018-09-18] MEDS: ceFAZolin 1 GM in Sodium Chloride 0.9% 100 ML IVPB SCH ×3 (04:06→19:37)
[2018-09-18] MEDS: metroNIDAZOLE IV 500 mg/100 ml 500 MG/100 ML BAG IVPB SCH (05:40)
[2018-09-18] MEDS ORDERED: oxyCODONE 5 mg Immediate Release Tab PO PRN (06:48)
[2018-09-18] MEDS: (Novolin R) Insulin Human Regular 100 units/ml vial SC SCH ×4 (07:39→21:31)
[2018-09-18 08:42] LABS: ALB/GLOB RATIO 1.2 (1.0-2.1); ALBUMIN 3.7 g/dL (3.5-5.0); CALCIUM 9.3 mg/dl (8.6-10.4)
[2018-09-18] MEDS: Magnesium Sulfate 1 gm in D5W 1 GM/100 ML BAG IVPB SCH ×2 (08:56→09:59)
--- NOTE | 2018-09-18 09:03 | CP.PCM.PN ---
<Peter Mazariegos - Last Filed: 09/18/18 09:04> Subjective - Date & Time of Evaluation Date of Evaluation: 09/18/18 Time of Evaluation: 07:00 - Subjective Subjective: General Surgery Note for Dr. Rainey Patient seen and examined at bedside. No acute event overnight. Patient reports pain. He is s/p laparoscopic ileostomy reversal POD#1. He denies flatus and BM. Denies fever/chills or nausea/vomiting. Patient will be started on clears. Objective - Vital Signs/Intake and Output Vital Signs (last 24 hours): Temp Pulse Resp BP Pulse Ox 99.6 F 101 H 20 137/72 94 L 09/18/18 08:16 09/18/18 08:16 09/18/18 08:16 09/18/18 08:16 09/18/18 08:16 Intake and Output: 09/18/18 09/18/18 06:59 18:59 Output Total 1100 Balance -1100 - Medications Medications: Current Medications Acetaminophen (Tylenol 325mg Tab) 650 mg PO Q6 PRN PRN Reason: Pain, Mild (1-3) Apixaban (Eliquis) 5 mg PO BID [facility] Doxazosin Mesylate (Cardura) 1 mg PO DAILY [facility] Last Admin: 09/17/18 10:05 Dose: 1 mg Ferrous Sulfate (Feosol) 325 mg PO DAILY [facility] Last Admin: 09/17/18 10:05 Dose: 325 mg Finasteride (Proscar) 5 mg PO DAILY [facility] Last Admin: 09/17/18 10:05 Dose: 5 mg Glipizide (Glucotrol) 5 mg PO DAILY [facility] Last Admin: 09/16/18 10:00 Dose: 5 mg Lactated Ringer's (Lactated Ringer's) 1,000 mls @ 100 mls/hr IV .Q10H [facility] Last Admin: 09/18/18 03:00 Dose: Not Given Cefazolin Sodium 1 gm/ Sodium (Chloride) 100 mls @ 100 mls/hr IVPB Q8H [facility]; Protocol Last Admin: 09/18/18 04:06 Dose: 100 mls/hr Magnesium Sulfate/Dextrose (Magnesium Sulfate 1 Gm/100 Ml D5w) 1 gm in 100 mls @ 100 mls/hr IVPB Q1H [facility] Stop: 09/18/18 10:14 Last Admin: 09/18/18 08:56 Dose: 100 mls/hr Ibuprofen (Motrin Tab) 600 mg PO TID PRN PRN Reason: Pain, moderate (4-7) Last Admin: 09/18/18 06:05 Dose: 600 mg Insulin Human Regular (Novolin R) 0 unit SC ACHS [facility]; Protocol Last Admin: 09/18/18 07:39 Dose: Not Given Losartan Potassium (Cozaar) 25 mg PO DAILY [facility] Last Admin: 09/17/18 10:06 Dose: 25 mg Oxycodone HCl (Oxycodone Immediate Release Tab) 5 mg PO Q6 PRN PRN Reason: Pain, severe (8-10) Rosuvastatin Calcium (Crestor) 20 mg PO HS [facility] Last Admin: 09/17/18 22:43 Dose: 20 mg Tamsulosin HCl (Flomax) 0.4 mg PO BID [facility] Last Admin: 09/17/18 19:56 Dose: 0.4 mg - Labs Labs: 09/17/18 07:50 09/18/18 07:19 PT 12.5 SECONDS (9.7-12.2) H 09/17/18 07:50 INR 1.1 09/17/18 07:50 APTT 30.0 SECONDS (21-34) D 09/17/18 07:50 - Additional Findings Additional findings: - Constitutional Appears: No Acute Distress - Head Exam Head Exam: ATRAUMATIC, NORMOCEPHALIC - Eye Exam Eye Exam: Normal appearance - ENT Exam ENT Exam: Mucous Membranes Moist - Respiratory Exam Respiratory Exam: NORMAL BREATHING PATTERN - Cardiovascular Exam Cardiovascular Exam: REGULAR RHYTHM - GI/Abdominal Exam GI & Abdominal Exam: Normal Bowel Sounds, Soft, Tenderness. absent: Distended, Firm, Guarding, Rebound, Rigid. Additional comments: Surgical sites with dressing clean dry and intact - Extremities Exam Extremities exam: Positive for: normal capillary refill, pedal pulses present - Back Exam Back exam: absent: CVA tenderness (L), CVA tenderness (R) - Neurological Exam Neurological exam: Alert, Oriented x3 - Psychiatric Exam Psychiatric exam: Normal Affect, Normal Mood - Skin Skin Exam: Dry, Warm Assessment and Plan - Assessment and Plan (Free Text) Assessment: 73 M with PMH of Colon CA s/p LAR with ileostomy who is now s/p ileostomy reversal POD#1 Plan: -CLD -Pain control -IS/OOB/Ambulation -PT -Resume Eliquis -medical management as per Dr. Rojo -Discussed with Dr. Redd Mazariegos PGY2 <Melchor Rainey - Last Filed: 09/20/18 22:27> Objective - Vital Signs/Intake and Output Vital Signs (last 24 hours): Temp Pulse Resp BP Pulse Ox 98.8 F 100 H 20 167/89 H 94 L 09/20/18 15:30 09/20/18 15:30 09/20/18 15:30 09/20/18 15:30 09/20/18 15:30 Intake and Output: 09/20/18 09/21/18 18:59 06:59 Intake Total 480 Output Total 300 Balance 180 - Medications Medications: Current Medications Acetaminophen (Tylenol 325mg Tab) 650 mg PO Q6 PRN PRN Reason: Pain, Mild (1-3) Apixaban (Eliquis) 5 mg PO BID [facility] Last Admin: 09/20/18 17:26 Dose: 5 mg Doxazosin Mesylate (Cardura) 1 mg PO DAILY [facility] Last Admin: 09/20/18 09:28 Dose: 1 mg Ferrous Sulfate (Feosol) 325 mg PO DAILY [facility] Last Admin: 09/20/18 09:31 Dose: 325 mg Finasteride (Proscar) 5 mg PO DAILY [facility] Last Admin: 09/20/18 09:28 Dose: 5 mg Glipizide (Glucotrol) 5 mg PO DAILY [facility] Last Admin: 09/16/18 10:00 Dose: 5 mg Sodium Chloride (Sodium Chloride 0.9%) 1,000 mls @ 100 mls/hr IV .Q10H [facility] Last Admin: 09/20/18 19:37 Dose: 100 mls/hr Ibuprofen (Motrin Tab) 600 mg PO TID PRN PRN Reason: Pain, moderate (4-7) Last Admin: 09/18/18 06:05 Dose: 600 mg Insulin Human Regular (Novolin R) 0 unit SC [facility]; Protocol Last Admin: 09/20/18 21:45 Dose: Not Given Ketorolac Tromethamine (Toradol) 15 mg IVP Q6 PRN PRN Reason: Pain, moderate (4-7) Losartan Potassium (Cozaar) 25 mg PO DAILY [facility] Last Admin: 09/20/18 09:28 Dose: 25 mg Rosuvastatin Calcium (Crestor) 20 mg PO HS [facility] Last Admin: 09/19/18 21:32 Dose: 20 mg Senna/Docusate Sodium (Senokot S 50 Mg-8.6 Mg) 1 tab PO BID [facility] Last Admin: 09/20/18 17:25 Dose: 1 tab Tamsulosin HCl (Flomax) 0.4 mg PO BID [facility] Last Admin: 09/20/18 17:26 Dose: 0.4 mg - Labs Labs: 09/20/18 11:15 09/20/18 11:15 PT 12.5 SECONDS (9.7-12.2) H 09/17/18 07:50 INR 1.1 09/17/18 07:50 APTT 30.0 SECONDS (21-34) D 09/17/18 07:50 Attending/Attestation - Attestation I have personally seen and examined this patient.: Yes I have fully participated in the care of the patient.: Yes I have reviewed all pertinent clinical information, including history, physical exam and plan: Yes Notes (Text): Pt was seen and examined at bedside Agree with above note and assessment Pt is improving clinically Denies Gas and BM Start Eliquis today OOB to walk Plan d.w pt in detail
[2018-09-18 09:51] LABS: BASO % 0.3 % (0.0-2.0); EOS % 0.5 % (0.0-4.0); LYMPH # 0.8 K/uL (1.0-4.3); MEAN CELL VOLUME 92.3 fL (80.0-94.0); MEAN CORPUSCULAR HEMOGLOBIN 32.4 pg (27.0-31.0); MEAN CORPUSCULAR HGB CONC 35.1 g/dL (33.0-37.0); MEAN PLATELET VOLUME 8.1 fL (7.2-11.7); MONO # 0.6 K/uL (0.0-0.8); MONO % 6.5 % (0.0-10.0); NEUT # 7.8 K/uL (1.8-7.0); NEUT % 83.7 % (50.0-75.0); PLATELET COUNT 185 K/uL (130-400); RBC 4.01 Mil/uL (4.40-5.90); RED CELL DISTRIBUTION WIDTH 14.3 % (11.5-14.5); WHITE BLOOD COUNT 9.4 K/uL (4.8-10.8)
[2018-09-18] MEDS: oxyCODONE 5 mg Immediate Release Tab PO PRN (10:06)
[2018-09-18 10:25] LABS: EOSINOPHIL 1 % (0-4); MONOCYTE 6 % (0-10); TOTAL CELLS COUNTED 100
[2018-09-18 10:26] LABS: LYMPHOCYTE 10 % (20-40); NEUTROPHIL 83 % (50-75); PLATELET ESTIMATE NORMAL (NORMAL)
[2018-09-18] MEDS ORDERED: Magnesium Sulfate 1 gm in D5W 1 GM/100 ML BAG IVPB ONE (21:45)
--- NOTE | 2018-09-18 21:47 | CP.PCM.PN ---
Subjective - Date & Time of Evaluation Date of Evaluation: 09/18/18 Time of Evaluation: 21:46 - Subjective Subjective: Patient this morning was complaining of increasing abdominal pain. Having a hard time getting up. Briggs catheter noted. Urine is clear. No burning sensation noted. Clinically patient is okay. Appetite present. But no bowel movements noted On examination: Vital signs are stable Chest bilateral good air entry, no wheezing Abdominal minimal distention present. Pedal edema right side leg minimal swelling noted Assessment and recommendation: 73-year-old male with a history of diabetes and hypertension Hypercholesterolemia. Deep venous thrombosis of the right leg. On anticoagulation. History of colon cancer, status post colostomy revision day 1 now. We will continue to monitor surgical follow-up and and follow-up the patient Objective - Vital Signs/Intake and Output Vital Signs (last 24 hours): Temp Pulse Resp BP Pulse Ox 98.5 F 89 20 126/66 96 09/18/18 15:50 09/18/18 15:50 09/18/18 15:50 09/18/18 15:50 09/18/18 15:50 - Medications Medications: Current Medications Acetaminophen (Tylenol 325mg Tab) 650 mg PO Q6 PRN PRN Reason: Pain, Mild (1-3) Apixaban (Eliquis) 5 mg PO BID [facility] Last Admin: 09/18/18 17:35 Dose: 5 mg Doxazosin Mesylate (Cardura) 1 mg PO DAILY [facility] Last Admin: 09/18/18 10:07 Dose: 1 mg Ferrous Sulfate (Feosol) 325 mg PO DAILY [facility] Last Admin: 09/18/18 10:06 Dose: 325 mg Finasteride (Proscar) 5 mg PO DAILY [facility] Last Admin: 09/18/18 10:06 Dose: 5 mg Glipizide (Glucotrol) 5 mg PO DAILY [facility] Last Admin: 09/16/18 10:00 Dose: 5 mg Lactated Ringer's (Lactated Ringer's) 1,000 mls @ 100 mls/hr IV .Q10H [facility] Last Admin: 09/18/18 21:06 Dose: 100 mls/hr Magnesium Sulfate/Dextrose (Magnesium Sulfate 1 Gm/100 Ml D5w) 1 gm in 100 mls @ 200 mls/hr IVPB ONCE ONE Stop: 09/18/18 22:14 Ibuprofen (Motrin Tab) 600 mg PO TID PRN PRN Reason: Pain, moderate (4-7) Last Admin: 09/18/18 06:05 Dose: 600 mg Insulin Human Regular (Novolin R) 0 unit SC ACHS [facility]; Protocol Last Admin: 09/18/18 21:31 Dose: Not Given Losartan Potassium (Cozaar) 25 mg PO DAILY [facility] Last Admin: 09/18/18 10:06 Dose: 25 mg Oxycodone HCl (Oxycodone Immediate Release Tab) 5 mg PO Q6 PRN PRN Reason: Pain, severe (8-10) Last Admin: 09/18/18 10:06 Dose: 5 mg Rosuvastatin Calcium (Crestor) 20 mg PO HS [facility] Last Admin: 09/18/18 21:04 Dose: 20 mg Tamsulosin HCl (Flomax) 0.4 mg PO BID [facility] Last Admin: 09/18/18 17:35 Dose: 0.4 mg - Labs Labs: 09/18/18 09:41 09/18/18 07:19 PT 12.5 SECONDS (9.7-12.2) H 09/17/18 07:50 INR 1.1 09/17/18 07:50 APTT 30.0 SECONDS (21-34) D 09/17/18 07:50
[2018-09-19] MEDS: oxyCODONE 5 mg Immediate Release Tab PO PRN ×2 (06:08→17:23)
[2018-09-19 07:36] LABS: BASO % 0.4 % (0.0-2.0); EOS # 0.2 K/uL (0.0-0.7); EOS % 2.3 % (0.0-4.0); HEMOGLOBIN 12.4 g/dL (12.0-18.0); LYMPH # 1.1 K/uL (1.0-4.3); LYMPH % 11.9 % (20.0-40.0); MEAN CELL VOLUME 92.5 fL (80.0-94.0); MEAN CORPUSCULAR HEMOGLOBIN 32.8 pg (27.0-31.0); MEAN CORPUSCULAR HGB CONC 35.5 g/dL (33.0-37.0); MEAN PLATELET VOLUME 8.2 fL (7.2-11.7); MONO # 0.6 K/uL (0.0-0.8); NEUT % 78.4 % (50.0-75.0); RBC 3.78 Mil/uL (4.40-5.90); RED CELL DISTRIBUTION WIDTH 14.3 % (11.5-14.5); WHITE BLOOD COUNT 8.9 K/uL (4.8-10.8)
[2018-09-19] MEDS: (Novolin R) Insulin Human Regular 100 units/ml vial SC SCH ×5 (07:45→21:31)
--- NOTE | 2018-09-19 07:58 | CP.PCM.PN ---
Subjective - Date & Time of Evaluation Date of Evaluation: 09/19/18 Time of Evaluation: 07:58 - Subjective Subjective: patient seen .will dictate. Objective - Vital Signs/Intake and Output Vital Signs (last 24 hours): Temp Pulse Resp BP Pulse Ox 98.6 F 88 20 154/88 H 95 09/19/18 07:15 09/19/18 07:15 09/19/18 07:15 09/19/18 07:15 09/19/18 07:15 Intake and Output: 09/19/18 09/19/18 06:59 18:59 Output Total 650 Balance -650 - Medications Medications: Current Medications Acetaminophen (Tylenol 325mg Tab) 650 mg PO Q6 PRN PRN Reason: Pain, Mild (1-3) Apixaban (Eliquis) 5 mg PO BID [facility] Last Admin: 09/18/18 17:35 Dose: 5 mg Doxazosin Mesylate (Cardura) 1 mg PO DAILY [facility] Last Admin: 09/18/18 10:07 Dose: 1 mg Ferrous Sulfate (Feosol) 325 mg PO DAILY [facility] Last Admin: 09/18/18 10:06 Dose: 325 mg Finasteride (Proscar) 5 mg PO DAILY [facility] Last Admin: 09/18/18 10:06 Dose: 5 mg Glipizide (Glucotrol) 5 mg PO DAILY [facility] Last Admin: 09/16/18 10:00 Dose: 5 mg Ibuprofen (Motrin Tab) 600 mg PO TID PRN PRN Reason: Pain, moderate (4-7) Last Admin: 09/18/18 06:05 Dose: 600 mg Insulin Human Regular (Novolin R) 0 unit SC [facility]; Protocol Last Admin: 09/19/18 07:54 Dose: 2 units Losartan Potassium (Cozaar) 25 mg PO DAILY [facility] Last Admin: 09/18/18 10:06 Dose: 25 mg Oxycodone HCl (Oxycodone Immediate Release Tab) 5 mg PO Q6 PRN PRN Reason: Pain, severe (8-10) Last Admin: 09/19/18 06:08 Dose: 5 mg Rosuvastatin Calcium (Crestor) 20 mg PO [facility] Last Admin: 09/18/18 21:04 Dose: 20 mg Sodium Phosphate (Fleet Enema) 135 ml [place] ONCE ONE Stop: 05/03/19 07:50 Tamsulosin HCl (Flomax) 0.4 mg PO BID [facility] Last Admin: 09/18/18 17:35 Dose: 0.4 mg - Labs Labs: 09/19/18 07:21 09/18/18 07:19 PT 12.5 SECONDS (9.7-12.2) H 09/17/18 07:50 INR 1.1 09/17/18 07:50 APTT 30.0 SECONDS (21-34) D 09/17/18 07:50
[2018-09-19 08:07] LABS: ALB/GLOB RATIO 1.3 (1.0-2.1); ALBUMIN 3.7 g/dL (3.5-5.0); ALT/SGPT 18 U/L (21-72); AST/SGOT 22 U/L (17-59); BLOOD UREA NITROGEN 15 mg/dL (9-20); GFR NON-AFRICAN AMERICAN 59
--- NOTE | 2018-09-19 09:54 | CP.PCM.PN ---
<Peter Mazariegos - Last Filed: 09/19/18 09:52> Subjective - Date & Time of Evaluation Date of Evaluation: 09/19/18 Time of Evaluation: 06:45 - Subjective Subjective: General Surgery Note for Dr. Rainey Patient seen and examined at bedside. No acute event overnight. Patient reports abd pain and distention. He is s/p laparoscopic ileostomy reversal POD#2. He still denies flatus and BM. Denies fever/chills or nausea/vomiting. Patient toleratind full liquids. He admits to using IS and being OOB to chair. Objective - Vital Signs/Intake and Output Vital Signs (last 24 hours): Temp Pulse Resp BP Pulse Ox 98.6 F 88 20 154/88 H 95 09/19/18 07:15 09/19/18 07:15 09/19/18 07:15 09/19/18 07:15 09/19/18 07:15 Intake and Output: 09/19/18 09/19/18 06:59 18:59 Output Total 650 Balance -650 - Medications Medications: Current Medications Acetaminophen (Tylenol 325mg Tab) 650 mg PO Q6 PRN PRN Reason: Pain, Mild (1-3) Apixaban (Eliquis) 5 mg PO BID [facility] Last Admin: 09/19/18 09:35 Dose: 5 mg Doxazosin Mesylate (Cardura) 1 mg PO DAILY [facility] Last Admin: 09/19/18 09:37 Dose: 1 mg Ferrous Sulfate (Feosol) 325 mg PO DAILY [facility] Last Admin: 09/19/18 09:36 Dose: 325 mg Finasteride (Proscar) 5 mg PO DAILY [facility] Last Admin: 09/19/18 09:36 Dose: 5 mg Glipizide (Glucotrol) 5 mg PO DAILY [facility] Last Admin: 09/16/18 10:00 Dose: 5 mg Ibuprofen (Motrin Tab) 600 mg PO TID PRN PRN Reason: Pain, moderate (4-7) Last Admin: 09/18/18 06:05 Dose: 600 mg Insulin Human Regular (Novolin R) 0 unit SC [facility]; Protocol Last Admin: 09/19/18 07:54 Dose: 2 units Losartan Potassium (Cozaar) 25 mg PO DAILY [facility] Last Admin: 09/19/18 09:35 Dose: 25 mg Oxycodone HCl (Oxycodone Immediate Release Tab) 5 mg PO Q6 PRN PRN Reason: Pain, severe (8-10) Last Admin: 09/19/18 06:08 Dose: 5 mg Rosuvastatin Calcium (Crestor) 20 mg PO HS [facility] Last Admin: 09/18/18 21:04 Dose: 20 mg Tamsulosin HCl (Flomax) 0.4 mg PO BID [facility] Last Admin: 09/19/18 09:34 Dose: 0.4 mg - Labs Labs: 09/19/18 07:21 09/19/18 07:21 PT 12.5 SECONDS (9.7-12.2) H 09/17/18 07:50 INR 1.1 09/17/18 07:50 APTT 30.0 SECONDS (21-34) D 09/17/18 07:50 - Additional Findings Additional findings: - Constitutional Appears: No Acute Distress - Head Exam Head Exam: ATRAUMATIC, NORMOCEPHALIC - Eye Exam Eye Exam: Normal appearance - ENT Exam ENT Exam: Mucous Membranes Moist - Respiratory Exam Respiratory Exam: NORMAL BREATHING PATTERN - Cardiovascular Exam Cardiovascular Exam: REGULAR RHYTHM - GI/Abdominal Exam GI & Abdominal Exam: Distended, Normal Bowel Sounds, Soft, Tenderness. absent: Firm, Guarding, Rebound, Rigid. Additional comments: Surgical sites with dressing clean dry and intact - Extremities Exam Extremities exam: Positive for: normal capillary refill, pedal pulses present - Back Exam Back exam: absent: CVA tenderness (L), CVA tenderness (R) - Neurological Exam Neurological exam: Alert, Oriented x3 - Psychiatric Exam Psychiatric exam: Normal Affect, Normal Mood - Skin Skin Exam: Dry, Warm Assessment and Plan - Assessment and Plan (Free Text) Assessment: 73 M with PMH of Colon CA s/p LAR with ileostomy who is now s/p ileostomy reversal POD#2 Plan: -FLD -Pain control -IS/OOB/Ambulation -PT -Resume Eliquis -Fleet enema -Monitor for bowel function -medical management as per Dr. Rojo -Discussed with Dr. Redd Mazariegos PGY2 <Melchor Rainey - Last Filed: 09/20/18 22:28> Objective - Vital Signs/Intake and Output Vital Signs (last 24 hours): Temp Pulse Resp BP Pulse Ox 98.8 F 100 H 20 167/89 H 94 L 09/20/18 15:30 09/20/18 15:30 09/20/18 15:30 09/20/18 15:30 09/20/18 15:30 Intake and Output: 09/20/18 09/21/18 18:59 06:59 Intake Total 480 Output Total 300 Balance 180 - Medications Medications: Current Medications Acetaminophen (Tylenol 325mg Tab) 650 mg PO Q6 PRN PRN Reason: Pain, Mild (1-3) Apixaban (Eliquis) 5 mg PO BID [facility] Last Admin: 09/20/18 17:26 Dose: 5 mg Doxazosin Mesylate (Cardura) 1 mg PO DAILY [facility] Last Admin: 09/20/18 09:28 Dose: 1 mg Ferrous Sulfate (Feosol) 325 mg PO DAILY [facility] Last Admin: 09/20/18 09:31 Dose: 325 mg Finasteride (Proscar) 5 mg PO DAILY [facility] Last Admin: 09/20/18 09:28 Dose: 5 mg Glipizide (Glucotrol) 5 mg PO DAILY [facility] Last Admin: 09/16/18 10:00 Dose: 5 mg Sodium Chloride (Sodium Chloride 0.9%) 1,000 mls @ 100 mls/hr IV .Q10H [facility] Last Admin: 09/20/18 19:37 Dose: 100 mls/hr Ibuprofen (Motrin Tab) 600 mg PO TID PRN PRN Reason: Pain, moderate (4-7) Last Admin: 09/18/18 06:05 Dose: 600 mg Insulin Human Regular (Novolin R) 0 unit SC [facility]; Protocol Last Admin: 09/20/18 21:45 Dose: Not Given Ketorolac Tromethamine (Toradol) 15 mg IVP Q6 PRN PRN Reason: Pain, moderate (4-7) Losartan Potassium (Cozaar) 25 mg PO DAILY [facility] Last Admin: 09/20/18 09:28 Dose: 25 mg Rosuvastatin Calcium (Crestor) 20 mg PO HS [facility] Last Admin: 09/19/18 21:32 Dose: 20 mg Senna/Docusate Sodium (Senokot S 50 Mg-8.6 Mg) 1 tab PO BID [facility] Last Admin: 09/20/18 17:25 Dose: 1 tab Tamsulosin HCl (Flomax) 0.4 mg PO BID [facility] Last Admin: 09/20/18 17:26 Dose: 0.4 mg - Labs Labs: 09/20/18 11:15 09/20/18 11:15 PT 12.5 SECONDS (9.7-12.2) H 09/17/18 07:50 INR 1.1 09/17/18 07:50 APTT 30.0 SECONDS (21-34) D 09/17/18 07:50 Attending/Attestation - Attestation I have personally seen and examined this patient.: Yes I have fully participated in the care of the patient.: Yes I have reviewed all pertinent clinical information, including history, physical exam and plan: Yes Notes (Text): Pt was seen and examined at bedside Agree with above note and assessment Abdomen is distended Denies Gas and BM Fleet enema OOB to walk Place NG tube if vomits AXR in am CMP, CBC in am Plan d.w pt in detail
[2018-09-19] MEDS: Docusate-Senna 50 mg-8.6 mg Tab PO SCH ×2 (11:42→17:21)
[2018-09-19] MEDS: Potassium & Sodium Phosphate PO SCH ×2 (13:49→17:21)
--- NOTE | 2018-09-20 06:51 | CP.PCM.PN ---
Subjective - Date & Time of Evaluation Date of Evaluation: 09/20/18 Time of Evaluation: 06:51 - Subjective Subjective: Patient this morning was awake and responding. But he was complaining of abdominal distention. More tympanic noted. He did not have any nausea no vomiting. But did not have any bowel movements yet. Vital signs otherwise stable. Not tachycardic. Chest good air entry Heart sounds are regular X-ray of the abdominal flatplate showing evidence of increasing small bowel air noted assessment: 73-year-old male admitted following the revision colostomy. On anticoagulation for DVT Now having possible intestinal obstruction ileus likely Will keep the patient n.p.o. IV fluid. Out of bed to chair. Ambulation. Aspiration precautions. Objective - Vital Signs/Intake and Output Vital Signs (last 24 hours): Temp Pulse Resp BP Pulse Ox 98.2 F 108 H 20 159/87 H 96 09/19/18 23:40 09/19/18 23:40 09/19/18 23:40 09/19/18 23:40 09/19/18 23:40 Intake and Output: 09/19/18 09/20/18 18:59 06:59 Intake Total 480 Output Total 450 300 Balance -450 180 - Medications Medications: Current Medications Acetaminophen (Tylenol 325mg Tab) 650 mg PO Q6 PRN PRN Reason: Pain, Mild (1-3) Apixaban (Eliquis) 5 mg PO BID [facility] Last Admin: 09/19/18 17:21 Dose: 5 mg Doxazosin Mesylate (Cardura) 1 mg PO DAILY [facility] Last Admin: 09/19/18 09:37 Dose: 1 mg Ferrous Sulfate (Feosol) 325 mg PO DAILY [facility] Last Admin: 09/19/18 09:36 Dose: 325 mg Finasteride (Proscar) 5 mg PO DAILY [facility] Last Admin: 09/19/18 09:36 Dose: 5 mg Glipizide (Glucotrol) 5 mg PO DAILY [facility] Last Admin: 09/16/18 10:00 Dose: 5 mg Ibuprofen (Motrin Tab) 600 mg PO TID PRN PRN Reason: Pain, moderate (4-7) Last Admin: 09/18/18 06:05 Dose: 600 mg Insulin Human Regular (Novolin R) 0 unit SC [facility]; Protocol Last Admin: 09/19/18 21:31 Dose: Not Given Losartan Potassium (Cozaar) 25 mg PO DAILY [facility] Last Admin: 09/19/18 09:35 Dose: 25 mg Oxycodone HCl (Oxycodone Immediate Release Tab) 5 mg PO Q6 PRN PRN Reason: Pain, severe (8-10) Last Admin: 09/19/18 17:23 Dose: 5 mg Potassium Phos/Sodium Phos (Neutra-Phos) 1 pkt PO TID [facility] Stop: 09/20/18 10:01 Last Admin: 09/19/18 17:21 Dose: 1 pkt Rosuvastatin Calcium (Crestor) 20 mg PO HS [facility] Last Admin: 09/19/18 21:32 Dose: 20 mg Senna/Docusate Sodium (Senokot S 50 Mg-8.6 Mg) 1 tab PO BID [facility] Last Admin: 09/19/18 17:21 Dose: 1 tab Tamsulosin HCl (Flomax) 0.4 mg PO BID [facility] Last Admin: 09/19/18 17:21 Dose: 0.4 mg - Labs Labs: 09/19/18 07:21 09/19/18 07:21 PT 12.5 SECONDS (9.7-12.2) H 09/17/18 07:50 INR 1.1 09/17/18 07:50 APTT 30.0 SECONDS (21-34) D 09/17/18 07:50
--- NOTE | 2018-09-20 06:51 | CP.PCM.PN ---
Subjective - Date & Time of Evaluation Date of Evaluation: 09/19/18 Time of Evaluation: 19:00 - Subjective Subjective: Patient is awake and responding. But he is complaining of abdominal distention. Did not have a bowel movements yet. No chest pain or shortness of breath. On clear liquids Vital signs otherwise stable. Chest good air entry Tympanic abdomen noted. We will closely monitor for any obstruction signs. We will follow the patient Objective - Vital Signs/Intake and Output Vital Signs (last 24 hours): Temp Pulse Resp BP Pulse Ox 98.2 F 108 H 20 159/87 H 96 09/19/18 23:40 09/19/18 23:40 09/19/18 23:40 09/19/18 23:40 09/19/18 23:40 Intake and Output: 09/19/18 09/20/18 18:59 06:59 Intake Total 480 Output Total 450 300 Balance -450 180 - Medications Medications: Current Medications Acetaminophen (Tylenol 325mg Tab) 650 mg PO Q6 PRN PRN Reason: Pain, Mild (1-3) Apixaban (Eliquis) 5 mg PO BID [facility] Last Admin: 09/19/18 17:21 Dose: 5 mg Doxazosin Mesylate (Cardura) 1 mg PO DAILY [facility] Last Admin: 09/19/18 09:37 Dose: 1 mg Ferrous Sulfate (Feosol) 325 mg PO DAILY [facility] Last Admin: 09/19/18 09:36 Dose: 325 mg Finasteride (Proscar) 5 mg PO DAILY [facility] Last Admin: 09/19/18 09:36 Dose: 5 mg Glipizide (Glucotrol) 5 mg PO DAILY [facility] Last Admin: 09/16/18 10:00 Dose: 5 mg Ibuprofen (Motrin Tab) 600 mg PO TID PRN PRN Reason: Pain, moderate (4-7) Last Admin: 09/18/18 06:05 Dose: 600 mg Insulin Human Regular (Novolin R) 0 unit SC [facility]; Protocol Last Admin: 09/19/18 21:31 Dose: Not Given Losartan Potassium (Cozaar) 25 mg PO DAILY [facility] Last Admin: 09/19/18 09:35 Dose: 25 mg Oxycodone HCl (Oxycodone Immediate Release Tab) 5 mg PO Q6 PRN PRN Reason: Pain, severe (8-10) Last Admin: 09/19/18 17:23 Dose: 5 mg Potassium Phos/Sodium Phos (Neutra-Phos) 1 pkt PO TID [facility] Stop: 09/20/18 10:01 Last Admin: 09/19/18 17:21 Dose: 1 pkt Rosuvastatin Calcium (Crestor) 20 mg PO HS [facility] Last Admin: 09/19/18 21:32 Dose: 20 mg Senna/Docusate Sodium (Senokot S 50 Mg-8.6 Mg) 1 tab PO BID [facility] Last Admin: 09/19/18 17:21 Dose: 1 tab Tamsulosin HCl (Flomax) 0.4 mg PO BID [facility] Last Admin: 09/19/18 17:21 Dose: 0.4 mg - Labs Labs: 09/19/18 07:21 09/19/18 07:21 PT 12.5 SECONDS (9.7-12.2) H 09/17/18 07:50 INR 1.1 09/17/18 07:50 APTT 30.0 SECONDS (21-34) D 09/17/18 07:50
[2018-09-20] MEDS: (Novolin R) Insulin Human Regular 100 units/ml vial SC SCH ×4 (08:31→21:45)
--- NOTE | 2018-09-20 08:45 | CP.PCM.PN ---
<Ashley Morales - Last Filed: 09/20/18 18:07> Subjective - Date & Time of Evaluation Date of Evaluation: 09/20/18 Time of Evaluation: 07:05 - Subjective Subjective: General Surgery Note for Dr. Rainey-Ashley Morales, PGY-2 Pt seen/examined at bedside Pt reports abdominal pain/discomfort, bloating. Denies N & V, flatus, BM, SOB, CP, F & C. Pt is tolerating FLD, ambulating with walker and assistance, OOBTC. Pt re-evaluated around 5pm, nursing had notified surgical aides teacher that patient had dark bilious emesis. Pt acutely uncomfortable due to abdominal distention. Requesting alleviation of abdominal distention. Objective - Vital Signs/Intake and Output Vital Signs (last 24 hours): Temp Pulse Resp BP Pulse Ox 99.1 F 99 H 20 156/86 H 94 L 09/20/18 08:39 09/20/18 08:39 09/20/18 08:39 09/20/18 08:39 09/20/18 08:39 Intake and Output: 09/20/18 09/20/18 06:59 18:59 Intake Total 600 Output Total 300 Balance 300 - Medications Medications: Current Medications Acetaminophen (Tylenol 325mg Tab) 650 mg PO Q6 PRN PRN Reason: Pain, Mild (1-3) Apixaban (Eliquis) 5 mg PO BID [facility] Last Admin: 09/19/18 17:21 Dose: 5 mg Bisacodyl (Dulcolax) 10 mg [place] ONCE ONE Stop: 09/20/18 08:40 Doxazosin Mesylate (Cardura) 1 mg PO DAILY [facility] Last Admin: 09/19/18 09:37 Dose: 1 mg Ferrous Sulfate (Feosol) 325 mg PO DAILY [facility] Last Admin: 09/19/18 09:36 Dose: 325 mg Finasteride (Proscar) 5 mg PO DAILY [facility] Last Admin: 09/19/18 09:36 Dose: 5 mg Glipizide (Glucotrol) 5 mg PO DAILY [facility] Last Admin: 09/16/18 10:00 Dose: 5 mg Ibuprofen (Motrin Tab) 600 mg PO TID PRN PRN Reason: Pain, moderate (4-7) Last Admin: 09/18/18 06:05 Dose: 600 mg Insulin Human Regular (Novolin R) 0 unit SC ACHS [facility]; Protocol Last Admin: 09/20/18 08:31 Dose: 3 units Losartan Potassium (Cozaar) 25 mg PO DAILY [facility] Last Admin: 09/19/18 09:35 Dose: 25 mg Oxycodone HCl (Oxycodone Immediate Release Tab) 5 mg PO Q6 PRN PRN Reason: Pain, severe (8-10) Last Admin: 09/19/18 17:23 Dose: 5 mg Potassium Phos/Sodium Phos (Neutra-Phos) 1 pkt PO TID [facility] Stop: 09/20/18 10:01 Last Admin: 09/19/18 17:21 Dose: 1 pkt Rosuvastatin Calcium (Crestor) 20 mg PO HS [facility] Last Admin: 09/19/18 21:32 Dose: 20 mg Senna/Docusate Sodium (Senokot S 50 Mg-8.6 Mg) 1 tab PO BID [facility] Last Admin: 09/19/18 17:21 Dose: 1 tab Tamsulosin HCl (Flomax) 0.4 mg PO BID [facility] Last Admin: 09/19/18 17:21 Dose: 0.4 mg - Labs Labs: 09/19/18 07:21 09/19/18 07:21 PT 12.5 SECONDS (9.7-12.2) H 09/17/18 07:50 INR 1.1 09/17/18 07:50 APTT 30.0 SECONDS (21-34) D 09/17/18 07:50 - Constitutional Appears: Non-toxic, No Acute Distress - Head Exam Head Exam: ATRAUMATIC, NORMAL INSPECTION, NORMOCEPHALIC - Eye Exam Eye Exam: EOMI, Normal appearance - ENT Exam ENT Exam: Mucous Membranes Moist, Normal Exam - Neck Exam Neck Exam: Normal Inspection - Respiratory Exam Respiratory Exam: NORMAL BREATHING PATTERN - Cardiovascular Exam Cardiovascular Exam: REGULAR RHYTHM, +S1, +S2 - GI/Abdominal Exam GI & Abdominal Exam: Distended, Firm, Tenderness (mild, over ileostomy site). absent: Guarding, Rigid, Rebound - Extremities Exam Extremities Exam: Normal Inspection - Neurological Exam Neurological Exam: Alert, Awake, CN II-XII Intact, Oriented x3 Additional comments: hard of hearing - Psychiatric Exam Psychiatric exam: Normal Affect, Normal Mood - Skin Skin Exam: Dry, Intact, Normal Color, Warm Assessment and Plan - Assessment and Plan (Free Text) Assessment: 73 M with PMH of Colon CA s/p LAR with ileostomy who is now s/p ileostomy reversal POD#3 Plan: Dressing and packing removed from RLQ ileostomy site- steri strips applied Encourage OOBTC/ambulation with assistance PT Encourage IS use PT Pain control- avoid opiate meds Monitor for bowel function Bowel regimen Dulcolax suppository unsuccessful Encouraged pt to chew gum Per pt request on evaluation after emesis, rectal tube inserted with minimal mucus output; NGT placed with 450cc dark bilious output Further care as per primary team DW Dr. Redd Morales, PGY-2 <Melchor Rainey - Last Filed: 09/20/18 22:30> Objective - Vital Signs/Intake and Output Vital Signs (last 24 hours): Temp Pulse Resp BP Pulse Ox 98.8 F 100 H 20 167/89 H 94 L 09/20/18 15:30 09/20/18 15:30 09/20/18 15:30 09/20/18 15:30 09/20/18 15:30 Intake and Output: 09/20/18 09/21/18 18:59 06:59 Intake Total 480 Output Total 300 Balance 180 - Medications Medications: Current Medications Acetaminophen (Tylenol 325mg Tab) 650 mg PO Q6 PRN PRN Reason: Pain, Mild (1-3) Apixaban (Eliquis) 5 mg PO BID [facility] Last Admin: 09/20/18 17:26 Dose: 5 mg Doxazosin Mesylate (Cardura) 1 mg PO DAILY [facility] Last Admin: 09/20/18 09:28 Dose: 1 mg Ferrous Sulfate (Feosol) 325 mg PO DAILY [facility] Last Admin: 09/20/18 09:31 Dose: 325 mg Finasteride (Proscar) 5 mg PO DAILY [facility] Last Admin: 09/20/18 09:28 Dose: 5 mg Glipizide (Glucotrol) 5 mg PO DAILY [facility] Last Admin: 09/16/18 10:00 Dose: 5 mg Sodium Chloride (Sodium Chloride 0.9%) 1,000 mls @ 100 mls/hr IV .Q10H [facility] Last Admin: 09/20/18 19:37 Dose: 100 mls/hr Ibuprofen (Motrin Tab) 600 mg PO TID PRN PRN Reason: Pain, moderate (4-7) Last Admin: 09/18/18 06:05 Dose: 600 mg Insulin Human Regular (Novolin R) 0 unit [place] ACHS [facility]; Protocol Last Admin: 09/20/18 21:45 Dose: Not Given Ketorolac Tromethamine (Toradol) 15 mg IVP Q6 PRN PRN Reason: Pain, moderate (4-7) Losartan Potassium (Cozaar) 25 mg PO DAILY [facility] Last Admin: 09/20/18 09:28 Dose: 25 mg Rosuvastatin Calcium (Crestor) 20 mg PO HS [facility] Last Admin: 09/19/18 21:32 Dose: 20 mg Senna/Docusate Sodium (Senokot S 50 Mg-8.6 Mg) 1 tab PO BID [facility] Last Admin: 09/20/18 17:25 Dose: 1 tab Tamsulosin HCl (Flomax) 0.4 mg PO BID [facility] Last Admin: 09/20/18 17:26 Dose: 0.4 mg - Labs Labs: 09/20/18 11:15 09/20/18 11:15 PT 12.5 SECONDS (9.7-12.2) H 09/17/18 07:50 INR 1.1 09/17/18 07:50 APTT 30.0 SECONDS (21-34) D 09/17/18 07:50 Attending/Attestation - Attestation I have reviewed all pertinent clinical information, including history, physical exam and plan: Yes Notes (Text): AXR is suggestive of ileus NG tube insertion NPO, IVF repeat AXR in am OOB to chair Plan d.w primary team in detail
[2018-09-20] MEDS: Docusate-Senna 50 mg-8.6 mg Tab PO SCH ×2 (09:28→17:25)
[2018-09-20] MEDS: Potassium & Sodium Phosphate PO SCH (09:28)
[2018-09-20] MEDS: Sodium Chloride 0.9% 1,000 ML IV SCH ×2 (09:38→19:37)
[2018-09-20 11:22] LABS: BASO % 0.3 % (0.0-2.0); EOS % 0.2 % (0.0-4.0); HEMOGLOBIN 13.7 g/dL (12.0-18.0); LYMPH % 8.6 % (20.0-40.0); MEAN CELL VOLUME 92.4 fL (80.0-94.0); MEAN CORPUSCULAR HEMOGLOBIN 32.6 pg (27.0-31.0); MEAN CORPUSCULAR HGB CONC 35.2 g/dL (33.0-37.0); MEAN PLATELET VOLUME 8.4 fL (7.2-11.7); MONO # 0.7 K/uL (0.0-0.8); MONO % 6.5 % (0.0-10.0); NEUT # 9.6 K/uL (1.8-7.0); NEUT % 84.4 % (50.0-75.0); NRBC % 0.1 % (0.0-2.0); PLATELET COUNT 245 K/uL (130-400); RBC 4.21 Mil/uL (4.40-5.90); RED CELL DISTRIBUTION WIDTH 13.9 % (11.5-14.5); WHITE BLOOD COUNT 11.3 K/uL (4.8-10.8)
--- NOTE | 2018-09-20 11:23 | RAD ---
Date of service: 09/20/2018 HISTORY: ileus COMPARISON: Comparison is made with 06/11/2018 TECHNIQUE: Two view obtained. FINDINGS: BOWEL: Residual contrast in the right colon is noted. Mildly dilated air-filled small and large bowel loops in the abdomen and pelvis noted. BONES: Normal. OTHER FINDINGS: None. IMPRESSION: Dilated bowel loops may represent bowel ileus. Residual oral contrast in the cecum.
[2018-09-20 11:37] LABS: ALB/GLOB RATIO 1.2 (1.0-2.1); CALCIUM 9.6 mg/dl (8.6-10.4)
[2018-09-20 12:08] LABS: LYMPHOCYTE 11 % (20-40); MONOCYTE 7 % (0-10); NEUTROPHIL 82 % (50-75); PLATELET ESTIMATE NORMAL (NORMAL); TOTAL CELLS COUNTED 100
[2018-09-20 12:09] LABS: ANISOCYTOSIS SLIGHT; LARGE PLATELETS PRESENT; TOXIC GRANULATION PRESENT
[2018-09-20] MEDS: oxyCODONE 5 mg Immediate Release Tab PO PRN (17:25)
[2018-09-21] MEDS: Sodium Chloride 0.9% 1,000 ML IV SCH ×2 (05:48→15:35)
--- NOTE | 2018-09-21 07:41 | CP.PCM.PN ---
<Garth Goldman - Last Filed: 09/21/18 07:37> Subjective - Date & Time of Evaluation Date of Evaluation: 09/21/18 Time of Evaluation: 07:37 - Subjective Subjective: Surgery Progress Note- Dr. Rainey NGT yesterday now with 700cc of bilious fluid. Denies flatus or BM. Abd remains distended, about the same as yesterday. Briggs in place w/ clear urine. Denies fevers, chills, chest pain shortness of breath. Objective - Vital Signs/Intake and Output Vital Signs (last 24 hours): Temp Pulse Resp BP Pulse Ox 98.0 F 100 H 20 152/81 H 97 09/21/18 05:40 09/21/18 05:40 09/21/18 05:40 09/21/18 06:30 09/21/18 05:40 Intake and Output: 09/21/18 09/21/18 06:59 18:59 Intake Total 1600 Output Total 800 Balance 800 - Medications Medications: Current Medications Acetaminophen (Tylenol 325mg Tab) 650 mg PO Q6 PRN PRN Reason: Pain, Mild (1-3) Apixaban (Eliquis) 5 mg PO BID [facility] Last Admin: 09/20/18 17:26 Dose: 5 mg Doxazosin Mesylate (Cardura) 1 mg PO DAILY [facility] Last Admin: 09/20/18 09:28 Dose: 1 mg Ferrous Sulfate (Feosol) 325 mg PO DAILY [facility] Last Admin: 09/20/18 09:31 Dose: 325 mg Finasteride (Proscar) 5 mg PO DAILY [facility] Last Admin: 09/20/18 09:28 Dose: 5 mg Glipizide (Glucotrol) 5 mg PO DAILY [facility] Last Admin: 09/16/18 10:00 Dose: 5 mg Sodium Chloride (Sodium Chloride 0.9%) 1,000 mls @ 100 mls/hr IV .Q10H [facility] Last Admin: 09/21/18 05:48 Dose: 100 mls/hr Ibuprofen (Motrin Tab) 600 mg PO TID PRN PRN Reason: Pain, moderate (4-7) Last Admin: 09/18/18 06:05 Dose: 600 mg Insulin Human Regular (Novolin R) 0 unit SC [facility]; Protocol Last Admin: 09/20/18 21:45 Dose: Not Given Ketorolac Tromethamine (Toradol) 15 mg IVP Q6 PRN PRN Reason: Pain, moderate (4-7) Last Admin: 09/21/18 05:44 Dose: 15 mg Losartan Potassium (Cozaar) 25 mg PO DAILY [facility] Last Admin: 09/20/18 09:28 Dose: 25 mg Rosuvastatin Calcium (Crestor) 20 mg PO HS [facility] Last Admin: 09/20/18 22:37 Dose: 20 mg Senna/Docusate Sodium (Senokot S 50 Mg-8.6 Mg) 1 tab PO BID [facility] Last Admin: 09/20/18 17:25 Dose: 1 tab Tamsulosin HCl (Flomax) 0.4 mg PO BID [facility] Last Admin: 09/20/18 17:26 Dose: 0.4 mg - Labs Labs: 09/20/18 11:15 09/20/18 11:15 PT 12.5 SECONDS (9.7-12.2) H 09/17/18 07:50 INR 1.1 09/17/18 07:50 APTT 30.0 SECONDS (21-34) D 09/17/18 07:50 - Constitutional Appears: Non-toxic, No Acute Distress - Head Exam Head Exam: ATRAUMATIC - Eye Exam Eye Exam: EOMI. absent: Scleral icterus - ENT Exam ENT Exam: Mucous Membranes Moist - Respiratory Exam Respiratory Exam: NORMAL BREATHING PATTERN. absent: Accessory Muscle Use, Respiratory Distress - Cardiovascular Exam Cardiovascular Exam: REGULAR RHYTHM. absent: Bradycardia, Tachycardia - GI/Abdominal Exam GI & Abdominal Exam: Soft. absent: Distended, Firm, Guarding, Rigid, Tenderness - Neurological Exam Neurological Exam: Alert, Awake, Oriented x3 - Psychiatric Exam Psychiatric exam: Normal Affect - Skin Skin Exam: Intact, Warm Assessment and Plan - Assessment and Plan (Free Text) Assessment: 73 M with PMH of Colon CA s/p LAR with ileostomy who is now s/p ileostomy reversal POD 4 Plan: - no flatus or BM - ABXr shows ileus dialated loops of bowel - encourage OOB and ambulation - pain control- avoid opiates - NGT in place continue LIWS - further rec[facility] <Melchor Rainey - Last Filed: 09/22/18 14:56> Objective - Vital Signs/Intake and Output Vital Signs (last 24 hours): Temp Pulse Resp BP Pulse Ox 97.6 F 85 20 173/87 H 94 L 09/22/18 07:20 09/22/18 07:20 09/22/18 07:20 09/22/18 07:20 09/22/18 07:20 Intake and Output: 09/22/18 09/22/18 06:59 18:59 Intake Total 1600 Output Total 950 450 Balance 650 -450 - Medications Medications: Current Medications Acetaminophen (Tylenol 325mg Tab) 650 mg PO Q6 PRN PRN Reason: Pain, Mild (1-3) Apixaban (Eliquis) 5 mg PO BID [facility] Last Admin: 09/22/18 10:13 Dose: 5 mg Doxazosin Mesylate (Cardura) 1 mg PO DAILY [facility] Last Admin: 09/22/18 10:12 Dose: 1 mg Ferrous Sulfate (Feosol) 325 mg PO DAILY [facility] Last Admin: 09/22/18 10:13 Dose: 325 mg Finasteride (Proscar) 5 mg PO DAILY [facility] Last Admin: 09/22/18 10:12 Dose: 5 mg Glipizide (Glucotrol) 5 mg PO DAILY [facility] Last Admin: 09/16/18 10:00 Dose: 5 mg Sodium Chloride (Sodium Chloride 0.9%) 1,000 mls @ 100 mls/hr IV .Q10H [facility] Last Admin: 09/22/18 03:42 Dose: 100 mls/hr Ibuprofen (Motrin Tab) 600 mg PO TID PRN PRN Reason: Pain, moderate (4-7) Last Admin: 09/18/18 06:05 Dose: 600 mg Insulin Human Regular (Novolin R) 0 unit SC [facility]; Protocol Last Admin: 09/22/18 07:40 Dose: Not Given Ketorolac Tromethamine (Toradol) 15 mg IVP Q6 PRN PRN Reason: Pain, moderate (4-7) Last Admin: 09/22/18 00:02 Dose: 15 mg Losartan Potassium (Cozaar) 25 mg PO DAILY [facility] Last Admin: 09/22/18 10:13 Dose: 25 mg Rosuvastatin Calcium (Crestor) 20 mg PO HS [facility] Last Admin: 09/21/18 21:24 Dose: 20 mg Senna/Docusate Sodium (Senokot S 50 Mg-8.6 Mg) 1 tab PO BID [facility] Last Admin: 09/22/18 10:13 Dose: 1 tab Sodium Phosphate (Fleet Enema) 135 ml [place] Q8H [facility] Stop: 09/23/18 04:31 Tamsulosin HCl (Flomax) 0.4 mg PO BID [facility] Last Admin: 09/22/18 10:13 Dose: 0.4 mg - Labs Labs: 09/21/18 11:05 09/21/18 11:05 PT 12.5 SECONDS (9.7-12.2) H 09/17/18 07:50 INR 1.1 09/17/18 07:50 APTT 30.0 SECONDS (21-34) D 09/17/18 07:50 Attending/Attestation - Attestation I have personally seen and examined this patient.: Yes I have fully participated in the care of the patient.: Yes I have reviewed all pertinent clinical information, including history, physical exam and plan: Yes Notes (Text): Pt was seen and examined at bedside Agree with above note and assessment Pt has abdominal distension Pt is comfortable Abdomen: Soft, distended, Non tender AXR is suggestive of ileus Get CT scan of A/P with Po and IV contrast C.w current mx Plan d.w pt in detail.
[2018-09-21] MEDS: (Novolin R) Insulin Human Regular 100 units/ml vial SC SCH ×4 (09:19→21:25)
[2018-09-21] MEDS: Docusate-Senna 50 mg-8.6 mg Tab PO SCH ×2 (09:25→17:42)
[2018-09-21 11:11] LABS: BASO % 0.5 % (0.0-2.0); EOS # 0.1 K/uL (0.0-0.7); HEMOGLOBIN 12.5 g/dL (12.0-18.0); LYMPH # 1.3 K/uL (1.0-4.3); LYMPH % 14.6 % (20.0-40.0); MEAN CELL VOLUME 92.4 fL (80.0-94.0); MEAN CORPUSCULAR HEMOGLOBIN 32.6 pg (27.0-31.0); MEAN CORPUSCULAR HGB CONC 35.3 g/dL (33.0-37.0); MEAN PLATELET VOLUME 8.1 fL (7.2-11.7); MONO # 0.6 K/uL (0.0-0.8); MONO % 7.2 % (0.0-10.0); NEUT # 6.7 K/uL (1.8-7.0); NEUT % 76.7 % (50.0-75.0); NRBC % 0.1 % (0.0-2.0); RBC 3.83 Mil/uL (4.40-5.90); RED CELL DISTRIBUTION WIDTH 13.8 % (11.5-14.5); WHITE BLOOD COUNT 8.7 K/uL (4.8-10.8)
[2018-09-21 11:26] LABS: ALB/GLOB RATIO 1.2 (1.0-2.1); ALBUMIN 3.6 g/dL (3.5-5.0); ALT/SGPT 21 U/L (21-72); AST/SGOT 19 U/L (17-59); BLOOD UREA NITROGEN 27 mg/dL (9-20); CALCIUM 9.4 mg/dl (8.6-10.4); GFR NON-AFRICAN AMERICAN 54
[2018-09-21] MEDS ORDERED: Iohexol 240 (50 ml) PO ONE (11:45)
[2018-09-21] MEDS ORDERED: Iodixanol 320 MG/ML 100 ML BOTTLE IV ONE ×2 (13:31→16:03)
--- NOTE | 2018-09-21 16:56 | CT ---
Date of service: 09/21/2018 PROCEDURE: CT Abdomen and Pelvis with contrast HISTORY: Post Op ileus COMPARISON: Comparison is made with the previous study dated 04/24/2018 TECHNIQUE: Contrast dose: 100 mL of Visipaque 320 intravenously. Axial and reformatted coronal and sagittal CT images of the abdomen and pelvis were obtained after IV and oral contrast administration. Radiation dose: Total exam DLP = 890.91 mGy-cm. This CT exam was performed using one or more of the following dose reduction techniques: Automated exposure control, adjustment of the mA and/or kV according to patient size, and/or use of iterative reconstruction technique. FINDINGS: LOWER THORAX: Small bilateral pleural effusion noted. There is NG tube seen extending to the stomach. LIVER: Heterogeneous enhancement of the liver is again noted. Diffuse low-attenuation of the liver suggestive of hepatic steatosis. GALLBLADDER AND BILE DUCTS: No evidence of acute cholecystitis or biliary obstruction. PANCREAS: Unremarkable. No gross lesion or ductal dilatation. SPLEEN: Unremarkable. ADRENALS: Unremarkable. No mass. KIDNEYS AND URETERS: Again noted is [id number] right hydronephrosis and mild hydroureter. The right kidney is again smaller than the left. Mild to moderate right perinephric stranding is again noted. Again noted is large cyst in the upper pole of the left kidney measures up to 6 centimeter. VASCULATURE: Unremarkable. No aortic aneurysm. Moderate atherosclerotic disease in the abdominal aorta and iliac artery is again noted. BOWEL: There are moderately dilated small bowel loops suggestive of small bowel obstruction. The descending and sigmoid colon are collapsed. The transitional point of the bowel obstruction likely in the mid abdomen. APPENDIX: There is no evidence of appendicitis. PERITONEUM: There is a small amount of free fluid more prominent at the right abdomen. No evidence of free air. LYMPH NODES: Unremarkable. No enlarged lymph nodes. BLADDER: There is Briggs catheter in the bladder. REPRODUCTIVE: The prostate is mildly enlarged. BONES: No acute fracture. OTHER FINDINGS: None. IMPRESSION: Moderately dilated small bowel loops consistent with small bowel obstruction. Small amount of free fluid in the abdomen. No evidence of free air. Small bilateral pleural effusions.
[2018-09-22] MEDS: Sodium Chloride 0.9% 1,000 ML IV SCH ×2 (03:42→15:45)
[2018-09-22] MEDS: (Novolin R) Insulin Human Regular 100 units/ml vial SC SCH ×4 (07:40→21:29)
--- NOTE | 2018-09-22 09:14 | CP.PCM.PN ---
<Sylvester Braggnay - Last Filed: 09/22/18 10:24> Subjective - Date & Time of Evaluation Date of Evaluation: 09/22/18 Time of Evaluation: 07:00 - Subjective Subjective: Surgery Progress note. Dr. Rainey Pt seen and examined at bedside. No acute events overnight. NGT in place to suction with 250cc over 24hr of bilious output. Denies any BMs or flatus. Briggs in place. No new complaints. Objective - Vital Signs/Intake and Output Vital Signs (last 24 hours): Temp Pulse Resp BP Pulse Ox 97.6 F 85 20 173/87 H 94 L 09/22/18 07:20 09/22/18 07:20 09/22/18 07:20 09/22/18 07:20 09/22/18 07:20 Intake and Output: 09/22/18 09/22/18 06:59 18:59 Intake Total 1600 Output Total 950 Balance 650 - Medications Medications: Current Medications Acetaminophen (Tylenol 325mg Tab) 650 mg PO Q6 PRN PRN Reason: Pain, Mild (1-3) Apixaban (Eliquis) 5 mg PO BID [facility] Last Admin: 09/21/18 17:42 Dose: 5 mg Doxazosin Mesylate (Cardura) 1 mg PO DAILY [facility] Last Admin: 09/21/18 09:24 Dose: 1 mg Ferrous Sulfate (Feosol) 325 mg PO DAILY [facility] Last Admin: 09/21/18 12:16 Dose: 325 mg Finasteride (Proscar) 5 mg PO DAILY [facility] Last Admin: 09/21/18 09:25 Dose: 5 mg Glipizide (Glucotrol) 5 mg PO DAILY [facility] Last Admin: 09/16/18 10:00 Dose: 5 mg Sodium Chloride (Sodium Chloride 0.9%) 1,000 mls @ 100 mls/hr IV .Q10H [facility] Last Admin: 09/22/18 03:42 Dose: 100 mls/hr Ibuprofen (Motrin Tab) 600 mg PO TID PRN PRN Reason: Pain, moderate (4-7) Last Admin: 09/18/18 06:05 Dose: 600 mg Insulin Human Regular (Novolin R) 0 unit SC [facility]; Protocol Last Admin: 09/22/18 07:40 Dose: Not Given Ketorolac Tromethamine (Toradol) 15 mg IVP Q6 PRN PRN Reason: Pain, moderate (4-7) Last Admin: 09/22/18 00:02 Dose: 15 mg Losartan Potassium (Cozaar) 25 mg PO DAILY [facility] Last Admin: 09/21/18 09:25 Dose: 25 mg Rosuvastatin Calcium (Crestor) 20 mg PO HS [facility] Last Admin: 09/21/18 21:24 Dose: 20 mg Senna/Docusate Sodium (Senokot S 50 Mg-8.6 Mg) 1 tab PO BID [facility] Last Admin: 09/21/18 17:42 Dose: 1 tab Tamsulosin HCl (Flomax) 0.4 mg PO BID [facility] Last Admin: 09/21/18 17:43 Dose: 0.4 mg - Labs Labs: 09/21/18 11:05 09/21/18 11:05 PT 12.5 SECONDS (9.7-12.2) H 09/17/18 07:50 INR 1.1 09/17/18 07:50 APTT 30.0 SECONDS (21-34) D 09/17/18 07:50 - Constitutional Appears: Non-toxic - Head Exam Head Exam: ATRAUMATIC, NORMAL INSPECTION, NORMOCEPHALIC - Eye Exam Eye Exam: EOMI, Normal appearance. absent: Scleral icterus - ENT Exam ENT Exam: Mucous Membranes Moist - Respiratory Exam Respiratory Exam: NORMAL BREATHING PATTERN. absent: Accessory Muscle Use, Respiratory Distress - Cardiovascular Exam Cardiovascular Exam: absent: JVD - GI/Abdominal Exam GI & Abdominal Exam: Soft. absent: Firm, Guarding, Rebound Additional comments: Tympanic, moderate distention. - Extremities Exam Extremities Exam: Normal Inspection. absent: Calf Tenderness - Back Exam Back Exam: NORMAL INSPECTION - Neurological Exam Neurological Exam: Alert, Awake, Oriented x3 - Psychiatric Exam Psychiatric exam: Normal Affect, Normal Mood - Skin Skin Exam: Dry, Intact, Normal Color, Warm Assessment and Plan - Assessment and Plan (Free Text) Assessment: 73yo M with PMHx of Colon CA s/p LAR with ileostomy who is now s/p ileostomy reversal POD 5 Plan: - monitor for bowel function - CT Abd/Pelvis noted. - Continue NGT to low intermittent wall suction at 100mmHg - Enemas - OK to clamp NGT to allow patient ambulatory privileges with assistance Further recs as per Dr. Redd Bragg PGY2 surgery <Melchor Rainey - Last Filed: 09/22/18 14:58> Objective - Vital Signs/Intake and Output Vital Signs (last 24 hours): Temp Pulse Resp BP Pulse Ox 97.6 F 85 20 173/87 H 94 L 09/22/18 07:20 09/22/18 07:20 09/22/18 07:20 09/22/18 07:20 09/22/18 07:20 Intake and Output: 09/22/18 09/22/18 06:59 18:59 Intake Total 1600 Output Total 950 450 Balance 650 -450 - Medications Medications: Current Medications Acetaminophen (Tylenol 325mg Tab) 650 mg PO Q6 PRN PRN Reason: Pain, Mild (1-3) Apixaban (Eliquis) 5 mg PO BID [facility] Last Admin: 09/22/18 10:13 Dose: 5 mg Doxazosin Mesylate (Cardura) 1 mg PO DAILY [facility] Last Admin: 09/22/18 10:12 Dose: 1 mg Ferrous Sulfate (Feosol) 325 mg PO DAILY [facility] Last Admin: 09/22/18 10:13 Dose: 325 mg Finasteride (Proscar) 5 mg PO DAILY [facility] Last Admin: 09/22/18 10:12 Dose: 5 mg Glipizide (Glucotrol) 5 mg PO DAILY [facility] Last Admin: 09/16/18 10:00 Dose: 5 mg Sodium Chloride (Sodium Chloride 0.9%) 1,000 mls @ 100 mls/hr IV .Q10H [facility] Last Admin: 09/22/18 03:42 Dose: 100 mls/hr Ibuprofen (Motrin Tab) 600 mg PO TID PRN PRN Reason: Pain, moderate (4-7) Last Admin: 09/18/18 06:05 Dose: 600 mg Insulin Human Regular (Novolin R) 0 unit SC [facility]; Protocol Last Admin: 09/22/18 07:40 Dose: Not Given Ketorolac Tromethamine (Toradol) 15 mg IVP Q6 PRN PRN Reason: Pain, moderate (4-7) Last Admin: 09/22/18 00:02 Dose: 15 mg Losartan Potassium (Cozaar) 25 mg PO DAILY [facility] Last Admin: 09/22/18 10:13 Dose: 25 mg Rosuvastatin Calcium (Crestor) 20 mg PO HS [facility] Last Admin: 09/21/18 21:24 Dose: 20 mg Senna/Docusate Sodium (Senokot S 50 Mg-8.6 Mg) 1 tab PO BID [facility] Last Admin: 09/22/18 10:13 Dose: 1 tab Sodium Phosphate (Fleet Enema) 135 ml [place] Q8H [facility] Stop: 09/23/18 04:31 Tamsulosin HCl (Flomax) 0.4 mg PO BID [facility] Last Admin: 09/22/18 10:13 Dose: 0.4 mg - Labs Labs: 09/21/18 11:05 09/21/18 11:05 PT 12.5 SECONDS (9.7-12.2) H 09/17/18 07:50 INR 1.1 09/17/18 07:50 APTT 30.0 SECONDS (21-34) D 09/17/18 07:50 Attending/Attestation - Attestation I have personally seen and examined this patient.: Yes I have fully participated in the care of the patient.: Yes I have reviewed all pertinent clinical information, including history, physical exam and plan: Yes Notes (Text): Pt was seen and examined at bedside Agree with above note and assessment Pt still has abdominal distension Seem like NG tube is non functioning Flush NG tube or replace it CT of A/P is suggestive of ileus, PSBO NPO, IVF Start PPN C.w current mx Plan d.w pt in detail.
[2018-09-22] MEDS: Docusate-Senna 50 mg-8.6 mg Tab PO SCH ×2 (10:13→19:00)
--- NOTE | 2018-09-22 17:54 | CP.PCM.PN ---
Subjective - Date & Time of Evaluation Date of Evaluation: 09/22/18 Time of Evaluation: 17:54 - Subjective Subjective: Patient is still having episodes of abdominal distention. Still not able to eat well. Having hard time and going to the bathroom. But there is some improvement in the abdominal distention noted. We will continue the current treatment. Surgical monitoring and will follow the patient Objective - Vital Signs/Intake and Output Vital Signs (last 24 hours): Temp Pulse Resp BP Pulse Ox 98.9 F 93 H 20 171/80 H 95 09/22/18 15:00 09/22/18 15:00 09/22/18 15:00 09/22/18 15:00 09/22/18 15:00 Intake and Output: 09/22/18 09/22/18 06:59 18:59 Intake Total 1600 Output Total 950 450 Balance 650 -450 - Medications Medications: Current Medications Acetaminophen (Tylenol 325mg Tab) 650 mg PO Q6 PRN PRN Reason: Pain, Mild (1-3) Apixaban (Eliquis) 5 mg PO BID [facility] Last Admin: 09/22/18 10:13 Dose: 5 mg Doxazosin Mesylate (Cardura) 1 mg PO DAILY [facility] Last Admin: 09/22/18 10:12 Dose: 1 mg Ferrous Sulfate (Feosol) 325 mg PO DAILY [facility] Last Admin: 09/22/18 10:13 Dose: 325 mg Finasteride (Proscar) 5 mg PO DAILY [facility] Last Admin: 09/22/18 10:12 Dose: 5 mg Glipizide (Glucotrol) 5 mg PO DAILY [facility] Last Admin: 09/16/18 10:00 Dose: 5 mg Sodium Chloride (Sodium Chloride 0.9%) 1,000 mls @ 100 mls/hr IV .Q10H [facility] Last Admin: 09/22/18 15:45 Dose: Not Given Ibuprofen (Motrin Tab) 600 mg PO TID PRN PRN Reason: Pain, moderate (4-7) Last Admin: 09/18/18 06:05 Dose: 600 mg Insulin Human Regular (Novolin R) 0 unit SC [facility]; Protocol Last Admin: 09/22/18 16:17 Dose: Not Given Ketorolac Tromethamine (Toradol) 15 mg IVP Q6 PRN PRN Reason: Pain, moderate (4-7) Last Admin: 09/22/18 16:01 Dose: 15 mg Losartan Potassium (Cozaar) 25 mg PO DAILY [facility] Last Admin: 09/22/18 10:13 Dose: 25 mg Rosuvastatin Calcium (Crestor) 20 mg PO HS [facility] Last Admin: 09/21/18 21:24 Dose: 20 mg Senna/Docusate Sodium (Senokot S 50 Mg-8.6 Mg) 1 tab PO BID [facility] Last Admin: 09/22/18 10:13 Dose: 1 tab Sodium Phosphate (Fleet Enema) 135 ml PA Q8H [facility] Stop: 09/23/18 04:31 Last Admin: 09/22/18 15:44 Dose: Not Given Tamsulosin HCl (Flomax) 0.4 mg PO BID [facility] Last Admin: 09/22/18 10:13 Dose: 0.4 mg - Labs Labs: 09/21/18 11:05 09/21/18 11:05 PT 12.5 SECONDS (9.7-12.2) H 09/17/18 07:50 INR 1.1 09/17/18 07:50 APTT 30.0 SECONDS (21-34) D 09/17/18 07:50
[2018-09-23] MEDS: Sodium Chloride 0.9% 1,000 ML IV SCH ×4 (03:00→18:00)
[2018-09-23 06:53] LABS: BASO % 0.4 % (0.0-2.0); EOS # 0.1 K/uL (0.0-0.7); EOS % 0.9 % (0.0-4.0); HEMOGLOBIN 11.9 g/dL (12.0-18.0); LYMPH # 1.1 K/uL (1.0-4.3); LYMPH % 11.5 % (20.0-40.0); MEAN CELL VOLUME 91.2 fL (80.0-94.0); MEAN CORPUSCULAR HEMOGLOBIN 31.6 pg (27.0-31.0); MEAN CORPUSCULAR HGB CONC 34.7 g/dL (33.0-37.0); MEAN PLATELET VOLUME 7.8 fL (7.2-11.7); MONO # 0.7 K/uL (0.0-0.8); MONO % 7.6 % (0.0-10.0); NEUT # 7.6 K/uL (1.8-7.0); NEUT % 79.6 % (50.0-75.0); RBC 3.77 Mil/uL (4.40-5.90); RED CELL DISTRIBUTION WIDTH 13.8 % (11.5-14.5); WHITE BLOOD COUNT 9.5 K/uL (4.8-10.8)
[2018-09-23 07:07] LABS: ALB/GLOB RATIO 1.2 (1.0-2.1); ALBUMIN 3.1 g/dL (3.5-5.0); ALT/SGPT 18 U/L (21-72); AST/SGOT 15 U/L (17-59); BLOOD UREA NITROGEN 30 mg/dL (9-20); CALCIUM 8.8 mg/dl (8.6-10.4); GFR NON-AFRICAN AMERICAN 59
[2018-09-23] MEDS: (Novolin R) Insulin Human Regular 100 units/ml vial SC SCH ×4 (07:57→22:16)
[2018-09-23] MEDS: Docusate-Senna 50 mg-8.6 mg Tab PO SCH ×2 (09:11→18:45)
--- NOTE | 2018-09-23 09:13 | RAD ---
Date of service: 09/23/2018 HISTORY: post op ileus COMPARISON: 09/20/2018 TECHNIQUE: Three view obtained. FINDINGS: BOWEL: Unremarkable bowel gas pattern. Gas seen in large and small bowel loops. There is oral contrast seen in the right colon as result of recent prior CT examination. No evidence of bowel obstruction. No masses or abnormal calcifications. BONES: Normal. OTHER FINDINGS: None. IMPRESSION: No evidence of bowel obstruction.
[2018-09-23] MEDS ORDERED: Tramadol 25 mg PO PRN (09:30)
--- NOTE | 2018-09-23 20:25 | CP.PCM.PN ---
<David Bragg - Last Filed: 09/23/18 20:22> Subjective - Date & Time of Evaluation Date of Evaluation: 09/23/18 Time of Evaluation: 07:40 - Subjective Subjective: Surgery Progress note. Dr. Rainey Pt seen and examined at bedside. States that he has been having multiple bowel movements and has been passing gas. Denies any new complaints. Wants NGT removed and wants to start eating. No new complaints. NGT with some blood tinged output noted. Objective - Vital Signs/Intake and Output Vital Signs (last 24 hours): Temp Pulse Resp BP Pulse Ox 98.9 F 91 H 20 148/71 96 09/23/18 15:00 09/23/18 15:00 09/23/18 15:00 09/23/18 15:00 09/23/18 15:00 Intake and Output: 09/23/18 09/24/18 18:59 06:59 Intake Total 800 Output Total 300 Balance 500 - Medications Medications: Current Medications Acetaminophen (Tylenol 325mg Tab) 650 mg PO Q6 PRN PRN Reason: Pain, Mild (1-3) Apixaban (Eliquis) 5 mg PO BID [facility] Last Admin: 09/23/18 18:45 Dose: 5 mg Benzocaine/Menthol (Cepacol Sore Throat) 1 cody MT Q2H PRN PRN Reason: Sore Throat Doxazosin Mesylate (Cardura) 1 mg PO DAILY [facility] Last Admin: 09/23/18 09:10 Dose: 1 mg Ferrous Sulfate (Feosol) 325 mg PO DAILY [facility] Last Admin: 09/23/18 09:11 Dose: 325 mg Finasteride (Proscar) 5 mg PO DAILY [facility] Last Admin: 09/23/18 09:10 Dose: 5 mg Glipizide (Glucotrol) 5 mg PO DAILY [facility] Last Admin: 09/16/18 10:00 Dose: 5 mg Sodium Chloride (Sodium Chloride 0.9%) 1,000 mls @ 100 mls/hr IV .Q10H [facility] Last Admin: 09/23/18 18:00 Dose: Not Given Insulin Human Regular (Novolin R) 0 unit SC [facility]; Protocol Last Admin: 09/23/18 17:30 Dose: Not Given Ketorolac Tromethamine (Toradol) 15 mg IVP Q6 PRN PRN Reason: Pain, moderate (4-7) Last Admin: 09/23/18 13:19 Dose: 15 mg Losartan Potassium (Cozaar) 25 mg PO DAILY [facility] Last Admin: 09/23/18 09:11 Dose: 25 mg Pantoprazole Sodium (Protonix Inj) 40 mg IVP Q12H [facility] Last Admin: 09/23/18 09:10 Dose: 40 mg Rosuvastatin Calcium (Crestor) 20 mg PO HS [facility] Last Admin: 09/22/18 21:08 Dose: 20 mg Senna/Docusate Sodium (Senokot S 50 Mg-8.6 Mg) 1 tab PO BID [facility] Last Admin: 09/23/18 18:45 Dose: 1 tab Tamsulosin HCl (Flomax) 0.4 mg PO BID [facility] Last Admin: 09/23/18 18:45 Dose: 0.4 mg Tramadol HCl (Ultram) 25 mg PO TID PRN PRN Reason: Pain, severe (8-10) - Labs Labs: 09/23/18 06:36 09/23/18 06:36 PT 12.5 SECONDS (9.7-12.2) H 09/17/18 07:50 INR 1.1 09/17/18 07:50 APTT 30.0 SECONDS (21-34) D 09/17/18 07:50 - Constitutional Appears: Well, Non-toxic, No Acute Distress - Head Exam Head Exam: ATRAUMATIC, NORMAL INSPECTION, NORMOCEPHALIC - Eye Exam Eye Exam: EOMI - ENT Exam ENT Exam: Mucous Membranes Moist - Respiratory Exam Respiratory Exam: NORMAL BREATHING PATTERN. absent: Accessory Muscle Use, Respiratory Distress - Cardiovascular Exam Cardiovascular Exam: absent: JVD - GI/Abdominal Exam GI & Abdominal Exam: Soft. absent: Guarding, Rigid, Tenderness Additional comments: Mild abd distention - Extremities Exam Extremities Exam: Normal Inspection. absent: Calf Tenderness - Neurological Exam Neurological Exam: Alert, Awake, Oriented x3 Assessment and Plan - Assessment and Plan (Free Text) Assessment: 73yo M with PMHx of Colon CA s/p LAR w lieostomy; Now s/p ileostomy reversal POD 6 Plan: - Abd Xray noted: no evidence of obstruction. - Having regular BMs - Continue to monitor bowel function - Initiate Clear Liquid diet. Advance diet as tolerated - Discontinue enemas - Encourage OOBTC and Ambulate Further recs as per Dr. Rainey. David Bragg PGY2 surgery <Melchor Rainey - Last Filed: 09/28/18 20:32> Objective - Vital Signs/Intake and Output Vital Signs (last 24 hours): Temp Pulse Resp BP Pulse Ox 98.9 F 86 20 156/73 H 96 09/27/18 07:00 09/27/18 07:00 09/27/18 07:00 09/27/18 07:00 09/27/18 07:00 - Labs Labs: 09/25/18 08:15 09/25/18 08:15 PT 12.5 SECONDS (9.7-12.2) H 09/17/18 07:50 INR 1.1 09/17/18 07:50 APTT 30.0 SECONDS (21-34) D 09/17/18 07:50 Attending/Attestation - Attestation I have personally seen and examined this patient.: Yes I have fully participated in the care of the patient.: Yes I have reviewed all pertinent clinical information, including history, physical exam and plan: Yes Notes (Text): Pt was seen and examined at bedside Agree with above note and assessment Pt is improving clinically Had BM last night C/w current mx DC plan Plan d.w pt in detail.
--- NOTE | 2018-09-23 21:01 | CP.PCM.PN ---
Subjective - Date & Time of Evaluation Date of Evaluation: 09/23/18 Time of Evaluation: 21:01 - Subjective Subjective: Patient is morning was somewhat better. Less abdominal distention noted. NG tube secretion less noted. Patient was having frequent bowel movements this morning after the edema. No pain in the abdomen. Vital signs otherwise stable. Currently receiving IV fluid we will continue the current treatment. Surgical follow-up. Labs in the morning. Diet and further treatment as per surgical team. We will continue the current treatment Objective - Vital Signs/Intake and Output Vital Signs (last 24 hours): Temp Pulse Resp BP Pulse Ox 98.9 F 91 H 20 148/71 96 09/23/18 15:00 09/23/18 15:00 09/23/18 15:00 09/23/18 15:00 09/23/18 15:00 Intake and Output: 09/23/18 09/24/18 18:59 06:59 Intake Total 800 Output Total 300 Balance 500 - Medications Medications: Current Medications Acetaminophen (Tylenol 325mg Tab) 650 mg PO Q6 PRN PRN Reason: Pain, Mild (1-3) Apixaban (Eliquis) 5 mg PO BID [facility] Last Admin: 09/23/18 18:45 Dose: 5 mg Benzocaine/Menthol (Cepacol Sore Throat) 1 cody MT Q2H PRN PRN Reason: Sore Throat Doxazosin Mesylate (Cardura) 1 mg PO DAILY [facility] Last Admin: 09/23/18 09:10 Dose: 1 mg Ferrous Sulfate (Feosol) 325 mg PO DAILY [facility] Last Admin: 09/23/18 09:11 Dose: 325 mg Finasteride (Proscar) 5 mg PO DAILY [facility] Last Admin: 09/23/18 09:10 Dose: 5 mg Glipizide (Glucotrol) 5 mg PO DAILY [facility] Last Admin: 09/16/18 10:00 Dose: 5 mg Sodium Chloride (Sodium Chloride 0.9%) 1,000 mls @ 100 mls/hr IV .Q10H [facility] Last Admin: 09/23/18 18:00 Dose: Not Given Insulin Human Regular (Novolin R) 0 unit SC [facility]; Protocol Last Admin: 09/23/18 17:30 Dose: Not Given Ketorolac Tromethamine (Toradol) 15 mg IVP Q6 PRN PRN Reason: Pain, moderate (4-7) Last Admin: 09/23/18 13:19 Dose: 15 mg Losartan Potassium (Cozaar) 25 mg PO DAILY [facility] Last Admin: 09/23/18 09:11 Dose: 25 mg Pantoprazole Sodium (Protonix Inj) 40 mg IVP Q12H [facility] Last Admin: 09/23/18 09:10 Dose: 40 mg Rosuvastatin Calcium (Crestor) 20 mg PO HS [facility] Last Admin: 09/22/18 21:08 Dose: 20 mg Senna/Docusate Sodium (Senokot S 50 Mg-8.6 Mg) 1 tab PO BID [facility] Last Admin: 09/23/18 18:45 Dose: 1 tab Tamsulosin HCl (Flomax) 0.4 mg PO BID [facility] Last Admin: 09/23/18 18:45 Dose: 0.4 mg Tramadol HCl (Ultram) 25 mg PO TID PRN PRN Reason: Pain, severe (8-10) - Labs Labs: 09/23/18 06:36 09/23/18 06:36 PT 12.5 SECONDS (9.7-12.2) H 09/17/18 07:50 INR 1.1 09/17/18 07:50 APTT 30.0 SECONDS (21-34) D 09/17/18 07:50
[2018-09-24] MEDS: Sodium Chloride 0.9% 1,000 ML IV SCH ×3 (01:45→13:06)
[2018-09-24] MEDS: (Novolin R) Insulin Human Regular 100 units/ml vial SC SCH ×4 (07:41→21:53)
[2018-09-24] MEDS: Docusate-Senna 50 mg-8.6 mg Tab PO SCH ×2 (09:11→17:08)
[2018-09-24] MEDS: Benzocaine/Menthol (Cepacol) Lozenge MT PRN ×2 (17:28→21:42)
--- NOTE | 2018-09-24 19:25 | CP.PCM.PN ---
<Lei Carlos - Last Filed: 09/24/18 19:22> Subjective - Date & Time of Evaluation Date of Evaluation: 09/24/18 Time of Evaluation: 19:22 - Subjective Subjective: Surgery Progress Note for Dr. Rainey 73M seen and evaluated at bedside this morning. No acute events. No complaints. Having BM, passing flatus. Tolerating diet. Denies f/c, n/v/d, SOB, CP, or urinary symptoms. Objective - Vital Signs/Intake and Output Vital Signs (last 24 hours): Temp Pulse Resp BP Pulse Ox 98.1 F 84 20 162/77 H 97 09/24/18 15:15 09/24/18 15:15 09/24/18 15:15 09/24/18 15:15 09/24/18 15:15 Intake and Output: 09/24/18 09/25/18 18:59 06:59 Intake Total 1050 Output Total 500 Balance 550 - Medications Medications: Current Medications Acetaminophen (Tylenol 325mg Tab) 650 mg PO Q6 PRN PRN Reason: Pain, Mild (1-3) Apixaban (Eliquis) 5 mg PO BID [facility] Last Admin: 09/24/18 17:08 Dose: 5 mg Benzocaine/Menthol (Cepacol Sore Throat) 1 cody MT Q2H PRN PRN Reason: Sore Throat Last Admin: 09/24/18 17:28 Dose: 1 cody Doxazosin Mesylate (Cardura) 1 mg PO DAILY [facility] Last Admin: 09/24/18 09:12 Dose: 1 mg Ferrous Sulfate (Feosol) 325 mg PO DAILY [facility] Last Admin: 09/24/18 09:28 Dose: 325 mg Finasteride (Proscar) 5 mg PO DAILY [facility] Last Admin: 09/24/18 09:11 Dose: 5 mg Glipizide (Glucotrol) 5 mg PO DAILY [facility] Last Admin: 09/16/18 10:00 Dose: 5 mg Insulin Human Regular (Novolin R) 0 unit SC [facility]; Protocol Last Admin: 09/24/18 16:34 Dose: Not Given Losartan Potassium (Cozaar) 25 mg PO DAILY [facility] Last Admin: 09/24/18 09:12 Dose: 25 mg Pantoprazole Sodium (Protonix Inj) 40 mg IVP Q12H [facility] Last Admin: 09/24/18 09:12 Dose: 40 mg Rosuvastatin Calcium (Crestor) 20 mg PO HS [facility] Last Admin: 09/23/18 22:15 Dose: 20 mg Senna/Docusate Sodium (Senokot S 50 Mg-8.6 Mg) 1 tab PO BID [facility] Last Admin: 09/24/18 17:08 Dose: 1 tab Tamsulosin HCl (Flomax) 0.4 mg PO BID [facility] Last Admin: 09/24/18 17:08 Dose: 0.4 mg Tramadol HCl (Ultram) 25 mg PO TID PRN PRN Reason: Pain, severe (8-10) - Labs Labs: 09/23/18 06:36 09/23/18 06:36 PT 12.5 SECONDS (9.7-12.2) H 09/17/18 07:50 INR 1.1 09/17/18 07:50 APTT 30.0 SECONDS (21-34) D 09/17/18 07:50 - Constitutional Appears: Well, Non-toxic, No Acute Distress - Head Exam Head Exam: ATRAUMATIC, NORMAL INSPECTION, NORMOCEPHALIC - Eye Exam Eye Exam: EOMI - ENT Exam ENT Exam: Mucous Membranes Moist - Respiratory Exam Respiratory Exam: NORMAL BREATHING PATTERN. absent: Wheezes, Respiratory Distress - GI/Abdominal Exam GI & Abdominal Exam: Soft, Normal Bowel Sounds. absent: Tenderness Additional comments: surgical site c/d/i - Neurological Exam Neurological Exam: Alert, Awake, Oriented x3 - Psychiatric Exam Psychiatric exam: Normal Affect, Normal Mood - Skin Skin Exam: Dry, Intact, Normal Color, Warm Assessment and Plan - Assessment and Plan (Free Text) Assessment: 73M s/p ileostomy reversal POD7 Plan: Continue full liquids/soft diet as tolerated Patient will continue this diet for 2 weeks after discharge Briggs in place - patient to follow up with his urologist for further management Patient to follow up with Dr. Rainey in 1-2 weeks Please call office to make an appointment No further surgical intervention at this present time Lei Carlos PGY1 <Melchor Rainey - Last Filed: 09/28/18 20:33> Objective - Vital Signs/Intake and Output Vital Signs (last 24 hours): Temp Pulse Resp BP Pulse Ox 98.9 F 86 20 156/73 H 96 09/27/18 07:00 09/27/18 07:00 09/27/18 07:00 09/27/18 07:00 09/27/18 07:00 - Labs Labs: 09/25/18 08:15 09/25/18 08:15 PT 12.5 SECONDS (9.7-12.2) H 09/17/18 07:50 INR 1.1 09/17/18 07:50 APTT 30.0 SECONDS (21-34) D 09/17/18 07:50 Attending/Attestation - Attestation I have personally seen and examined this patient.: Yes I have fully participated in the care of the patient.: Yes I have reviewed all pertinent clinical information, including history, physical exam and plan: Yes Notes (Text): Pt was seen and examined at bedside Agree with above note and assessment Pt is improved clinically Tolerating diet and have normal Bowel movement Pt can be DC home f.u as out pt C/w current mx Plan d.w pt in detail.
--- NOTE | 2018-09-24 21:00 | CP.PCM.PN ---
Subjective - Date & Time of Evaluation Date of Evaluation: 09/24/18 Time of Evaluation: 20:59 - Subjective Subjective: Patient today NG tube was discontinued. He is eating somewhat liquid diet at this time. Still having some abdominal pain. He is complaining of the pain is moving to the right side. He has a bowel movement and also he is making urine. He denies any chest pain or shortness of breath Vital signs are stable. Chest bilateral good air entry, regular heart sounds, nontender abdomen. Abdominal distention present. No recent labs today. Assessment and recommendation: 73-year-old male with a history of colon cancer, status post colostomy reversal. Neurogenic bladder. Paralytic ileus. Currently improving. We will monitor the labs tomorrow, abdominal x-ray tomorrow, ambulation, and possible discharge plan he is stable Objective - Vital Signs/Intake and Output Vital Signs (last 24 hours): Temp Pulse Resp BP Pulse Ox 98.1 F 84 20 162/77 H 97 09/24/18 15:15 09/24/18 15:15 09/24/18 15:15 09/24/18 15:15 09/24/18 15:15 Intake and Output: 09/24/18 09/25/18 18:59 06:59 Intake Total 1050 Output Total 500 Balance 550 - Medications Medications: Current Medications Acetaminophen (Tylenol 325mg Tab) 650 mg PO Q6 PRN PRN Reason: Pain, Mild (1-3) Apixaban (Eliquis) 5 mg PO BID [facility] Last Admin: 09/24/18 17:08 Dose: 5 mg Benzocaine/Menthol (Cepacol Sore Throat) 1 cody MT Q2H PRN PRN Reason: Sore Throat Last Admin: 09/24/18 17:28 Dose: 1 cody Doxazosin Mesylate (Cardura) 1 mg PO DAILY [facility] Last Admin: 09/24/18 09:12 Dose: 1 mg Finasteride (Proscar) 5 mg PO DAILY [facility] Last Admin: 09/24/18 09:11 Dose: 5 mg Glipizide (Glucotrol) 5 mg PO DAILY [facility] Last Admin: 09/16/18 10:00 Dose: 5 mg Insulin Human Regular (Novolin R) [address] [facility]; Protocol Last Admin: 09/24/18 16:34 Dose: Not Given Losartan Potassium (Cozaar) 25 mg PO DAILY [facility] Last Admin: 09/24/18 09:12 Dose: 25 mg Pantoprazole Sodium (Protonix Inj) 40 mg IVP Q12H [facility] Last Admin: 09/24/18 09:12 Dose: 40 mg Rosuvastatin Calcium (Crestor) 20 mg PO HS [facility] Last Admin: 09/23/18 22:15 Dose: 20 mg Senna/Docusate Sodium (Senokot S 50 Mg-8.6 Mg) 1 tab PO BID [facility] Last Admin: 09/24/18 17:08 Dose: 1 tab Tamsulosin HCl (Flomax) 0.4 mg PO BID [facility] Last Admin: 09/24/18 17:08 Dose: 0.4 mg - Labs Labs: 09/23/18 06:36 09/23/18 06:36 PT 12.5 SECONDS (9.7-12.2) H 09/17/18 07:50 INR 1.1 09/17/18 07:50 APTT 30.0 SECONDS (21-34) D 09/17/18 07:50
[2018-09-25] MEDS: (Novolin R) Insulin Human Regular 100 units/ml vial SC SCH ×4 (07:23→22:07)
[2018-09-25 08:30] LABS: BASO % 0.5 % (0.0-2.0); EOS # 0.2 K/uL (0.0-0.7); EOS % 2.2 % (0.0-4.0); HEMOGLOBIN 11.7 g/dL (12.0-18.0); LYMPH # 1.7 K/uL (1.0-4.3); LYMPH % 18.8 % (20.0-40.0); MEAN CELL VOLUME 90.3 fL (80.0-94.0); MEAN CORPUSCULAR HEMOGLOBIN 31.9 pg (27.0-31.0); MEAN CORPUSCULAR HGB CONC 35.3 g/dL (33.0-37.0); MEAN PLATELET VOLUME 8.1 fL (7.2-11.7); MONO # 0.6 K/uL (0.0-0.8); MONO % 6.4 % (0.0-10.0); NEUT # 6.4 K/uL (1.8-7.0); NEUT % 72.1 % (50.0-75.0); RBC 3.67 Mil/uL (4.40-5.90); RED CELL DISTRIBUTION WIDTH 13.8 % (11.5-14.5); WHITE BLOOD COUNT 8.9 K/uL (4.8-10.8)
[2018-09-25 08:38] LABS: ALB/GLOB RATIO 1.1 (1.0-2.1); ALBUMIN 3.2 g/dL (3.5-5.0); ALT/SGPT 27 U/L (21-72); AST/SGOT 21 U/L (17-59); BLOOD UREA NITROGEN 14 mg/dL (9-20); CALCIUM 8.4 mg/dl (8.6-10.4); GFR NON-AFRICAN AMERICAN 59
[2018-09-25] MEDS: Docusate-Senna 50 mg-8.6 mg Tab PO SCH ×2 (09:14→17:35)
[2018-09-25] MEDS ORDERED: Potassium Chloride 20 mEq ER Tab PO ONE (10:00)
[2018-09-25] MEDS: Benzocaine/Menthol (Cepacol) Lozenge MT PRN ×2 (12:01→17:35)
--- NOTE | 2018-09-25 12:08 | RAD ---
Date of service: 09/25/2018 HISTORY: ileus COMPARISON: None available. TECHNIQUE: 1 view obtained. FINDINGS: BOWEL: Normal bowel gas pattern. Small amount of residual barium in cecum and appendix. No masses or abnormal calcifications. BONES: Normal. OTHER FINDINGS: None. IMPRESSION: No active disease.
[2018-09-25] MEDS ORDERED: Potassium Chloride 20 mEq ER Tab PO SCH (18:00)
[2018-09-26] MEDS: (Novolin R) Insulin Human Regular 100 units/ml vial SC SCH ×2 (08:01→16:18)
[2018-09-26] MEDS: Docusate-Senna 50 mg-8.6 mg Tab PO SCH ×2 (11:18→17:46)
[2018-09-26 16:28] VITALS: O2SAT 96
[2018-09-26] MEDS: Benzocaine/Menthol (Cepacol) Lozenge MT PRN (17:46)
--- NOTE | 2018-09-26 19:57 | CP.PCM.PN ---
Subjective - Date & Time of Evaluation Date of Evaluation: 09/26/18 Time of Evaluation: 19:57 - Subjective Subjective: Patient now more comfortable. He has regular bowel movements. No chest pain or shortness of breath. I spoke to the surgical team today. Patient is cleared by the surgery for discharge. I advised the patient for possible discharge, he wants to go home tomorrow. Meanwhile we will continue the current treatment. Discharge plan tomorrow he will continue the rest of the medications and to follow-up with the surgeon as well as in my office. He will need urological follow-up and possible urological procedure upon outpatient Objective - Vital Signs/Intake and Output Vital Signs (last 24 hours): Temp Pulse Resp BP Pulse Ox 99.2 F 83 20 161/74 H 96 09/26/18 08:46 09/26/18 08:46 09/26/18 08:46 09/26/18 08:46 09/26/18 08:46 - Medications Medications: Current Medications Acetaminophen (Tylenol 325mg Tab) 650 mg PO Q6 PRN PRN Reason: Pain, Mild (1-3) Apixaban (Eliquis) 5 mg PO BID [facility] Last Admin: 09/26/18 17:46 Dose: 5 mg Benzocaine/Menthol (Cepacol Sore Throat) 1 cody MT Q2H PRN PRN Reason: Sore Throat Last Admin: 09/26/18 17:46 Dose: 1 cody Doxazosin Mesylate (Cardura) 1 mg PO DAILY [facility] Last Admin: 09/26/18 11:19 Dose: 1 mg Finasteride (Proscar) 5 mg PO DAILY [facility] Last Admin: 09/26/18 11:23 Dose: 5 mg Glipizide (Glucotrol) 5 mg PO DAILY [facility] Last Admin: 09/16/18 10:00 Dose: 5 mg Insulin Human Regular (Novolin R) 0 unit SC [facility]; Protocol Last Admin: 09/26/18 16:18 Dose: Not Given Losartan Potassium (Cozaar) 25 mg PO DAILY [facility] Last Admin: 09/26/18 11:18 Dose: 25 mg Pantoprazole Sodium (Protonix Inj) 40 mg IVP Q12H [facility] Last Admin: 09/26/18 11:24 Dose: 40 mg Rosuvastatin Calcium (Crestor) 20 mg PO HS [facility] Last Admin: 09/25/18 21:32 Dose: 20 mg Senna/Docusate Sodium (Senokot S 50 Mg-8.6 Mg) 1 tab PO BID [facility] Last Admin: 09/26/18 17:46 Dose: 1 tab Tamsulosin HCl (Flomax) 0.4 mg PO BID [facility] Last Admin: 09/26/18 17:46 Dose: 0.4 mg - Labs Labs: 09/25/18 08:15 09/25/18 08:15 PT 12.5 SECONDS (9.7-12.2) H 09/17/18 07:50 INR 1.1 09/17/18 07:50 APTT 30.0 SECONDS (21-34) D 09/17/18 07:50
--- NOTE | 2018-09-26 19:57 | CP.PCM.PN ---
Subjective - Date & Time of Evaluation Date of Evaluation: 09/25/18 Time of Evaluation: 19:57 - Subjective Subjective: Patient is currently tolerating the liquid diet. Able to stand up. He is feeling well. Will watch him closely over the next 24 to 48 hours. If he is clinically stable, discharge plan soon Objective - Vital Signs/Intake and Output Vital Signs (last 24 hours): Temp Pulse Resp BP Pulse Ox 99.2 F 83 20 161/74 H 96 09/26/18 08:46 09/26/18 08:46 09/26/18 08:46 09/26/18 08:46 09/26/18 08:46 - Medications Medications: Current Medications Acetaminophen (Tylenol 325mg Tab) 650 mg PO Q6 PRN PRN Reason: Pain, Mild (1-3) Apixaban (Eliquis) 5 mg PO BID [facility] Last Admin: 09/26/18 17:46 Dose: 5 mg Benzocaine/Menthol (Cepacol Sore Throat) 1 cody MT Q2H PRN PRN Reason: Sore Throat Last Admin: 09/26/18 17:46 Dose: 1 cody Doxazosin Mesylate (Cardura) 1 mg PO DAILY [facility] Last Admin: 09/26/18 11:19 Dose: 1 mg Finasteride (Proscar) 5 mg PO DAILY [facility] Last Admin: 09/26/18 11:23 Dose: 5 mg Glipizide (Glucotrol) 5 mg PO DAILY [facility] Last Admin: 09/16/18 10:00 Dose: 5 mg Insulin Human Regular (Novolin R) 0 unit SC [facility]; Protocol Last Admin: 09/26/18 16:18 Dose: Not Given Losartan Potassium (Cozaar) 25 mg PO DAILY [facility] Last Admin: 09/26/18 11:18 Dose: 25 mg Pantoprazole Sodium (Protonix Inj) 40 mg IVP Q12H [facility] Last Admin: 09/26/18 11:24 Dose: 40 mg Rosuvastatin Calcium (Crestor) 20 mg PO HS [facility] Last Admin: 09/25/18 21:32 Dose: 20 mg Senna/Docusate Sodium (Senokot S 50 Mg-8.6 Mg) 1 tab PO BID [facility] Last Admin: 09/26/18 17:46 Dose: 1 tab Tamsulosin HCl (Flomax) 0.4 mg PO BID [facility] Last Admin: 09/26/18 17:46 Dose: 0.4 mg - Labs Labs: 09/25/18 08:15 09/25/18 08:15 PT 12.5 SECONDS (9.7-12.2) H 09/17/18 07:50 INR 1.1 09/17/18 07:50 APTT 30.0 SECONDS (21-34) D 09/17/18 07:50
[2018-09-27 07:52] VITALS: BP 156/73; PULSE 86; RESP 20; TEMP 98.9
[2018-09-27] MEDS: (Novolin R) Insulin Human Regular 100 units/ml vial SC SCH (08:05)
[2018-09-27] MEDS: Docusate-Senna 50 mg-8.6 mg Tab PO SCH (09:21)
--- NOTE | 2018-10-02 22:20 | CP.PCM.DIS ---
Provider - Provider Date of Admission: 09/15/18 10:36 Attending physician: Matt Rojo MD Consults: 09/15/18 10:40 General Surgery Consult Routine Comment: Consulting Provider: Melchor Rainey Consulting Physician: Melchor Rainey Reason for Consult: ileostomy reversal 09/17/18 08:20 Hematology Oncology Consult Stat Comment: Consulting Provider: Suleiman Gamino Consulting Physician: Suleiman Gamino Reason for Consult: dvt Time Spent in preparation of Discharge (in minutes): 45 Hospital Course - Lab Results Lab Results: Most Recent Lab Values WBC 8.9 K/uL (4.8-10.8) 09/25/18 08:15 RBC 3.67 Mil/uL (4.40-5.90) L 09/25/18 08:15 Hgb 11.7 g/dL (12.0-18.0) L 09/25/18 08:15 Hct 33.1 % (35.0-51.0) L 09/25/18 08:15 MCV 90.3 fL (80.0-94.0) 09/25/18 08:15 MCH 31.9 pg (27.0-31.0) H 09/25/18 08:15 MCHC 35.3 g/dL (33.0-37.0) 09/25/18 08:15 RDW 13.8 % (11.5-14.5) 09/25/18 08:15 Plt Count 266 K/uL (130-400) 09/25/18 08:15 MPV 8.1 fL (7.2-11.7) 09/25/18 08:15 Neut % (Auto) 72.1 % (50.0-75.0) 09/25/18 08:15 Lymph % (Auto) 18.8 % (20.0-40.0) L 09/25/18 08:15 [place] % (Auto) 6.4 % (0.0-10.0) 09/25/18 08:15 Eos % (Auto) 2.2 % (0.0-4.0) 09/25/18 08:15 Baso % (Auto) 0.5 % (0.0-2.0) 09/25/18 08:15 Neut # (Auto) 6.4 K/uL (1.8-7.0) 09/25/18 08:15 Lymph # (Auto) 1.7 K/uL (1.0-4.3) 09/25/18 08:15 [place] # (Auto) 0.6 K/uL (0.0-0.8) 09/25/18 08:15 Eos # (Auto) 0.2 K/uL (0.0-0.7) 09/25/18 08:15 Baso # (Auto) 0.0 K/uL (0.0-0.2) 09/25/18 08:15 Neutrophils % (Manual) 82 % (50-75) H 09/20/18 11:15 Lymphocytes % (Manual) 11 % (20-40) L 09/20/18 11:15 Monocytes % (Manual) 7 % (0-10) 09/20/18 11:15 Eosinophils % (Manual) 1 % (0-4) 09/18/18 09:41 Toxic Granulation Present 09/20/18 11:15 Platelet Estimate Normal (NORMAL) 09/20/18 11:15 Large Platelets Present 09/20/18 11:15 Anisocytosis (manual) Slight 09/20/18 11:15 PT 12.5 SECONDS (9.7-12.2) H 09/17/18 07:50 INR 1.1 09/17/18 07:50 APTT 30.0 SECONDS (21-34) D 09/17/18 07:50 Sodium 143 mmol/L (132-148) 09/25/18 08:15 Potassium 3.2 mmol/L (3.6-5.2) L 09/25/18 08:15 Chloride 109 mmol/L (98-107) H 09/25/18 08:15 Carbon Dioxide 24 mmol/L (22-30) 09/25/18 08:15 Anion Gap 14 (10-20) 09/25/18 08:15 BUN 14 mg/dL (9-20) 09/25/18 08:15 Creatinine 1.2 mg/dL (0.8-1.5) 09/25/18 08:15 Est GFR ( Amer) > 60 09/25/18 08:15 Est GFR (Non-Af Amer) 59 09/25/18 08:15 POC Glucose (mg/dL) 119 mg/dL (65-110) H 09/27/18 06:40 Random Glucose 119 mg/dL (75-110) H 09/25/18 08:15 Lactic Acid 0.8 mmol/L (0.7-2.1) 09/21/18 11:05 Calcium 8.4 mg/dl (8.6-10.4) L 09/25/18 08:15 Phosphorus 2.6 mg/dL (2.5-4.5) 09/25/18 08:15 Magnesium 2.0 mg/dL (1.6-2.3) 09/25/18 08:15 Total Bilirubin 0.8 mg/dL (0.2-1.3) 09/25/18 08:15 AST 21 U/L (17-59) 09/25/18 08:15 ALT 27 U/L (21-72) 09/25/18 08:15 Alkaline Phosphatase 89 U/L (38-126) 09/25/18 08:15 Total Protein 6.1 g/dL (6.3-8.3) L 09/25/18 08:15 Albumin 3.2 g/dL (3.5-5.0) L 09/25/18 08:15 Globulin 2.8 gm/dL (2.2-3.9) 09/25/18 08:15 Albumin/Globulin Ratio 1.1 (1.0-2.1) 09/25/18 08:15 Blood Type O POSITIVE 09/17/18 07:50 Antibody Screen Negative 09/17/18 07:50 - Hospital Course Hospital Course: Chief complaint: Preoperative, anticoagulation, DVT HISTORY OF PRESENT ILLNESS: Patient is a 73-year-old male with history multiple medical problems including hypertension, diabetes, high cholesterol, history of anemia, rectal cancer, status post a abdomen perineal resection, status post a colostomy. Following that the patient developed incontinence of the urinary bladder, neurogenic bladder. Patient had indwelling Briggs catheter. Patient has positive for deep venous thrombosis involving the peroneal, gastrocnemius, popliteal, and femoral venous structure of the right leg. Patient is currently taking anticoagulation. Patient supposed to have colostomy reversal surgery. Because of his high risk for DVT, patient needed heparinization prior to the surgery, and he was hospitalized following that. PAST MEDICAL HISTORY: Hypertension, high cholesterol, diabetes, anemia, has a history of colon cancer, had surgery recently. SURGICAL HISTORY: Twenty years ago, the patient had diskectomy, and he also had robotic-assisted laparoscopic partial colectomy with ileostomy on 02/12/2018. The patient also had cardiac stress test which was done on 02/04/2018. ALLERGY: NO KNOWN DRUG ALLERGY. FAMILY HISTORY: Father had a history of liver disease secondary to alcohol. Mother at the age of 80. Three sisters with diabetes, one brother. SOCIAL HISTORY: The patient is a ex-smoker, quit 30 years ago. Denies any alcohol. CURRENT MEDICATIONS: Noted from the chart. The patient is currently FERROUS SULFATE 325 MG TABLET GLIPIZIDE 5 MG TABLET LOSARTAN POTASSIUM 50 MG TAB Start: Mar 26, 2018 End: Jun 23, 2018 ATORVASTATIN 40 MG TABLET LISINOPRIL-HYDROCHLOROTHI Eliquis 5 mg twice daily REVIEW OF SYSTEMS: Patient is feeling well otherwise. Combining of right leg pain. No chest pain. No palpitation. Denies any nausea, no vomiting PHYSICAL EXAMINATION: VITAL SIGNS: Stable Vital signs reviewed Stable mild elevation of the systolic blood pressure noted nonspecific. CHEST: Good air entry bilaterally. No wheezing or rales noted. HEART: Regular heart sound noted. ABDOMEN: Nontender. The patient has no suprapubic tenderness. No flank tenderness. He has an ileostomy on the right side of the abdomen. EXTREMITIES: No pedal edema. CENTRAL NERVOUS SYSTEM: Alert, awake, and oriented x3. No functional neurological deficit. Patient has a swelling, tenderness, and significant redness and warm noted in the right leg up to the knee joint LABORATORY DATA: Patient is in hospital records with the Labs reviewed ASSESSMENT AND RECOMMENDATION: A 73-year-old male with history of diabetes, hypertension, hypercholesterolemia, rectal cancer, status post ileostomy and colectomy, Patient had a history of DVT on the right leg the Currently on anticoagulation. We will continue the heparinization. Surgical intervention as recommended by the surgical team. Unable 5 the patient Course in the hospital: Patient initially was admitted to the hospital because of the anticoagulation problem. Patient has an acute DVT involving the right lower extremity. He was initially placed on heparin drip prior to the surgery. And on 09/17/2018 patient underwent a laparoscopic ileostomy reversal under local anesthesia. Patient postoperatively was doing well, but patient developed paralytic ileus postoperatively. Following the ileus patient was kept n.p.o., NG tube was placed, initiated the suction. Over the next to 3 days patient slowly improved, his bowel movements returned. He started having less abdominal distention. As per the surgery patient started on oral feeding. And he was tolerating well. Improved markedly. Clinically stable. He is tolerating the oral feeding today. He will be discharged home. He will follow-up with the surgery. Patient will continue the home medications. Talk to the patient and family. Patient is still continues to have a indwelling Briggs catheter. Urology evaluation as an outpatient. We will follow the patient Final diagnosis: Acute DVT. Anticoagulation. On heparin. Status post ileostomy reversal. History of colon cancer. Paralytic ileus. History of neurogenic bladder, indwelling Briggs catheter, history of urinary tract infection. He will continue his anticoagulation and will follow the patient Discharge Exam - Head Exam Head Exam: ATRAUMATIC, NORMAL INSPECTION, NORMOCEPHALIC Discharge Plan - Follow Up Plan Condition: GOOD Disposition: HOME/ ROUTINE Instructions: How to Care for Your Briggs Catheter, Male, Full Liquid Diet, Briggs Catheter, Male, Ostomy Reversal, Managing Pain After Surgery Additional Instructions: Please follow up with your surgeon Dr. Rainey in 2 weeks. Please call office to make an appointment. Resume soft diet as tolerated. No heavy lifting greater than 15 lb for next 4 weeks. Resume home medications. Referrals: Matt Rojo MD [Staff Provider] - Melchor Rainey MD [Staff Provider] -
== END 2018-09-27 12:45 | disposition home or self-care (01) | DRG 988 ==
LOC: C.SDS 07:55 → UNDOADMIN 10:36 → C.9S 10:36 → C.6T 17:18
PROVIDERS: ADMIT Internal Medicine; ATTEND Internal Medicine
PROC: 0WJP4ZZ Inspection of Gastrointestinal Tract, Percutaneous Endoscopic Approach (ICD-10-PCS; 2018-09-17)
PROC: 3E0T3BZ Introduction of Anesthetic Agent into Peripheral Nerves and Plexi, Percutaneous Approach (ICD-10-PCS; 2018-09-17)
PROC: 0DBB0ZZ Excision of Ileum, Open Approach (ICD-10-PCS; principal; 2018-09-17 12:30)
DX: I82.401 Acute embolism and thrombosis of unspecified deep veins of right lower extremity (principal); K56.0 Paralytic ileus; Z43.2 Encounter for attention to ileostomy; Z85.038 Personal history of other malignant neoplasm of large intestine; I12.9 Hypertensive chronic kidney disease with stage 1 through stage 4 chronic kidney disease, or unspecified chronic kidney disease; E78.5 Hyperlipidemia, unspecified; N18.9 Chronic kidney disease, unspecified; H91.90 Unspecified hearing loss, unspecified ear; E78.00 Pure hypercholesterolemia, unspecified; E11.22 Type 2 diabetes mellitus with diabetic chronic kidney disease; N31.9 Neuromuscular dysfunction of bladder, unspecified